=== PATIENT | female | born 1945 | race Caucasian/White ===

== ENCOUNTER → 2016-10-31 | Outpatient (CLI) | payer MEDICARE, BC ==
--- NOTE | 2016-11-01 11:35 | MM ---
Reason for exam: screening (asymptomatic). Last mammogram was performed 1 year ago. History: Patient is postmenopausal. Family history of breast cancer in mother at age 80. Physical Findings: A clinical breast exam by your physician is recommended on an annual basis and results should be correlated with mammographic findings. MG 3D Screening Mammo W/Cad Bilateral CC and MLO view(s) were taken. XCCL view(s) were taken of the left breast. Prior study comparison: October 17, 2015, bilateral MG 3d screening mammo w/cad. January 29, 2013, bilateral digital screening mammo w/CAD. The breast tissue is almost entirely fat. No significant changes when compared with prior studies. ASSESSMENT: Negative, BI-RAD 1 RECOMMENDATION: Routine screening mammogram of both breasts in 1 year.
== END | disposition home or self-care (01) ==
LOC: RADMAMWWP 13:34
PROVIDERS: ATTEND Family Medicine
DX: Z12.31 Encounter for screening mammogram for malignant neoplasm of breast (principal)
CPT/HCPCS: 77063; G0202

== ENCOUNTER → 2017-10-31 | Outpatient (CLI) | payer MEDICARE, BC | END | disposition home or self-care (01) | LOC: LABPAT 13:02 | PROVIDERS: ATTEND Family Medicine | DX: Z01.812 Encounter for preprocedural laboratory examination (principal) | CPT/HCPCS: 87070 ==

== ENCOUNTER 2017-11-11 06:17 | Inpatient (IN) | payer MEDICARE, BC ==
[2017-10-30 09:20] VITALS: BMI 45.3
--- NOTE | 2017-11-10 09:11 | HP ---
HISTORY AND PHYSICAL CHIEF COMPLAINT: Left knee pain. HISTORY OF PRESENT ILLNESS: The patient is a 72-year-old retired female who presents with progressive left knee pain over the past year. She has tried conservative measures with medications. In addition to use of a cane. She notes the pain severely limits her normal function and activities. PAST MEDICAL HISTORY: Significant for type 2 diabetes, hypercholesterolemia, hypertension, and hypothyroidism along with obesity. PAST SURGICAL HISTORY: Significant for gastric stapling, hysterectomy, cholecystectomy, previous knee surgery and appendectomy along with cervical fusion. CURRENT MEDICATIONS: 1. Atorvastatin. 2. Levothyroxine. 3. Lisinopril. 4. Tramadol. 5. Gabapentin. 6. Hydrochlorothiazide. ALLERGIES: She denies drug allergies. FAMILY HISTORY: Significant for diabetes and cancer. SOCIAL HISTORY: Significant for social alcohol use. REVIEW OF SYSTEMS: Sixteen point review of systems otherwise reviewed and is noncontributory. PHYSICAL EXAMINATION: On examination, the patient is approximately 5 feet 3 inches, 240 pounds of endomorphic habitus with a BMI of 42.51. HEENT exam is nonfocal. Neck is supple. She has painless passive motion of her left hip. Straight leg raise is negative. Active motion left knee -6 to 105 degrees of flexion. She is tender about the medial joint line. She has a mild effusion. Collaterals are stable, Laila's negative, Myron's is equivocal. She has genu varum alignment. Her distal neurovascular exam appears intact in the left lower extremity. Previous weightbearing notch lateral and Merchant views of the left knee obtained in the office show severe medial and patellofemoral compartment narrowing. IMPRESSION: 1. Left knee severe medial and patellofemoral compartment osteoarthrosis. 2. Obesity with body mass index of 42.51. RECOMMENDATIONS: I talked to the patient at length regarding her condition and treatment options. At this point, she is quite symptomatic. She opts to proceed with surgery. We will plan to proceed with left total knee arthroplasty. We will institute DVT prophylaxis postoperatively. The patient underwent preoperative medical evaluation by Dr. Pieter Black. MMDESTINEYL / PATELN: [id number] /
[~2017-11-11 06:17] MED LIST: ACETAMINOPHEN TAB 500 MG TAB PO ONE; LIDOCAINE 1% 20 ML VIAL (10MG/ML) FOR IV START INTRADERMA PRN; MELOXICAM 7.5 MG TAB PO ONE; MIDAZOLAM 2 MG/2 ML VIAL IV PRN; ONDANSETRON 4 MG/2 ML VIAL IVP ONE; TRANEXAMIC ACID 1,000 MG in SODIUM CHLORIDE 0.9% 50 ML IVPB ONE; fentaNYL (PF) 50 MCG/ML 2 ML AMP IVP PRN
[2017-11-11] MEDS: LACTATED RINGERS 1,000 ML IV SCH (07:07)
[2017-11-11 07:23] LABS: Glucose,Whole Blood 101 mg/dL (75-99)
[2017-11-11] MEDS ORDERED: LIDOCAINE 1% INJ 10MG/ML (20 ML MDV) ONE (08:06)
[2017-11-11] MEDS ORDERED: SODIUM CHLORIDE 0.9% 100 ML BAG ONE (08:06)
[2017-11-11] MEDS ORDERED: TRANEXAMIC ACID 1,000 MG/10 ML VIAL ONE (08:06)
[2017-11-11] MEDS ORDERED: ROPIVACAINE 246.25 MG, EPINEPHrine 0.5 MG, KETOROLAC 30 MG, cloNIDine HCL/PF 80 MCG, WA... MISCELLANE ONE ×5 (08:06)
[2017-11-11] MEDS ORDERED: MIDAZOLAM 2 MG/2 ML VIAL ONE (08:06)
[2017-11-11] MEDS ORDERED: fentaNYL (PF) 50 MCG/ML 2 ML AMP ONE (08:06)
[2017-11-11] MEDS ORDERED: PROPOFOL 10 MG/ML 20 ML VIAL IV ONE (08:06)
[2017-11-11] MEDS ORDERED: ePHEDrine SULFATE/0.9% NACL/PF 50 MG/5 ML SYRINGE IV ONE (08:06)
[2017-11-11] MEDS ORDERED: ceFAZolin 1,000 MG/50 ML BAG (PMX) IVPB ONE (08:08)
[2017-11-11] MEDS ORDERED: ceFAZolin 3,000 MG in SODIUM CHLORIDE 0.9% IRRIGATIO 3,000 ML IRRIGATION ONE (08:56)
[2017-11-11] MEDS ORDERED: LACTATED RINGERS 1,000 ML IV ONE (09:09)
[2017-11-11] MEDS ORDERED: ROPIVACAINE 1,100 MG, SODIUM CHLORIDE 0.9% 330 ML MISCELLANE PRN ×2 (09:55)
[2017-11-11] MEDS ORDERED: MORPHINE SULFATE 2 MG/ML SYRINGE IVP PRN ×2 (09:57)
[2017-11-11] MEDS ORDERED: HYDROcodone/APAP 5-325MG 1 EACH TAB PO PRN (09:57)
[2017-11-11] MEDS ORDERED: ACETAMINOPHEN TAB 325 MG TAB PO PRN (09:57)
[2017-11-11] MEDS ORDERED: NALOXONE 0.4 MG/ML 1 ML VIAL IV PRN (09:57)
[2017-11-11] MEDS ORDERED: ONDANSETRON 4 MG/2 ML VIAL IVP PRN (09:57)
[2017-11-11] MEDS ORDERED: MAGNESIUM HYDROXIDE 2,400 MG/10 ML CUP PO PRN (09:57)
--- NOTE | 2017-11-11 09:57 | P.ONQ ---
Anesthesiology Proc Note - PNB - Peripheral Nerve Block Performed Left Adductor Canal Procedure Start Time: 07:27 Procedure Stop Time: 07:42 Indication: Acute Post-Operative Pain, Requested by physician (Dr Thomas) Sedation Type: Sedate with meaningful contact maintained Preparation: Sterile Dressing Position: Supine Catheter: Indwelling Needle Types: Other (see comment) (Néstor) Needle Size: 100mm (4") Needle Gauge: 21 Technique: Ultrasound Injectate: 0.5% Ropivacaine (see comment for volume) (23cc) Blood Aspirated: No Pain Paresthesia on Injection Noted: No Resistance on Injection: Normal Events: Uneventful and Well Tolerated
--- NOTE | 2017-11-11 10:34 | P.OP ---
Date of Procedure: 11/11/17 Preoperative Diagnosis: Left knee severe tricompartmental osteoarthrosis Postoperative Diagnosis: Same Procedure(s) Performed: Left total knee lvsdnkisasse-ondnppdl-oqgfjilkj stabilized Implants: Depuy Attune size 6 cemented posterior stabilized femoral component, size 5 cemented tibial component, 10 mm articular surface, 32 mm cemented patellar component. Anesthesia: regional, local, spinal Surgeon: Mike Thomas Insurance Examiner #1: Benny Flores Estimated Blood Loss (ml): 50 Pathology: other (Bone fragments) Condition: stable Disposition: PACU Indications for Procedure: The patient's a 72-year-old female who presents with progressive left knee pain secondary to osteoarthrosis despite conservative measures. A discussion of the risks and benefits of operative intervention versus continued conservative measures was made with the patient. She opted proceed with surgery. Operative risks to include infection, neurovascular injury, development of blood clots, possible component loosening, possible component failure and need for subsequent procedures was discussed. Informed consent was obtained. Operative Findings: As below Description of Procedure: The patient was brought to the operating room, and after induction of spinal anesthesia the left lower extremity was prepped and draped in normal fashion. The tourniquet was inflated to 270 mmHg. A longitudinal incision extending 3 finger breaths above the superior pole of patella extending to the medial aspect of the tibial tubercle was then made. The skin and subcutaneous tissues were divided sharply. Electrocautery was used for hemostasis. A medial parapatellar arthrotomy was then performed. The medial soft tissues to include the superficial and deep portions the medial collateral ligament as well as the medial hamstring tendons were elevated subperiosteally. The proximal medial tibial osteophytes were carefully removed. The patella was everted. A portion of the retropatellar fat pad was excised sharply. The knee was flexed. The anterior cruciate ligament was previously ruptured. A starting hole was made in the distal femur 1 cm anterior to the posterior cruciate ligament origin. An intramedullary femoral guide was gently inserted planning on 5 valgus distal cut with a 9 mm distal resection. The cutting block was pinned in place. The distal cut was then made. The posterior referencing sizing guide was utilized. I felt size 6 was most appropriate. 3 of external rotation was built into the system and verified off the trans-epicondylar axis and the posterior condyles. The cutting block was pinned in place. The anterior, posterior, and chamfer cuts were then made. The bone fragments were then removed. The box guide was used for the intercondylar cut utilizing a reciprocating saw. The bone was removed. The trial size 6 femoral component was placed and was fully seated. There was good anterior to posterior and medial to lateral fit. The distal peg holes were drilled. Attention was then paid towards preparing the proximal tibia. An extra medullary tibial guide was utilized in line with the tibial shaft and second metatarsal distally. A 0 posterior slope cutting block was utilized. I planned on 2 mm resection from the medial compartment. The cutting block was pinned in place. The proximal tibial cut was made and the bone removed in one fragment. The flexion gap was still tight and therefore additional 2 mm was resected from the proximal tibia. The tibia sized most appropriate size 5. The remnants of the medial and lateral menisci were excised the capsule junction with electrocautery. The trial femoral and tibial components were placed along with a 10 mm articular surface. I was able to obtain full flexion and extension with good stability with varus and valgus stress. After several flexion and extension cycles, the tibial rotation was marked in line with the medial one third of the tibial tubercle with electrocautery. Attention was then paid towards preparing the patella. A patella reamer was utilized taking senna 14 mm of bone stock. A good flush cut was made. The patella sized most appropriately 32 mm per the peg holes were drilled. The trial components placed. The knee was again taken through a range of motion. I had good patellofemoral tracking with no hands technique. The trial components were then removed. The tibia was prepared in the appropriate rotation with appropriate drill and keel punch. Additional drill holes were made in the proximal medial tibia to facilitate cement interdigitation. The posterior osteophytes off the distal femur were carefully removed with a curved osteotome. The flexion and extension gaps were checked and felt to be symmetric. The posterior soft tissues were injected with ropivacaine. The bony surfaces were prepared with pulsatile lavage and dried. The tibial component was then cemented in placed and was fully seated. Excess cement was removed. The femoral component cemented in placed and was fully seated. Excess cement was removed. The trial 10 mm articular surface was placed and the knee was put in full extension. The patellar component cemented in place. After the cement had sufficiently hardened, the knee was again taken through range of motion. Again I was able to obtain full flexion and extension with good stability with varus and valgus stress. The trial articular surface was removed and the final one inserted. This was fully seated. Care was taken to avoid any soft tissue interposition. Pulsatile lavage was again utilized. The tourniquet was deflated with approximately 1 hour total tourniquet time. Final hemostasis was obtained with electrocautery. Second dose of IV TXA was given. The medial parapatellar arthrotomy was closed with running #2 Ethibond suture. A deep drain was placed exiting laterally. The subcutaneous tissues were reapproximated interrupted 2-0 Vicryl sutures. The skin was reapproximated with a 3-0 subcuticular strata fix suture. Skin tape and adhesive was applied. A sterile dressing was applied. The patient was then awoken from sedation and transferred to the recovery room in good condition. Blood loss was estimated 50 mL. case were incurred. Sponge and needle counts were correct at the end of the case.
--- NOTE | 2017-11-11 11:06 | XR ---
EXAMINATION TYPE: XR knee limited LT DATE OF EXAM: 11/11/2017 CLINICAL HISTORY: Left knee pain and arthritis status post total knee replacement. TECHNIQUE: Portable AP and crosstable lateral views of the left knee are obtained immediately postop eratively. COMPARISON: None FINDINGS: Metallic hardware from total left knee arthroplasty is seen and appears satisfactory in al ignment and position. There is evidence of recent surgery with diffuse subcutaneous gas, and percuta neous suprapatellar surgical drain noted. IMPRESSION: METALLIC HARDWARE FROM TOTAL LEFT KNEE ARTHROPLASTY IS SATISFACTORY IN ALIGNMENT.
[2017-11-11] MEDS: traMADol 50 MG TAB PO SCH ×3 (12:09→22:21)
[2017-11-11] MEDS: MORPHINE SULFATE 2 MG/ML SYRINGE IV PRN ×2 (12:57→22:19)
[2017-11-11] MEDS: ceFAZolin IN SWFI 2 GM/20 ML SYRINGE IVP SCH (15:50)
[2017-11-11] MEDS ORDERED: ceFAZolin 3 GM in SODIUM CHLORIDE 0.9% 100 ML IVPB SCH (16:00)
[2017-11-11] MEDS: SENNOSIDES-DOCUSATE SODIUM 1 EACH TAB PO SCH (22:22)
[2017-11-12] MEDS: ceFAZolin IN SWFI 2 GM/20 ML SYRINGE IVP SCH (01:01)
[2017-11-12] MEDS: HYDROcodone/APAP 5-325MG 1 EACH TAB PO PRN ×4 (01:06→18:37)
--- NOTE | 2017-11-12 06:06 | CONS ---
CONSULTATION DATE OF CONSULTATION: 11/11/17. REASON FOR CONSULTATION: Medical management requested by Dr. Thomas. CONSULTATIONS: A very pleasant 72-year-old patient of Dr. Alvarado Black out of [place]. The patient has undergone a left total knee arthroplasty. Postprocedure pain is controlled. No nausea, vomiting. Chronic stable medical conditions include diabetes, fibromyalgia, GERD, hypertension, hyperlipidemia, hypothyroid. The patient does not use a CPAP machine as physical the way she is probably using it. Did tolerate some breakfast. REVIEW OF SYSTEMS: CONSTITUTIONAL: None. HEENT: None. RESPIRATORY: None. CARDIOVASCULAR: None. GASTROINTESTINAL: Heartburn. MUSCULOSKELETAL: Arthritic pain in joints. DERMATOLOGICAL, HEMATOLOGIC, LYMPHATIC: None. PSYCHIATRY: None. NEUROLOGICAL: None. PAST MEDICAL HISTORY: Diabetes, fibromyalgia, GERD, hypertension, hyperlipidemia, osteoarthritis, hypothyroid, obstructive sleep apnea, varicose veins. PAST SURGICAL HISTORY: Adenoidectomy, appendectomy, bariatric surgery, cholecystectomy, hysterectomy, tonsillectomy, tubal ligation, gastric stapling, cervical fusion, right knee replacement. SOCIAL HISTORY: , used to work with the [employer]. Smoked for 8 years, stopped in 1974. Alcohol occasional. FAMILY HISTORY: Breast and cervical cancer. HOME MEDICATIONS: 1. Ultram 50 mg q.i.d. p.r.n. 2. Hair, skin and nails 1 tablet p.o. daily. 3. Maxzide 37.5/25 1 tab p.o. daily. 4. Centrum Silver 1 tablet p.o. daily. 5. Zestril 2.5 p.o. daily at 2:00 pm. 6. Synthroid 125 mcg p.o. daily. 7. Neurontin 800 mg p.o. t.i.d. p.r.n. 8. Vitamin D3 5000 units p.o. daily. 9. Lipitor 40 mg p.o. with supper. 10.Aspirin 81 60 mg p.o. daily. 11.Xarelto 10 mg p.o. daily. ALLERGIES: None. EXAMINATION: Temp 97.5, pulse 100, respirations 18, blood pressure 120/57, pulse 92% on room air. GENERAL APPEARANCE: Well built, BMI 45.2, sitting up, comfortable. EYES: Pupils equal. Conjunctivae normal. HEENT: External appearance of nose and ears normal. Oral cavity normal. NECK: JVD not raised. Mass not palpable. RESPIRATORY: Effort lungs are clear. CARDIOVASCULAR: First and second sounds, no edema. ABDOMEN: Soft, nontender. Liver and spleen not palpable. LYMPHATIC: No lymph nodes palpable in neck or axillae. PSYCHIATRY: Alert and oriented x3. Mood and affect normal. INVESTIGATION: Accu-Cheks 101. ASSESSMENT: 1. Left total knee arthroplasty. 2. Chronic fibromyalgia. 3. Gastroesophageal reflux disease. 4. Hyperlipidemia. 5. Essential hypertension. 6. Primary osteoarthritis. 7. Hypothyroidism. 8. Obstructive sleep apnea, does not use CPAP. 9. Morbid obesity, BMI 45.3. PLAN: Continue medication and treatment plan. Patient getting IV fluids. The patient will be given Xarelto for DVT prophylaxis. Care was discussed with the patient. Questions were answered. Thank you Dr. Thomas. MARISEL / CHANEL: [id number] /
[2017-11-12] MEDS: LACTATED RINGERS 1,000 ML IV SCH (06:37)
[2017-11-12 07:30] LABS: Basophils % (A) 0 %; Eosinophils # (A) 0.1 k/uL (0-0.7); Eosinophils % (A) 1 %; HCT 38.6 % (34.0-46.0); HGB 12.6 gm/dL (11.4-16.0); Lymphocytes # (A) 1.2 k/uL (1.0-4.8); Lymphocytes % (A) 21 %; MCHC 32.7 g/dL (31.0-37.0); Monocytes # (A) 0.6 k/uL (0-1.0); Monocytes % (A) 10 %; Neutrophils # (A) 3.8 k/uL (1.3-7.7); Neutrophils % (A) 66 %; Platelet Count 148 k/uL (150-450); RBC 4.07 m/uL (3.80-5.40); RDW 13.8 % (11.5-15.5); WBC 5.7 k/uL (3.8-10.6)
[2017-11-12] MEDS: FAMOTIDINE 20 MG TAB PO SCH (08:24)
[2017-11-12] MEDS: RIVAROXABAN 10 MG TAB PO SCH (08:24)
[2017-11-12] MEDS: traMADol 50 MG TAB PO SCH ×4 (08:25→22:42)
--- NOTE | 2017-11-12 08:44 | P.PN ---
Progress Note - Text Progress Note Date: 11/12/17 S: The patient has no complaints. They deny shortness of breath or chest pain. O: Afebrile, vital signs stable Homans negative left lower extremity Distal neurovascular status intact in the left lower extremity Incision clean, dry , and intact A/P: Postoperative day 1 status post left total knee arthroplasty Medical management DVT prophylaxis with Xarelto Discharge planningpossible rehab
[2017-11-12 11:52] LABS: Glucose,Whole Blood 153 mg/dL (75-99)
--- NOTE | 2017-11-12 18:20 | P.PN ---
Progress Note - Text The patient is status post left adductor canal catheter placement. The catheter was placed for postoperative pain control, status post total left arthroplasty. Ropivacaine 0.2% is infusing at 12 mLs per hour. The patient has no complaints of left lower extremity numbness or weakness. Patient's VAS score is 3-10. Assessment: Patient's adductor canal catheter is in place and working appropriately. Plan: continue infusion and adjust it as needed.
--- NOTE | 2017-11-12 19:52 | PN ---
PROGRESS NOTE DATE OF SERVICE: 11/12/2017 PRESENTING COMPLAINT: Left knee arthroplasty. INTERVAL HISTORY: Patient is status post left knee arthroplasty, doing well. Some pain is present. No nausea vomiting. Sitting up in a chair. Did work with therapy. REVIEW OF SYSTEMS: Done for constitutional, cardiovascular, GI, pulmonary; relevant findings as above. CURRENT MEDICATIONS: Reviewed. EXAMINATION: Temperature 98.2, pulse 60, respirations 16, blood pressure 120/68, pulse ox 93% on room air. GENERAL APPEARANCE: Sitting up on chair, comfortable. EYES: Pupils equal. Conjunctivae normal. HEENT: External appearance of nose and ears normal. Oral cavity normal. NECK: JVD not raised. Mass not palpable. RESPIRATORY: Effort normal. LUNGS: Clear. CARDIOVASCULAR: First and second sounds normal. No edema. ABDOMEN: Soft, nontender. Liver and spleen not palpable. PSYCHIATRY: Alert and oriented x3. Mood and affect normal. INVESTIGATIONS: Hemoglobin 12.6. Accu-Cheks noted. ASSESSMENT: 1. Left total knee arthroplasty. 2. Chronic fibromyalgia. 3. Gastroesophageal reflux disease. 4. Hyperlipidemia. 5. Essential hypertension. 6. Primary osteoarthritis. 7. Hypothyroidism. 8. Obstructive sleep apnea, does not use CPAP. 9. Morbid obesity, BMI of 45.3. PLAN: Patient continues to do well. Will discontinue the IV fluids. The patient is stable. MMODL / IJN: [id number] /
[2017-11-12] MEDS: SENNOSIDES-DOCUSATE SODIUM 1 EACH TAB PO SCH (22:43)
[2017-11-13] MEDS: HYDROcodone/APAP 5-325MG 1 EACH TAB PO PRN ×4 (01:08→21:11)
[2017-11-13] MEDS: traMADol 50 MG TAB PO SCH ×4 (07:59→21:39)
[2017-11-13] MEDS: RIVAROXABAN 10 MG TAB PO SCH (08:00)
[2017-11-13] MEDS: FAMOTIDINE 20 MG TAB PO SCH (08:00)
--- NOTE | 2017-11-13 08:29 | P.PN ---
Progress Note - Text The patient is status post left adductor canal catheter placement. The catheter was placed for postoperative pain control, status post total left arthroplasty. Ropivacaine 0.2% is infusing at 12 mLs per hour. The patient has no complaints of left lower extremity numbness or weakness. Patient's VAS score is 3 -10. Assessment: Patient's adductor canal catheter is in place and working appropriately. Plan: continue infusion and adjust it as needed.
[2017-11-13] MEDS ORDERED: GABAPENTIN 400 MG CAP PO PRN (08:59)
[2017-11-13] MEDS: TRIAMTERENE-HCTZ 37.5-25MG 1 EACH TAB PO SCH (09:29)
[2017-11-13] MEDS: LEVOTHYROXINE 125 MCG TAB PO SCH (09:29)
[2017-11-13] MEDS: CHOLECALCIFEROL 1,000 UNIT TAB PO SCH (09:29)
--- NOTE | 2017-11-13 10:40 | US ---
EXAMINATION TYPE: US venous doppler duplex LE LT DATE OF EXAM: 11/13/2017 10:19 AM COMPARISON: NONE CLINICAL HISTORY: calf pa; patient stated has left lower popliteal fossa pain post left knee replacem ent performed 11/11/2017 SIDE PERFORMED: Left TECHNIQUE: The lower extremity deep venous system is examined utilizing real time linear array sonog chrissy with graded compression, doppler sonography and color-flow sonography. VESSELS IMAGED: Common Femoral Vein Deep Femoral Vein Greater Saphenous Vein * Femoral Vein/ not seen distally due to pain pump dressings and tape at this level Popliteal Vein Small Saphenous Vein * Proximal Calf Veins (* superficial vessels) Grayscale, color doppler, spectral doppler imaging performed of the deep veins of the lower extremiti es. Left Leg: Negative for DVT; left popliteal fossa complex fluid collection is noted and size = 3.4 x 3.8 x 1.0cm. There is normal flow, compressibility, vascular waveforms. IMPRESSION: No evident deep venous thrombosis at or above the left knee. Follow-up in 24 to 48 ho urs as clinically indicated if clot propagation from the catheter is suspected clinically. Possible h ematoma in the popliteal fossa, finding indeterminate.
[2017-11-13] MEDS ORDERED: LISINOPRIL 2.5 MG TAB PO SCH (14:00)
--- NOTE | 2017-11-13 14:04 | P.PN ---
Subjective Progress Note Date: 11/13/17 Principal diagnosis: Status post left total knee arthroplasty Patient is seen today resting in hospital bed, she is utilizing the CPM machine. Her pain is controlled. She denies any headaches, lightheadedness, chest pain or shortness of breath. Objective - Vital Signs Vital signs: Vital Signs Temp 98.9 F 11/13/17 07:51 Pulse 113 H 11/13/17 07:51 Resp 18 11/13/17 07:51 BP 161/77 11/13/17 07:51 Pulse Ox 97 11/13/17 07:51 Intake & Output 11/12/17 11/13/17 11/13/17 18:59 06:59 18:59 Intake Total 900 600 657 Balance 900 600 657 Intake: Intake, IV Titration 400 Amount Lactated Ringers 1,000 ml 400 @ 50 mls/hr IV .Q20H LORETA Rx#:[id number] Oral 500 600 657 Other: Voiding Method Indwelling Catheter Toilet Toilet # Voids 1 1 3 - Exam Left lower extremity: Incision is clean, dry, and intact. The prineo tape is in good condition. There is minimal soft tissue swelling and ecchymosis surrounding the medial and lateral aspects of the incision. Calf is soft, no tenderness with palpation. Plantar flexion, dorsiflexion, EHL, FHL are intact. Sensory exam to light touch throughout the extremity is intact, dorsal pedis pulses 2+. - Labs CBC & Chem 7: 11/12/17 07:15 Assessment and Plan Plan: Assessment: 1. Postop day 2 status post left total knee arthroplasty Plan: Pain control, continue use of oral medication GI and DVT prophylaxis, continue subcu Xarelto 10 mg daily encourage assess [place] Wound care was discussed Icing and elevating techniques Medical recommendations Discharge planning: Patient will likely be discharged rehab tomorrow Time with Patient: Less than 30
--- NOTE | 2017-11-13 14:18 | P.DS ---
Providers Date of admission: 11/11/17 06:17 Expected date of discharge: 11/13/17 Attending physician: Mike Thomas Consults: 11/11/17 10:00 Consult Physician Routine Consulting Provider: Pieter Black Reason/Comments: Medical Management Do you want consulting provider notified?: Yes Primary care physician: Pieter Black Hospital Course: Date of admission: 11/11/2017 Date of discharge: 11/14/2017 Admission diagnosis: Status post left total knee arthroplasty Discharge diagnosis: Same Attending physician: Dr. Thomas Surgical procedures: Left total knee arthroplasty Brief history: Patient is a 72-year-old female with a history of left knee primary osteoarthritis. At this point patient has failed conservative treatment measures and has opted to proceed with a elective lite left total knee arthroplasty. Hospital course: Details of patient's surgery can be found in operative report. Patient tolerated the procedure well and was subsequently transported to orthopedic floor. Patient's orthopeidc and medical care was provided daily. Patient had daily laboratory tests performed for evaluation of overall blood counts. Patient had daily physical therapy to include strengthening range of motion as well as education with walker ambulation. Patient had daily CPM usage as part of their physical therapy program. Patient was treated with Xarelto for their postoperative DVT prophylaxis during their inpatient stay. Patient was noted to have a relatively uneventful postoperative course. Patient reported satisfactory pain control with oral pain medications by postoperative day 1. Patient showed satisfactory progress with physical therapy. Patient moved steadily through the program and had no difficulty meeting the goals by postoperative day 3. Given patient's otherwise satisfactory course and having met physical therapy goals, plan is to discharge patient rehab on postoperative day 3. Discharge condition/disposition: Patient will be discharged rehab in stable condition. Discharge medications: Instructions are given on resumption of patient's normal daily medications per primary care recommendation, in addition patient will be prescribed Bristol 5mg/325mg, Xarelto 10mg, Colace 100mg. Discharge instructions: 1. Wound care and infection precautions, keep incision dry and covered while showering, no lotions, creams, moisturizers. No soaking, tubs, pools, hottubs. Do not scrub over the incision. 2. Weight-bear as tolerated with walker / cane until follow-up. 3. Ice and elevate when necessary. Do not exceed 20 minutes per hour with ice pack. 4. Utilize compression sleeve until seen at first follow up appointment. 5. Visiting nursing care. 6. Home physical therapy including home CPM 7. Pain meds and anticoagulants per prescription. 8. Pain medication has potential to cause constipation. Increase oral fluid and fiber intake. Contact primary care provider if you have not had a bowel movement within 48 hours after discharge 9. No anti-inflammatory medication until discussed at first post operative visit, this including Motrin, Aleve, Mobic, Diclofenac 10. Follow up in office at 2 weeks postop with Jeronimo Flores PA-C 11. Follow up with your primary care doctor 7-10 days after discharge. 12. Contact [facility] with any questions, . Procedures: Left total knee arthroplasty Patient Condition at Discharge: Good Plan - Discharge Summary Discharge Rx Participant: Yes New Discharge Prescriptions: New Rivaroxaban [Xarelto] 10 mg PO DAILY #12 tab Docusate [Colace] 100 mg PO DAILY #30 capsule Hydrocodone/Acetaminophen [Bristol 5-325] 1 - 2 each PO Q6HR PRN #56 tab PRN Reason: Pain traMADol HCl [Ultram] 50 mg PO Q6H PRN #28 tab PRN Reason: Pain Discontinued traMADol HCl [Ultram] 50 mg PO QID PRN PRN Reason: Pain No Action Gabapentin [Neurontin] 800 mg PO TID PRN PRN Reason: Pain Atorvastatin [Lipitor] 40 mg PO PC-SUPPER Triamterene-Hctz 37.5-25Mg [Maxzide 37.5-25] 1 tab PO DAILY Levothyroxine Sodium [Synthroid] 125 mcg PO QAM Aspirin EC [Ecotrin] 162 mg PO DAILY Vitamin C/Biotin [Hair, Skin and Nails] 1 tab PO DAILY Multivit-Min/Iron/Folic/Lutein [Centrum Silver Women Tablet] 1 tab PO DAILY Cholecalciferol [Vitamin D3] 5,000 unit PO DAILY Lisinopril [Zestril] 2.5 mg PO DAILY@1400 Discharge Medication List Atorvastatin [Lipitor] 40 mg PO PC-SUPPER 11/16/13 [History] Gabapentin [Neurontin] 800 mg PO TID PRN 11/16/13 [History] Levothyroxine Sodium [Synthroid] 125 mcg PO QAM 11/16/13 [History] Triamterene-Hctz 37.5-25Mg [Maxzide 37.5-25] 1 tab PO DAILY 11/16/13 [History] Aspirin EC [Ecotrin] 162 mg PO DAILY 09/27/15 [History] Cholecalciferol [Vitamin D3] 5,000 unit PO DAILY 10/30/17 [History] Lisinopril [Zestril] 2.5 mg PO DAILY@1400 10/30/17 [History] Multivit-Min/Iron/Folic/Lutein [Centrum Silver Women Tablet] 1 tab PO DAILY [History] Vitamin C/Biotin [Hair, Skin and Nails] 1 tab PO DAILY 10/30/17 [History] Rivaroxaban [Xarelto] 10 mg PO DAILY #12 tab 11/11/17 [Rx] Docusate [Colace] 100 mg PO DAILY #30 capsule 11/13/17 [Rx] Hydrocodone/Acetaminophen [Bristol 5-325] 1 - 2 each PO Q6HR PRN #56 tab 11/13/17 [Rx] traMADol HCl [Ultram] 50 mg PO Q6H PRN #28 tab 11/13/17 [Rx] Follow up Appointment(s)/Referral(s): Benny Flores PAC [PHYSICIAN [facility] [employer]] - 11/26/17 2:10 pm Pieter Black MD [Primary Care Provider] - 11/19/17 1:15 pm Activity/Diet/Wound Care/Special Instructions: Orthopedic Discharge Instructions: 1. Wound care and infection precautions, keep incision dry and covered while showering, no lotions, creams, moisturizers. No soaking, pools, hot tubs. Do not scrub over incision. 2. Weight-bear as tolerated with walker / cane until follow-up. 3. Ice and elevate when necessary. Do not exceed 20 minutes per hour with ice pack. 4. Utilize compression sleeve until seen at first follow up appointment. 5. Visiting nursing care. 6. Home physical therapy including home CPM. 7. Pain meds and anticoagulants per prescription. 8. Pain medication has potential to cause constipation. Increase oral fluid and fiber intake. Contact primary care provider if you have not had a bowel movement within 48 hours after discharge. 9. No anti-inflammatory medication until discussed at first post operative visit, this including Motrin, Aleve, Mobic, Diclofenac. 10. Follow up in office at 2 weeks postop with Jeronimo Flores PA-C 11. Follow up with your primary care doctor 7-10 days after discharge. 12. Contact [facility] with any questions, . Discharge Disposition: HOME WITH HOME HEALTH SERVICES
[2017-11-13] MEDS ORDERED: ATORVASTATIN 40 MG TAB PO SCH (18:30)
--- NOTE | 2017-11-13 18:59 | PN ---
PROGRESS NOTE DATE OF SERVICE: November 13, 2017 PRESENT COMPLAINT: Left knee arthroplasty. INTERVAL HISTORY: Patient is status post left knee arthroplasty, doing better. Pain is controlled. Did work with therapy. Tolerating a diet. REVIEW OF SYSTEMS: Done for constitutional, cardiovascular, GI, pulmonary, musculoskeletal and relevant findings as above. CURRENT MEDICATIONS: Reviewed. EXAMINATION: VITAL SIGNS: Temperature 98.9, pulse 113, respiration 18, blood pressure 116/77. Pulse ox 97%. GENERAL APPEARANCE: Sitting up in a chair, comfortable. EYES: Pupils are equal. Conjunctivae normal. HEENT: External appearance of nose and ears normal. Oral cavity normal. NECK: JVD not raised. Mass not palpable. RESPIRATORY: Effort, lungs are clear. CARDIOVASCULAR: 1st and 2nd sounds no edema. ABDOMEN: Soft, nontender. Liver and spleen not palpable. PSYCHIATRY: Alert and oriented x3. Mood and affect normal. INVESTIGATIONS: White count 5.7, hemoglobin 12.6. ASSESSMENT: 1. Left total knee arthroplasty. 2. Chronic fibromyalgia. 3. Gastroesophageal reflux disease. 4. Hyperlipidemia. 5. Essential hypertension. 6. Primary osteoarthritis. 7. Hypothyroidism. 8. Obstructive sleep apnea does not use CPAP. 9. Morbid obesity BMI 45.3. PLAN: Care was discussed with the patient. Continues to improve. Looking to go to rehab. MMODL / IJN: [id number] /
[2017-11-13] MEDS: SENNOSIDES-DOCUSATE SODIUM 1 EACH TAB PO SCH (20:30)
[2017-11-14 02:29] VITALS: RESP 16; TEMP 98.1
[2017-11-14] MEDS: LEVOTHYROXINE 125 MCG TAB PO SCH (05:52)
[2017-11-14] MEDS: HYDROcodone/APAP 5-325MG 1 EACH TAB PO PRN ×2 (05:52→12:34)
[2017-11-14 06:43] LABS: Basophils % (A) 0 %; Eosinophils # (A) 0.1 k/uL (0-0.7); Eosinophils % (A) 1 %; HCT 42.9 % (34.0-46.0); HGB 13.9 gm/dL (11.4-16.0); Lymphocytes # (A) 2.3 k/uL (1.0-4.8); Lymphocytes % (A) 26 %; MCH 30.6 pg (25.0-35.0); MCHC 32.4 g/dL (31.0-37.0); MCV 94.2 fL (80.0-100.0); Mean Platelet Volume 6.8; Monocytes # (A) 0.5 k/uL (0-1.0); Monocytes % (A) 5 %; Neutrophils # (A) 5.8 k/uL (1.3-7.7); Neutrophils % (A) 65 %; Platelet Count 224 k/uL (150-450); RBC 4.56 m/uL (3.80-5.40); RDW 13.6 % (11.5-15.5)
[2017-11-14 07:35] VITALS: BP 109/69; PULSE 80
[2017-11-14] MEDS: FAMOTIDINE 20 MG TAB PO SCH (09:23)
[2017-11-14] MEDS: CHOLECALCIFEROL 1,000 UNIT TAB PO SCH (09:23)
[2017-11-14] MEDS: RIVAROXABAN 10 MG TAB PO SCH (09:24)
[2017-11-14] MEDS: traMADol 50 MG TAB PO SCH (09:24)
[2017-11-14] MEDS: TRIAMTERENE-HCTZ 37.5-25MG 1 EACH TAB PO SCH (09:24)
--- NOTE | 2017-11-15 01:08 | PN ---
PROGRESS NOTE DATE OF SERVICE: 11/14/2017. PRESENTING COMPLAINT: Left knee arthroplasty. INTERVAL HISTORY: I saw this patient earlier today. Doing well. Pain is controlled. Up and about with therapy, tolerating a diet. No chest pain or short of breath. REVIEW OF SYSTEMS: Done for constitutional, cardiovascular, GI, pulmonary, musculoskeletal and relevant findings as above. CURRENT MEDICATIONS: Reviewed. EXAMINATION: VITAL SIGNS: Temperature 98.1, pulse 82, respiratory rate 16, blood pressure 109/69, pulse ox 93% on room air. GENERAL APPEARANCE: Sitting in a chair, comfortable. EYES: Pupils are equal. Conjunctivae normal. HEENT: External appearance of nose and ears normal. Oral cavity normal. NECK: JVD not raised. Mass not palpable. RESPIRATORY: Effort normal. LUNGS are clear. CARDIOVASCULAR: 1st and 2nd sounds normal. No edema. ABDOMEN: Soft, nontender. Liver and spleen not palpable. PSYCHIATRY: Alert and oriented x3. Mood and affect normal. INVESTIGATIONS: Hemoglobin 13.9, white count 9. ASSESSMENT: 1. Left total knee arthroplasty. 2. Chronic fibromyalgia. 3. Gastroesophageal reflux disease. 4. Hyperlipidemia. 5. Essential hypertension. 6. Primary osteoarthritis. 7. Hypothyroidism. 8. Obstructive sleep apnea does not use CPAP. 9. Morbid obesity BMI 45.3. PLAN: Patient is stable. Continue current medication and treatment plan. Doing good. Patient may be getting transferred to rehab. Thank you Dr. Thomas. MARISEL / CHANEL: [id number] /
== END 2017-11-14 14:18 | disposition home health service (06) | DRG 470 ==
LOC: 2ORMAIN 06:17 → 3SUR 10:32
PROVIDERS: ADMIT Orthopaedic Surgery; ATTEND Orthopaedic Surgery
PROC: 0SRD069 Replacement of Left Knee Joint with Oxidized Zirconium on Polyethylene Synthetic Substitute, Cemented, Open Approach (ICD-10-PCS; principal; 2017-11-11 08:00)
DX: M17.12 Unilateral primary osteoarthritis, left knee (principal); Z68.42 Body mass index [BMI] 45.0-49.9, adult; E03.9 Hypothyroidism, unspecified; E11.9 Type 2 diabetes mellitus without complications; E66.01 Morbid (severe) obesity due to excess calories; E78.00 Pure hypercholesterolemia, unspecified; E78.5 Hyperlipidemia, unspecified; G47.33 Obstructive sleep apnea (adult) (pediatric); I10 Essential (primary) hypertension; K21.9 Gastro-esophageal reflux disease without esophagitis; M79.7 Fibromyalgia; I83.90 Asymptomatic varicose veins of unspecified lower extremity; Z96.651 Presence of right artificial knee joint; Z90.710 Acquired absence of both cervix and uterus; Z90.49 Acquired absence of other specified parts of digestive tract; Z98.1 Arthrodesis status; Z79.01 Long term (current) use of anticoagulants; Z79.899 Other long term (current) drug therapy; Z83.3 Family history of diabetes mellitus; Z80.3 Family history of malignant neoplasm of breast; Z80.49 Family history of malignant neoplasm of other genital organs
CPT/HCPCS: 85025; 88300

== ENCOUNTER 2018-12-26 15:58 | Emergency (ER) | payer MEDICARE, BC ==
[2018-12-26 16:09] VITALS: TEMP 97.9
[2018-12-26] MEDS ORDERED: SODIUM CHLORIDE 0.9% 500 ML 500 ML IV STA (16:41)
--- NOTE | 2018-12-26 16:44 | ED ---
General Adult HPI - General Chief complaint: Shortness of Breath Stated complaint: Sob/ear pain Time Seen by Provider: 12/26/18 16:13 Source: patient Mode of arrival: ambulatory Limitations: no limitations - History of Present Illness Initial comments: Dictation was produced using [employer] dictation software. please excuse any grammatical, word or spelling errors. Chief Complaint: 73-year-old female sent in from urgent care for further evaluation. History of Present Illness: 71-year-old female she was initially seen at [facility] for positional chest pain or shortness of breath. Patient states that yesterday she's been having chest pain and shortness of breath. She states like a pressure-like sensation to her substernal chest however it's only exacerbated with lying flat. She also complains of some shortness of breath with this. Patient denies any medical history. She denies any lower extremity symptoms. D enies any history of DVT or pulmonary embolus. Patient has past medical history of hypertension, diabetes and fibromyalgia. Patient denies any cough. Constitutional symptoms. Patient states that the pain does not radiate and is not associated with diaphoresis. The ROS documented in this emergency department record has been reviewed and confirmed by me. Those systems with pertinent positive or negative responses have been documented in the HPI. All other systems are other negative and/or noncontributory. PHYSICAL EXAM: General Impression: Alert and oriented x3, not in acute distress HEENT: Normocephalic atraumatic, extra-ocular movements intact, pupils equal and reactive to light bilaterally, mucous membranes moist. Cardiovascular: Heart regular rate and rhythm, S1&S2 audible, no murmurs, rubs or gallops Chest: Lungs clear to auscultation bilaterally, no rhonchi, no wheeze, no rales Abdomen: Bowel sounds present, abdomen soft, non-tender, non-distended, no organomegaly Musculoskeletal: Pulses present and equal in all extremities, no peripheral edema Motor: no focal deficits noted Neurological: CN II-XII grossly intact, no focal motor or sensory deficits noted Skin: Intact with no visualized rashes Psych: Normal affect and mood ED course: 73-year-old female presents with positional chest pain and shortness of breath. All signs upon arrival are within acceptable limits. Patient's well-appearing at bedside. EKG is not consistent with pericarditis. There are no ischemic changes Lavatory evaluation obtained. CBC, coag panel, both eyes unremarkable. Troponin is negative. No concern for myocarditis. Patient's symptoms are positional. Prematurity peptide is negative. Chest x-ray shows mild cardiomegaly. EKG is unremarkable. Patient was otherwise department for multiple hours with stable medical condition. She does not appear short of breath and her does not appear to be in acute distress. Patient clear for discharge. She is told to follow-up with her primary care physician. Return parameters discussed. EKG interpretation: Ventricular rate 84, normal sinus rhythm,. Interval 182, care is 86, QTC 432. No GA prolongation, no QTC prolongation, no ST or T-wave changes noted. No change in comparison to 09/27/2015 Overall, this EKG is unremarkable - Related Data Home Medications Medication Instructions Recorded Confirmed Atorvastatin [Lipitor] 40 mg PO PC-SUPPER 11/16/13 12/26/18 Gabapentin [Neurontin] 800 mg PO TID PRN 11/16/13 12/26/18 Levothyroxine Sodium [Synthroid] 125 mcg PO QAM 11/16/13 12/26/18 Triamterene-Hctz 37.5-25Mg 1 tab PO DAILY 11/16/13 12/26/18 [Maxzide 37.5-25] Cholecalciferol [Vitamin D3 (25 5,000 unit PO DAILY 10/30/17 12/26/18 Mcg = 1000 Iu)] Lisinopril [Zestril] 2.5 mg PO DAILY@1400 10/30/17 12/26/18 Multivit-Min/Iron/Folic/Lutein 1 tab PO DAILY 10/30/17 12/26/18 [Centrum Silver Women Tablet] Vitamin C/Biotin [Hair, Skin and 1 tab PO DAILY 10/30/17 12/26/18 Nails] Previous Rx's Medication Instructions Recorded traMADol HCl [Ultram] 50 mg PO Q6H PRN #28 tab 11/13/17 Allergies Allergy/AdvReac Type Severity Reaction Status Date / Time No Known Allergies Allergy Verified 12/26/18 16:31 Review of Systems ROS Statement: Those systems with pertinent positive or pertinent negative responses have been documented in the HPI. ROS Other: All systems not noted in ROS Statement are negative. Past Medical History Past Medical History: Diabetes Mellitus, Fibromyalgia, GERD/Reflux, Hyperlipidemia, Hypertension, Osteoarthritis (OA), Sleep Apnea/CPAP/BIPAP, Thyroid Disorder Additional Past Medical History / Comment(s): varicose veins,SPINAL STENOSIS."pt STATES TOLD BY HER DR SHE IS NOT A DIABETIC ANYMORE", History of Any Multi-Drug Resistant Organisms: None Reported Past Surgical History: Adenoidectomy, Appendectomy, Bariatric Surgery, Cholecystectomy, Heart Catheterization, Hysterectomy, Joint Replacement, Tonsillectomy, Tubal Ligation Additional Past Surgical History / Comment(s): gastric stapling, cervical fusion, rt knee replacment, colonoscopy, pain clinic procedures in [place]. TOTAL LEFT KNEE Past Anesthesia/Blood Transfusion Reactions: No Reported Reaction Past Psychological History: No Psychological Hx Reported Smoking Status: Former smoker Past Alcohol Use History: Occasional Past Drug Use History: None Reported - Past Family History Mother Family Medical History: Cancer Additional Family Medical History / Comment(s): breast and cervical cancer Sister(s) Family Medical History: Cancer Additional Family Medical History / Comment(s): cervical cancer Father Family Medical History: Diabetes Mellitus General Exam Limitations: no limitations Course Vital Signs 12/26/18 12/26/18 16:04 17:08 Temperature 97.9 F Pulse Rate 81 Respiratory 18 20 Rate Blood Pressure 147/82 O2 Sat by Pulse 95 Oximetry Medical Decision Making - Lab Data Result diagrams: 12/26/18 17:00 12/26/18 17:00 Lab Results 12/26/18 12/26/18 12/26/18 Range/Units 17:00 17:00 17:00 WBC 7.2 (3.8-10.6) k/uL RBC 4.72 (3.80-5.40) m/uL Hgb 14.4 (11.4-16.0) gm/dL Hct 44.6 (34.0-46.0) % MCV 94.4 (80.0-100.0) fL MCH 30.4 (25.0-35.0) pg MCHC 32.2 (31.0-37.0) g/dL RDW 14.2 (11.5-15.5) % Plt Count 182 (150-450) k/uL Neutrophils % 66 % Lymphocytes % 24 % Monocytes % 6 % Eosinophils % 3 % Basophils % 0 % Neutrophils # 4.7 (1.3-7.7) k/uL Lymphocytes # 1.7 (1.0-4.8) k/uL Monocytes # 0.4 (0-1.0) k/uL Eosinophils # 0.2 (0-0.7) k/uL Basophils # 0.0 (0-0.2) k/uL PT (9.0-12.0) sec INR (<1.2) APTT (22.0-30.0) sec Sodium 140 (137-145) mmol/L Potassium 4.1 (3.5-5.1) mmol/L Chloride 101 (98-107) mmol/L Carbon Dioxide 30 (22-30) mmol/L Anion Gap 9 mmol/L BUN 15 (7-17) mg/dL Creatinine 0.60 (0.52-1.04) mg/dL Est GFR (CKD-EPI)AfAm >90 (>60 ml/min/1.73 sqM) Est GFR (CKD-EPI)NonAf >90 (>60 ml/min/1.73 sqM) Glucose 114 H (74-99) mg/dL Calcium 9.6 (8.4-10.2) mg/dL Magnesium 1.8 (1.6-2.3) mg/dL Total Bilirubin 0.7 (0.2-1.3) mg/dL AST 38 H (14-36) U/L ALT 32 (9-52) U/L Alkaline Phosphatase 81 (38-126) U/L Troponin I (0.000-0.034) ng/mL NT-Pro-B Natriuret Pep 41 pg/mL Total Protein 7.6 (6.3-8.2) g/dL Albumin 4.1 (3.5-5.0) g/dL 12/26/18 12/26/18 Range/Units 17:00 17:00 WBC (3.8-10.6) k/uL RBC (3.80-5.40) m/uL Hgb (11.4-16.0) gm/dL Hct (34.0-46.0) % MCV (80.0-100.0) fL MCH (25.0-35.0) pg MCHC (31.0-37.0) g/dL RDW (11.5-15.5) % Plt Count (150-450) k/uL Neutrophils % % Lymphocytes % % Monocytes % % Eosinophils % % Basophils % % Neutrophils # (1.3-7.7) k/uL Lymphocytes # (1.0-4.8) k/uL Monocytes # (0-1.0) k/uL Eosinophils # (0-0.7) k/uL Basophils # (0-0.2) k/uL PT 9.9 (9.0-12.0) sec INR 0.9 (<1.2) APTT 22.9 (22.0-30.0) sec Sodium (137-145) mmol/L Potassium (3.5-5.1) mmol/L Chloride (98-107) mmol/L Carbon Dioxide (22-30) mmol/L Anion Gap mmol/L BUN (7-17) mg/dL Creatinine (0.52-1.04) mg/dL Est GFR (CKD-EPI)AfAm (>60 ml/min/1.73 sqM) Est GFR (CKD-EPI)NonAf (>60 ml/min/1.73 sqM) Glucose (74-99) mg/dL Calcium (8.4-10.2) mg/dL Magnesium (1.6-2.3) mg/dL Total Bilirubin (0.2-1.3) mg/dL AST (14-36) U/L ALT (9-52) U/L Alkaline Phosphatase (38-126) U/L Troponin I <0.012 (0.000-0.034) ng/mL NT-Pro-B Natriuret Pep pg/mL Total Protein (6.3-8.2) g/dL Albumin (3.5-5.0) g/dL Disposition Clinical Impression: Chest pain Disposition: HOME SELF-CARE Condition: Good Instructions (If sedation given, give patient instructions): Chest Pain (ED) Is patient prescribed a controlled substance at d/c from ED?: No Referrals: Pieter Black MD [Primary Care Provider] - 1-2 days Time of Disposition: 18:01
[2018-12-26 17:15] LABS: Basophils % (A) 0 %; Eosinophils # (A) 0.2 k/uL (0-0.7); Eosinophils % (A) 3 %; HCT 44.6 % (34.0-46.0); HGB 14.4 gm/dL (11.4-16.0); Lymphocytes # (A) 1.7 k/uL (1.0-4.8); Lymphocytes % (A) 24 %; MCH 30.4 pg (25.0-35.0); MCHC 32.2 g/dL (31.0-37.0); MCV 94.4 fL (80.0-100.0); Mean Platelet Volume 6.7; Monocytes # (A) 0.4 k/uL (0-1.0); Monocytes % (A) 6 %; Neutrophils # (A) 4.7 k/uL (1.3-7.7); Neutrophils % (A) 66 %; Platelet Count 182 k/uL (150-450); RBC 4.72 m/uL (3.80-5.40); RDW 14.2 % (11.5-15.5); WBC 7.2 k/uL (3.8-10.6)
[2018-12-26 17:24] LABS: INR 0.9 (<1.2); Partial Thromboplastin Time 22.9 sec (22.0-30.0); Prothrombin Time 9.9 sec (9.0-12.0)
--- NOTE | 2018-12-26 17:25 | XR ---
EXAMINATION TYPE: XR chest 2V DATE OF EXAM: 12/26/2018 COMPARISON: NONE HISTORY: Short of breath TECHNIQUE: Frontal and lateral views of the chest are obtained. FINDINGS: There is no heart failure nor confluent pneumonic infiltrate. Costophrenic angles are tianna r. There are chest leads. There is some spurring in the thoracic spine. IMPRESSION: Mild cardiomegaly. No active cardiopulmonary disease.
[2018-12-26 17:34] LABS: ALT 32 U/L (9-52); AST 38 U/L (14-36); African American GFR (CKD) >90 (>60 ml/min/1.73 sqM); Albumin 4.1 g/dL (3.5-5.0); Alkaline Phosphatase 81 U/L (38-126); Anion Gap 9 mmol/L; Blood Urea Nitrogen 15 mg/dL (7-17); Calcium 9.6 mg/dL (8.4-10.2); Carbon Dioxide 30 mmol/L (22-30); Chloride 101 mmol/L (98-107); Glucose 114 mg/dL (74-99); Magnesium 1.8 mg/dL (1.6-2.3); Potassium 4.1 mmol/L (3.5-5.1); Sodium 140 mmol/L (137-145); Total Bilirubin 0.7 mg/dL (0.2-1.3); Total Protein 7.6 g/dL (6.3-8.2)
[2018-12-26 18:13] VITALS: RESP 16
[2018-12-26 18:24] VITALS: BP 168/79; PULSE 76
== END 2018-12-26 18:20 | disposition home or self-care (01) ==
LOC: EC 15:58
DX: R07.9 Chest pain, unspecified (principal); R06.02 Shortness of breath; I11.9 Hypertensive heart disease without heart failure; E78.5 Hyperlipidemia, unspecified; M19.90 Unspecified osteoarthritis, unspecified site; E07.9 Disorder of thyroid, unspecified; G47.30 Sleep apnea, unspecified; M79.7 Fibromyalgia; Z79.890 Hormone replacement therapy; Z79.899 Other long term (current) drug therapy; Z87.891 Personal history of nicotine dependence; Z99.89 Dependence on other enabling machines and devices; Z95.5 Presence of coronary angioplasty implant and graft; Z96.651 Presence of right artificial knee joint
CPT/HCPCS: 36415; 71046; 80053; 83735; 83880; 84484; 85025; 85610; 85730; 93005; 99285

== ENCOUNTER → 2020-03-31 | Outpatient (CLI) | payer MEDICARE, BC ==
--- NOTE | 2020-04-03 13:29 | MM ---
Reason for exam: screening (asymptomatic). Last mammogram was performed 3 years and 5 months ago. History: Patient is postmenopausal. Family history of breast cancer in mother at age 80. Physical Findings: A clinical breast exam by your physician is recommended on an annual basis and results should be correlated with mammographic findings. MG 3D Screening Mammo W/Cad Bilateral CC and MLO view(s) were taken. Prior study comparison: October 31, 2016, bilateral MG 3d screening mammo w/cad. October 17, 2015, bilateral MG 3d screening mammo w/cad. The breast tissue is almost entirely fat. No significant changes when compared with prior studies. ASSESSMENT: Benign, BI-RAD 2 RECOMMENDATION: Routine screening mammogram of both breasts in 1 year.
== END | disposition home or self-care (01) ==
LOC: RADMAMWWP 15:37
PROVIDERS: ATTEND Family Medicine
DX: Z12.31 Encounter for screening mammogram for malignant neoplasm of breast (principal)
CPT/HCPCS: 77063; 77067

== ENCOUNTER 2020-07-14 18:54 | Emergency (ER) | payer MEDICARE, BC ==
[2020-07-14 19:26] VITALS: BP 165/74; PULSE 94; RESP 20; TEMP 97.9
[2020-07-14] MEDS ORDERED: MORPHINE SULFATE 4 MG/ML SYRINGE IV STA (19:34)
--- NOTE | 2020-07-14 19:37 | ED ---
Back Pain HPI - General Source: patient, family, RN notes reviewed Limitations: no limitations <Oracio Ram - Last Filed: 07/14/20 20:32> <Idalia Harding - Last Filed: 07/16/20 11:46> - General Chief Complaint: Back Pain/Injury Stated Complaint: back/lt leg pain Time Seen by Provider: 07/14/20 19:29 - History of Present Illness Initial Comments: Patient is a 75-year-old female presents to emergency room complaining of left- sided low back pain that radiates on the left leg. She noted that she went to her primary care this morning they gave her a steroid injection and an anti- inflammatory injection in office and then send her home with a steroid dose pack and Flexeril for muscle spasms. She noted that the pain has not subsided or decrease in intensity is still currently an 8 out of 10 with no relief. She denied any injury or trauma to her back. She did report some tingling sensations down her leg. But denied any weakness or paresthesias or difficulty using the bathroom. She denied any chest pain shortness of breath headache nausea vomiting diarrhea constipation fever fatigue chills. (Oracio Ram) - Related Data Home Medications Medication Instructions Recorded Confirmed Atorvastatin [Lipitor] 40 mg PO PC-SUPPER 11/16/13 12/26/18 Gabapentin [Neurontin] 800 mg PO TID PRN 11/16/13 12/26/18 Levothyroxine Sodium [Synthroid] 125 mcg PO QAM 11/16/13 12/26/18 Triamterene-Hctz 37.5-25Mg 1 tab PO DAILY 11/16/13 12/26/18 [Maxzide 37.5-25] Cholecalciferol [Vitamin D3 (25 5,000 unit PO DAILY 10/30/17 12/26/18 Mcg = 1000 Iu)] Multivit-Min/Iron/Folic/Lutein 1 tab PO DAILY 10/30/17 12/26/18 [Centrum Silver Women Tablet] Vitamin C/Biotin [Hair, Skin and 1 tab PO DAILY 10/30/17 12/26/18 Nails] lisinopriL [Zestril] 2.5 mg PO DAILY@1400 10/30/17 12/26/18 Previous Rx's Medication Instructions Recorded traMADol HCl [Ultram] 50 mg PO Q6H PRN #28 tab 11/13/17 Allergies Allergy/AdvReac Type Severity Reaction Status Date / Time No Known Allergies Allergy Verified 07/14/20 19:26 Review of Systems ROS Other: All systems not noted in ROS Statement are negative. <Oracio Ram - Last Filed: 07/14/20 20:32> ROS Other: All systems not noted in ROS Statement are negative. <Idalia Harding - Last Filed: 07/16/20 11:46> ROS Statement: Those systems with pertinent positive or pertinent negative responses have been documented in the HPI. Past Medical History Past Medical History: Diabetes Mellitus, Fibromyalgia, GERD/Reflux, Hyperlipidemia, Hypertension, Osteoarthritis (OA), Sleep Apnea/CPAP/BIPAP, Thyroid Disorder Additional Past Medical History / Comment(s): varicose veins,SPINAL STENOSIS."pt STATES TOLD BY HER DR SHE IS NOT A DIABETIC ANYMORE", History of Any Multi-Drug Resistant Organisms: None Reported Past Surgical History: Adenoidectomy, Appendectomy, Bariatric Surgery, Cholecystectomy, Heart Catheterization, Hysterectomy, Joint Replacement, Tonsillectomy, Tubal Ligation Additional Past Surgical History / Comment(s): gastric stapling, cervical fusion, rt knee replacment, colonoscopy, pain clinic procedures in [place]. TOTAL LEFT KNEE Past Anesthesia/Blood Transfusion Reactions: No Reported Reaction Past Psychological History: No Psychological Hx Reported Smoking Status: Never smoker Past Alcohol Use History: Occasional Past Drug Use History: None Reported - Past Family History Mother Family Medical History: Cancer Additional Family Medical History / Comment(s): breast and cervical cancer Sister(s) Family Medical History: Cancer Additional Family Medical History / Comment(s): cervical cancer Father Family Medical History: Diabetes Mellitus <Oracio Ram - Last Filed: 07/14/20 20:32> General Exam Limitations: no limitations General appearance: alert, in no apparent distress, obese Head exam: Present: atraumatic, normocephalic, normal inspection Eye exam: Present: normal appearance, PERRL, EOMI. Absent: scleral icterus, conjunctival injection, periorbital swelling Neck exam: Present: normal inspection. Absent: tenderness, meningismus, lymphadenopathy Respiratory exam: Present: normal lung sounds bilaterally. Absent: respiratory distress, wheezes, rales, rhonchi, stridor Cardiovascular Exam: Present: regular rate, normal rhythm, normal heart sounds. Absent: systolic murmur, diastolic murmur, rubs, gallop, clicks GI/Abdominal exam: Present: soft, normal bowel sounds. Absent: distended, tenderness, guarding, rebound, rigid Extremities exam: Present: normal inspection, full ROM, normal capillary refill. Absent: tenderness, pedal edema, joint swelling, calf tenderness Back exam: Present: normal inspection, tenderness (Left low to left mid to low back on palpation.), other (Patient was able to ambulate around room with no difficulty.) Neurological exam: Present: alert, oriented X3, CN II-XII intact Expanded Patient oriented to: Present: person, place, time Speech: Present: fluid speech Cranial nerves: EOM's Intact: Normal Sensory exam: Upper Extremity Light Touch: Normal, Lower Extremity Light Touch: Normal, Lower Extremity Pin Prick: Normal Motor strength exam: RUE: 5, LUE: 5, RLE: 5, LLE: 5 Eye Response: (4) open spontaneously Motor Response: (6) obeys commands Verbal Response: (5) oriented Psychiatric exam: Present: normal affect, normal mood Skin exam: Present: warm, dry, intact, normal color. Absent: rash <Oracio Ram - Last Filed: 07/14/20 20:32> Course Vital Signs 07/14/20 19:24 Temperature 97.9 F Pulse Rate 94 Respiratory 20 Rate Blood Pressure 165/74 O2 Sat by Pulse 97 Oximetry Medical Decision Making - Radiology Data Radiology results: report reviewed, image reviewed <Oracio Ram - Last Filed: 07/14/20 20:32> <Idalia Harding - Last Filed: 07/16/20 11:46> - Medical Decision Making 75-year-old female complaining of low back pain. With radiation of the left leg. 4 mg of morphine ordered and x-rays of the lumbar spine ordered. Case discussed with Dr. Harding, decided to discharge patient home with follow-up primary care and continuation of medications given a primary care. (Oracio Ram) I was available for consultation in the emergency department. The history and physical exam were done by the midlevel provider. I was consulted for this patients care. I reviewed the case with the midlevel provider and based on their presentation of the patient, I agree with the assessment, medical decision making and plan of care as documented. Chart was dictated using [employer] dictation software. Attempts were made to correct any dictation errors however some typographical errors may persist. Patient was seen during a national state of emergency due to the Covid-19 pandemic. (Idalia Harding) - Radiology Data Lumbar x-ray:Multilevel spondylitic changes. No fracture. (Oracio Ram) Disposition Is patient prescribed a controlled substance at d/c from ED?: No Time of Disposition: 20:33 <Oracio Ram - Last Filed: 07/14/20 20:32> <Idalia Harding - Last Filed: 07/16/20 11:46> Clinical Impression: Strain of lumbar region, Sciatica Disposition: HOME SELF-CARE Condition: Stable Instructions (If sedation given, give patient instructions): Acute Low Back Pain (ED) Additional Instructions: Please return to the Emergency Department if symptoms worsen or any other concerns. Continue to take medications from primary care as directed. Steroids and pain medication may take several days to take effect. Avoid any strenuous activity. Referrals: Pieter Black MD [Primary Care Provider] - 1-2 days
--- NOTE | 2020-07-14 20:27 | XR ---
EXAMINATION TYPE: XR lumbar spine 2 or 3V DATE OF EXAM: 07/14/2020 COMPARISON: NONE HISTORY: Back pain TECHNIQUE: 3 views FINDINGS: Lumbar vertebra have normal alignment. Posterior elements are intact. There is spurring of the endplates. Sacroiliac joints are intact. There are clips from cholecystectomy. IMPRESSION: Multilevel spondylotic changes. No fracture.
== END 2020-07-14 20:42 | disposition home or self-care (01) ==
LOC: EC 18:54
DX: S39.012A Strain of muscle, fascia and tendon of lower back, initial encounter (principal); M54.30 Sciatica, unspecified side; K21.9 Gastro-esophageal reflux disease without esophagitis; I10 Essential (primary) hypertension; G47.30 Sleep apnea, unspecified; M19.90 Unspecified osteoarthritis, unspecified site; E11.9 Type 2 diabetes mellitus without complications; E78.5 Hyperlipidemia, unspecified; Z79.899 Other long term (current) drug therapy; X58.XXXA Exposure to other specified factors, initial encounter
CPT/HCPCS: 72100; 99283; 96374; J2270

== ENCOUNTER 2020-08-01 04:59 | Emergency (ER) | payer MEDICARE, BC ==
[2020-08-01 05:07] VITALS: TEMP 97.9
[2020-08-01] MEDS ORDERED: SODIUM CHLORIDE 0.9% 1,000 ML IV STA (05:10)
--- NOTE | 2020-08-01 05:11 | ED ---
Abdominal Pain HPI - General Source: patient, RN notes reviewed, old records reviewed Mode of arrival: ambulatory Limitations: no limitations - History of Present Illness MD Complaint: abdominal pain -: days(s) Location: suprapubic Radiation: suprapubic Migration to: suprapubic Severity: mild Severity scale (1-10): 2 Quality: cramping, aching Consistency: intermittent Improves With: nothing Worsens With: nothing Context: recent antibiotic use Associated Symptoms: nausea Treatments Prior to Arrival: other (none) <Javier Gonzalez - Last Filed: 08/01/20 05:10> <Javier Johns - Last Filed: 08/01/20 09:12> - General Chief Complaint: Abdominal Pain Stated Complaint: Cramping Time Seen by Provider: 08/01/20 05:01 - History of Present Illness Initial Comments: This is a 75-year-old female to the ER for suprapubic abdominal pain cramping. No real nausea vomiting. Recent diagnosis of urinary tract infection. Patient is on antibiotics. She is having bowel movements or trauma complaint. (Javier Gonzalez) - Related Data Home Medications Medication Instructions Recorded Confirmed Atorvastatin [Lipitor] 40 mg PO HS 11/16/13 08/01/20 Triamterene-Hctz 37.5-25Mg 1 tab PO DAILY 11/16/13 08/01/20 [Maxzide 37.5-25] Cholecalciferol [Vitamin D3 (25 5,000 unit PO DAILY 10/30/17 08/01/20 Mcg = 1000 Iu)] Multivit-Min/Iron/Folic/Lutein 1 tab PO DAILY 10/30/17 08/01/20 [Centrum Silver Women Tablet] Vitamin C/Biotin [Hair, Skin and 1 tab PO DAILY 10/30/17 08/01/20 Nails] lisinopriL [Zestril] 2.5 mg PO DAILY 10/30/17 08/01/20 Gabapentin 800 mg PO TID PRN 08/01/20 08/01/20 Levothyroxine Sodium [Euthyrox] 125 mcg PO DAILY 08/01/20 08/01/20 metFORMIN HCL 1,000 mg PO DAILY 08/01/20 08/01/20 Previous Rx's Medication Instructions Recorded traMADol HCl [Ultram] 50 mg PO Q6H PRN #28 tab 11/13/17 Ketorolac [Toradol] 10 mg PO Q6HR #15 tab 08/01/20 Tamsulosin [Flomax] 0.4 mg PO DAILY #10 cap 08/01/20 Allergies Allergy/AdvReac Type Severity Reaction Status Date / Time No Known Allergies Allergy Verified 08/01/20 07:12 Review of Systems ROS Other: All systems not noted in ROS Statement are negative. <Javier Gonzalez - Last Filed: 08/01/20 05:10> ROS Other: All systems not noted in ROS Statement are negative. <Javier Johns - Last Filed: 08/01/20 09:12> ROS Statement: Those systems with pertinent positive or pertinent negative responses have been documented in the HPI. Past Medical History Past Medical History: Diabetes Mellitus, Fibromyalgia, GERD/Reflux, Hyperlipidemia, Hypertension, Osteoarthritis (OA), Sleep Apnea/CPAP/BIPAP, Thyroid Disorder Additional Past Medical History / Comment(s): varicose veins,SPINAL STENOSIS."pt STATES TOLD BY HER DR SHE IS NOT A DIABETIC ANYMORE", History of Any Multi-Drug Resistant Organisms: None Reported Past Surgical History: Adenoidectomy, Appendectomy, Bariatric Surgery, [place] cystectomy, Heart Catheterization, Hysterectomy, Joint Replacement, Tonsillectomy, Tubal Ligation Additional Past Surgical History / Comment(s): gastric stapling, cervical fus ion, rt knee replacment, colonoscopy, pain clinic procedures in [place]. TOTAL LEFT KNEE Past Anesthesia/Blood Transfusion Reactions: No Reported Reaction Past Psychological History: No Psychological Hx Reported Smoking Status: Never smoker Past Alcohol Use History: Occasional Past Drug Use History: None Reported - Past Family History Mother Family Medical History: Cancer Additional Family Medical History / Comment(s): breast and cervical cancer Sister(s) Family Medical History: Cancer Additional Family Medical History / Comment(s): cervical cancer Father Family Medical History: Diabetes Mellitus <Javier Gonzalez - Last Filed: 08/01/20 05:10> General Exam Limitations: no limitations General appearance: alert, in no apparent distress Head exam: Present: atraumatic, normocephalic, normal inspection Eye exam: Present: normal appearance, PERRL, EOMI. Absent: scleral icterus, conjunctival injection, periorbital swelling ENT exam: Present: normal exam, mucous membranes moist Neck exam: Present: normal inspection. Absent: tenderness, meningismus, lymphadenopathy Respiratory exam: Present: normal lung sounds bilaterally. Absent: respiratory distress, wheezes, rales, rhonchi, stridor Cardiovascular Exam: Present: regular rate, normal rhythm, normal heart sounds. Absent: systolic murmur, diastolic murmur, rubs, gallop, clicks GI/Abdominal exam: Present: soft, normal bowel sounds. Absent: distended, tenderness, guarding, rebound, rigid Extremities exam: Present: normal inspection, full ROM, normal capillary refill. Absent: tenderness, pedal edema, joint swelling, calf tenderness Back exam: Present: normal inspection Neurological exam: Present: alert, oriented X3, CN II-XII intact Psychiatric exam: Present: normal affect, normal mood Skin exam: Present: warm, dry, intact, normal color. Absent: rash <Javier Gonzalez - Last Filed: 08/01/20 05:10> Course <Javier Gonzalez - Last Filed: 08/01/20 05:10> Vital Signs 08/01/20 05:00 Temperature 97.9 F Pulse Rate 81 Respiratory 20 Rate Blood Pressure 155/77 O2 Sat by Pulse 97 Oximetry - Reevaluation(s) Reevaluation #1: 08/01/20 05:11 Medical record is reviewed (Javier Gonzalez) Medical Decision Making - Lab Data Result diagrams: 08/01/20 05:31 08/01/20 05:31 <Javier Johns - Last Filed: 08/01/20 09:12> - Medical Decision Making CT abdomen pelvis shows a 4 mm left-sided kidney stone causing some hydronephrosis. I went back and reevaluated the patient she was comfortable and was okay with discharge home. (Javier Johns) - Lab Data Lab Results 08/01/20 08/01/20 08/01/20 Range/Units 05:31 05:31 05:31 WBC 8.9 (3.8-10.6) k/uL RBC 4.99 (3.80-5.40) m/uL Hgb 15.5 (11.4-16.0) gm/dL Hct 46.2 H (34.0-46.0) % MCV 92.6 (80.0-100.0) fL MCH 31.0 (25.0-35.0) pg MCHC 33.5 (31.0-37.0) g/dL RDW 13.5 (11.5-15.5) % Plt Count 187 (150-450) k/uL MPV 7.5 Neutrophils % 61 % Lymphocytes % 29 % Monocytes % 6 % Eosinophils % 2 % Basophils % 0 % Neutrophils # 5.4 (1.3-7.7) k/uL Lymphocytes # 2.6 (1.0-4.8) k/uL Monocytes # 0.5 (0-1.0) k/uL Eosinophils # 0.2 (0-0.7) k/uL Basophils # 0.0 (0-0.2) k/uL Sodium 138 (137-145) mmol/L Potassium 5.0 (3.5-5.1) mmol/L Chloride 101 (98-107) mmol/L Carbon Dioxide 29 (22-30) mmol/L Anion Gap 8 mmol/L BUN 18 H (7-17) mg/dL Creatinine 0.63 (0.52-1.04) mg/dL Est GFR (CKD-EPI)AfAm >90 (>60 ml/min/1.73 sqM) Est GFR (CKD-EPI)NonAf 89 (>60 ml/min/1.73 sqM) Glucose 129 H (74-99) mg/dL Calcium 9.4 (8.4-10.2) mg/dL Total Bilirubin 0.7 (0.2-1.3) mg/dL AST 28 (14-36) U/L ALT 22 (4-34) U/L Alkaline Phosphatase 80 (38-126) U/L Creatine Kinase 57 (30-135) U/L Total Protein 7.7 (6.3-8.2) g/dL Albumin 4.2 (3.5-5.0) g/dL Amylase 60 (30-110) U/L Lipase 198 (23-300) U/L Urine Color Yellow Urine Appearance Clear (Clear) Urine pH 6.0 (5.0-8.0) Ur Specific [place] 1.022 (1.001-1.035) Urine Protein 1+ H (Negative) Urine Glucose (UA) Negative (Negative) Urine Ketones Negative (Negative) Urine Blood Large H (Negative) Urine Nitrite Negative (Negative) Urine Bilirubin Negative (Negative) Urine Urobilinogen <2.0 (<2.0) mg/dL Ur Leukocyte Esterase Negative (Negative) Urine RBC >182 H (0-5) /hpf Urine WBC 3 (0-5) /hpf Ur Squamous Epith Cells 1 (0-4) /hpf Urine Mucus Rare H (None) /hpf Disposition <Javier Gonzalez - Last Filed: 08/01/20 05:10> Is patient prescribed a controlled substance at d/c from ED?: No Time of Disposition: 09:11 <Javier Johns - Last Filed: 08/01/20 09:12> Clinical Impression: Kidney stone Disposition: HOME SELF-CARE Condition: Good Instructions (If sedation given, give patient instructions): Kidney Stones (ED) Prescriptions: Tamsulosin [Flomax] 0.4 mg PO DAILY #10 cap Ketorolac [Toradol] 10 mg PO Q6HR #15 tab Referrals: Pieter Black MD [Primary Care Provider] - 1-2 days
[2020-08-01 06:10] LABS: Basophils % (A) 0 %; Eosinophils # (A) 0.2 k/uL (0-0.7); Eosinophils % (A) 2 %; HCT 46.2 % (34.0-46.0); HGB 15.5 gm/dL (11.4-16.0); Lymphocytes # (A) 2.6 k/uL (1.0-4.8); Lymphocytes % (A) 29 %; MCHC 33.5 g/dL (31.0-37.0); MCV 92.6 fL (80.0-100.0); Mean Platelet Volume 7.5; Monocytes # (A) 0.5 k/uL (0-1.0); Monocytes % (A) 6 %; Neutrophils # (A) 5.4 k/uL (1.3-7.7); Neutrophils % (A) 61 %; Platelet Count 187 k/uL (150-450); RBC 4.99 m/uL (3.80-5.40); RDW 13.5 % (11.5-15.5); WBC 8.9 k/uL (3.8-10.6)
[2020-08-01 06:16] LABS: Appearance,Urine Clear (Clear); Bilirubin,Urine Negative (Negative); Blood,Urine Large (Negative); Color,Urine Yellow; Glucose,Urine (UA) Negative (Negative); Ketones,Urine Negative (Negative); Leukocyte Esterase,Urine Negative (Negative); Mucus,Urine Rare /hpf; Nitrite,Urine Negative (Negative); Protein,Urine 1+ (Negative); RBC,Urine >182 /hpf (0-5); Specific Gravity,Urine 1.022 (1.001-1.035); Squamous Epithelial Cell,Urine 1 /hpf (0-4); Urobilinogen,Urine <2.0 mg/dL (<2.0); WBC,Urine 3 /hpf (0-5)
[2020-08-01 06:26] LABS: ALT 22 U/L (4-34); AST 28 U/L (14-36); African American GFR (CKD) >90 (>60 ml/min/1.73 sqM); Albumin 4.2 g/dL (3.5-5.0); Alkaline Phosphatase 80 U/L (38-126); Amylase 60 U/L (30-110); Anion Gap 8 mmol/L; Blood Urea Nitrogen 18 mg/dL (7-17); Calcium 9.4 mg/dL (8.4-10.2); Carbon Dioxide 29 mmol/L (22-30); Chloride 101 mmol/L (98-107); Creatine Kinase 57 U/L (30-135); Lipase 198 U/L (23-300); Non-African American GFR(CKD) 89 (>60 ml/min/1.73 sqM); Sodium 138 mmol/L (137-145); Total Bilirubin 0.7 mg/dL (0.2-1.3); Total Protein 7.7 g/dL (6.3-8.2)
[2020-08-01 06:47] LABS: Glucose 129 mg/dL (74-99)
--- NOTE | 2020-08-01 08:42 | CT ---
EXAMINATION TYPE: CT abdomen pelvis w con DATE OF EXAM: 08/01/2020 HISTORY: Abdominal pain and cramping. CT DLP: 2976mGycm Automated Exposure Control for Dose Reduction was Utilized. CONTRAST: CT scan of the abdomen and pelvis is performed without oral but with IV Contrast, patient injected wi th 100 mL of Isovue 300. COMPARISON: CT abdomen and pelvis February 08, 2009 FINDINGS: LUNG BASES: No significant abnormality is appreciated. LIVER/GB: Cholecystectomy clips are redemonstrated. PANCREAS: No significant abnormality is seen. SPLEEN: No significant abnormality is seen. ADRENALS: No significant abnormality is seen. KIDNEYS: Symmetric corticomedullary uptake and excretion is seen bilaterally. There is 2.0 cm thin-wa lled cyst medially upper pole left kidney axial image 32. There is asymmetric mild left-sided hydrone phrosis due to obstructing 4 mm stone distal left ureter coronal image 87. No right-sided hydronephro sis. No intraluminal calculus in the bladder. Additional 3 mm nonobstructing left renal calculus naeem nal image 87 operative midpole level and 2 adjacent 2 mm calculi lower pole level coronal image 83. N o right-sided nephrolithiasis. BOWEL: Slightly suboptimal evaluation of bowel without enteric contrast. Surgical changes from gastri c sleeve or bypass redemonstrated. No suspicious small or large bowel dilatation. Scattered sigmoid c olonic diverticula. No CT evidence for acute diverticulitis. UTERUS/ADNEXA: Uterus surgically absent or markedly atrophic similar to prior. LYMPH NODES: No greater than 1cm abdominal or pelvic lymph nodes are appreciated. OSSEOUS STRUCTURES: No significant abnormality is seen. OTHER: Persistent [place] ventral wall hernia in the upper abdomen containing mesenteric fat and fe francesco filled transverse colonic loop. [id number] calcified plaque of the aorta extends into bran h vessels. IMPRESSION: Left-sided nephrolithiasis with mild hydronephrosis due to obstructing 4 mm stone distal left ureter.
[2020-08-01 09:30] VITALS: BP 140/65; PULSE 93; RESP 18
== END 2020-08-01 09:30 | disposition home or self-care (01) ==
LOC: EC 04:59
DX: N13.2 Hydronephrosis with renal and ureteral calculous obstruction (principal); E11.9 Type 2 diabetes mellitus without complications; K21.9 Gastro-esophageal reflux disease without esophagitis; E78.5 Hyperlipidemia, unspecified; I10 Essential (primary) hypertension; M19.90 Unspecified osteoarthritis, unspecified site
CPT/HCPCS: 36415; 80053; 82150; 82550; 83690; 85025; 81001; 74177; 99284; 96365; 96361; J0696; Q9967

== ENCOUNTER 2020-08-02 04:37 | Inpatient (IN) | payer MEDICARE, BC ==
[2020-08-02] MEDS ORDERED: HYDROmorphone 1 MG/ML 1 ML SYRINGE IVP STA (05:07)
[2020-08-02 05:31] LABS: Basophils % (A) 0 %; Eosinophils # (A) 0.2 k/uL (0-0.7); Eosinophils % (A) 2 %; HCT 45.6 % (34.0-46.0); HGB 14.6 gm/dL (11.4-16.0); Lymphocytes # (A) 2.5 k/uL (1.0-4.8); Lymphocytes % (A) 30 %; MCH 29.9 pg (25.0-35.0); MCHC 32.1 g/dL (31.0-37.0); MCV 93.1 fL (80.0-100.0); Mean Platelet Volume 7.4; Monocytes # (A) 0.4 k/uL (0-1.0); Monocytes % (A) 5 %; Neutrophils % (A) 61 %; Platelet Count 180 k/uL (150-450); RBC 4.89 m/uL (3.80-5.40); RDW 13.9 % (11.5-15.5); WBC 8.3 k/uL (3.8-10.6)
--- NOTE | 2020-08-02 05:40 | XR ---
EXAM: XR Abdomen, 2 Views CLINICAL HISTORY: ITS.REASON XR Reason: abdominal pain TECHNIQUE: Frontal view of the abdomen/pelvis with upright view of the abdomen. COMPARISON: CT abdomen and pelvis without contrast, yesterday. FINDINGS/IMPRESSION: Nonobstructed bowel gas pattern. The distal left ureter calculus on CT scan from yesterday is not visualized; however, may still be present. Correlate clinically. Cholecystectomy clips.
[2020-08-02 05:43] LABS: ALT 20 U/L (4-34); AST 26 U/L (14-36); African American GFR (CKD) >90 (>60 ml/min/1.73 sqM); Albumin 4.2 g/dL (3.5-5.0); Alkaline Phosphatase 86 U/L (38-126); Amylase 72 U/L (30-110); Anion Gap 8 mmol/L; Blood Urea Nitrogen 21 mg/dL (7-17); Calcium 9.9 mg/dL (8.4-10.2); Carbon Dioxide 27 mmol/L (22-30); Chloride 102 mmol/L (98-107); Glucose 120 mg/dL (74-99); Lipase 282 U/L (23-300); Non-African American GFR(CKD) 85 (>60 ml/min/1.73 sqM); Potassium 4.8 mmol/L (3.5-5.1); Sodium 137 mmol/L (137-145); Total Bilirubin 0.5 mg/dL (0.2-1.3); Total Protein 7.5 g/dL (6.3-8.2)
[2020-08-02 05:51] LABS: Appearance,Urine Cloudy (Clear); Bilirubin,Urine Negative (Negative); Blood,Urine Large (Negative); Calcium Oxalate Crystals,Urine Many /hpf; Color,Urine Yellow; Glucose,Urine (UA) Negative (Negative); Ketones,Urine Negative (Negative); Leukocyte Esterase,Urine Trace (Negative); Mucus,Urine Occasional /hpf; Nitrite,Urine Negative (Negative); PH, Urine 5.5 (5.0-8.0); Protein,Urine 1+ (Negative); RBC,Urine >182 /hpf (0-5); Specific Gravity,Urine 1.038 (1.001-1.035); Squamous Epithelial Cell,Urine 6 /hpf (0-4); Urobilinogen,Urine <2.0 mg/dL (<2.0); WBC,Urine 20 /hpf (0-5)
[2020-08-02] MEDS ORDERED: SODIUM CHLORIDE 0.9% 1,000 ML IV ONE (05:54)
[2020-08-02] MEDS ORDERED: HYDROmorphone 0.5 MG/0.5 ML SYRINGE IVP STA (06:20)
--- NOTE | 2020-08-02 06:26 | ED ---
Abdominal Pain HPI - General Chief Complaint: Abdominal Pain Stated Complaint: Abd Pain Time Seen by Provider: 08/02/20 04:54 Source: patient Mode of arrival: wheelchair Limitations: no limitations - History of Present Illness Initial Comments: This patient is a 75-year-old woman who presents with complaint of a couple of types of abdominal pain. She is having some suprapubic pressure/cramping pain that is constant. The patient then also did complain of some left flank sharp colicky type pain. She had been having similar symptoms which brought her here yesterday where she had workup including computed tomography scan showing what appeared to be 4 mm ureteral stone with hydronephrosis. Patient denies fever, palpitations, chest pain, dyspnea, lightheadedness. MD Complaint: abdominal pain Onset/Timin -: days(s) Location: suprapubic Radiation: none Migration to: no migration Severity: moderate Quality: cramping Consistency: constant Improves With: nothing Worsens With: nothing Associated Symptoms: denies other symptoms - Related Data Home Medications Medication Instructions Recorded Confirmed Triamterene-Hctz 37.5-25Mg 1 tab PO DAILY 11/16/13 08/02/20 [Maxzide 37.5-25] Cholecalciferol [Vitamin D3 (25 5,000 unit PO DAILY 10/30/17 08/02/20 Mcg = 1000 Iu)] Multivit-Min/Iron/Folic/Lutein 1 tab PO DAILY 10/30/17 08/02/20 [Centrum Silver Women Tablet] Vitamin C/Biotin [Hair, Skin and 1 tab PO DAILY 10/30/17 08/02/20 Nails] lisinopriL [Zestril] 2.5 mg PO DAILY 10/30/17 08/02/20 Gabapentin 800 mg PO TID PRN 08/01/20 08/02/20 Levothyroxine Sodium [Euthyrox] 125 mcg PO DAILY 08/01/20 08/02/20 metFORMIN HCL 1,000 mg PO DAILY 08/01/20 08/02/20 Atorvastatin [Lipitor] 40 mg PO HS 08/02/20 08/02/20 Previous Rx's Medication Instructions Recorded traMADol HCl [Ultram] 50 mg PO Q6H PRN #28 tab 11/13/17 Ketorolac [Toradol] 10 mg PO Q6HR #15 tab 08/01/20 Tamsulosin [Flomax] 0.4 mg PO DAILY #10 cap 08/01/20 Cephalexin [Keflex] 500 mg PO Q8HR #15 cap 08/04/20 Ibuprofen 600 mg PO Q8H PRN #20 tab 08/04/20 Allergies Allergy/AdvReac Type Severity Reaction Status Date / Time No Known Allergies Allergy Verified 08/02/20 07:06 Review of Systems ROS Statement: Those systems with pertinent positive or pertinent negative responses have been documented in the HPI. ROS Other: All systems not noted in ROS Statement are negative. Constitutional: Denies: fever, chills Respiratory: Denies: cough, dyspnea Cardiovascular: Denies: chest pain, palpitations Gastrointestinal: Reports: as per HPI, abdominal pain. Denies: nausea, vo miting, diarrhea, constipation Genitourinary: Denies: dysuria, frequency, hematuria Skin: Denies: rash Neurological: Denies: headache, weakness, numbness Past Medical History Past Medical History: Diabetes Mellitus, Fibromyalgia, GERD/Reflux, Hyperlipidemia, Hypertension, Osteoarthritis (OA), Sleep Apnea/CPAP/BIPAP, Thyroid Disorder Additional Past Medical History / Comment(s): varicose veins,SPINAL STENOSIS."pt STATES TOLD BY HER DR SHE IS NOT A DIABETIC ANYMORE", History of Any Multi-Drug Resistant Organisms: None Reported Past Surgical History: Adenoidectomy, Appendectomy, Bariatric Surgery, Cholecys tectomy, Heart Catheterization, Hysterectomy, Joint Replacement, Tonsillectomy, Tubal Ligation Additional Past Surgical History / Comment(s): gastric stapling, cervical fusion , rt knee replacment, colonoscopy, pain clinic procedures in [place]. TOTAL LEFT KNEE Past Anesthesia/Blood Transfusion Reactions: No Reported Reaction Past Psychological History: No Psychological Hx Reported Smoking Status: Never smoker Past Alcohol Use History: Occasional Past Drug Use History: None Reported - Past Family History Mother Family Medical History: Cancer Additional Family Medical History / Comment(s): breast and cervical cancer Sister(s) Family Medical History: Cancer Additional Family Medical History / Comment(s): cervical cancer Father Family Medical History: Diabetes Mellitus General Exam Limitations: no limitations General appearance: alert, in no apparent distress Head exam: Present: atraumatic, normocephalic Eye exam: Present: normal appearance. Absent: scleral icterus, conjunctival injection ENT exam: Present: normal oropharynx Neck exam: Present: normal inspection Respiratory exam: Present: normal lung sounds bilaterally. Absent: respiratory distress, wheezes, rales, rhonchi, stridor Cardiovascular Exam: Present: regular rate, normal rhythm, normal heart sounds. Absent: systolic murmur, diastolic murmur, rubs, gallop GI/Abdominal exam: Present: soft, other (Exam limited by morbid obesity). Absent: distended, tenderness, guarding, rebound, rigid, mass, pulsatile mass Extremities exam: Present: normal inspection, normal capillary refill. Absent: pedal edema, calf tenderness Back exam: Present: normal inspection. Absent: CVA tenderness (R), CVA tenderness (L) Neurological exam: Present: alert Skin exam: Present: warm, dry, intact, normal color. Absent: rash Course Vital Signs 08/02/20 08/02/20 08/02/20 04:39 05:43 06:55 Temperature 97 F L Pulse Rate 94 83 100 Respiratory 18 18 18 Rate Blood Pressure 197/88 175/82 173/83 O2 Sat by Pulse 95 95 95 Oximetry Medical Decision Making - Lab Data Result diagrams: 08/02/20 05:19 08/02/20 05:19 Lab Results 08/02/20 08/02/20 08/02/20 Range/Units 05:19 05:19 05:19 WBC 8.3 (3.8-10.6) k/uL RBC 4.89 (3.80-5.40) m/uL Hgb 14.6 (11.4-16.0) gm/dL Hct 45.6 (34.0-46.0) % MCV 93.1 (80.0-100.0) fL MCH 29.9 (25.0-35.0) pg MCHC 32.1 (31.0-37.0) g/dL RDW 13.9 (11.5-15.5) % Plt Count 180 (150-450) k/uL MPV 7.4 Neutrophils % 61 % Lymphocytes % 30 % Monocytes % 5 % Eosinophils % 2 % Basophils % 0 % Neutrophils # 5.0 (1.3-7.7) k/uL Lymphocytes # 2.5 (1.0-4.8) k/uL Monocytes # 0.4 (0-1.0) k/uL Eosinophils # 0.2 (0-0.7) k/uL Basophils # 0.0 (0-0.2) k/uL Sodium 137 (137-145) mmol/L Potassium 4.8 (3.5-5.1) mmol/L Chloride 102 (98-107) mmol/L Carbon Dioxide 27 (22-30) mmol/L Anion Gap 8 mmol/L BUN 21 H (7-17) mg/dL Creatinine 0.71 (0.52-1.04) mg/dL Est GFR (CKD-EPI)AfAm >90 (>60 ml/min/1.73 sqM) Est GFR (CKD-EPI)NonAf 85 (>60 ml/min/1.73 sqM) Glucose 120 H (74-99) mg/dL Lactic Ac Sepsis Rflx Plasma Lactic Acid Janusz (0.7-2.0) mmol/L Calcium 9.9 (8.4-10.2) mg/dL Total Bilirubin 0.5 (0.2-1.3) mg/dL AST 26 (14-36) U/L ALT 20 (4-34) U/L Alkaline Phosphatase 86 (38-126) U/L Troponin I <0.012 (0.000-0.034) ng/mL Total Protein 7.5 (6.3-8.2) g/dL Albumin 4.2 (3.5-5.0) g/dL Amylase 72 (30-110) U/L Lipase 282 (23-300) U/L Urine Color Urine Appearance (Clear) Urine pH (5.0-8.0) Ur Specific [place] (1.001-1.035) Urine Protein (Negative) Urine Glucose (UA) (Negative) Urine Ketones (Negative) Urine Blood (Negative) Urine Nitrite (Negative) Urine Bilirubin (Negative) Urine Urobilinogen (<2.0) mg/dL Ur Leukocyte Esterase (Negative) Urine RBC (0-5) /hpf Urine WBC (0-5) /hpf Ur Squamous Epith Cells (0-4) /hpf Calcium Oxalate Crystal (None) /hpf Urine Mucus (None) /hpf 08/02/20 08/02/20 08/02/20 Range/Units 05:19 05:26 05:54 WBC (3.8-10.6) k/uL RBC (3.80-5.40) m/uL Hgb (11.4-16.0) gm/dL Hct (34.0-46.0) % MCV (80.0-100.0) fL MCH (25.0-35.0) pg MCHC (31.0-37.0) g/dL RDW (11.5-15.5) % Plt Count (150-450) k/uL MPV Neutrophils % % Lymphocytes % % Monocytes % % Eosinophils % % Basophils % % Neutrophils # (1.3-7.7) k/uL Lymphocytes # (1.0-4.8) k/uL Monocytes # (0-1.0) k/uL Eosinophils # (0-0.7) k/uL Basophils # (0-0.2) k/uL Sodium (137-145) mmol/L Potassium (3.5-5.1) mmol/L Chloride (98-107) mmol/L Carbon Dioxide (22-30) mmol/L Anion Gap mmol/L BUN (7-17) mg/dL Creatinine (0.52-1.04) mg/dL Est GFR (CKD-EPI)AfAm (>60 ml/min/1.73 sqM) Est GFR (CKD-EPI)NonAf (>60 ml/min/1.73 sqM) Glucose (74-99) mg/dL Lactic Ac Sepsis Rflx Y Plasma Lactic Acid Janusz 2.9 H* (0.7-2.0) mmol/L Calcium (8.4-10.2) mg/dL Total Bilirubin (0.2-1.3) mg/dL AST (14-36) U/L ALT (4-34) U/L Alkaline Phosphatase (38-126) U/L Troponin I (0.000-0.034) ng/mL Total Protein (6.3-8.2) g/dL Albumin (3.5-5.0) g/dL Amylase (30-110) U/L Lipase (23-300) U/L Urine Color Yellow Urine Appearance Cloudy H (Clear) Urine pH 5.5 (5.0-8.0) Ur Specific [place] 1.038 H (1.001-1.035) Urine Protein 1+ H (Negative) Urine Glucose (UA) Negative (Negative) Urine Ketones Negative (Negative) Urine Blood Large H (Negative) Urine Nitrite Negative (Negative) Urine Bilirubin Negative (Negative) Urine Urobilinogen <2.0 (<2.0) mg/dL Ur Leukocyte Esterase Trace H (Negative) Urine RBC >182 H (0-5) /hpf Urine WBC 20 H (0-5) /hpf Ur Squamous Epith Cells 6 H (0-4) /hpf Calcium Oxalate Crystal Many H (None) /hpf Urine Mucus Occasional H (None) /hpf Disposition Clinical Impression: Kidney stone Disposition: ADMITTED IP TO THIS HOSP Condition: Good
[2020-08-02] MEDS ORDERED: HYDROmorphone 0.5 MG/0.5 ML SYRINGE IVP PRN (06:44)
[2020-08-02] MEDS ORDERED: NALOXONE 0.4 MG/ML 1 ML VIAL IV PRN (06:44)
[2020-08-02] MEDS ORDERED: MAGNESIUM HYDROXIDE 2,400 MG/10 ML CUP PO PRN (06:44)
[2020-08-02] MEDS ORDERED: MAG HYDROX/AL HYDROX/SIMETH 30 ML CUP PO PRN (06:44)
[2020-08-02] MEDS ORDERED: ACETAMINOPHEN TAB 325 MG TAB PO PRN (06:44)
[2020-08-02] MEDS ORDERED: GABAPENTIN 400 MG CAP PO PRN (06:46)
[2020-08-02] MEDS: SODIUM CHLORIDE 0.9% 1,000 ML IV SCH ×2 (08:21→18:52)
[2020-08-02] MEDS: FAMOTIDINE 20 MG TAB PO SCH ×2 (10:16→21:04)
[2020-08-02] MEDS: TAMSULOSIN 0.4 MG CAP.ER.24H PO SCH (10:16)
[2020-08-02] MEDS: LEVOTHYROXINE 125 MCG TAB PO SCH (10:17)
[2020-08-02] MEDS: HYDROmorphone 1 MG/ML 1 ML SYRINGE IVP PRN ×2 (14:59→18:48)
--- NOTE | 2020-08-02 16:44 | P.GSHP ---
History of Present Illness H&P Date: 08/02/20 Chief Complaint: Left flank pain This is 75-year-old female that had 2 ED presentation secured to a 4 mm left distal stone. She was seen yesterday in the urine was subsequently discharged home, she underwent a CT at that time that showed evidence of a 4 mm left distal stone and few small nonobstructive stones. She indicated last night her pain has recurred and she presented to the ED for that. Indicates her pain is associated with nausea but denies any vomiting. No previous history of stones. Denies any fevers, chills, gross hematuria, or dysuria. On evaluation she indicated her pain is improving. - Constitutional Constitutional: Denies chills, Denies fever - Cardiovascular Cardiovascular: Denies chest pain, Denies shortness of breath - Respiratory Respiratory: Denies cough, Denies 7 - Gastrointestinal Gastrointestinal: Reports abdominal pain, Reports nausea, Denies vomiting - Genitourinary (Female) Genitourinary: Reports flank pain, Denies dysuria, Denies hematuria - Musculoskeletal Musculoskeletal: Denies myalgias - Neurological Neurological: Denies numbness, Denies weakness - Psychiatric Psychiatric: Reports as per HPI - Endocrine Endocrine: Denies fatigue, Denies weight change Past Medical History Past Medical History: Diabetes Mellitus, Fibromyalgia, GERD/Reflux, Hyperlipidemia, Hypertension, Osteoarthritis (OA), Sleep Apnea/CPAP/BIPAP, Thyroid Disorder Additional Past Medical History / Comment(s): varicose veins,SPINAL STENOSIS."pt STATES TOLD BY HER DR SHE IS NOT A DIABETIC ANYMORE", History of Any Multi-Drug Resistant Organisms: None Reported Past Surgical History: Adenoidectomy, Appendectomy, Bariatric Surgery, Cholecystectomy, Heart Catheterization, Hysterectomy, Joint Replacement, Tonsillectomy, Tubal Ligation Additional Past Surgical History / Comment(s): gastric stapling, cervical fusion, rt knee replacment, colonoscopy, pain clinic procedures in [place]. TOTAL LEFT KNEE Past Anesthesia/Blood Transfusion Reactions: No Reported Reaction Past Psychological History: No Psychological Hx Reported Additional Psychological History / Comment(s): pt lives with her and 1 son, is independant. pt stated they winter in [place]. 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 Smoking Status: Never smoker Past Alcohol Use History: Occasional Additional Past Alcohol Use History / Comment(s): STARTED SMOKING AT AGE 18 QUIT SMOKING AT AGE 25 SMOKED 1 PPD Past Drug Use History: None Reported - Past Family History Mother Family Medical History: Cancer Additional Family Medical History / Comment(s): breast and cervical cancer Sister(s) Family Medical History: Cancer Additional Family Medical History / Comment(s): cervical cancer Father Family Medical History: Diabetes Mellitus Medications and Allergies Home Medications Medication Instructions Recorded Confirmed Type Triamterene-Hctz 37.5-25Mg 1 tab PO DAILY 11/16/13 08/02/20 History [Maxzide 37.5-25] Cholecalciferol [Vitamin D3 (25 5,000 unit PO DAILY 10/30/17 08/02/20 History Mcg = 1000 Iu)] Multivit-Min/Iron/Folic/Lutein 1 tab PO DAILY 10/30/17 08/02/20 History [Centrum Silver Women Tablet] Vitamin C/Biotin [Hair, Skin and 1 tab PO DAILY 10/30/17 08/02/20 History Nails] lisinopriL [Zestril] 2.5 mg PO DAILY 10/30/17 08/02/20 History traMADol HCl [Ultram] 50 mg PO Q6H PRN #28 tab 11/13/17 08/02/20 Rx Gabapentin 800 mg PO TID PRN 08/01/20 08/02/20 History Ketorolac [Toradol] 10 mg PO Q6HR #15 tab 08/01/20 08/02/20 Rx Levothyroxine Sodium [Euthyrox] 125 mcg PO DAILY 08/01/20 08/02/20 History Tamsulosin [Flomax] 0.4 mg PO DAILY #10 cap 08/01/20 08/02/20 Rx metFORMIN HCL 1,000 mg PO DAILY 08/01/20 08/02/20 History Atorvastatin [Lipitor] 40 mg PO HS 08/02/20 08/02/20 History Allergies Allergy/AdvReac Type Severity Reaction Status Date / Time No Known Allergies Allergy Verified 08/02/20 07:06 Surgical - Exam Vital Signs Temp Pulse Resp BP Pulse Ox 97 F L 94 18 197/88 95 08/02/20 04:39 08/02/20 04:39 08/02/20 04:39 08/02/20 04:39 08/02/20 04:39 Results - Labs 08/02/20 05:19 08/02/20 05:19 Abnormal Lab Results - Last 24 Hours (Table) 08/02/20 08/02/20 08/02/20 Range/Units 05:19 05:19 05:26 BUN 21 H (7-17) mg/dL Glucose 120 H (74-99) mg/dL Plasma Lactic Acid Janusz 2.9 H* (0.7-2.0) mmol/L Urine Appearance Cloudy H (Clear) Ur Specific [place] 1.038 H (1.001-1.035) Urine Protein 1+ H (Negative) Urine Blood Large H (Negative) Ur Leukocyte Esterase Trace H (Negative) Urine RBC >182 H (0-5) /hpf Urine WBC 20 H (0-5) /hpf Ur Squamous Epith Cells 6 H (0-4) /hpf Calcium Oxalate Crystal Many H (None) /hpf Urine Mucus Occasional H (None) /hpf Diabetes panel 08/02/20 Range/Units 05:19 Sodium 137 (137-145) mmol/L Potassium 4.8 (3.5-5.1) mmol/L Chloride 102 (98-107) mmol/L Carbon Dioxide 27 (22-30) mmol/L BUN 21 H (7-17) mg/dL Creatinine 0.71 (0.52-1.04) mg/dL Glucose 120 H (74-99) mg/dL Calcium 9.9 (8.4-10.2) mg/dL AST 26 (14-36) U/L ALT 20 (4-34) U/L Alkaline Phosphatase 86 (38-126) U/L Total Protein 7.5 (6.3-8.2) g/dL Albumin 4.2 (3.5-5.0) g/dL Calcium panel 08/02/20 Range/Units 05:19 Calcium 9.9 (8.4-10.2) mg/dL Albumin 4.2 (3.5-5.0) g/dL Pituitary panel 08/02/20 Range/Units 05:19 Sodium 137 (137-145) mmol/L Potassium 4.8 (3.5-5.1) mmol/L Chloride 102 (98-107) mmol/L Carbon Dioxide 27 (22-30) mmol/L BUN 21 H (7-17) mg/dL Creatinine 0.71 (0.52-1.04) mg/dL Glucose 120 H (74-99) mg/dL Calcium 9.9 (8.4-10.2) mg/dL Adrenal panel 08/02/20 Range/Units 05:19 Sodium 137 (137-145) mmol/L Potassium 4.8 (3.5-5.1) mmol/L Chloride 102 (98-107) mmol/L Carbon Dioxide 27 (22-30) mmol/L BUN 21 H (7-17) mg/dL Creatinine 0.71 (0.52-1.04) mg/dL Glucose 120 H (74-99) mg/dL Calcium 9.9 (8.4-10.2) mg/dL Total Bilirubin 0.5 (0.2-1.3) mg/dL AST 26 (14-36) U/L ALT 20 (4-34) U/L Alkaline Phosphatase 86 (38-126) U/L Total Protein 7.5 (6.3-8.2) g/dL Albumin 4.2 (3.5-5.0) g/dL Assessment and Plan Assessment: 75-year-old female with history of a 4 mm left distal stone. She's had to ED presentation secondary to her pain. On evaluation this a.m. she indicated her pain has improved. On presentation her lactate was 2.9, but she's exhibiting no signs of sepsis, her WBC is WNL. Lactate improved with IV hydration -Continue IV fluids, and ceftriaxone -We'll keep nothing by mouth past midnight, if pain reoccurs then we'll proceed with left-sided stent possible ureteroscopy
[2020-08-02] MEDS: ONDANSETRON 4 MG/2 ML VIAL IVP PRN (20:20)
[2020-08-02] MEDS: ATORVASTATIN 40 MG TAB PO SCH (21:04)
[2020-08-02] MEDS: HYDROcodone/APAP 5-325MG 1 EACH TAB PO PRN (21:40)
[2020-08-02] MEDS: KETOROLAC 15 MG/ML 1 ML VIAL IVP SCH (23:57)
[2020-08-03] MEDS: KETOROLAC 15 MG/ML 1 ML VIAL IVP SCH ×3 (05:55→18:42)
[2020-08-03] MEDS: LEVOTHYROXINE 125 MCG TAB PO SCH (05:55)
[2020-08-03] MEDS: SODIUM CHLORIDE 0.9% 1,000 ML IV SCH (06:00)
[2020-08-03] MEDS: HYDROmorphone 1 MG/ML 1 ML SYRINGE IVP PRN ×2 (08:26→11:44)
[2020-08-03] MEDS: ONDANSETRON 4 MG/2 ML VIAL IVP PRN (08:26)
[2020-08-03] MEDS: FAMOTIDINE 20 MG TAB PO SCH ×2 (08:27→21:03)
[2020-08-03] MEDS: TAMSULOSIN 0.4 MG CAP.ER.24H PO SCH (08:27)
[2020-08-03] MEDS ORDERED: IV FLUID CONTINUATION 1,000 ML IV ONE (14:15)
[2020-08-03 14:17] LABS: Glucose,Whole Blood 102 mg/dL (75-99)
[2020-08-03] MEDS ORDERED: ONDANSETRON 4 MG/2 ML VIAL IVP ONE (15:04)
[2020-08-03] MEDS ORDERED: DEXAMETHASONE SOD PHOSPHATE 4 MG/ML 1 ML VIAL IV ONE (15:05)
[2020-08-03] MEDS ORDERED: MEPERIDINE 50 MG/ML SYRINGE IVP ONE ×2 (16:25→16:48)
[2020-08-03] MEDS ORDERED: fentaNYL (PF) 50 MCG/ML 2 ML AMP ONE (16:51)
[2020-08-03] MEDS ORDERED: ePHEDrine SULFATE/0.9% NACL/PF 50 MG/5 ML SYRINGE IV ONE (16:51)
[2020-08-03] MEDS ORDERED: PHENYLEPHRINE-0.9% NACL SYG 1,000 MCG/10 ML SYRINGE ONE (16:51)
[2020-08-03] MEDS ORDERED: SUCCINYLCHOLINE CHLORIDE 100 MG/5 ML SYR IV ONE (16:51)
[2020-08-03] MEDS ORDERED: LIDOCAINE 1% INJ 10MG/ML (20 ML MDV) ONE (16:51)
[2020-08-03] MEDS ORDERED: PROPOFOL 10 MG/ML 20 ML VIAL IV ONE (16:51)
--- NOTE | 2020-08-03 17:09 | P.PN ---
Subjective Progress Note Date: 08/03/20 Still having pain this a.m., has not passed the stone and. Denies any gross hematuria or dysuria Objective - Vital Signs Vital signs: Vital Signs Temp 97.6 F 08/03/20 14:10 Pulse 98 08/03/20 16:52 Resp 16 08/03/20 16:52 BP 121/76 08/03/20 16:52 Pulse Ox 97 08/03/20 14:10 Intake & Output 08/02/20 08/03/20 08/03/20 18:59 06:59 18:59 Output Total 50 1250 150 Balance -50 -1250 -150 Weight 123.9 kg 123.9 kg Output: Urine 50 1250 150 Other: Voiding Method Toilet Toilet Toilet # Voids 1 2 - Constitutional General appearance: Present: mild distress, obese - Psychiatric Psychiatric: Present: A&O x's 3 - Labs CBC & Chem 7: 08/02/20 05:19 08/02/20 05:19 Labs: Abnormal Lab Results - Last 24 Hours (Table) 08/03/20 Range/Units 14:14 POC Glucose (mg/dL) 102 H (75-99) mg/dL Assessment and Plan Assessment: 75-year-old female with history of a 4 mm left distal stone. She's had to ED presentation secondary to her pain. On presentation her lactate was 2.9, but she's exhibiting no signs of sepsis, her WBC is WNL. Lactate improved with IV hydration. Has been on IV ceftriaxone since admission -Or today for left-sided ureteroscopy with holmium laser, and stent placement
[2020-08-03] MEDS ORDERED: SODIUM CHLORIDE 0.9% 50 ML with GENTAMICIN 80 MG IV ONE ×2 (17:16)
[2020-08-03] MEDS ORDERED: SODIUM CHLORIDE 0.9% 1,000 ML IV ONE (17:33)
--- NOTE | 2020-08-03 18:00 | P.OP ---
Date of Procedure: 08/03/20 Preoperative Diagnosis: Left ureteral calculi Postoperative Diagnosis: Same Procedure(s) Performed: Cystoscopy, left ureteroscopy, holmium laser lithotripsy, stone basketing and stent placement Implants: 6-[place] by 24 cm stent Anesthesia: [id number] Surgeon: Corky Up Pathology: other (left ureteral calculi) Condition: stable Disposition: PACU Indications for Procedure: This is 75-year-old female with history of a 4 mm left distal stone, she's had two ED presentation secondary to her stone. Patient has been admitted to the hospital has been having intractable pain. Discussed with her given her pain the option of doing ureteroscopy with holmium laser. Discussed with her the risk which includes but not limited bleeding, infection, injury to the ureter. She understood all the risk and agreed to proceed Operative Findings: Stone in the left distal ureter, ureteral edema surrounding the stone Description of Procedure: Patient was brought to the operating room, general anesthesia was induced. She was prepped and draped in sterile fashion a placed in dorsal lithotomy position. Cystoscopy fitted with a 21-[place] sheath was inserted per urethra, cystoscopy was performed which showed no abnormality within the bladder. Attention was then carried to the left ureteral orifice. The cystoscope was removed and a semirigid ureteroscope was inserted per urethra and advanced up the left ureteral orifice. The stone was encountered in the distal ureter. Using the holmium laser the stone was fragmented into small fragments, sizable fragments were removed using the ZeroTip stone basket and sent for analysis. Next the ureteroscope was advanced all the way up to the UPJ and there was no additional stones or fragments. Pullback ureteroscopy was performed which showed no injury to the ureter, but of note there was some ureteral edema at the site of stone impaction. At this time a sensor wire was advanced through the ureteroscope and the ureteroscope was withdrawn with the wire in place. Next a flexible ure teroscope was passed over the wire, the wire was removed . Renoscopy was performed which showed 2 small stone within the kidney, using the holmium laser the stone were dusted. Repeat renoscopy showed no additional stones. Pullback ureteroscopy showed no injury to the ureter or any stone fragments. As the ureteroscope was withdrawn and a sensor wire was advanced through. Next a ureteral stent was passed over the wire, the proximal curl was visualized on fluoroscopy and distal curl was visualized and cystoscope. The bladder emptied and the end of the case. The patient tolerated the procedure was taken to PACU in stable condition
[2020-08-03] MEDS ORDERED: HYDROmorphone 0.5 MG/0.5 ML SYRINGE IVP ONE (18:10)
[2020-08-03 18:28] LABS: Glucose,Whole Blood 153 mg/dL (75-99)
[2020-08-03] MEDS: HYDROcodone/APAP 5-325MG 1 EACH TAB PO PRN (21:01)
[2020-08-03] MEDS: ATORVASTATIN 40 MG TAB PO SCH (21:03)
[2020-08-04] MEDS: LEVOTHYROXINE 125 MCG TAB PO SCH (07:26)
[2020-08-04] MEDS: KETOROLAC 15 MG/ML 1 ML VIAL IVP SCH (07:26)
[2020-08-04] MEDS: SODIUM CHLORIDE 0.9% 1,000 ML IV SCH (07:27)
[2020-08-04] MEDS: FAMOTIDINE 20 MG TAB PO SCH (08:39)
[2020-08-04] MEDS: TAMSULOSIN 0.4 MG CAP.ER.24H PO SCH (08:39)
[2020-08-04 09:31] VITALS: BP 133/68; PULSE 85; RESP 20; TEMP 97.5
[2020-08-04] MEDS: HYDROcodone/APAP 5-325MG 1 EACH TAB PO PRN (10:13)
[2020-08-04] MEDS ORDERED: SODIUM CHLORIDE 0.9% 1,000 ML BAG ONE (11:39)
--- NOTE | 2020-08-04 12:52 | P.DS ---
Providers Date of admission: 08/02/20 06:45 Attending physician: Corky Up MD Primary care physician: Pieter Black MD Hospital Course: This is a 75-year-old female with history of a 4 mm left distal stone. She's had multiple ED presentation secondary to her stone. She was admitted to the hospital on August 02, she continued to have pain. She was taken to the OR for left-sided ureteroscopy with holmium laser and stent placement on August 03. Please see op note dated August 03 for full surgery detail. She did well in the postoperative period, her pain improved postoperatively. She was discharged home on postoperative day #1, she will follow up in 1-2 weeks for stent removal. At time of discharge she was tolerating a diet, and ambulating, pain was well- controlled Plan - Discharge Summary Discharge Rx Participant: Yes New Discharge Prescriptions: New Cephalexin [Keflex] 500 mg PO Q8HR #15 cap Ibuprofen 600 mg PO Q8H PRN #20 tab PRN Reason: Pain No Action Triamterene-Hctz 37.5-25Mg [Maxzide 37.5-25] 1 tab PO DAILY Vitamin C/Biotin [Hair, Skin and Nails] 1 tab PO DAILY Multivit-Min/Iron/Folic/Lutein [Centrum Silver Women Tablet] 1 tab PO DAILY Cholecalciferol [Vitamin D3 (25 Mcg = 1000 Iu)] 5,000 unit PO DAILY lisinopriL [Zestril] 2.5 mg PO DAILY traMADol HCl [Ultram] 50 mg PO Q6H PRN #28 tab PRN Reason: Pain Levothyroxine Sodium [Euthyrox] 125 mcg PO DAILY Gabapentin 800 mg PO TID PRN PRN Reason: Pain metFORMIN HCL 1,000 mg PO DAILY Tamsulosin [Flomax] 0.4 mg PO DAILY #10 cap Ketorolac [Toradol] 10 mg PO Q6HR #15 tab Atorvastatin [Lipitor] 40 mg PO HS Discharge Medication List Triamterene-Hctz 37.5-25Mg [Maxzide 37.5-25] 1 tab PO DAILY 11/16/13 [History] Cholecalciferol [Vitamin D3 (25 Mcg = 1000 Iu)] 5,000 unit PO DAILY 10/30/17 [History] Multivit-Min/Iron/Folic/Lutein [Centrum Silver Women Tablet] 1 tab PO DAILY 10/30/17 [History] Vitamin C/Biotin [Hair, Skin and Nails] 1 tab PO DAILY 10/30/17 [History] lisinopriL [Zestril] 2.5 mg PO DAILY 10/30/17 [History] traMADol HCl [Ultram] 50 mg PO Q6H PRN #28 tab 11/13/17 [Rx] Gabapentin 800 mg PO TID PRN 08/01/20 [History] Ketorolac [Toradol] 10 mg PO Q6HR #15 tab 08/01/20 [Rx] Levothyroxine Sodium [Euthyrox] 125 mcg PO DAILY 08/01/20 [History] Tamsulosin [Flomax] 0.4 mg PO DAILY #10 cap 08/01/20 [Rx] metFORMIN HCL 1,000 mg PO DAILY 08/01/20 [History] Atorvastatin [Lipitor] 40 mg PO HS 08/02/20 [History] Cephalexin [Keflex] 500 mg PO Q8HR #15 cap 08/04/20 [Rx] Ibuprofen 600 mg PO Q8H PRN #20 tab 08/04/20 [Rx] Follow up Appointment(s)/Referral(s): Corky Up MD [STAFF PHYSICIAN] - 08/30/20 8:00 am Pieter Black MD [Primary Care Provider] - 1-2 days Patient Instructions/Handouts: Ureteral Stent Placement (DC) Activity/Diet/Wound Care/Special Instructions: Diet as tolerated. drink fluids. activity as tolerated Monitor for fevers. call Dr Office with any fever or chills. difficulty urinating. return of frankly bloody urine, increased pain not controlled by pain meds, or any concerns. Last received toradol at 0600 ( same family as motrin) can take a dose of motrin at 2pm. good hand washing for all in the house. Discharge Disposition: HOME SELF-CARE
--- NOTE | 2020-08-04 12:56 | FL ---
EXAMINATION TYPE: FL fluoroscopy <1hr DATE OF EXAM: 08/03/2020 COMPARISON: NONE HISTORY: Stent placement Fluoroscopy support supplied to the referring clinician. See dictated report from urology, single in traoperative C-arm image documents the procedure, 14 seconds fluoroscopy time supplied
== END 2020-08-04 11:40 | disposition home or self-care (01) | DRG 661 ==
LOC: EC 04:37 → 5NMEDONC 06:45 → 6PED 08:05
PROVIDERS: ADMIT Urology; ATTEND Urology
PROC: 0TC78ZZ Extirpation of Matter from Left Ureter, Via Natural or Artificial Opening Endoscopic (ICD-10-PCS; principal; 2020-08-03 07:30)
PROC: 0T778DZ Dilation of Left Ureter with Intraluminal Device, Via Natural or Artificial Opening Endoscopic (ICD-10-PCS; principal; 2020-08-03 07:30)
DX: N20.2 Calculus of kidney with calculus of ureter (principal); E11.9 Type 2 diabetes mellitus without complications; E78.5 Hyperlipidemia, unspecified; I10 Essential (primary) hypertension; M79.7 Fibromyalgia; Z79.84 Long term (current) use of oral hypoglycemic drugs; Z79.890 Hormone replacement therapy; Z79.899 Other long term (current) drug therapy; Z80.49 Family history of malignant neoplasm of other genital organs; Z83.3 Family history of diabetes mellitus; Z87.891 Personal history of nicotine dependence; Z90.710 Acquired absence of both cervix and uterus; E07.9 Disorder of thyroid, unspecified
CPT/HCPCS: 36415; 74018; 74177; 76000; 80053; 81001; 82150; 82365; 82550; 83605; 83690; 84484; 85025; 87635; 96361; 96365; 99284; 99285

== ENCOUNTER 2020-08-13 01:01 | Emergency (ER) | payer MEDICARE, BC ==
[2020-08-13 01:08] VITALS: RESP 18; TEMP 97.6
[2020-08-13] MEDS ORDERED: KETOROLAC 15 MG/ML 1 ML VIAL IVP STA (02:19)
[2020-08-13] MEDS ORDERED: ONDANSETRON 4 MG/2 ML VIAL IVP STA (02:20)
[2020-08-13 02:23] LABS: Appearance,Urine Clear (Clear); Bacteria,Urine Rare /hpf; Bilirubin,Urine Negative (Negative); Blood,Urine Negative (Negative); Color,Urine Light Yellow; Glucose,Urine (UA) Negative (Negative); Ketones,Urine Negative (Negative); Leukocyte Esterase,Urine Small (Negative); Mucus,Urine Rare /hpf; Nitrite,Urine Negative (Negative); PH, Urine 5.5 (5.0-8.0); Protein,Urine Negative (Negative); RBC,Urine 1 /hpf (0-5); Specific Gravity,Urine 1.012 (1.001-1.035); Squamous Epithelial Cell,Urine 1 /hpf (0-4); Urobilinogen,Urine <2.0 mg/dL (<2.0); WBC,Urine 6 /hpf (0-5)
[2020-08-13 02:28] LABS: Basophils % (A) 1 %; Eosinophils # (A) 0.3 k/uL (0-0.7); Eosinophils % (A) 4 %; HCT 42.2 % (34.0-46.0); HGB 14.2 gm/dL (11.4-16.0); Lymphocytes # (A) 2.2 k/uL (1.0-4.8); Lymphocytes % (A) 31 %; MCH 31.3 pg (25.0-35.0); MCHC 33.7 g/dL (31.0-37.0); Mean Platelet Volume 7.3; Monocytes # (A) 0.5 k/uL (0-1.0); Monocytes % (A) 7 %; Neutrophils % (A) 55 %; Platelet Count 203 k/uL (150-450); RBC 4.54 m/uL (3.80-5.40); WBC 7.3 k/uL (3.8-10.6)
--- NOTE | 2020-08-13 02:29 | ED ---
Abdominal Pain HPI - General Chief Complaint: Abdominal Pain Stated Complaint: Back Pain Time Seen by Provider: 08/13/20 01:22 Source: patient Mode of arrival: ambulatory Limitations: no limitations - History of Present Illness Initial Comments: 75-year-old male presenting today for chief complaint of right flank pain x 2 days. Patient states she had a right kidney stone 2 weeks ago and had a stent placed at that time by Dr. Up Patient states that Friday Dr. Beto Clemens remove the stent. Patient states that since Friday of last week she has felt normal has had no pain denies fevers nausea vomiting. Patient states yesterday evening she developed familiar right-sided flank pain and felt like when she the stone in the past. Patient states it only continued into the day today as well as into the evening. She states is very sharp colicky in nature. Patient denies any associated nausea and vomiting she denies fevers. She denies chest pain shortness of breath abdominal pain or diarrhea. Upon arrival patient appears uncomfortable but nontoxic in no distress. - Related Data Home Medications Medication Instructions Recorded Confirmed Triamterene-Hctz 37.5-25Mg 1 tab PO DAILY 11/16/13 08/02/20 [Maxzide 37.5-25] Cholecalciferol [Vitamin D3 (25 5,000 unit PO DAILY 10/30/17 08/02/20 Mcg = 1000 Iu)] Multivit-Min/Iron/Folic/Lutein 1 tab PO DAILY 10/30/17 08/02/20 [Centrum Silver Women Tablet] Vitamin C/Biotin [Hair, Skin and 1 tab PO DAILY 10/30/17 08/02/20 Nails] lisinopriL [Zestril] 2.5 mg PO DAILY 10/30/17 08/02/20 Gabapentin 800 mg PO TID PRN 08/01/20 08/02/20 Levothyroxine Sodium [Euthyrox] 125 mcg PO DAILY 08/01/20 08/02/20 metFORMIN HCL 1,000 mg PO DAILY 08/01/20 08/02/20 Atorvastatin [Lipitor] 40 mg PO HS 08/02/20 08/02/20 Previous Rx's Medication Instructions Recorded traMADol HCl [Ultram] 50 mg PO Q6H PRN #28 tab 11/13/17 Ketorolac [Toradol] 10 mg PO Q6HR #15 tab 08/01/20 Tamsulosin [Flomax] 0.4 mg PO DAILY #10 cap 08/01/20 Cephalexin [Keflex] 500 mg PO Q8HR #15 cap 08/04/20 Ibuprofen 600 mg PO Q8H PRN #20 tab 08/04/20 Cephalexin [Keflex] 500 mg PO Q8HR 5 Days #15 cap 08/13/20 Allergies Allergy/AdvReac Type Severity Reaction Status Date / Time No Known Allergies Allergy Verified 08/02/20 07:06 Review of Systems ROS Statement: Those systems with pertinent positive or pertinent negative responses have been documented in the HPI. ROS Other: All systems not noted in ROS Statement are negative. Past Medical History Past Medical History: Diabetes Mellitus, Fibromyalgia, GERD/Reflux, Hyperlipidemia, Hypertension, Osteoarthritis (OA), Sleep Apnea/CPAP/BIPAP, Thyroid Disorder Additional Past Medical History / Comment(s): varicose veins,SPINAL STENOSIS."pt STATES TOLD BY HER DR SHE IS NOT A DIABETIC ANYMORE", History of Any Multi-Drug Resistant Organisms: None Reported Past Surgical History: Adenoidectomy, Appendectomy, Bariatric Surgery, Cholecystectomy, Heart Catheterization, Hysterectomy, Joint Replacement, Tonsillectomy, Tubal Ligation Additional Past Surgical History / Comment(s): gastric stapling, cervical fusion, rt knee replacment, colonoscopy, pain clinic procedures in [place]. TOTAL LEFT KNEE Past Anesthesia/Blood Transfusion Reactions: No Reported Reaction Past Psychological History: No Psychological Hx Reported Smoking Status: Never smoker Past Alcohol Use History: Occasional Past Drug Use History: None Reported - Past Family History Mother Family Medical History: Cancer Additional Family Medical History / Comment(s): breast and cervical cancer Sister(s) Family Medical History: Cancer Additional Family Medical History / Comment(s): cervical cancer Father Family Medical History: Diabetes Mellitus General Exam - General Exam Comments Initial Comments: General: The patient is awake and alert, in no distress, and does not appear acutely ill. Eye: +3 mm pupils are equal, round and reactive to light, extra-ocular movements are intact. No nystagmus. There is normal conjunctiva bilaterally. No signs of icterus. Ears, nose, mouth and throat: There are moist mucous membranes and no oral lesions. Neck: The neck is supple, there is no tenderness or JVD. Cardiovascular: There is a regular rate and rhythm. No murmur, rub or gallop is appreciated. Respiratory: Lungs are clear to auscultation, respirations are non-labored, br eath sounds are equal. No wheezes, stridor, rales, or rhonchi. Gastrointestinal: Soft, non-distended, non-tender abdomen without masses or organomegaly noted. There is no rebound or guarding present. No CVA tenderness Musculoskeletal: some right paraspinal tenderness mid back. no skin changes. no midline spinal tenderness. Normal ROM, no tenderness. Strength 5/5. Sensation intact. Radial and DP pulses equal bilaterally 2+. Neurological: A&O x 3. CN II-XII intact grossly, There are no obvious motor or sensory deficits. Coordination appears grossly intact. Speech is normal. Skin: Skin is warm and dry and no rashes or lesions are noted. Psychiatric: Cooperative, appropriate mood & affect, normal judgment. Limitations: no limitations Course Vital Signs 08/13/20 01:02 Temperature 97.6 F Pulse Rate 75 Respiratory 18 Rate Blood Pressure 137/73 O2 Sat by Pulse 98 Oximetry Medical Decision Making - Medical Decision Making Well appearing 75yo female presenting for back pain x 2 days. is reproducible on exam. no skins changes. no weakness of legs or sensation deficits. no falls. urine overall unimpressive there is some few bacteria but no significant signs of infection such as nitrates. pt will be treated however as there is bacteria and culture is pending. patient CT no obstructing stones. no right sided stones noted. no fevers. patient appears nontoixc. ddx include renal colic vs MSK pain. patient is agreeable to discharge with pcp f/u. SHe is to f/u with urologist Dr Up as well. - Lab Data Result diagrams: 08/13/20 01:42 08/13/20 01:42 Lab Results 08/13/20 08/13/20 08/13/20 Range/Units 01:42 01:42 02:08 WBC 7.3 (3.8-10.6) k/uL RBC 4.54 (3.80-5.40) m/uL Hgb 14.2 (11.4-16.0) gm/dL Hct 42.2 (34.0-46.0) % MCV 93.0 (80.0-100.0) fL MCH 31.3 (25.0-35.0) pg MCHC 33.7 (31.0-37.0) g/dL RDW 14.0 (11.5-15.5) % Plt Count 203 (150-450) k/uL MPV 7.3 Neutrophils % 55 % Lymphocytes % 31 % Monocytes % 7 % Eosinophils % 4 % Basophils % 1 % Neutrophils # 4.0 (1.3-7.7) k/uL Lymphocytes # 2.2 (1.0-4.8) k/uL Monocytes # 0.5 (0-1.0) k/uL Eosinophils # 0.3 (0-0.7) k/uL Basophils # 0.0 (0-0.2) k/uL Sodium 134 L (137-145) mmol/L Potassium 4.4 (3.5-5.1) mmol/L Chloride 100 (98-107) mmol/L Carbon Dioxide 27 (22-30) mmol/L Anion Gap 7 mmol/L BUN 18 H (7-17) mg/dL Creatinine 0.72 (0.52-1.04) mg/dL Est GFR (CKD-EPI)AfAm >90 (>60 ml/min/1.73 sqM) Est GFR (CKD-EPI)NonAf 84 (>60 ml/min/1.73 sqM) Glucose 105 H (74-99) mg/dL Calcium 9.4 (8.4-10.2) mg/dL Total Bilirubin 0.7 (0.2-1.3) mg/dL AST 24 (14-36) U/L ALT 16 (4-34) U/L Alkaline Phosphatase 80 (38-126) U/L Total Protein 7.2 (6.3-8.2) g/dL Albumin 3.9 (3.5-5.0) g/dL Amylase 60 (30-110) U/L Lipase 160 (23-300) U/L Urine Color Light Yellow Urine Appearance Clear (Clear) Urine pH 5.5 (5.0-8.0) Ur Specific Outing 1.012 (1.001-1.035) Urine Protein Negative (Negative) Urine Glucose (UA) Negative (Negative) Urine Ketones Negative (Negative) Urine Blood Negative (Negative) Urine Nitrite Negative (Negative) Urine Bilirubin Negative (Negative) Urine Urobilinogen <2.0 (<2.0) mg/dL Ur Leukocyte Esterase Small H (Negative) Urine RBC 1 (0-5) /hpf Urine WBC 6 H (0-5) /hpf Ur Squamous Epith Cells 1 (0-4) /hpf Urine Bacteria Rare H (None) /hpf Urine Mucus Rare H (None) /hpf Disposition Clinical Impression: Right-sided back pain Disposition: HOME SELF-CARE Condition: Good Instructions (If sedation given, give patient instructions): Renal Colic (ED) Additional Instructions: Please use medication as discussed. Please follow-up with family doctor in the next 2 days. Please return to emergency room if the symptoms increase or worsen or for any other concerns. Prescriptions: Cephalexin [Keflex] 500 mg PO Q8HR 5 Days #15 cap Is patient prescribed a controlled substance at d/c from ED?: No Referrals: Pieter Black MD [Primary Care Provider] - 1-2 days Time of Disposition: 02:45
--- NOTE | 2020-08-13 02:37 | CT ---
EXAM: CT Abdomen and Pelvis Without Intravenous Contrast CLINICAL HISTORY: ITS.REASON CT Reason: right flank pain TECHNIQUE: Axial computed tomography images of the abdomen and pelvis without intravenous contrast. CTDI is 33 mGy and DLP is 1680.4 mGy-cm. This CT exam was performed using one or more of the following dose reduction techniques: automated exposure control, adjustment of the mA and/or kV according to patient size, and/or use of iterative reconstruction technique. COMPARISON: No relevant prior studies available. FINDINGS: Lung bases: Unremarkable. ABDOMEN: Liver: Lobular contour of the liver suggesting early cirrhosis. Gallbladder and bile ducts: Gallbladder is surgically absent. Pancreas: Unremarkable. Spleen: Unremarkable. Adrenals: Unremarkable. Kidneys and ureters: Nonobstructing calculi within the left kidney. Probable cyst within left kidney. Stomach and bowel: Ventral hernia containing nonobstructing colon. Colonic diverticulosis. [id number] gastric bypass surgery. PELVIS: Appendix: Appendix is not visualized. Bladder: Unremarkable. Reproductive: Uterus is surgically absent. ABDOMEN and PELVIS: Intraperitoneal space: Unremarkable. Bones/joints: No acute fracture. No dislocation. Soft tissues: See above. Vasculature: Unremarkable. Lymph nodes: Unremarkable. IMPRESSION: 1. Ventral wall hernia containing nonobstructing colon. 2. Colonic diverticulosis. 3. Nonobstructing calculi within the left kidney.
[2020-08-13 02:40] LABS: ALT 16 U/L (4-34); AST 24 U/L (14-36); African American GFR (CKD) >90 (>60 ml/min/1.73 sqM); Albumin 3.9 g/dL (3.5-5.0); Alkaline Phosphatase 80 U/L (38-126); Amylase 60 U/L (30-110); Anion Gap 7 mmol/L; Blood Urea Nitrogen 18 mg/dL (7-17); Calcium 9.4 mg/dL (8.4-10.2); Carbon Dioxide 27 mmol/L (22-30); Chloride 100 mmol/L (98-107); Glucose 105 mg/dL (74-99); Lipase 160 U/L (23-300); Non-African American GFR(CKD) 84 (>60 ml/min/1.73 sqM); Potassium 4.4 mmol/L (3.5-5.1); Sodium 134 mmol/L (137-145); Total Bilirubin 0.7 mg/dL (0.2-1.3); Total Protein 7.2 g/dL (6.3-8.2)
[2020-08-13] MEDS ORDERED: HYDROcodone/APAP 5-325MG 1 EACH TAB PO STA (02:45)
[2020-08-13 02:54] VITALS: BP 140/78; PULSE 76
== END 2020-08-13 02:57 | disposition home or self-care (01) ==
LOC: EC 01:01
DX: M54.9 Dorsalgia, unspecified (principal); E11.9 Type 2 diabetes mellitus without complications; K21.9 Gastro-esophageal reflux disease without esophagitis; E78.5 Hyperlipidemia, unspecified; I10 Essential (primary) hypertension; M19.90 Unspecified osteoarthritis, unspecified site; G47.33 Obstructive sleep apnea (adult) (pediatric)
CPT/HCPCS: 36415; 80053; 82150; 83690; 85025; 81001; 74176; 99284; 96374; 96375; J2405; J1885

== ENCOUNTER 2020-09-11 14:55 | Emergency (ER) | payer MEDICARE, BC ==
[2020-09-11 15:17] VITALS: BP 150/77; PULSE 111; RESP 18; TEMP 97.7
[2020-09-11] MEDS ORDERED: KETOROLAC 15 MG/ML 1 ML VIAL IM STA (16:15)
[2020-09-11] MEDS ORDERED: CYCLOBENZAPRINE 10 MG TAB PO STA (16:15)
[2020-09-11] MEDS ORDERED: predniSONE 20 MG TAB PO STA (16:15)
--- NOTE | 2020-09-11 16:23 | ED ---
Neck Injury/Pain HPI - General Chief Complaint: Neck Pain/Injury Stated Complaint: Neck pain,Sent by pcp Time Seen by Provider: 09/11/20 15:15 Mode of arrival: wheelchair Limitations: no limitations - History of Present Illness Initial Comments: Patient is a 75-year-old female past medical history of diabetes, fibromyalgia who presents emergency Department with reported neck pain. Patient states that she began having neck pain over the past couple of days that has increased in intensity. Located on the left side of her neck and radiates down into her left arm. She denies any falls or trauma. No history of neck pain previously. She has been putting heat to the site without any improvement in her symptoms. Patient denies any headaches or visual changes. No nausea or vomiting. Denies any fevers. No midline neck pain denies any thoracic or lumbar back pain. No history of drug use. No numbness or strength loss in her upper extremities. No other alleviating, precipitating or modifying factors - Related Data Home Medications Medication Instructions Recorded Confirmed Triamterene-Hctz 37.5-25Mg 1 tab PO DAILY 11/16/13 08/02/20 [Maxzide 37.5-25] Cholecalciferol [Vitamin D3 (25 5,000 unit PO DAILY 10/30/17 08/02/20 Mcg = 1000 Iu)] Multivit-Min/Iron/Folic/Lutein 1 tab PO DAILY 10/30/17 08/02/20 [Centrum Silver Women Tablet] Vitamin C/Biotin [Hair, Skin and 1 tab PO DAILY 10/30/17 08/02/20 Nails] lisinopriL [Zestril] 2.5 mg PO DAILY 10/30/17 08/02/20 Gabapentin 800 mg PO TID PRN 08/01/20 08/02/20 Levothyroxine Sodium [Euthyrox] 125 mcg PO DAILY 08/01/20 08/02/20 metFORMIN HCL 1,000 mg PO DAILY 08/01/20 08/02/20 Atorvastatin [Lipitor] 40 mg PO HS 08/02/20 08/02/20 Previous Rx's Medication Instructions Recorded traMADol HCl [Ultram] 50 mg PO Q6H PRN #28 tab 11/13/17 Ketorolac [Toradol] 10 mg PO Q6HR #15 tab 08/01/20 Tamsulosin [Flomax] 0.4 mg PO DAILY #10 cap 08/01/20 Cephalexin [Keflex] 500 mg PO Q8HR #15 cap 08/04/20 Ibuprofen 600 mg PO Q8H PRN #20 tab 08/04/20 Cephalexin [Keflex] 500 mg PO Q8HR 5 Days #15 cap 08/13/20 Cyclobenzaprine [Flexeril] 10 mg PO TID PRN #20 tab 09/11/20 predniSONE [Deltasone] 20 mg PO BID #10 tab 09/11/20 HYDROcodone/APAP 5-325MG [[place] 1 tab PO Q6HR PRN 3 Days #12 tab 09/12/20 5-325] Allergies Allergy/AdvReac Type Severity Reaction Status Date / Time No Known Allergies Allergy Verified 09/12/20 06:07 Review of Systems ROS Statement: Those systems with pertinent positive or pertinent negative responses have been documented in the HPI. ROS Other: All systems not noted in ROS Statement are negative. Past Medical History Past Medical History: Diabetes Mellitus, Fibromyalgia, GERD/Reflux, Hyperlipidemia, Hypertension, Osteoarthritis (OA), Sleep Apnea/CPAP/BIPAP, Thyroid Disorder Additional Past Medical History / Comment(s): varicose veins,SPINAL STENOSIS."pt STATES TOLD BY HER DR SHE IS NOT A DIABETIC ANYMORE", History of Any Multi-Drug Resistant Organisms: None Reported Past Surgical History: Adenoidectomy, Appendectomy, Bariatric Surgery, Cholecystectomy, Heart Catheterization, Hysterectomy, Joint Replacement, Tonsillectomy, Tubal Ligation Additional Past Surgical History / Comment(s): gastric stapling, cervical fusion, rt knee replacment, colonoscopy, pain clinic procedures in [place]. TOTAL LEFT KNEE Past Anesthesia/Blood Transfusion Reactions: No Reported Reaction Past Psychological History: No Psychological Hx Reported Smoking Status: Never smoker Past Alcohol Use History: Occasional Past Drug Use History: None Reported - Past Family History Mother Family Medical History: Cancer Additional Family Medical History / Comment(s): breast and cervical cancer Sister(s) Family Medical History: Cancer Additional Family Medical History / Comment(s): cervical cancer Father Family Medical History: Diabetes Mellitus General Exam Limitations: no limitations General appearance: alert, in no apparent distress Head exam: Present: atraumatic, normocephalic, normal inspection Eye exam: Present: normal appearance, PERRL, EOMI. Absent: scleral icterus, conjunctival injection, periorbital swelling ENT exam: Present: normal exam, mucous membranes moist Neck exam: Present: tenderness (left paraspinal tenderness with induration of left trapezius muscle. 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 No midline tenderness) Course Vital Signs 09/11/20 15:13 Temperature 97.7 F Pulse Rate 111 H Respiratory 18 Rate Blood Pressure 150/77 O2 Sat by Pulse 96 Oximetry Medical Decision Making - Medical Decision Making Upon arrival patient was placed into room 30. Thorough history and physical exam was performed. Patient does not report any trauma. Patient was treated with Flexeril, Toradol and steroids in the emergency department. Did recommend outpatient treatment with Flexeril and steroid burst for her cervical radiculopathy. Patient is instructed to not take any NSAIDs at home while on the steroids. Follow up with her primary care doctor in regards to her symptoms. May need an MRI for persistent pain. Patient agreed to this, was given written and verbal discharge instructions and discharged home in stable condition Disposition Clinical Impression: Neck pain, Cervical radicular pain Disposition: HOME SELF-CARE Condition: Stable Instructions (If sedation given, give patient instructions): Cervical Radiculopathy (ED) Additional Instructions: You need to follow-up with your primary care doctor within 2-4 days. You may need an MRI. Return to the ED for any new or worsening symptoms. Prescriptions: predniSONE [Deltasone] 20 mg PO BID #10 tab Cyclobenzaprine [Flexeril] 10 mg PO TID PRN #20 tab PRN Reason: Muscle Spasm Is patient prescribed a controlled substance at d/c from ED?: No Referrals: Pieter Black MD [Primary Care Provider] - 1-2 days Time of Disposition: 16:23
== END 2020-09-11 16:30 | disposition home or self-care (01) ==
LOC: EC 14:55
DX: M54.12 Radiculopathy, cervical region (principal); M79.7 Fibromyalgia; M19.90 Unspecified osteoarthritis, unspecified site; I10 Essential (primary) hypertension; E11.9 Type 2 diabetes mellitus without complications; Z79.84 Long term (current) use of oral hypoglycemic drugs; E78.5 Hyperlipidemia, unspecified; E07.9 Disorder of thyroid, unspecified; G47.33 Obstructive sleep apnea (adult) (pediatric); Z99.81 Dependence on supplemental oxygen; Z90.49 Acquired absence of other specified parts of digestive tract; Z90.09 Acquired absence of other part of head and neck; Z98.51 Tubal ligation status
CPT/HCPCS: 99283; 96372; J1885; J7512

== ENCOUNTER 2020-09-12 06:03 | Emergency (ER) | payer MEDICARE, BC ==
[2020-09-12 06:08] VITALS: BP 157/86; PULSE 105; RESP 18; TEMP 97.5
[2020-09-12] MEDS ORDERED: MORPHINE SULFATE 4 MG/ML SYRINGE IM STA (06:13)
--- NOTE | 2020-09-12 06:14 | ED ---
Neck Injury/Pain HPI - General Chief Complaint: Neck Pain/Injury Stated Complaint: Neck Pain Time Seen by Provider: 09/12/20 06:08 Mode of arrival: ambulatory Limitations: no limitations - History of Present Illness Initial Comments: 75-year-old feel presented to the ER today for chief complaint of neck pain. pt states that she has had neck pain x weeks. she states she had a previous cervical fusion. pt states she came in ysterday for same complaints. pt states since yesterday the radiation down the left arm has gone away. she denies weakness, sensation deficits, chest pain, dyspnea, nausea, vomiting, abdominal pain, denies ripping tearing pain. Pt states there is a particular area of the left posterior neck/upper nack that she can touch and it increases the pain. pt states the pain is worse in the AM after sleeping and she has attempted to sleep in a recliner to see if that helps. Pt denies additional complaints. Upon arrival patient appears nontoxic in no acute distress. - Related Data Home Medications Medication Instructions Recorded Confirmed Triamterene-Hctz 37.5-25Mg 1 tab PO DAILY 11/16/13 08/02/20 [Maxzide 37.5-25] Cholecalciferol [Vitamin D3 (25 5,000 unit PO DAILY 10/30/17 08/02/20 Mcg = 1000 Iu)] Multivit-Min/Iron/Folic/Lutein 1 tab PO DAILY 10/30/17 08/02/20 [Centrum Silver Women Tablet] Vitamin C/Biotin [Hair, Skin and 1 tab PO DAILY 10/30/17 08/02/20 Nails] lisinopriL [Zestril] 2.5 mg PO DAILY 10/30/17 08/02/20 Gabapentin 800 mg PO TID PRN 08/01/20 08/02/20 Levothyroxine Sodium [Euthyrox] 125 mcg PO DAILY 08/01/20 08/02/20 metFORMIN HCL 1,000 mg PO DAILY 08/01/20 08/02/20 Atorvastatin [Lipitor] 40 mg PO HS 08/02/20 08/02/20 Previous Rx's Medication Instructions Recorded traMADol HCl [Ultram] 50 mg PO Q6H PRN #28 tab 11/13/17 Ketorolac [Toradol] 10 mg PO Q6HR #15 tab 08/01/20 Tamsulosin [Flomax] 0.4 mg PO DAILY #10 cap 08/01/20 Cephalexin [Keflex] 500 mg PO Q8HR #15 cap 08/04/20 Ibuprofen 600 mg PO Q8H PRN #20 tab 08/04/20 Cephalexin [Keflex] 500 mg PO Q8HR 5 Days #15 cap 08/13/20 Cyclobenzaprine [Flexeril] 10 mg PO TID PRN #20 tab 09/11/20 predniSONE [Deltasone] 20 mg PO BID #10 tab 09/11/20 HYDROcodone/APAP 5-325MG [[place] 1 tab PO Q6HR PRN 3 Days #12 tab 09/12/20 5-325] Allergies Allergy/AdvReac Type Severity Reaction Status Date / Time No Known Allergies Allergy Verified 09/12/20 06:07 Review of Systems ROS Statement: Those systems with pertinent positive or pertinent negative responses have been documented in the HPI. ROS Other: All systems not noted in ROS Statement are negative. Past Medical History Past Medical History: Diabetes Mellitus, Fibromyalgia, GERD/Reflux, Hyperlipidemia, Hypertension, Osteoarthritis (OA), Sleep Apnea/CPAP/BIPAP, Thyr oid Disorder Additional Past Medical History / Comment(s): varicose veins,SPINAL STENOSIS."pt STATES TOLD BY HER DR SHE IS NOT A DIABETIC ANYMORE", History of Any Multi-Drug Resistant Organisms: None Reported Past Surgical History: Adenoidectomy, Appendectomy, Bariatric Surgery, Cholecystectomy, Heart Catheterization, Hysterectomy, Joint Replacement, Tonsillectomy, Tubal Ligation Additional Past Surgical History / Comment(s): gastric stapling, cervical fusion, rt knee replacment, colonoscopy, pain clinic procedures in [place]. TOTAL LEFT KNEE Past Anesthesia/Blood Transfusion Reactions: No Reported Reaction Past Psychological History: No Psychological Hx Reported Smoking Status: Never smoker Past Alcohol Use History: Occasional Past Drug Use History: None Reported - Past Family History Mother Family Medical History: Cancer Additional Family Medical History / Comment(s): breast and cervical cancer Sister(s) Family Medical History: Cancer Additional Family Medical History / Comment(s): cervical cancer Father Family Medical History: Diabetes Mellitus General Exam - General Exam Comments Initial Comments: General: The patient is awake and alert, in no distress Eye: +3 mm pupils are equal, round and reactive to light, extra-ocular movements are intact. No nystagmus. There is normal conjunctiva bilaterally. No signs of icterus. Ears, nose, mouth and throat: There are moist mucous membranes and no oral lesions. Neck: The neck is supple, there is no tenderness or JVD. Cardiovascular: There is a regular rate and rhythm. No murmur, rub or gallop is appreciated. Respiratory: Lungs are clear to auscultation, respirations are non-labored, breath sounds are equal. No wheezes, stridor, rales, or rhonchi. Gastrointestinal: Soft, non-distended, non-tender abdomen without masses or organomegaly noted. There is no rebound or guarding present. Musculoskeletal: Normal inspection, but pain to palpation of the left trapezius muscle. no midline cervical tenderness. Normal ROM, no tenderness. Strength 5/5 of the UE b/l. Sensation intact of the UE b/l. Radial pulses equal bilaterally 2+. Neurological: A&O x 3. CN II-XII intact, There are no obvious motor or sensory deficits. Coordination appears grossly intact. Speech is normal. Skin: Skin is warm and dry and no rashes or lesions are noted. Psychiatric: Cooperative, appropriate mood & affect, normal judgment. Limitations: no limitations Course Vital Signs 09/12/20 06:04 Temperature 97.5 F L Pulse Rate 105 H Respiratory 18 Rate Blood Pressure 157/86 O2 Sat by Pulse 96 Oximetry Medical Decision Making - Medical Decision Making Reproducible neck pain to rotation and touch. Appears musculoskeletal with no midline tenderness no fevers no IV drug use or cancer. No falls or trauma no chest pain. Patient appears nontoxic. there is no arm weakness/sensation deficits. pt treated symtomatically. provided norco on discharge after discussing appropriate use. Disposition Clinical Impression: Neck pain Disposition: HOME SELF-CARE Condition: Good Instructions (If sedation given, give patient instructions): Cervical Radiculopathy (ED) Additional Instructions: Please use medication as discussed. Please follow-up with family doctor in the next 2 days. Please return to emergency room if the symptoms increase or worsen or for any other concerns. Prescriptions: HYDROcodone/APAP 5-325MG [[place] 5-325] 1 tab PO Q6HR PRN 3 Days #12 tab PRN Reason: Pain Is patient prescribed a controlled substance at d/c from ED?: No Referrals: Pieter Black MD [Primary Care Provider] - 1-2 days Sudhakar Ahmadi DO [Doctor of Osteopathic Medicine] - 1-2 days Time of Disposition: 06:14
== END 2020-09-12 06:32 | disposition home or self-care (01) ==
LOC: EC 06:03
DX: M54.2 Cervicalgia (principal); E11.9 Type 2 diabetes mellitus without complications; E78.5 Hyperlipidemia, unspecified; I10 Essential (primary) hypertension; K21.9 Gastro-esophageal reflux disease without esophagitis; M19.90 Unspecified osteoarthritis, unspecified site; M79.7 Fibromyalgia; E07.9 Disorder of thyroid, unspecified; G47.33 Obstructive sleep apnea (adult) (pediatric); Z99.81 Dependence on supplemental oxygen; Z79.84 Long term (current) use of oral hypoglycemic drugs; Z98.1 Arthrodesis status; Z90.49 Acquired absence of other specified parts of digestive tract; Z95.5 Presence of coronary angioplasty implant and graft; Z90.710 Acquired absence of both cervix and uterus; Z90.09 Acquired absence of other part of head and neck; Z98.51 Tubal ligation status
CPT/HCPCS: 99283; 96372; J2270

== ENCOUNTER 2021-03-21 06:43 | Day surgery (SDC) | payer MEDICARE, BC ==
[2021-03-19 10:50] VITALS: BMI 46.0
[~2021-03-21 06:43] MED LIST changes: -ACETAMINOPHEN TAB 500 MG TAB PO ONE; +LACTATED RINGERS 1,000 ML IV SCH; +LIDOCAINE 1% (10MG/ML) FOR IV START INTRADERMA PRN; -LIDOCAINE 1% 20 ML VIAL (10MG/ML) FOR IV START INTRADERMA PRN; -MELOXICAM 7.5 MG TAB PO ONE; -MIDAZOLAM 2 MG/2 ML VIAL IV PRN; -ONDANSETRON 4 MG/2 ML VIAL IVP ONE; -TRANEXAMIC ACID 1,000 MG in SODIUM CHLORIDE 0.9% 50 ML IVPB ONE; -fentaNYL (PF) 50 MCG/ML 2 ML AMP IVP PRN
[2021-03-21 07:23] VITALS: RESP 18; TEMP 97.6
[2021-03-21 07:28] LABS: Glucose,Whole Blood 137 mg/dL (75-99)
[2021-03-21] MEDS ORDERED: LIDOCAINE 1% INJ 10MG/ML (20 ML MDV) ONE (07:31)
[2021-03-21] MEDS ORDERED: PROPOFOL 10 MG/ML 20 ML VIAL IV ONE (07:31)
--- NOTE | 2021-03-21 07:59 | P.PCN ---
Date of Procedure: 03/21/21 Procedure(s) Performed: BRIEF HISTORY: Patient is a 75-year-old [place] 8 female scheduled for an elective colonoscopy as a part of evaluation of history of colon polyps and chronic diarrhea for the last 6 months duration. PROCEDURE PERFORMED: Colonoscopy biopsy and snare polypectomy. PREOPERATIVE DIAGNOSIS: History of colon polyps and chronic diarrhea. IV sedation per Anesthesia. PROCEDURE: After informed consent was obtained, the patient, was brought into the endoscopy unit. IV sedation was administered by Anesthesia under continuous monitoring. Digital rectal examination was normal. Initially the Olympus CF-160 flexible video colonoscope was then inserted in the rectum, gradually advanced into the hepatic flexure and further advancement was not possible because of a ventral hernia the cause advancement into the cecum very difficult.. Careful examination was performed as the scope was gradually being withdrawn. Mucosa of the hepatic flexure appeared normal. The transverse colon there was a 1 mm polyp that was removed by snare polypectomy. Rest of the transverse colon, descending colon, sigmoid colon, and rectum appeared normal. Random biopsies were done from the descending colon to rule out microscopic/collagenous colitis. Retroflexion was performed in the rectum and no lesions were seen. The patient tolerated the procedure well. IMPRESSION: 5 mm transverse colon polyp status post polypectomy Scope advanced up to the hepatic flexure as described above RECOMMENDATIONS: Findings of this examination were discussed with the patient as well as her family. She was advised to follow with the biopsy results. The biopsy revealed adenoma she can have a repeat colonoscopy in 5 years..
[2021-03-21 08:19] VITALS: BP 154/78; PULSE 90
== END 2021-03-21 08:47 | disposition home or self-care (01) ==
LOC: ORWHC2ENDO 06:43
PROVIDERS: ATTEND Internal Medicine Gastroenterology
DX: D12.3 Benign neoplasm of transverse colon (principal); Z86.010 Personal history of colon polyps
CPT/HCPCS: 45385; 88305; J2001; J2704

== ENCOUNTER 2021-10-19 05:22 | Emergency (ER) | payer MEDICARE, BC ==
[2021-10-19 05:31] VITALS: RESP 18
[2021-10-19] MEDS ORDERED: SODIUM CHLORIDE 0.9% 500 ML 500 ML IV STA (05:46)
[2021-10-19] MEDS ORDERED: MORPHINE SULFATE 4 MG/ML SYRINGE IV STA (05:46)
[2021-10-19] MEDS ORDERED: KETOROLAC 15 MG/ML 1 ML VIAL IVP STA (05:46)
[2021-10-19] MEDS ORDERED: ONDANSETRON 4 MG/2 ML VIAL IVP STA (05:46)
--- NOTE | 2021-10-19 05:47 | ED ---
Back Pain HPI - General Chief Complaint: Back Pain/Injury Stated Complaint: Lt sided pain Time Seen by Provider: 10/19/21 05:46 Source: patient, RN notes reviewed, old records reviewed Limitations: no limitations - History of Present Illness Initial Comments: This is a 76-year-old female to the emergency department for evaluation of back pain left flank pain left sided back pain with positive nausea no vomiting. Patient is uncomfortable unable to sit down pain is severe. She has no dysuria no blood in the urine no problems with bowel habits. Patient states she has history of kidney stones does feel similar. No trauma is a symptoms that were sudden onset that woke her up tonight. Patient without fever no travel show sick contacts MD Complaint: back pain, other (Left flank pain) -: hour(s) Similar Symptoms Previously: Yes Place: home Radiation: buttocks, left leg, flank Severity: severe Severity scale (1-10): 8 Quality: sharp Consistency: constant Improves With: none Worsens With: none, other (Symptoms awoke patient from sleep) Context: unknown Associated Symptoms: denies other symptoms Treatments Prior to Arrival: other (none) - Related Data Home Medications Medication Instructions Recorded Confirmed Triamterene-Hctz 37.5-25Mg 1 tab PO DAILY 11/16/13 03/21/21 [Maxzide 37.5-25] Cholecalciferol [Vitamin D3 (25 5,000 unit PO DAILY 10/30/17 03/21/21 Mcg = 1000 Iu)] Multivit-Min/Iron/Folic/Lutein 1 tab PO DAILY 10/30/17 03/21/21 [Centrum Silver Women Tablet] Vitamin C/Biotin [Hair, Skin and 1 tab PO DAILY 10/30/17 03/21/21 Nails Chew] lisinopriL [Zestril] 2.5 mg PO QAM 10/30/17 03/21/21 Gabapentin 800 mg PO TID PRN 08/01/20 03/21/21 Levothyroxine Sodium [Euthyrox] 125 mcg PO DAILY 08/01/20 03/21/21 metFORMIN HCL [Glucophage] 1,000 mg PO DAILY 08/01/20 03/21/21 Atorvastatin [Lipitor] 40 mg PO HS 08/02/20 03/21/21 Previous Rx's Medication Instructions Recorded traMADol HCl [Ultram] 50 mg PO Q6H PRN #28 tab 11/13/17 Lidocaine 5% Patch [Lidoderm] 1 patch TOPICAL DAILY PRN #1 packet 10/19/21 Allergies Allergy/AdvReac Type Severity Reaction Status Date / Time No Known Allergies Allergy Verified 10/19/21 14:24 Review of Systems ROS Statement: Those systems with pertinent positive or pertinent negative responses have been documented in the HPI. ROS Other: All systems not noted in ROS Statement are negative. Past Medical History Past Medical History: Diabetes Mellitus, Fibromyalgia, GERD/Reflux, Hyperlipidemia, Hypertension, Musculoskeletal Disorder, Osteoarthritis (OA), Sleep Apnea/CPAP/BIPAP, Thyroid Disorder Additional Past Medical History / Comment(s): Varicose veins, SPINAL STENOSIS, x kidney stones. History of Any Multi-Drug Resistant Organisms: None Reported Past Surgical History: Adenoidectomy, Appendectomy, Bariatric Surgery, Cholecystectomy, Heart Catheterization, Hysterectomy, Joint Replacement, Tonsillectomy, Tubal Ligation Additional Past Surgical History / Comment(s): Gastric stapling, cervical fusion, bilateral knee replacements, colonoscopy, pain clinic procedures. Past Anesthesia/Blood Transfusion Reactions: No Reported Reaction Past Psychological History: No Psychological Hx Reported Smoking Status: Former smoker Past Alcohol Use History: Occasional Past Drug Use History: None Reported - Past Family History Mother Family Medical History: Cancer Additional Family Medical History / Comment(s): Breast and cervical cancer. Sister(s) Family Medical History: Cancer Additional Family Medical History / Comment(s): Cervical cancer. Father Family Medical History: Diabetes Mellitus General Exam Limitations: no limitations General appearance: alert, in no apparent distress, anxious, obese Head exam: Present: atraumatic, normocephalic, normal inspection Eye exam: Present: normal appearance, PERRL, EOMI. Absent: scleral icterus, conjunctival injection, periorbital swelling ENT exam: Present: normal exam, mucous membranes moist Neck exam: Present: normal inspection. Absent: tenderness, meningismus, lymphadenopathy Respiratory exam: Present: normal lung sounds bilaterally. Absent: respiratory distress, wheezes, rales, rhonchi, stridor Cardiovascular Exam: Present: normal rhythm, tachycardia, normal heart sounds. Absent: systolic murmur, diastolic murmur, rubs, gallop, clicks GI/Abdominal exam: Present: soft, normal bowel sounds. Absent: distended, tenderness, guarding, rebound, rigid Extremities exam: Present: normal inspection, full ROM, normal capillary refill. Absent: tenderness, pedal edema, joint swelling, calf tenderness Back exam: Present: normal inspection Neurological exam: Present: alert, oriented X3, CN II-XII intact Psychiatric exam: Present: normal affect, normal mood Skin exam: Present: warm, dry, intact, normal color. Absent: rash Course Vital Signs 10/19/21 10/19/21 05:26 07:36 Temperature 97.7 F 98.3 F Pulse Rate 110 H 75 Respiratory 18 18 Rate Blood Pressure 120/67 132/69 O2 Sat by Pulse 98 96 Oximetry - Reevaluation(s) Reevaluation #1: 10/19/21 Medical record is reviewed Reevaluation #2: 10/19/21 Patient has adequate pain control states pain is well-controlled feels improved Reevaluation #3: 10/19/21 Patient informed results and questions answered Medical Decision Making - Medical Decision Making 76 female to the emergency department for evaluation of left flank pain back pain. Patient unable to give urine. Patient's pain is controlled able to ambulate without difficulty no loss of bowel or bladder. Computed tomography scan does show kidney stones nonobstructing likely recently passed kidney stone patient can be discharged home - Lab Data Result diagrams: 10/19/21 06:09 10/19/21 06:09 Lab Results 10/19/21 10/19/21 Range/Units 06:09 06:09 WBC 6.8 (3.8-10.6) k/uL RBC 4.61 (3.80-5.40) m/uL Hgb 14.0 (11.4-16.0) gm/dL Hct 44.2 (34.0-46.0) % MCV 95.9 (80.0-100.0) fL MCH 30.4 (25.0-35.0) pg MCHC 31.7 (31.0-37.0) g/dL RDW 13.5 (11.5-15.5) % Plt Count 199 (150-450) k/uL MPV 7.2 Neutrophils % 56 % Lymphocytes % 34 % Monocytes % 6 % Eosinophils % 3 % Basophils % 1 % Neutrophils # 3.8 (1.3-7.7) k/uL Lymphocytes # 2.3 (1.0-4.8) k/uL Monocytes # 0.4 (0-1.0) k/uL Eosinophils # 0.2 (0-0.7) k/uL Basophils # 0.0 (0-0.2) k/uL Sodium 138 (137-145) mmol/L Potassium 4.3 (3.5-5.1) mmol/L Chloride 100 (98-107) mmol/L Carbon Dioxide 29 (22-30) mmol/L Anion Gap 9 mmol/L BUN 23 H (7-17) mg/dL Creatinine 0.86 (0.52-1.04) mg/dL Est GFR (CKD-EPI)AfAm 77 (>60 ml/min/1.73 sqM) Est GFR (CKD-EPI)NonAf 67 (>60 ml/min/1.73 sqM) Glucose 152 H (74-99) mg/dL Calcium 10.0 (8.4-10.2) mg/dL Total Bilirubin 0.7 (0.2-1.3) mg/dL AST 27 (14-36) U/L ALT 22 (4-34) U/L Alkaline Phosphatase 71 (38-126) U/L Total Protein 8.0 (6.3-8.2) g/dL Albumin 4.3 (3.5-5.0) g/dL Amylase 71 (30-110) U/L Lipase 100 (23-300) U/L - Radiology Data Radiology results: report reviewed (CT of the abdomen and pelvis does show kidney stones), image reviewed Disposition Clinical Impression: Thoracic back pain, Lumbar radiculopathy, Left flank pain, Kidney stones Disposition: HOME SELF-CARE Condition: Good Instructions (If sedation given, give patient instructions): Kidney Stones (ED), Flank Pain (ED) Is patient prescribed a controlled substance at d/c from ED?: No Referrals: Pieter Black MD [Primary Care Provider] - 1-2 days Decision Time: 06:45
[2021-10-19 06:33] LABS: Basophils % (A) 1 %; Eosinophils # (A) 0.2 k/uL (0-0.7); Eosinophils % (A) 3 %; HCT 44.2 % (34.0-46.0); Lymphocytes # (A) 2.3 k/uL (1.0-4.8); Lymphocytes % (A) 34 %; MCH 30.4 pg (25.0-35.0); MCHC 31.7 g/dL (31.0-37.0); MCV 95.9 fL (80.0-100.0); Mean Platelet Volume 7.2; Monocytes # (A) 0.4 k/uL (0-1.0); Monocytes % (A) 6 %; Neutrophils # (A) 3.8 k/uL (1.3-7.7); Neutrophils % (A) 56 %; Platelet Count 199 k/uL (150-450); RBC 4.61 m/uL (3.80-5.40); RDW 13.5 % (11.5-15.5); WBC 6.8 k/uL (3.8-10.6)
[2021-10-19 06:42] LABS: Albumin 4.3 g/dL (3.5-5.0); Potassium 4.3 mmol/L (3.5-5.1); Total Bilirubin 0.7 mg/dL (0.2-1.3)
--- NOTE | 2021-10-19 06:45 | CT ---
EXAMINATION TYPE: CT abdomen pelvis wo con DATE OF EXAM: 10/19/2021 COMPARISON: 08/13/2020 HISTORY: Lt flank pain CT DLP: 1696.4 mGycm Automated exposure control for dose reduction was used. Images obtained from the diaphragm to the floor the pelvis with no contrast. Lung bases are clear of infiltrate. No pleural effusion. Heart size is normal. No pericardial effusio n. Liver spleen appear intact. There are clips from gastric bariatric surgery. There are clips from chol ecystectomy. The bile ducts are not dilated. No pancreatic mass. There is no adrenal mass. Kidneys show normal size and contour. No hydronephrosis. There are small ca lculi in the left kidney. No evidence of a renal mass. Ureters are not dilated. There is no retroperi toneal adenopathy. No inguinal hernia. No free fluid in the pelvis. Examination is slightly by motion . Appendix not clearly seen. No sign of thickened appendix. Bladder distends smoothly. No free fluid in the pelvis. No pelvic mass. There is upper abdominal ventral hernia that contains transverse colon with some incarceration. No ob struction. There are sigmoid diverticula. No sign of diverticulitis. There are spondylotic changes in the mid lumbar spine. No compression fracture. The bony pelvis is in tact. Proximal femurs are intact. There is some osteoarthritic changes in the hip joints. IMPRESSION: Nonobstructing left renal calculi. Colonic diverticulosis without diverticulitis. Incarcerated ventra l hernia without evidence of a bowel obstruction. Hernia not significantly different than old exam.
[2021-10-19] MEDS ORDERED: ONDANSETRON 4 MG ODT STARTER PACK 2 TAB BTL PO STA (06:51)
[2021-10-19] MEDS ORDERED: ACET/COD 300 MG/30 MG STARTER PACK 6 TAB BTL PO STA (06:51)
[2021-10-19] MEDS ORDERED: HYDROmorphone 0.5 MG/0.5 ML SYRINGE IVP STA (07:25)
[2021-10-19 07:40] VITALS: BP 132/69; PULSE 75; TEMP 98.3
== END 2021-10-19 07:40 | disposition home or self-care (01) ==
LOC: EC 05:22
DX: N20.0 Calculus of kidney (principal); M54.16 Radiculopathy, lumbar region; E11.9 Type 2 diabetes mellitus without complications; E78.5 Hyperlipidemia, unspecified; I10 Essential (primary) hypertension; M19.90 Unspecified osteoarthritis, unspecified site; Z87.891 Personal history of nicotine dependence; Z72.89 Other problems related to lifestyle; Z79.84 Long term (current) use of oral hypoglycemic drugs; Z79.899 Other long term (current) drug therapy
CPT/HCPCS: 36415; 80053; 82150; 83690; 85025; 74176; 99284; 96374; 96375 ×3; J2270; J2405; J1885; S0119; J1170

== ENCOUNTER 2021-10-19 14:11 | Emergency (ER) | payer MEDICARE, BC ==
[2021-10-19 14:27] VITALS: RESP 16; TEMP 97.8
[2021-10-19] MEDS ORDERED: KETOROLAC 15 MG/ML 1 ML VIAL IM STA (17:44)
[2021-10-19] MEDS ORDERED: MORPHINE SULFATE 4 MG/ML SYRINGE IM STA (17:45)
[2021-10-19 18:00] VITALS: BP 142/91; PULSE 81
[2021-10-19 18:18] LABS: Appearance,Urine Clear (Clear); Bilirubin,Urine Negative (Negative); Blood,Urine Negative (Negative); Color,Urine Yellow; Glucose,Urine (UA) Negative (Negative); Ketones,Urine Negative (Negative); Leukocyte Esterase,Urine Negative (Negative); Nitrite,Urine Negative (Negative); Protein,Urine Negative (Negative); Specific Gravity,Urine 1.021 (1.001-1.035); Urobilinogen,Urine <2.0 mg/dL (<2.0)
[2021-10-19] MEDS ORDERED: LIDOCAINE 5% PATCH TOPICAL STA (18:36)
--- NOTE | 2021-10-19 18:41 | ED ---
Back Pain HPI - General Chief Complaint: Back Pain/Injury Stated Complaint: Back Pain,Recheck Time Seen by Provider: 10/19/21 16:39 Source: patient Limitations: no limitations - History of Present Illness Initial Comments: Patient is a 76-year-old female presenting with chief complaint of left flank pain. Patient was seen here this morning for the same complaint, it was determi carito that it was musculoskeletal in nature, patient has an intrarenal kidney stone but otherwise no acute abnormalities. Patient states that at home once the medication from the ER and the [place] she was sent home with were off, she was still in pain. Patient is complaining of pain radiating down to the level of the knee. She denies any loss of bowel or bladder control or saddle paresthesia. She denies any hematuria, dysuria, urgency, frequency. No fever or chills. No abdominal pain, chest pain, shortness of breath. No nausea, vomiting, diarrhea, constipation, hematochezia, melena. - Related Data Home Medications Medication Instructions Recorded Confirmed Triamterene-Hctz 37.5-25Mg 1 tab PO DAILY 11/16/13 03/21/21 [Maxzide 37.5-25] Cholecalciferol [Vitamin D3 (25 5,000 unit PO DAILY 10/30/17 03/21/21 Mcg = 1000 Iu)] Multivit-Min/Iron/Folic/Lutein 1 tab PO DAILY 10/30/17 03/21/21 [Centrum Silver Women Tablet] Vitamin C/Biotin [Hair, Skin and 1 tab PO DAILY 10/30/17 03/21/21 Nails Chew] lisinopriL [Zestril] 2.5 mg PO QAM 10/30/17 03/21/21 Gabapentin 800 mg PO TID PRN 08/01/20 03/21/21 Levothyroxine Sodium [Euthyrox] 125 mcg PO DAILY 08/01/20 03/21/21 metFORMIN HCL [Glucophage] 1,000 mg PO DAILY 08/01/20 03/21/21 Atorvastatin [Lipitor] 40 mg PO HS 08/02/20 03/21/21 Previous Rx's Medication Instructions Recorded traMADol HCl [Ultram] 50 mg PO Q6H PRN #28 tab 11/13/17 Lidocaine 5% Patch [Lidoderm] 1 patch TOPICAL DAILY PRN #1 packet 10/19/21 Allergies Allergy/AdvReac Type Severity Reaction Status Date / Time No Known Allergies Allergy Verified 10/19/21 14:24 Review of Systems ROS Statement: Those systems with pertinent positive or pertinent negative responses have been documented in the HPI. ROS Other: All systems not noted in ROS Statement are negative. Past Medical History Past Medical History: Diabetes Mellitus, Fibromyalgia, GERD/Reflux, Hyperlipidemia, Hypertension, Musculoskeletal Disorder, Osteoarthritis (OA), Sleep Apnea/CPAP/BIPAP, Thyroid Disorder Additional Past Medical History / Comment(s): Varicose veins, SPINAL STENOSIS, x kidney stones. History of Any Multi-Drug Resistant Organisms: None Reported Past Surgical History: Adenoidectomy, Appendectomy, Bariatric Surgery, Cholecystectomy, Heart Catheterization, Hysterectomy, Joint Replacement, Tonsillectomy, Tubal Ligation Additional Past Surgical History / Comment(s): Gastric stapling, cervical fusion, bilateral knee replacements, colonoscopy, pain clinic procedures. Past Anesthesia/Blood Transfusion Reactions: No Reported Reaction Past Psychological History: No Psychological Hx Reported Smoking Status: Former smoker Past Alcohol Use History: Occasional Past Drug Use History: None Reported - Past Family History Mother Family Medical History: Cancer Additional Family Medical History / Comment(s): Breast and cervical cancer. Sister(s) Family Medical History: Cancer Additional Family Medical History / Comment(s): Cervical cancer. Father Family Medical History: Diabetes Mellitus General Exam Limitations: no limitations General appearance: alert, in no apparent distress Head exam: Present: atraumatic, normocephalic, normal inspection Eye exam: Present: normal appearance, EOMI. Absent: scleral icterus Neck exam: Present: normal inspection Respiratory exam: Present: normal lung sounds bilaterally. Absent: respiratory distress, wheezes, rales, rhonchi, stridor Cardiovascular Exam: Present: regular rate, normal rhythm, normal heart sounds. Absent: systolic murmur, diastolic murmur, rubs, gallop, clicks Back exam: Present: normal inspection, paraspinal tenderness. Absent: CVA tenderness (R), CVA tenderness (L), vertebral tenderness Neurological exam: Present: alert, oriented X3, CN II-XII intact Psychiatric exam: Present: normal affect, normal mood Skin exam: Present: warm, dry, intact, normal color. Absent: rash Course Vital Signs 10/19/21 10/19/21 14:24 17:59 Temperature 97.8 F Pulse Rate 97 81 Respiratory 16 16 Rate Blood Pressure 149/63 142/91 O2 Sat by Pulse 93 L Oximetry Medical Decision Making - Medical Decision Making Patient is a 76-year-old female presenting with chief complaint of back pain. Patient was seen and evaluated here this morning with the same complaint, it was determined that it was likely musculoskeletal in origin and she has intrarenal kidney stones. Patient states that once the pain medication he was provided with at the ER and the [place] she was instructed to take at home were off she was still in pain. She denies any change or worsening in pain level or character. Denies any red flag symptoms. On exam there is paraspinal muscle tenderness and she admits to radiculopathy. UA is unremarkable. Patient was provided with pain medication as well as lidocaine patch. She reports improved pain level. Patient is instructed to follow-up with PCP this week. Take medication as prescribed. Report back to ER if any new or worsening symptoms. I discussed return parameters alarm symptoms. Answered all questions. Patient conveyed verbal understanding and agreed to the plan. My attending is Dr. Portillo. - Lab Data Lab Results 10/19/21 Range/Units 17:40 Urine Color Yellow Urine Appearance Clear (Clear) Urine pH 5.0 (5.0-8.0) Ur Specific [place] 1.021 (1.001-1.035) Urine Protein Negative (Negative) Urine Glucose (UA) Negative (Negative) Urine Ketones Negative (Negative) Urine Blood Negative (Negative) Urine Nitrite Negative (Negative) Urine Bilirubin Negative (Negative) Urine Urobilinogen <2.0 (<2.0) mg/dL Ur Leukocyte Esterase Negative (Negative) Disposition Clinical Impression: Thoracic back pain, Lumbar radiculopathy, Left flank pain Disposition: HOME SELF-CARE Condition: Good Instructions (If sedation given, give patient instructions): Lumbar Radiculopathy (ED), Flank Pain (ED), Back Pain (ED) Additional Instructions: Follow-up with PCP in one to 2 days. Report back to ER with any new or worsening symptoms, including but not limited to increased pain, blood in the urine, fever, chills, nausea, vomiting, chest pain, shortness of breath. Take medications as prescribed. Utilize supportive treatment with Motrin, Tylenol, icing, rest. Prescriptions: Lidocaine 5% Patch [Lidoderm] 1 patch TOPICAL DAILY PRN #1 packet PRN Reason: Pain Is patient prescribed a controlled substance at d/c from ED?: No Referrals: Pieter Black MD [Primary Care Provider] - 1-2 days Time of Disposition: 19:04
== END 2021-10-19 19:09 | disposition home or self-care (01) ==
LOC: EC 14:11
DX: M54.16 Radiculopathy, lumbar region (principal); R10.9 Unspecified abdominal pain; E11.9 Type 2 diabetes mellitus without complications; I10 Essential (primary) hypertension; E78.5 Hyperlipidemia, unspecified; Z87.891 Personal history of nicotine dependence
CPT/HCPCS: 81003; 96372; 99284; J2270; J1885

== ENCOUNTER 2021-10-20 14:00 | Emergency (ER) | payer MEDICARE, BC ==
[2021-10-20] MEDS ORDERED: ONDANSETRON 4 MG/2 ML VIAL IVP STA (15:42)
[2021-10-20] MEDS ORDERED: MORPHINE SULFATE 4 MG/ML SYRINGE IVP STA (15:42)
[2021-10-20] MEDS ORDERED: KETOROLAC 15 MG/ML 1 ML VIAL IVP STA (15:42)
--- NOTE | 2021-10-20 15:44 | ED ---
General Adult HPI - General Chief complaint: Recheck/Abnormal Lab/Rx Stated complaint: revisit/kidney stone Time Seen by Provider: 10/20/21 15:10 Source: patient Mode of arrival: ambulatory Limitations: no limitations - History of Present Illness Initial comments: Mellissa is a 76-year-old female who presents to the ER for the third time in 2 days for evaluation of left-sided flank pain. Patient reports she began staring sitting left-sided flank pain on night she was evaluated Friday morning and Friday afternoon for this pain. Computed tomography scan was performed which revealed a small stone in the left kidney but no hydro-no evidence of passing a stone or recently passed stone. Patient states his pain is identical to previous stone so she believes it is due to a kidney stone. She has no fevers or chills. She states that her pain relieves with pain medication but she was only discharged home with 3 or 4 and she is now out of them. Pain is isolated to the left flank no radiation down her back or legs. No associated nausea vomiting or change in bowel or bladder habits. - Related Data Home Medications Medication Instructions Recorded Confirmed RX: Triamterene-Hctz 37.5-25Mg 1 tab PO DAILY 11/16/13 03/21/21 [Maxzide 37.5-25] RX: Cholecalciferol [Vitamin D3 5,000 unit PO DAILY 10/30/17 03/21/21 (25 Mcg = 1000 Iu)] RX: Multivit-Min/Iron/Folic/Lutein 1 tab PO DAILY 10/30/17 03/21/21 [Centrum Silver Women Tablet] RX: Vitamin C/Biotin [Hair, Skin 1 tab PO DAILY 10/30/17 03/21/21 and Nails Chew] RX: lisinopriL [Zestril] 2.5 mg PO QAM 10/30/17 03/21/21 Levothyroxine Sodium [Euthyrox] 125 mcg PO DAILY 08/01/20 03/21/21 RX: Gabapentin 800 mg PO TID PRN 08/01/20 03/21/21 RX: metFORMIN HCL [Glucophage] 1,000 mg PO DAILY 08/01/20 03/21/21 Atorvastatin [Lipitor] 40 mg PO HS 08/02/20 03/21/21 Previous Rx's Medication Instructions Recorded RX: traMADol HCl [Ultram] 50 mg PO Q6H PRN #28 tab 11/13/17 Lidocaine 5% Patch [Lidoderm] 1 patch TOPICAL DAILY PRN #1 packet 10/19/21 HYDROcodone/APAP 5-325MG [[place] 1 tab PO Q6HR PRN 3 Days #12 tab 10/20/21 5-325] Allergies Allergy/AdvReac Type Severity Reaction Status Date / Time No Known Allergies Allergy Verified 10/20/21 14:40 Review of Systems ROS Statement: Those systems with pertinent positive or pertinent negative responses have been documented in the HPI. ROS Other: All systems not noted in ROS Statement are negative. Past Medical History Past Medical History: Diabetes Mellitus, Fibromyalgia, GERD/Reflux, Hype rlipidemia, Hypertension, Musculoskeletal Disorder, Osteoarthritis (OA), Sleep Apnea/CPAP/BIPAP, Thyroid Disorder Additional Past Medical History / Comment(s): Varicose veins, SPINAL STENOSIS, x kidney stones. History of Any Multi-Drug Resistant Organisms: None Reported Past Surgical History: Adenoidectomy, Appendectomy, Bariatric Surgery, Cholecystectomy, Heart Catheterization, Hysterectomy, Joint Replacement, Tonsillectomy, Tubal Ligation Additional Past Surgical History / Comment(s): Gastric stapling, cervical fusion, bilateral knee replacements, colonoscopy, pain clinic procedures. Past Anesthesia/Blood Transfusion Reactions: No Reported Reaction Past Psychological History: No Psychological Hx Reported Smoking Status: Former smoker Past Alcohol Use History: Occasional Past Drug Use History: None Reported - Past Family History Mother Family Medical History: Cancer Additional Family Medical History / Comment(s): Breast and cervical cancer. Sister(s) Family Medical History: Cancer Additional Family Medical History / Comment(s): Cervical cancer. Father Family Medical History: Diabetes Mellitus General Exam - General Exam Comments Initial Comments: Physical Exam GENERAL: Patient is well-developed and well-nourished. Patient is nontoxic and well-hydrated and is in no distress. HENT: Normocephalic, Atraumatic. EYES: PERRL, EOMI PULMONARY: Unlabored respirations. CARDIOVASCULAR: RRR Warm and well perfused extremities ABDOMEN: Non-distended SKIN: No rashes or bruising : Deferred NEUROLOGIC: Alert and oriented Normal speech MUSCULOSKELETAL: Moving all extremities with no apparent injury Pain with palpation of left flank PSYCHIATRIC: No SI/HI Limitations: no limitations Course Vital Signs 10/20/21 14:37 Temperature 98 F Pulse Rate 80 Respiratory 16 Rate Blood Pressure 155/71 O2 Sat by Pulse 96 Oximetry Medical Decision Making - Medical Decision Making Patient was seen and evaluated, history is obtained from the patient and review of medical records Repeat labs and urinalysis were obtained again there is no significant abnormalities noted, no acute kidney injury, no signs of infection or hematuria excited discussed with the patient that I do not believe her pain is due to a kidney stone. Discussed possibility of musculoskeletal versus neuropathic pain versus herpetic neuralgia and advised if she develops a rash to return immediately for treatment of shingles. Patient be discharged home with a three-day prescription for [place] and advised to follow with her primary care physician - Lab Data Result diagrams: 10/20/21 15:44 10/20/21 15:44 Lab Results 10/20/21 10/20/21 10/20/21 Range/Units 15:44 15:44 15:44 WBC 6.8 (3.8-10.6) k/uL RBC 4.38 (3.80-5.40) m/uL Hgb 13.7 (11.4-16.0) gm/dL Hct 41.5 (34.0-46.0) % MCV 94.7 (80.0-100.0) fL MCH 31.3 (25.0-35.0) pg MCHC 33.1 (31.0-37.0) g/dL RDW 14.0 (11.5-15.5) % Plt Count 190 (150-450) k/uL MPV 7.2 Neutrophils % 64 % Lymphocytes % 27 % Monocytes % 5 % Eosinophils % 2 % Basophils % 0 % Neutrophils # 4.3 (1.3-7.7) k/uL Lymphocytes # 1.9 (1.0-4.8) k/uL Monocytes # 0.3 (0-1.0) k/uL Eosinophils # 0.1 (0-0.7) k/uL Basophils # 0.0 (0-0.2) k/uL Sodium 137 (137-145) mmol/L Potassium 4.9 (3.5-5.1) mmol/L Chloride 101 (98-107) mmol/L Carbon Dioxide 32 H (22-30) mmol/L Anion Gap 4 mmol/L BUN 20 H (7-17) mg/dL Creatinine 0.75 (0.52-1.04) mg/dL Est GFR (CKD-EPI)AfAm >90 (>60 ml/min/1.73 sqM) Est GFR (CKD-EPI)NonAf 78 (>60 ml/min/1.73 sqM) Glucose 96 (74-99) mg/dL Calcium 9.3 (8.4-10.2) mg/dL Total Bilirubin 0.7 (0.2-1.3) mg/dL AST 27 (14-36) U/L ALT 20 (4-34) U/L Alkaline Phosphatase 70 (38-126) U/L Total Protein 7.8 (6.3-8.2) g/dL Albumin 4.2 (3.5-5.0) g/dL Urine Color Yellow Urine Appearance Clear (Clear) Urine pH 6.0 (5.0-8.0) Ur Specific [place] 1.017 (1.001-1.035) Urine Protein Negative (Negative) Urine Glucose (UA) Negative (Negative) Urine Ketones Negative (Negative) Urine Blood Negative (Negative) Urine Nitrite Negative (Negative) Urine Bilirubin Negative (Negative) Urine Urobilinogen <2.0 (<2.0) mg/dL Ur Leukocyte Esterase Negative (Negative) Disposition Clinical Impression: Left flank pain Disposition: HOME SELF-CARE Condition: Stable Prescriptions: HYDROcodone/APAP 5-325MG [[place] 5-325] 1 tab PO Q6HR PRN 3 Days #12 tab PRN Reason: Pain Is patient prescribed a controlled substance at d/c from ED?: Yes If prescribed controlled substance>3 days was MAPS reviewed?: Prescribed <3 Days If opioid is for acute pain is fill amount 7 days or less?: Yes Referrals: Pieter Black MD [Primary Care Provider] - 1-2 days
[2021-10-20 16:21] LABS: Appearance,Urine Clear (Clear); Bilirubin,Urine Negative (Negative); Blood,Urine Negative (Negative); Color,Urine Yellow; Glucose,Urine (UA) Negative (Negative); Ketones,Urine Negative (Negative); Leukocyte Esterase,Urine Negative (Negative); Nitrite,Urine Negative (Negative); Protein,Urine Negative (Negative); Specific Gravity,Urine 1.017 (1.001-1.035); Urobilinogen,Urine <2.0 mg/dL (<2.0)
[2021-10-20 16:24] LABS: Basophils % (A) 0 %; Eosinophils # (A) 0.1 k/uL (0-0.7); Eosinophils % (A) 2 %; HCT 41.5 % (34.0-46.0); HGB 13.7 gm/dL (11.4-16.0); Lymphocytes # (A) 1.9 k/uL (1.0-4.8); Lymphocytes % (A) 27 %; MCH 31.3 pg (25.0-35.0); MCHC 33.1 g/dL (31.0-37.0); MCV 94.7 fL (80.0-100.0); Mean Platelet Volume 7.2; Monocytes # (A) 0.3 k/uL (0-1.0); Monocytes % (A) 5 %; Neutrophils # (A) 4.3 k/uL (1.3-7.7); Neutrophils % (A) 64 %; Platelet Count 190 k/uL (150-450); RBC 4.38 m/uL (3.80-5.40); WBC 6.8 k/uL (3.8-10.6)
[2021-10-20 16:38] LABS: ALT 20 U/L (4-34); AST 27 U/L (14-36); African American GFR (CKD) >90 (>60 ml/min/1.73 sqM); Albumin 4.2 g/dL (3.5-5.0); Alkaline Phosphatase 70 U/L (38-126); Anion Gap 4 mmol/L; Blood Urea Nitrogen 20 mg/dL (7-17); Calcium 9.3 mg/dL (8.4-10.2); Carbon Dioxide 32 mmol/L (22-30); Chloride 101 mmol/L (98-107); Glucose 96 mg/dL (74-99); Non-African American GFR(CKD) 78 (>60 ml/min/1.73 sqM); Potassium 4.9 mmol/L (3.5-5.1); Sodium 137 mmol/L (137-145); Total Bilirubin 0.7 mg/dL (0.2-1.3); Total Protein 7.8 g/dL (6.3-8.2)
[2021-10-20 17:36] VITALS: BP 148/72; PULSE 78; RESP 18; TEMP 98
== END 2021-10-20 17:35 | disposition home or self-care (01) ==
LOC: EC 14:00
DX: R10.9 Unspecified abdominal pain (principal); E11.9 Type 2 diabetes mellitus without complications; E78.5 Hyperlipidemia, unspecified; I10 Essential (primary) hypertension; K21.9 Gastro-esophageal reflux disease without esophagitis; Z79.83 Long term (current) use of bisphosphonates; Z87.891 Personal history of nicotine dependence
CPT/HCPCS: 99284; 96374; 96375; 36415; 80053; 85025; 81003; J2270; J2405; J1885

== ENCOUNTER 2021-10-26 06:44 | Emergency (ER) | payer MEDICARE, BC ==
[2021-10-26 07:06] VITALS: BP 146/68; PULSE 63; RESP 18; TEMP 97.7
[2021-10-26] MEDS ORDERED: LIDOCAINE 5% PATCH TOPICAL STA (07:26)
[2021-10-26] MEDS ORDERED: MORPHINE SULFATE 4 MG/ML SYRINGE IM STA (07:27)
[2021-10-26] MEDS ORDERED: KETOROLAC 15 MG/ML 1 ML VIAL IM STA (07:27)
--- NOTE | 2021-10-26 07:31 | ED ---
General Adult HPI - General Chief complaint: Back Pain/Injury Stated complaint: Back Pain Time Seen by Provider: 10/26/21 07:07 Source: patient, family, RN notes reviewed Mode of arrival: wheelchair Limitations: no limitations, physical limitation - History of Present Illness Initial comments: Patient is a pleasant 76-year-old female presenting to the emergency Department with low back pain. Patient has had history of low back pain all times previously. Patient said to start a scope therapy Friday. Patient states symptoms are to worsen again last night. Discomfort is lower back, more so on the left. There is some radiation towards left leg. No incontinence or retention of bowel or bladder products. No weakness or loss of sensation. No abdominal pain. Patient states medication she received last time did help her. - Related Data Home Medications Medication Instructions Recorded Confirmed Triamterene-Hctz 37.5-25Mg 1 tab PO DAILY 11/16/13 03/21/21 [Maxzide 37.5-25] Cholecalciferol [Vitamin D3 (25 5,000 unit PO DAILY 10/30/17 03/21/21 Mcg = 1000 Iu)] Multivit-Min/Iron/Folic/Lutein 1 tab PO DAILY 10/30/17 03/21/21 [Centrum Silver Women Tablet] Vitamin C/Biotin [Hair, Skin and 1 tab PO DAILY 10/30/17 03/21/21 Nails Chew] lisinopriL [Zestril] 2.5 mg PO QAM 10/30/17 03/21/21 Gabapentin 800 mg PO TID PRN 08/01/20 03/21/21 Levothyroxine Sodium [Euthyrox] 125 mcg PO DAILY 08/01/20 03/21/21 metFORMIN HCL [Glucophage] 1,000 mg PO DAILY 08/01/20 03/21/21 Atorvastatin [Lipitor] 40 mg PO HS 08/02/20 03/21/21 Previous Rx's Medication Instructions Recorded traMADol HCl [Ultram] 50 mg PO Q6H PRN #28 tab 11/13/17 Lidocaine 5% Patch [Lidoderm] 1 patch TOPICAL DAILY PRN #1 packet 10/19/21 HYDROcodone/APAP 5-325MG [[place] 1 tab PO Q6HR PRN 3 Days #12 tab 10/20/21 5-325] Allergies Allergy/AdvReac Type Severity Reaction Status Date / Time No Known Allergies Allergy Verified 10/26/21 07:03 Review of Systems ROS Statement: Those systems with pertinent positive or pertinent negative responses have been documented in the HPI. ROS Other: All systems not noted in ROS Statement are negative. Constitutional: Denies: fever Eyes: Denies: eye pain ENT: Denies: ear pain Respiratory: Denies: cough Cardiovascular: Denies: chest pain Endocrine: Denies: fatigue Gastrointestinal: Denies: abdominal pain Genitourinary: Denies: dysuria Musculoskeletal: Reports: as per HPI, back pain Skin: Denies: rash Neurological: Denies: weakness, numbness, paresthesias Past Medical History Past Medical History: Diabetes Mellitus, Fibromyalgia, GERD/Reflux, Hyperlipidemia, Hypertension, Musculoskeletal Disorder, Osteoarthritis (OA), Sleep Apnea/CPAP/BIPAP, Thyroid Disorder Additional Past Medical History / Comment(s): Varicose veins, SPINAL STENOSIS, x kidney stones. History of Any Multi-Drug Resistant Organisms: None Reported Past Surgical History: Adenoidectomy, Appendectomy, Bariatric Surgery, Cholecystectomy, Heart Catheterization, Hysterectomy, Joint Replacement, Tonsillectomy, Tubal Ligation Additional Past Surgical History / Comment(s): Gastric stapling, cervical fusion, bilateral knee replacements, colonoscopy, pain clinic procedures. Past Anesthesia/Blood Transfusion Reactions: No Reported Reaction Past Psychological History: No Psychological Hx Reported Smoking Status: Former smoker Past Alcohol Use History: Occasional Past Drug Use History: None Reported - Past Family History Mother Family Medical History: Cancer Additional Family Medical History / Comment(s): Breast and cervical cancer. Sister(s) Family Medical History: Cancer Additional Family Medical History / Comment(s): Cervical cancer. Father Family Medical History: Diabetes Mellitus General Exam Limitations: physical limitation General appearance: alert, in no apparent distress Head exam: Present: normocephalic Eye exam: Present: normal appearance Neck exam: Present: normal inspection Respiratory exam: Present: normal lung sounds bilaterally Cardiovascular Exam: Present: regular rate, normal rhythm Expanded Peripheral pulses: 2+: Posterior Tibialis (R), Posterior Tibialis (L), Dorsalis Pedis (R), Dorsalis Pedis (L) GI/Abdominal exam: Present: soft. Absent: tenderness Extremities exam: Present: normal inspection. Absent: pedal edema, calf tenderness Back exam: Present: tenderness (Mild tenderness mid lumbar) Neurological exam: Present: alert. Absent: motor sensory deficit Expanded Sensory exam: Lower Extremity Light Touch: Normal Motor strength exam: RLE: 5, LLE: 5 Psychiatric exam: Present: normal affect, normal mood Skin exam: Present: normal color Course Vital Signs 10/26/21 07:03 Temperature 97.7 F Pulse Rate 63 Respiratory 18 Rate Blood Pressure 146/68 O2 Sat by Pulse 96 Oximetry Disposition Clinical Impression: Lumbar radiculopathy Disposition: HOME SELF-CARE Condition: Stable Instructions (If sedation given, give patient instructions): Acute Low Back Pain (ED) Additional Instructions: Please do follow-up with primary care physician in the next day or 2 for rechec k. Also follow-up with back doctor, number provided. Follow-up with physical therapy as directed. Return for weakness, loss of control of bowel or bladder, worsening symptoms, fever, or other concerns. Is patient prescribed a controlled substance at d/c from ED?: No Referrals: Pieter Black MD [Primary Care Provider] - 1-2 days Sudhakar Ahmadi DO [Doctor of Osteopathic Medicine] - 1-2 days Time of Disposition: 07:31
== END 2021-10-26 07:57 | disposition home or self-care (01) ==
LOC: EC 06:44
DX: M54.16 Radiculopathy, lumbar region (principal); E11.9 Type 2 diabetes mellitus without complications; I10 Essential (primary) hypertension; M79.7 Fibromyalgia; K21.9 Gastro-esophageal reflux disease without esophagitis; E78.5 Hyperlipidemia, unspecified; E07.9 Disorder of thyroid, unspecified; M19.90 Unspecified osteoarthritis, unspecified site; Z87.891 Personal history of nicotine dependence; Z79.899 Other long term (current) drug therapy; Z79.84 Long term (current) use of oral hypoglycemic drugs; Z79.890 Hormone replacement therapy
CPT/HCPCS: 99283; 96372; J2270; J1885

== ENCOUNTER 2021-10-27 02:18 | Observation (INO) | payer MEDICARE, BC ==
[2021-10-27] MEDS ORDERED: HYDROmorphone 0.5 MG/0.5 ML SYRINGE IVP STA (03:06)
[2021-10-27] MEDS ORDERED: KETOROLAC 15 MG/ML 1 ML VIAL IVP STA (03:07)
[2021-10-27] MEDS ORDERED: HYDROmorphone 0.5 MG/0.5 ML SYRINGE IM STA (03:26)
[2021-10-27] MEDS ORDERED: KETOROLAC 15 MG/ML 1 ML VIAL IM STA (03:26)
--- NOTE | 2021-10-27 06:18 | CT ---
EXAM: CT Abdomen and Pelvis Without Intravenous Contrast CLINICAL HISTORY: ITS.REASON CT Reason: right flank pain TECHNIQUE: Axial computed tomography images of the abdomen and pelvis without intravenous contrast. CTDI is 30.97 mGy and DLP is 1627.4 mGy-cm. This CT exam was performed using one or more of the following dose reduction techniques: automated exposure control, adjustment of the mA and/or kV according to patient size, and/or use of iterative reconstruction technique. COMPARISON: CT abdomen and pelvis performed 10/19/21 FINDINGS: Artifacts: Ring artifact noted throughout CT images, detector recalibration recommended. Lung bases: Triangular nodule along the interstitium on the right, likely reflecting intrapulmonary lymph node. ABDOMEN: Liver: Grossly Unremarkable. Gallbladder and bile ducts: Cholecystectomy. Pancreas: No ductal dilation. Spleen: No splenomegaly. Adrenals: . No mass. Kidneys and ureters: Punctate nonobstructing stones in the left kidney. Stomach and bowel: Suspect 1.8 cm duodenal diverticulum. Mild adjacent inflammatory changes within the right upper quadrant which may be related to duodenitis. Sequela from prior bariatric surgery. Ventral abdominal wall hernia containing nonobstructed large bowel segments. PELVIS: Appendix: No findings to suggest acute appendicitis. Bladder: Unremarkable. No stones. Reproductive: Unremarkable as visualized. ABDOMEN and PELVIS: Intraperitoneal space: No free air. No significant fluid collection. Bones/joints: No acute fracture. No dislocation. Stable lumbar spondylosis. Soft tissues: See above. Vasculature: Atherosclerotic calcification of the visualized vasculature. No abdominal aortic aneurysm. Lymph nodes: No enlarged nodes appreciated. IMPRESSION: Suspect 1.8 cm duodenal diverticulum. Mild adjacent inflammatory changes within the right upper quadrant which may be related to duodenitis. Stable punctate nonobstructing stones in the left collecting system. Stable ventral wall hernia containing nonobstructed large bowel segments. Ring artifact noted throughout CT images, detector recalibration recommended.
[2021-10-27 07:17] LABS: Basophils # (A) 0.1 k/uL (0-0.2); Basophils % (A) 1 %; Eosinophils % (A) 0 %; HCT 41.7 % (34.0-46.0); HGB 13.2 gm/dL (11.4-16.0); Lymphocytes # (A) 1.6 k/uL (1.0-4.8); Lymphocytes % (A) 17 %; MCH 30.5 pg (25.0-35.0); MCHC 31.7 g/dL (31.0-37.0); MCV 96.3 fL (80.0-100.0); Mean Platelet Volume 7.3; Monocytes # (A) 0.5 k/uL (0-1.0); Monocytes % (A) 5 %; Neutrophils # (A) 7.6 k/uL (1.3-7.7); Neutrophils % (A) 76 %; Platelet Count 218 k/uL (150-450); RBC 4.33 m/uL (3.80-5.40); WBC 9.9 k/uL (3.8-10.6)
[2021-10-27] MEDS ORDERED: POTASSIUM BICARBONATE/CIT AC 20 MEQ TABLET.EFF PO ONE (07:20)
[2021-10-27] MEDS ORDERED: HYDROmorphone 1 MG/ML 1 ML SYRINGE IVP STA (07:22)
[2021-10-27] MEDS ORDERED: NALOXONE 0.4 MG/ML 1 ML VIAL IV PRN ×2 (07:23→11:40)
[2021-10-27 07:33] LABS: Appearance,Urine Clear (Clear); Bilirubin,Urine Negative (Negative); Blood,Urine Negative (Negative); Color,Urine Light Yellow; Glucose,Urine (UA) Negative (Negative); Ketones,Urine Negative (Negative); Leukocyte Esterase,Urine Negative (Negative); Nitrite,Urine Negative (Negative); Protein,Urine Negative (Negative); Specific Gravity,Urine 1.007 (1.001-1.035); Urobilinogen,Urine <2.0 mg/dL (<2.0)
[2021-10-27 07:37] LABS: Albumin 4.6 g/dL (3.5-5.0); Calcium 9.5 mg/dL (8.4-10.2); Potassium 4.7 mmol/L (3.5-5.1); Total Bilirubin 0.7 mg/dL (0.2-1.3); Total Protein 8.6 g/dL (6.3-8.2)
--- NOTE | 2021-10-27 07:38 | ED ---
Back Pain HPI - General Chief Complaint: Back Pain/Injury Stated Complaint: Back Pain Time Seen by Provider: 10/27/21 02:33 Source: patient Limitations: no limitations - History of Present Illness Initial Comments: This patient is a 76-year-old woman who presents to have evaluation of right flank pain. The patient states she has had pain going on for approximately a week. She is in the emergency department and was told that kidney stone was suspected. Patient had tried medication at home without much relief. She has not noted fever or chills. No hematuria or dysuria. MD Complaint: other Onset/Timin -: week(s) Similar Symptoms Previously: Yes Place: home Radiation: none Severity: severe Quality: aching Consistency: constant Improves With: none Worsens With: none Context: history of kidney stones Associated Symptoms: denies other symptoms - Related Data Home Medications Medication Instructions Recorded Confirmed Triamterene-Hctz 37.5-25Mg 1 tab PO DAILY 11/16/13 03/21/21 [Maxzide 37.5-25] Cholecalciferol [Vitamin D3 (25 5,000 unit PO DAILY 10/30/17 03/21/21 Mcg = 1000 Iu)] Multivit-Min/Iron/Folic/Lutein 1 tab PO DAILY 10/30/17 03/21/21 [Centrum Silver Women Tablet] Vitamin C/Biotin [Hair, Skin and 1 tab PO DAILY 10/30/17 03/21/21 Nails Chew] lisinopriL [Zestril] 2.5 mg PO QAM 10/30/17 03/21/21 Gabapentin 800 mg PO TID PRN 08/01/20 03/21/21 Levothyroxine Sodium [Euthyrox] 125 mcg PO DAILY 08/01/20 03/21/21 metFORMIN HCL [Glucophage] 1,000 mg PO DAILY 08/01/20 03/21/21 Atorvastatin [Lipitor] 40 mg PO HS 08/02/20 03/21/21 Previous Rx's Medication Instructions Recorded traMADol HCl [Ultram] 50 mg PO Q6H PRN #28 tab 11/13/17 Lidocaine 5% Patch [Lidoderm] 1 patch TOPICAL DAILY PRN #1 packet 10/19/21 HYDROcodone/APAP 5-325MG [[place] 1 tab PO Q6HR PRN 3 Days #12 tab 10/20/21 5-325] Allergies Allergy/AdvReac Type Severity Reaction Status Date / Time No Known Allergies Allergy Verified 10/27/21 02:22 Review of Systems ROS Statement: Those systems with pertinent positive or pertinent negative responses have been documented in the HPI. ROS Other: All systems not noted in ROS Statement are negative. Constitutional: Denies: fever, chills Respiratory: Denies: cough, dyspnea Cardiovascular: Denies: chest pain, palpitations, edema Gastrointestinal: Denies: nausea, vomiting, diarrhea Genitourinary: Denies: dysuria, frequency Musculoskeletal: Reports: as per HPI, back pain Skin: Denies: rash Neurological: Denies: headache, weakness, numbness Past Medical History Past Medical History: Diabetes Mellitus, Fibromyalgia, GERD/Reflux, Hyperlipidemia, Hypertension, Musculoskeletal Disorder, Osteoarthritis (OA), Sleep Apnea/CPAP/BIPAP, Thyroid Disorder Additional Past Medical History / Comment(s): Varicose veins, SPINAL STENOSIS, x kidney stones. History of Any Multi-Drug Resistant Organisms: None Reported Past Surgical History: Adenoidectomy, Appendectomy, Bariatric Surgery, Cholecystectomy, Heart Catheterization, Hysterectomy, Joint Replacement, Tonsillectomy, Tubal Ligation Additional Past Surgical History / Comment(s): Gastric stapling, cervical fusion, bilateral knee replacements, colonoscopy, pain clinic procedures. Past Anesthesia/Blood Transfusion Reactions: No Reported Reaction Past Psychological History: No Psychological Hx Reported Smoking Status: Former smoker Past Alcohol Use History: Occasional Past Drug Use History: None Reported - Past Family History Mother Family Medical History: Cancer Additional Family Medical History / Comment(s): Breast and cervical cancer. Sister(s) Family Medical History: Cancer Additional Family Medical History / Comment(s): Cervical cancer. Father Family Medical History: Diabetes Mellitus General Exam Limitations: no limitations General appearance: alert, in no apparent distress Eye exam: Present: normal appearance. Absent: scleral icterus, conjunctival injection Neck exam: Present: normal inspection, full ROM Respiratory exam: Present: normal lung sounds bilaterally. Absent: respiratory distress, wheezes, rales, rhonchi, stridor Cardiovascular Exam: Present: regular rate, normal rhythm, normal heart sounds. Absent: systolic murmur, diastolic murmur, rubs, gallop GI/Abdominal exam: Present: soft. Absent: distended, tenderness, guarding, rebound, rigid, mass, pulsatile mass, hernia Extremities exam: Present: normal inspection, normal capillary refill. Absent: pedal edema, calf tenderness Back exam: Present: normal inspection. Absent: CVA tenderness (R), CVA tenderness (L), paraspinal tenderness, vertebral tenderness Neurological exam: Present: alert Skin exam: Present: warm, dry, intact, normal color. Absent: rash Course Vital Signs 10/27/21 02:20 Temperature 97.4 F L Pulse Rate 79 Respiratory 18 Rate Blood Pressure 203/101 O2 Sat by Pulse 96 Oximetry Medical Decision Making - Lab Data Result diagrams: 10/27/21 07:00 Lab Results 10/27/21 10/27/21 Range/Units 07:00 07:00 WBC 9.9 (3.8-10.6) k/uL RBC 4.33 (3.80-5.40) m/uL Hgb 13.2 (11.4-16.0) gm/dL Hct 41.7 (34.0-46.0) % MCV 96.3 (80.0-100.0) fL MCH 30.5 (25.0-35.0) pg MCHC 31.7 (31.0-37.0) g/dL RDW 14.0 (11.5-15.5) % Plt Count 218 (150-450) k/uL MPV 7.3 Neutrophils % 76 % Lymphocytes % 17 % Monocytes % 5 % Eosinophils % 0 % Basophils % 1 % Neutrophils # 7.6 (1.3-7.7) k/uL Lymphocytes # 1.6 (1.0-4.8) k/uL Monocytes # 0.5 (0-1.0) k/uL Eosinophils # 0.0 (0-0.7) k/uL Basophils # 0.1 (0-0.2) k/uL Urine Color Light Yellow Urine Appearance Clear (Clear) Urine pH 6.0 (5.0-8.0) Ur Specific [place] 1.007 (1.001-1.035) Urine Protein Negative (Negative) Urine Glucose (UA) Negative (Negative) Urine Ketones Negative (Negative) Urine Blood Negative (Negative) Urine Nitrite Negative (Negative) Urine Bilirubin Negative (Negative) Urine Urobilinogen <2.0 (<2.0) mg/dL Ur Leukocyte Esterase Negative (Negative) Disposition Referrals: Pieter Black MD [Primary Care Provider] - 1-2 days
[2021-10-27] MEDS ORDERED: IBUPROFEN 600 MG TAB PO PRN (11:35)
[2021-10-27] MEDS ORDERED: CYCLOBENZAPRINE 5 MG TAB PO PRN (11:37)
[2021-10-27] MEDS ORDERED: ONDANSETRON 4 MG/2 ML VIAL IVP PRN (11:40)
[2021-10-27] MEDS: HYDROmorphone 1 MG/ML 1 ML SYRINGE IVP PRN ×3 (11:45→23:52)
[2021-10-27] MEDS ORDERED: diazePAM 5 MG TAB PO PRN (11:55)
--- NOTE | 2021-10-27 12:05 | P.HPIM ---
History of Present Illness H&P Date: 10/27/21 Chief complaint: Left-sided lower thoracic and flank pain History of present illness: Patient is a pleasant 76-year-old female with past medical history significant for obesity, type 2 diabetes mellitus and hypertension presenting to the emergency Department with lower thoracic and flank pain. Patient has had history of low back pain all times previously. Patient stated that that she had this pain for almost a week. Patient states symptoms are to worsen again last night. Discomfort is lower back, more so on the left. There is some radiation towards left leg. The patient reported that the pain is severe enough to bring her again to the hospital apparently she was here yesterday in emergency room. She described the pain as 10 out of 10 in severity. No incontinence or retention of bowel or bladder products. No weakness or loss of sensation. No abdominal pain. She received Dilaudid in the emergency room helped with her pain. Patient denies any fever or chills. Patient denies any chest pain or shortness of breath. Patient denies recent travel sick contacts. Computed tomography scan in emergency room showed incidental finding of duodenal diverticulum with inflammation patient denies any abdominal pain. She denies any nausea vomiting. Patient stated that she was recently treated with antibiotic and steroid for acute bronchitis. She currently denies any cough or shortness of breath. review of system: All 14 review of systems evaluated and all negative except for above. Physical examination: General: non toxic, no distress, appears at stated age. Obese Derm: warm, dry Head: atraumatic, normocephalic, symmetric Eyes: EOMI, no lid lag, anicteric sclera Mouth: no lip lesion, mucus membranes moist Cardiovascular: S1S2 reg, no murmur, positive posterior tibial pulse bilateral, Lungs: CTA bilateral, no rhonchi, no rales , no accessory muscle use Abdominal: soft, nontender to palpation, no guarding, no appreciable organomegaly Ext: no gross muscle atrophy, no edema, no contractures Neuro: CN II-XI grossly intact, no focal neuro deficits Psych: Alert, oriented, appropriate affect Back examination showed tenderness to palpation of the soft tissue and muscle. Assessment and plan: #Intractable Left sided mid back pain -Pain is reproducible by palpation -Suspect musculoskeletal etiology -The patient describes shooting pain in the right lower extremity is. -MRI of the thoracic and lumbar spine ordered -Uncontrolled with [place], when necessary Flexeril and Valium -Lidocaine patch #CT abdomen Incidental finding of duodenal diverticulum with surrounding inflammation -Clinically the patient symptom does not match the incidental finding on the CAT scan -Start the patient on proton pump inhibitor 40 mg twice daily #Morbidly obese BMI is 40 #Type 2 diabetes mellitus -Resume metformin and diabetic diet #Hypertension -Resume lisinopril Past Medical History Past Medical History: Diabetes Mellitus, Fibromyalgia, GERD/Reflux, Hyperlipidemia, Hypertension, Musculoskeletal Disorder, Osteoarthritis (OA), Sleep Apnea/CPAP/BIPAP, Thyroid Disorder Additional Past Medical History / Comment(s): Varicose veins, SPINAL STENOSIS, x kidney stones. History of Any Multi-Drug Resistant Organisms: None Reported Past Surgical History: Adenoidectomy, Appendectomy, Bariatric Surgery, Cholecystectomy, Heart Catheterization, Hysterectomy, Joint Replacement, Tonsillectomy, Tubal Ligation Additional Past Surgical History / Comment(s): Gastric stapling, cervical fusion, bilateral knee replacements, colonoscopy, pain clinic procedures. Past Anesthesia/Blood Transfusion Reactions: No Reported Reaction Past Psychological History: No Psychological Hx Reported Smoking Status: Former smoker Past Alcohol Use History: Occasional Past Drug Use History: None Reported - Past Family History Mother Family Medical History: Cancer Additional Family Medical History / Comment(s): Breast and cervical cancer. Sister(s) Family Medical History: Cancer Additional Family Medical History / Comment(s): Cervical cancer. Father Family Medical History: Diabetes Mellitus Medications and Allergies Home Medications Medication Instructions Recorded Confirmed Type Triamterene-Hctz 37.5-25Mg 1 tab PO DAILY 11/16/13 10/27/21 History [Maxzide 37.5-25] lisinopriL [Zestril] 2.5 mg PO DAILY 10/30/17 10/27/21 History Levothyroxine Sodium [Euthyrox] 125 mcg PO DAILY 08/01/20 10/27/21 History metFORMIN HCL [Glucophage] 1,000 mg PO DAILY 08/01/20 10/27/21 History Atorvastatin [Lipitor] 40 mg PO HS 08/02/20 10/27/21 History HYDROcodone/APAP 5-325MG [[place] 1 tab PO Q6HR PRN 3 Days #12 tab 10/20/21 10/27/21 Rx 5-325] Azithromycin [Zithromax] 500 mg PO DAILY 10/27/21 10/27/21 History Diclofenac Sodium Gel [Voltaren 2 gm TOPICAL QID PRN 10/27/21 10/27/21 History Gel] Levofloxacin [Levaquin] 500 mg PO DAILY 10/27/21 10/27/21 History methylPREDNISolone Dose Pack See Taper PO DAILY 10/27/21 10/27/21 History [Medrol Dose Pack] Allergies Allergy/AdvReac Type Severity Reaction Status Date / Time No Known Allergies Allergy Verified 10/27/21 10:29 Physical Exam Vitals: Vital Signs Temp Pulse Resp BP Pulse Ox 10/27/21 08:10 97.5 F L 70 16 141/60 95 10/27/21 02:20 97.4 F L 79 18 203/101 96 Intake and Output 10/26/21 10/27/21 10/27/21 22:59 06:59 14:59 Other: Weight 104.326 kg Results CBC & Chem 7: 10/27/21 07:00 10/27/21 07:00 Labs: Abnormal Lab Results - Last 24 Hours (Table) 10/27/21 Range/Units 07:00 BUN 23 H (7-17) mg/dL Glucose 137 H (74-99) mg/dL Total Protein 8.6 H (6.3-8.2) g/dL
[2021-10-27] MEDS: LIDOCAINE 5% PATCH TOPICAL SCH (12:15)
[2021-10-27] MEDS: INSULIN ASPART (NovoLOG) 100 UNIT/ML VIAL SQ SCH ×3 (15:25→19:42)
--- NOTE | 2021-10-27 16:39 | P.GSCN ---
History of Present Illness Consult date: 10/27/21 History of present illness: REASON FOR CONSULTATION: Back pain, abnormal computed tomography scan HISTORY OF PRESENT ILLNESS: The patient is a 76 year old female who presented to the emergency room with moderate to severe back pain for over 2 days. She denies any epigastric abdominal pain. She reports known history of kidney stones. No reports of nausea and vomiting. Diagnostic studies of CT were obtained demonstrating duodenal inflammation. General surgery is consulted as result. She confirms pre-existing history of bariatric surgery in the vertical banded gastroplasty. She also confirms personal history of ventral hernia over 10+ years old. She presents for morbid obesity, BMI 40.7. General surgery is requested to see her due to abnormal computed tomography scan for inflammation of the duodenum. PAST MEDICAL HISTORY: See list and reviewed PAST SURGICAL HISTORY: See list and reviewed MEDICATIONS: See list and reviewed ALLERGIES: See list and reviewed SOCIAL HISTORY: See list and reviewed FAMILY HISTORY: See list and reviewed REVIEW OF ORGAN SYSTEMS: CONSTITUTIONAL: No fevers or chills. Morbid obesity with BMI 40.7. EYES: Denies any trouble with vision. No glasses. HEENT: No difficulties with hearing. No nosebleeds. No difficulty swallowing. RESPIRATORY: Denies pneumonia. Denies any troubles with breathing or dyspnea on exertion. CARDIOVASCULAR: has hypertensive heart disease. Has hyperlipidemia. GASTROINTESTINAL: history of vertical banded gastroplasty . Denies gastroesophageal reflux disease. GENITOURINARY: Denies any blood in urine or increased urinary frequency. NEUROLOGICAL: Denies any numbness or tingling along the distal extremities. No seizure disorders or headaches. MUSCULOSKELETAL: Has back pain, stiffness or joint arthritis. SKIN: No current skin cancer. No rash. PSYCHIATRIC: Denies current depression or suicidal thoughts. ENDOCRINE: Has hypothyroidism. Denies any blood sugar glucose intolerance. HEME/LYMPHATIC: Denies any lumps and bumps around the neck. No recent deep venous thrombosis. ALLERGY/IMMUNOLOGY: No immunoglobulin therapy. No immune deficiencies. BREAST: Denies current breast lumps, pain or nipple discharge. PHYSICAL EXAM: VITALS: Reviewed CONSTITUTIONAL: Well developed and in no acute distress. EYES: Conjuctivae without sclera icterus. Extraocular movements grossly intact. HEAD, EARS, NOSE, THROAT: Moist buccal mucosa. Head is atraumatic, normocephalic. Hears conversational speech. No nasal drainage. NECK: Supple. No JV distention. No thyroidomegaly. RESPIRATORY: Non-labored respirations and equal bilateral excursions. No gross wheezes. CARDIOVASCULAR: Palpable 2+ radial pulses. ABDOMEN: Protuberant. Swelling of the epigastrium from hernia. No peritonitis. Nontender. LYMPH: No neck lymphadenopathy. MUSCULOSKELETAL: Nail and fingers with good capillary refill. SKIN: Warm and well perfused with good skin turgor. NEUROLOGIC: Cranial nerves II through XII grossly intact. No focal or lateralizing signs. PSYCH: Appropriate affect. Alert and oriented to person, place and time. Displays appropriate insight. CLINCAL LABS: Reviewed. WBC normal 9.9. Hemoglobin normal at 13.2. Urinalysis negative. IMAGING: Independently reviewed. CT of the abdomen and pelvis demonstrates incisional hernia the epigastrium involving intestine without strangulation. Staple line along the proximal stomach consistent with vertical banding gastroplasty. No bowel obstruction. This is my independent interpretation. RADIOLOGY: Report reviewed. CT of the abdomen and pelvis report demonstrates duodenal diverticulum 2 cm with inflammation and duodenitis. Left kidney stone. Ventral hernia. ASSESSMENT: 1. Back pain 2. Abnormal computed tomography scan of duodenal inflammation 3. Incisional ventral hernia 4. History of bariatric surgery, vertical banded gastroplasty 5. Morbid obesity due to excess calories, BMI 40.7 6. Kidney stone PLAN: 1. IV fluid hydration. 2. Clinically, no active symptoms from duodenal diverticulum. 3. Patient reports back pain. Symptoms may be exacerbated by kidney stone. 4. Additionally, may benefit from treatment of duodenitis with PPI. 5. No acute surgical intervention at this time 6. May have clear liquid diet. ADVANCE DIRECTIVE: Thank you for this kind consultation. Past Medical History Past Medical History: Diabetes Mellitus, Fibromyalgia, GERD/Reflux, Hyperlipidemia, Hypertension, Musculoskeletal Disorder, Osteoarthritis (OA), Sleep Apnea/CPAP/BIPAP, Thyroid Disorder Additional Past Medical History / Comment(s): Varicose veins, SPINAL STENOSIS, x kidney stones. History of Any Multi-Drug Resistant Organisms: None Reported Past Surgical History: Adenoidectomy, Appendectomy, Bariatric Surgery, Cholecystectomy, Heart Catheterization, Hysterectomy, Joint Replacement, Tonsillectomy, Tubal Ligation Additional Past Surgical History / Comment(s): Gastric stapling, cervical fusion, bilateral knee replacements, colonoscopy, pain clinic procedures. Past Anesthesia/Blood Transfusion Reactions: No Reported Reaction Past Psychological History: No Psychological Hx Reported Additional Psychological History / Comment(s): pt lives with her and 1 son, is independant. pt stated they winter in [place]. pt is retired,used to work ing the [employer] industry. Smoking Status: Former smoker Past Alcohol Use History: Occasional Additional Past Alcohol Use History / Comment(s): STARTED SMOKING AT AGE 18, QUIT AT AGE 24, SMOKED 1 PPD. Past Drug Use History: None Reported - Past Family History Mother Family Medical History: Cancer Additional Family Medical History / Comment(s): Breast and cervical cancer. Sister(s) Family Medical History: Cancer Additional Family Medical History / Comment(s): Cervical cancer. Father Family Medical History: Diabetes Mellitus Medications and Allergies Home Medications Medication Instructions Recorded Confirmed Type Triamterene-Hctz 37.5-25Mg 1 tab PO DAILY 11/16/13 10/27/21 History [Maxzide 37.5-25] lisinopriL [Zestril] 2.5 mg PO DAILY 10/30/17 10/27/21 History Levothyroxine Sodium [Euthyrox] 125 mcg PO DAILY 08/01/20 10/27/21 History metFORMIN HCL [Glucophage] 1,000 mg PO DAILY 08/01/20 10/27/21 History Atorvastatin [Lipitor] 40 mg PO HS 08/02/20 10/27/21 History HYDROcodone/APAP 5-325MG [[place] 1 tab PO Q6HR PRN 3 Days #12 tab 10/20/21 10/27/21 Rx 5-325] Azithromycin [Zithromax] 500 mg PO DAILY 10/27/21 10/27/21 History Diclofenac Sodium Gel [Voltaren 2 gm TOPICAL QID PRN 10/27/21 10/27/21 History Gel] Levofloxacin [Levaquin] 500 mg PO DAILY 10/27/21 10/27/21 History methylPREDNISolone Dose Pack See Taper PO DAILY 10/27/21 10/27/21 History [Medrol Dose Pack] Allergies Allergy/AdvReac Type Severity Reaction Status Date / Time No Known Allergies Allergy Verified 10/27/21 10:29 Surgical - Exam Vital Signs Temp Pulse Resp BP Pulse Ox 97.4 F L 79 18 203/101 96 10/27/21 02:20 10/27/21 02:20 10/27/21 02:20 10/27/21 02:20 10/27/21 02:20 Results - Labs 10/27/21 07:00 10/27/21 07:00 Abnormal Lab Results - Last 24 Hours (Table) 10/27/21 Range/Units 07:00 BUN 23 H (7-17) mg/dL Glucose 137 H (74-99) mg/dL Total Protein 8.6 H (6.3-8.2) g/dL Diabetes panel 10/27/21 Range/Units 07:00 Sodium 140 (137-145) mmol/L Potassium 4.7 (3.5-5.1) mmol/L Chloride 102 (98-107) mmol/L Carbon Dioxide 27 (22-30) mmol/L BUN 23 H (7-17) mg/dL Creatinine 0.80 (0.52-1.04) mg/dL Glucose 137 H (74-99) mg/dL Calcium 9.5 (8.4-10.2) mg/dL AST 19 (14-36) U/L ALT 16 (4-34) U/L Alkaline Phosphatase 65 (38-126) U/L Total Protein 8.6 H (6.3-8.2) g/dL Albumin 4.6 (3.5-5.0) g/dL Calcium panel 10/27/21 Range/Units 07:00 Calcium 9.5 (8.4-10.2) mg/dL Albumin 4.6 (3.5-5.0) g/dL Pituitary panel 10/27/21 Range/Units 07:00 Sodium 140 (137-145) mmol/L Potassium 4.7 (3.5-5.1) mmol/L Chloride 102 (98-107) mmol/L Carbon Dioxide 27 (22-30) mmol/L BUN 23 H (7-17) mg/dL Creatinine 0.80 (0.52-1.04) mg/dL Glucose 137 H (74-99) mg/dL Calcium 9.5 (8.4-10.2) mg/dL Adrenal panel 10/27/21 Range/Units 07:00 Sodium 140 (137-145) mmol/L Potassium 4.7 (3.5-5.1) mmol/L Chloride 102 (98-107) mmol/L Carbon Dioxide 27 (22-30) mmol/L BUN 23 H (7-17) mg/dL Creatinine 0.80 (0.52-1.04) mg/dL Glucose 137 H (74-99) mg/dL Calcium 9.5 (8.4-10.2) mg/dL Total Bilirubin 0.7 (0.2-1.3) mg/dL AST 19 (14-36) U/L ALT 16 (4-34) U/L Alkaline Phosphatase 65 (38-126) U/L Total Protein 8.6 H (6.3-8.2) g/dL Albumin 4.6 (3.5-5.0) g/dL
[2021-10-27 17:35] LABS: Glucose,Whole Blood 89 mg/dL (70-110)
[2021-10-27] MEDS: PANTOPRAZOLE 40 MG TABLET PO SCH (18:59)
[2021-10-27 19:43] LABS: Glucose,Whole Blood 128 mg/dL (70-110)
[2021-10-27] MEDS: HYDROcodone/APAP 5-325MG 1 EACH TAB PO PRN (19:46)
[2021-10-27] MEDS: ATORVASTATIN 40 MG TAB PO SCH (19:46)
[2021-10-28] MEDS: LEVOTHYROXINE 125 MCG TAB PO SCH (05:36)
[2021-10-28] MEDS: HYDROcodone/APAP 5-325MG 1 EACH TAB PO PRN ×3 (05:36→22:41)
[2021-10-28] MEDS: HYDROmorphone 1 MG/ML 1 ML SYRINGE IVP PRN ×3 (06:02→15:31)
[2021-10-28 07:04] LABS: Glucose,Whole Blood 103 mg/dL (70-110)
[2021-10-28] MEDS: metFORMIN 500 MG TAB PO SCH (07:34)
[2021-10-28] MEDS: ENOXAPARIN 40 MG/0.4 ML SYRINGE SQ SCH (07:34)
[2021-10-28] MEDS: PANTOPRAZOLE 40 MG TABLET PO SCH ×2 (07:34→16:31)
[2021-10-28] MEDS: LIDOCAINE 5% PATCH TOPICAL SCH (07:35)
[2021-10-28] MEDS: SODIUM CHLORIDE 0.9% 1,000 ML IV SCH ×2 (07:41→07:43)
[2021-10-28] MEDS: INSULIN ASPART (NovoLOG) 100 UNIT/ML VIAL SQ SCH ×4 (07:42→22:36)
[2021-10-28 09:42] LABS: Basophils # (A) 0.05 X 10*3/uL (0.00-0.10); Basophils % (A) 0.6 %; Eosinophils % (A) 1.2 %; HCT 42.3 % (37.2-46.3); HGB 13.1 g/dL (12.0-15.0); Lymphocytes # (A) 3.66 X 10*3/uL (0.90-5.00); Lymphocytes % (A) 44.5 %; MCH 29.7 pg (27.0-32.0); MCV 95.9 fL (80.0-97.0); Mean Platelet Volume 10.3 fL (9.5-12.2); Monocytes % (A) 6.1 %; NRBC Per 100 WBC 0 /100 WBCS (0.0-0.0); Neutrophils # (A) 3.83 X 10*3/uL (1.80-7.70); Neutrophils % (A) 46.6 %; Platelet Count 234 X 10*3/uL (140-440); RBC 4.41 X 10*6/uL (4.10-5.20); RDW 14.8 % (11.5-14.5); WBC 8.22 X 10*3/uL (4.50-10.00)
[2021-10-28] MEDS: TRIAMTERENE-HCTZ 37.5-25MG 1 EACH TAB PO SCH (10:34)
--- NOTE | 2021-10-28 11:39 | P.PN ---
Subjective Progress Note Date: 10/28/21 History of present illness: Patient is a pleasant 76-year-old female with past medical history significant for obesity, type 2 diabetes mellitus and hypertension presenting to the emergency Department with lower thoracic and flank pain. Patient has had history of low back pain all times previously. Patient stated that that she had this pain for almost a week. Patient states symptoms are to worsen again last night. Discomfort is lower back, more so on the left. There is some radiation towards left leg. The patient reported that the pain is severe enough to bring her again to the hospital apparently she was here yesterday in emergency room. She described the pain as 10 out of 10 in severity. No incontinence or retention of bowel or bladder products. No weakness or loss of sensation. No abdominal pain. She received Dilaudid in the emergency room helped with her pain. Patient denies any fever or chills. Patient denies any chest pain or shortness of breath. Patient denies recent travel sick contacts. Computed tomography scan in emergency room showed incidental finding of duodenal diverticulum with inflammation patient denies any abdominal pain. She denies any nausea vomiting. Patient stated that she was recently treated with antibiotic and steroid for acute bronchitis. She currently denies any cough or shortness of breath. Interval history: Patient was examined at the bedside. She denies any chest pain shortness of breath. Patient stated that she still have left-sided pain that is still significant once affect of the pain medications wears off. Patient was very claustrophobic and MRI of the thoracic and lumbar spine was not yesterday. Physical examination: General: non toxic, no distress, appears at stated age. Obese Derm: warm, dry Head: atraumatic, normocephalic, symmetric Eyes: EOMI, no lid lag, anicteric sclera Mouth: no lip lesion, mucus membranes moist Cardiovascular: S1S2 reg, no murmur, positive posterior tibial pulse bilateral, Lungs: CTA bilateral, no rhonchi, no rales , no accessory muscle use Abdominal: soft, nontender to palpation, no guarding, no appreciable organomegaly Ext: no gross muscle atrophy, no edema, no contractures Neuro: CN II-XI grossly intact, no focal neuro deficits Psych: Alert, oriented, appropriate affect Back examination showed tenderness to palpation of the soft tissue and muscle. Assessment and plan: #Intractable Left sided mid back pain -Pain is reproducible by palpation -Suspect musculoskeletal etiology -The patient describes shooting pain in the right lower extremity is. -MRI was not done yesterday due to severe claustrophobia even with Valium and pain medications. Patient benefit from open MRI as an outpatient -Resume IV Dilaudid, [place], when necessary Flexeril and Valium -Lidocaine patch -Pending evaluation -PT/OT evaluation #CT abdomen Incidental finding of duodenal diverticulum with surrounding inflammation -Clinically the patient symptom does not match the incidental finding on the CAT scan -Resume proton pump inhibitor -Appreciate general surgery input #Super morbidly obese BMI is 40 #Type 2 diabetes mellitus -Resume metformin and diabetic diet #Hypertension -Resume lisinopril Discharge home in the next 24 hours once pain is under control. Objective - Vital Signs Vital signs: Vital Signs Temp 97.4 F L 10/28/21 07:00 Pulse 71 10/28/21 07:00 Resp 14 10/28/21 07:00 BP 162/78 10/28/21 07:00 Pulse Ox 96 10/28/21 07:00 FiO2 Intake & Output 10/27/21 10/28/21 10/28/21 18:59 06:59 18:59 Intake Total 480 Balance 480 Weight 104.326 kg Intake: Oral 480 Other: Voiding Method Toilet Toilet # Voids 1 - Labs CBC & Chem 7: 10/28/21 06:34 10/27/21 07:00 Labs: Abnormal Lab Results - Last 24 Hours (Table) 10/27/21 10/27/21 10/28/21 Range/Units 07:00 19:41 06:34 MCHC 31.0 L (32.0-37.0) g/dL RDW 14.8 H (11.5-14.5) % Immature Gran # 0.08 H (0.00-0.04) X 10*3/uL POC Glucose (mg/dL) 128 H (70-110) mg/dL Hemoglobin A1c 6.7 H (0.0-6.0) %
[2021-10-28 11:58] LABS: Glucose,Whole Blood 86 mg/dL (70-110)
--- NOTE | 2021-10-28 14:24 | P.PN ---
Subjective Progress Note Date: 10/28/21 CHIEF COMPLAINT: Back pain, abnormal computed tomography scan HISTORY OF PRESENT ILLNESS: The patient is a 76 year old female who presented to the emergency room with moderate to severe back pain for over 2 days. With pain medication, her left back pain improves. On computed tomography scan, patient has left kidney stone. She has personal history of kidney stones without further assessment being performed recently. She denies any epigastric abdominal pain. She's tolerating diet. REVIEW OF ORGAN SYSTEMS: CONSTITUTIONAL: No fevers or chills. Morbid obesity with BMI 40.7. RESPIRATORY: Denies pneumonia. Denies any troubles with breathing or dyspnea on exertion. CARDIOVASCULAR: has hypertensive heart disease. Has hyperlipidemia. GASTROINTESTINAL: history of vertical banded gastroplasty 1980s. Denies gastroesophageal reflux disease. GENITOURINARY: Denies any blood in urine or increased urinary frequency. PHYSICAL EXAM: VITALS: Reviewed CONSTITUTIONAL: Well developed and in no acute distress. EYES: Conjuctivae without sclera icterus. Extraocular movements grossly intact. HEAD, EARS, NOSE, THROAT: Moist buccal mucosa. Head is atraumatic, normocephalic. Hears conversational speech. No nasal drainage. RESPIRATORY: Non-labored respirations and equal bilateral excursions. No gross wheezes. CARDIOVASCULAR: Palpable 2+ radial pulses. ABDOMEN: Protuberant. Swelling of the epigastrium from hernia. No peritonitis. Nontender. MUSCULOSKELETAL: Nail and fingers with good capillary refill. SKIN: Warm and well perfused with good skin turgor. NEUROLOGIC: Cranial nerves II through XII grossly intact. No focal or lateralizing signs. PSYCH: Appropriate affect. Alert and oriented to person, place and time. Displays appropriate insight. CLINCAL LABS: Reviewed. WBC normal 8.2. ASSESSMENT: 1. Back pain 2. Abnormal computed tomography scan of duodenal inflammation 3. Incisional ventral hernia 4. History of bariatric surgery, vertical banded gastroplasty 5. Morbid obesity due to excess calories, BMI 40.7 6. Kidney stone PLAN: 1. Upon further discussion with the patient, may benefit from urologic consultation due to symptomatic kidney stones. 2. Also, recommend PPI for treatment for inflammation of duodenal diverticulum Objective - Vital Signs Vital signs: Vital Signs Temp 97.4 F L 10/28/21 07:00 Pulse 71 10/28/21 07:00 Resp 14 10/28/21 07:00 BP 162/78 10/28/21 07:00 Pulse Ox 96 10/28/21 07:00 FiO2 Intake & Output 10/27/21 10/28/21 10/28/21 18:59 06:59 18:59 Intake Total 480 Balance 480 Weight 104.326 kg Intake: Oral 480 Other: Voiding Method Toilet Toilet # Voids 1 - Labs CBC & Chem 7: 10/28/21 06:34 10/27/21 07:00 Labs: Abnormal Lab Results - Last 24 Hours (Table) 10/27/21 10/27/21 10/28/21 Range/Units 07:00 19:41 06:34 MCHC 31.0 L (32.0-37.0) g/dL RDW 14.8 H (11.5-14.5) % Immature Gran # 0.08 H (0.00-0.04) X 10*3/uL POC Glucose (mg/dL) 128 H (70-110) mg/dL Hemoglobin A1c 6.7 H (0.0-6.0) %
[2021-10-28 16:30] LABS: Glucose,Whole Blood 91 mg/dL (70-110)
[2021-10-28] MEDS: ATORVASTATIN 40 MG TAB PO SCH (20:34)
--- NOTE | 2021-10-28 21:34 | P.CNNES ---
History of Present Illness Consult date: 10/28/21 Requesting physician: Bhargav Hickey Reason for Consult: Intractable back pain History of Present Illness: This is Tele-neurology consultation performed today on 10/28/2021. Patient is a 76-year-old female came to the hospital yesterday endocrinologist at 2:18 AM for low back pain on the right side. It started 4-5 days ago, and she rates it 10/10. She states that she has not had any bowel movement since then. She localizes her pain to the posterior lower rib cage on the right side (not in the spine or lower back region). Patient also noticed aching in the right leg which she rated 7-8/10. Patient denies any numbness or tingling in the extremities. Patient states that last year she had a kidney stone on the right side, for which she underwent some surgical treatment by a urologist. The current pain is different (higher) as compared to what she suffered from renal pain last year (which was lower in location on the back). She denies any low back pain. Denies any history of trauma. Vital signs on arrival blood pressure to 3/101, pulse rate 79, temperature 97.4 blood pressures 1 improved to 141/60. Patient's blood test shows normal CBC, Chem-20. Hemoglobin A1c 6.7. UA negative. CRP 0.6, ESR 20. Patient's CT abdomen and pelvis showed suspect 1.8 cm duodenal diverticulum. Mild adjacent inflammatory changes within the right upper quadrant which may be related to do tinnitus. Stable punctate nonobstructing stones in the left collecting system. Stable ventral wall hernia containing nonobstructed large bowel segments. Patient states that she just had a bowel movement and the pain is completely gone. She also received a pain medication, therefore unsure the resolution of pain was from the medication or having a bowel movement. Patient's home medication includes triamterene/HCTZ, lisinopril, levothyroxine, metformin, Lipitor 40 mg, [place], Medrol Dosepak. Review of Systems Denies any problems with bowel or bladder control. All other review of systems reviewed, unremarkable except as mentioned above. Past Medical History Past Medical History: Diabetes Mellitus, Fibromyalgia, GERD/Reflux, Hyperlipide earnest, Hypertension, Musculoskeletal Disorder, Osteoarthritis (OA), Sleep Apnea/CPAP/BIPAP, Thyroid Disorder Additional Past Medical History / Comment(s): Varicose veins, SPINAL STENOSIS, x kidney stones. History of Any Multi-Drug Resistant Organisms: None Reported Past Surgical History: Adenoidectomy, Appendectomy, Bariatric Surgery, Cholecystectomy, Heart Catheterization, Hysterectomy, Joint Replacement, Tonsillectomy, Tubal Ligation Additional Past Surgical History / Comment(s): Gastric stapling, cervical fusion, bilateral knee replacements, colonoscopy, pain clinic procedures. Past Anesthesia/Blood Transfusion Reactions: No Reported Reaction Past Psychological History: No Psychological Hx Reported Additional Psychological History / Comment(s): pt lives with her and 1 son, is independant. pt stated they winter in [place]. pt is retired,used to work ing the [employer] industry. Smoking Status: Former smoker Past Alcohol Use History: Occasional Additional Past Alcohol Use History / Comment(s): STARTED SMOKING AT AGE 18, QUIT AT AGE 24, SMOKED 1 PPD. Past Drug Use History: None Reported - Past Family History Mother Family Medical History: Cancer Additional Family Medical History / Comment(s): Breast and cervical cancer. Sister(s) Family Medical History: Cancer Additional Family Medical History / Comment(s): Cervical cancer. Father Family Medical History: Diabetes Mellitus Medications and Allergies Home Medications Medication Instructions Recorded Confirmed Type Triamterene-Hctz 37.5-25Mg 1 tab PO DAILY 11/16/13 10/27/21 History [Maxzide 37.5-25] lisinopriL [Zestril] 2.5 mg PO DAILY 10/30/17 10/27/21 History Levothyroxine Sodium [Euthyrox] 125 mcg PO DAILY 08/01/20 10/27/21 History metFORMIN HCL [Glucophage] 1,000 mg PO DAILY 08/01/20 10/27/21 History Atorvastatin [Lipitor] 40 mg PO HS 08/02/20 10/27/21 History HYDROcodone/APAP 5-325MG [[place] 1 tab PO Q6HR PRN 3 Days #12 tab 10/20/21 10/27/21 Rx 5-325] Azithromycin [Zithromax] 500 mg PO DAILY 10/27/21 10/27/21 History Diclofenac Sodium Gel [Voltaren 2 gm TOPICAL QID PRN 10/27/21 10/27/21 History Gel] Levofloxacin [Levaquin] 500 mg PO DAILY 10/27/21 10/27/21 History methylPREDNISolone Dose Pack See Taper PO DAILY 10/27/21 10/27/21 History [Medrol Dose Pack] Allergies Allergy/AdvReac Type Severity Reaction Status Date / Time No Known Allergies Allergy Verified 10/27/21 10:29 Physical Examination - Vital Signs Vital Signs: Vital Signs Temp Pulse Pulse Resp BP BP Pulse Ox 10/28/21 07:00 97.4 F L 71 14 162/78 96 10/28/21 01:32 97.6 F 55 L 20 130/69 93 L 10/27/21 20:00 98.0 F 67 17 157/74 96 10/27/21 14:50 98.2 F 63 16 178/79 98 10/27/21 13:40 60 16 151/75 96 10/27/21 11:49 62 18 177/77 100 Intake and Output 10/27/21 10/28/21 10/28/21 22:59 06:59 14:59 Intake Total 480 Balance 480 Intake: Oral 480 Other: Voiding Method Toilet Toilet Toilet # Voids 0 1 Weight 104.326 kg Patient is an elderly female, very pleasant, in no acute distress. Patient is alert awake oriented to time place and person. Speech and language functions are normal. Attention, concentration and fund of knowledge is adequate. On cranial examination, pupils are round and reacting to light, visual sotelo are full on confrontation, extraocular muscles are intact with no nystagmus. Face is symmetric, tongue protrudes to the midline. Palatal elevation and sensation normal, hearing and shoulder shrug normal, facial sensation normal. Shoulder shrug normal. On muscle strength testing, there is no pronator drift and the strength is normal in arms and legs distally and proximally. Deep tendon reflexes are symmetric, 1 in the upper and lower limbs and plantars are flat. Sensory to touch is equal with no neglect. Cerebellar function showed no ataxia for [id number] testing. No dysdiadochokinesia. Tone and bulk of muscles normal. Gait normal. On general examination, there is no carotid bruit or murmur, S1-S2 audible. Abdomen is soft nontender. No organomegaly, bowel sounds present. Chest is clear. Peripheral pulses are present. No edema. There is NO rash (herpetic lesions) on the back on either side, even over the region of pain. Results - Laboratory Findings CBC and BMP: 10/28/21 06:34 10/27/21 07:00 Abnormal Lab Findings: Abnormal Labs 10/27/21 10/27/21 10/27/21 07:00 07:00 19:41 BUN 23 H Glucose 137 H POC Glucose (mg/dL) 128 H Hemoglobin A1c 6.7 H Total Protein 8.6 H Assessment and Plan Assessment: * Pain over the right posterior lower rib cage region, most likely not neurological in origin. At present the pain is completely gone since she had a bowel movement versus from receiving pain medication. * Duodenal diverticulum with adjacent inflammatory change * Stable punctate nonobstructing stones in the left collecting system. * Stable ventral hernia. * Obesity Plan: * Patient's neurological examination is normal. Her pain does not appear neurological in origin. No herpetic-like rash noted over the skin. In fact the pain is resolved at this time. * Neurology will sign off. Please reconsult neurology if any other concerns. * Thank you for the consult.
[2021-10-28 22:00] LABS: Glucose,Whole Blood 126 mg/dL (70-110)
[2021-10-29] MEDS: HYDROmorphone 1 MG/ML 1 ML SYRINGE IVP PRN (04:34)
[2021-10-29] MEDS: LEVOTHYROXINE 125 MCG TAB PO SCH (05:49)
[2021-10-29 07:22] LABS: Glucose,Whole Blood 138 mg/dL (70-110)
[2021-10-29 08:16] VITALS: BP 133/62; PULSE 63; RESP 18; TEMP 97.7
[2021-10-29] MEDS: metFORMIN 500 MG TAB PO SCH (08:32)
[2021-10-29] MEDS: HYDROcodone/APAP 5-325MG 1 EACH TAB PO PRN (08:32)
[2021-10-29] MEDS: INSULIN ASPART (NovoLOG) 100 UNIT/ML VIAL SQ SCH ×2 (08:32→12:51)
[2021-10-29] MEDS: PANTOPRAZOLE 40 MG TABLET PO SCH (08:33)
[2021-10-29] MEDS: TRIAMTERENE-HCTZ 37.5-25MG 1 EACH TAB PO SCH (08:33)
[2021-10-29] MEDS: LIDOCAINE 5% PATCH TOPICAL SCH (08:33)
[2021-10-29] MEDS: ENOXAPARIN 40 MG/0.4 ML SYRINGE SQ SCH (08:34)
[2021-10-29] MEDS ORDERED: GABAPENTIN 300 MG CAP PO STA (10:29)
[2021-10-29 12:38] LABS: Glucose,Whole Blood 86 mg/dL (70-110)
--- NOTE | 2021-10-29 13:27 | P.DS ---
Providers Date of admission: 10/27/21 07:26 Expected date of discharge: 10/29/21 Attending physician: Martín Barr MD Consults: 10/27/21 11:42 Consult Physician Routine Consulting Provider: Eula Alejandro Consult Reason/Comments: duedenal diverticulum with inflammations Do you want consulting provider notified?: Yes 10/27/21 14:02 Consult Physician Routine Consulting Provider: Roxie Russell Consult Reason/Comments: interactable back pain Do you want consulting provider notified?: Yes 10/28/21 13:00 Consult Physician Routine Consulting Provider: Corky Up Consult Reason/Comments: Symptomatic kidney stones Do you want consulting provider notified?: Yes Primary care physician: Pieter Black MD Hospital Course: Discharge Diagnosis: Left flank pain/neuropathic pain Nonobstructing renal stones, follow up outpatient with urology for long-term monitoring and management Ventral hernia and duodenal diverticulum, follow up outpatient with general surgery Type 2 diabetes mellitus Hypertension Fibromyalgia Hypothyroidism Obstructive sleep apnea Hospital Course: Patient is a pleasant 76-year-old female with past medical history significant for obesity, type 2 diabetes mellitus, fibromyalgia, hypothyroidism, obstructive sleep apnea, history of kidney stones,and hypertension. She presented to the emergency department on 10/27/21 with a chief complaint of left flank pain and underwent full evaluation. CT abdomen and pelvis revealed 1.8 cm duodenal diverticulum with mild adjacent inflammatory changes within the right upper quadrant which may be related to duodenitis, stable ventral wall hernia containing nonobstructive large bowel segments, and stable punctate nonobstructing stones in left collecting system. CBC and CMP were unremarkable. Urinalysis negative for blood, ketones, protein, or infection. CRP 0.6.ESR 20. Patient was admitted under our services with consultation to Gen. surgery for evaluation of CT findings of duodenitis and ventral wall hernia with history of bariatric surgery as well as neurology secondary to neuropathic pain as pa kathleen's skin was very sensitive to touch and left flank area, however patient had no rash or open lesions. patient denied spinal cord tenderness and denied pain upon palpation of ribs however skin to posterior left flank was very sensitive upon light touch. Patient was initially treated with IV pain medications. Patient then given a one-time dose of Neurontin in which she reports finally having resolution of previously reported pain. Patient was instructed to monitor site and notify her PCP immediately if she develops any rash or open lesions as this could be beginning stages of shingles, however patient declined starting acyclovir at this time pending further evaluation. Pt did report that her recently had shingles and underwent treatment, but states she had chickenpox and was vaccinated. Patient is medically stable at this time. Denied having any further complaints or needs.vital signs were unremarkable. Patient medically stable for discharge at this time. Patient given 3 days of Neurontinand instructed she will need to be evaluated by her PCP and 1-2 days and again instructed if rash develops to notify her PCP immediately. Physical examination: Vital signs reviewed and stable. General: Nontoxic, no distress and appears stated age. Derm: Skin warm and dry, normal coloration for ethnicity. Patient is very tender upon light touch of skin on left flank. No rashes or open lesions noted. Head: Atraumatic, normocephalic and symmetric. Eyes: EOMs intact, no lid lag, and anicteric sclera Mouth: no lip lesions, mucus membranes moist Cardiovascular: regular rate and rhythm with normal S1S2, no murmur, positive posterior tibial pulses bilaterally, and cap refill < 2 seconds. Lungs: Respirations even, regular, and unlabored on room air. Lungs CTA bilaterally, no rhonchi, no rales, no wheezing, and no accessory muscle usage. Abdominal: soft, nontender to palpation, no guarding, no appreciable organomegaly Ext: ROM intact. No gross muscle atrophy, no edema, no contractures Neuro: Speech clear, face symmetrical and CN II-XII grossly intact with no noted focal neuro deficits Psych: Alert and oriented to person, place, time, and situation. Appropriate and pleasant affect. A total of 35 minutes of time were spent preparing this complex discharge summary. Pt was discharged on 10/29/21 at 1:14 PM. Patient Condition at Discharge: Stable Plan - Discharge Summary New Discharge Prescriptions: New Gabapentin 300 mg PO BID 3 Days #6 cap Lidocaine 5% Patch [Lidoderm 5% Patch] 1 patch TOPICAL DAILY 30 Days #30 patch Continue Triamterene-Hctz 37.5-25Mg [Maxzide 37.5-25] 1 tab PO DAILY lisinopriL [Zestril] 2.5 mg PO DAILY Levothyroxine Sodium [Euthyrox] 125 mcg PO DAILY Diclofenac Sodium Gel [Voltaren Gel] 2 gm TOPICAL QID PRN PRN Reason: Pain metFORMIN HCL [Glucophage] 1,000 mg PO DAILY Atorvastatin [Lipitor] 40 mg PO HS HYDROcodone/APAP 5-325MG [[place] 5-325] 1 tab PO Q6HR PRN 3 Days #12 tab PRN Reason: Pain Discontinued Azithromycin [Zithromax] 500 mg PO DAILY Levofloxacin [Levaquin] 500 mg PO DAILY methylPREDNISolone Dose Pack [Medrol Dose Pack] See Taper PO DAILY Discharge Medication List Triamterene-Hctz 37.5-25Mg [Maxzide 37.5-25] 1 tab PO DAILY 11/16/13 [History] lisinopriL [Zestril] 2.5 mg PO DAILY 10/30/17 [History] Levothyroxine Sodium [Euthyrox] 125 mcg PO DAILY 08/01/20 [History] metFORMIN HCL [Glucophage] 1,000 mg PO DAILY 08/01/20 [History] Atorvastatin [Lipitor] 40 mg PO HS 08/02/20 [History] HYDROcodone/APAP 5-325MG [[place] 5-325] 1 tab PO Q6HR PRN 3 Days #12 tab 10/20/21 [Rx] Diclofenac Sodium Gel [Voltaren Gel] 2 gm TOPICAL QID PRN 10/27/21 [History] Gabapentin 300 mg PO BID 3 Days #6 cap 10/29/21 [Rx] Lidocaine 5% Patch [Lidoderm 5% Patch] 1 patch TOPICAL DAILY 30 Days #30 patch 10/29/21 [Rx] Follow up Appointment(s)/Referral(s): Omayra Denis MD [REFERRING] - 1 Week Corky Up MD [STAFF PHYSICIAN] - 1 Week Eula Alejandro MD [STAFF PHYSICIAN] - 1 Week Pieter Black MD [Primary Care Provider] - 1-2 days Activity/Diet/Wound Care/Special Instructions: Activity: As tolerated. Take breaks as needed. Diet: Heart healthy and carb consistent diet. Avoid salts, or foods with hidden salts such as canned or boxed foods and frozen dinners. Extra salt makes your heart work harder and traps the fluid in your body for longer. Special Instructions: Take all of your medications as directed and remember to keep all of your doctor's appointments and follow-up as needed. Neuropathic pain you have been expressing is concerning for early signs of shingles infection as we discussed, if you develop a rash or blisters to this area. You will need to notify your PCP immediately as you will need to be placed on additional medications. Thank you for allowing us to participate in your care, it was truly a pleasure having you for our patient!!! Discharge Disposition: HOME SELF-CARE
--- NOTE | 2021-10-29 13:50 | P.PN ---
Subjective Progress Note Date: 10/29/21 CHIEF COMPLAINT: Back pain HISTORY OF PRESENT ILLNESS: Patient complains of right-sided lower back pain and flank pain. Denies any urinary symptoms. Denies any abdominal pain or epigastric pain. Denies any nausea vomiting. She is tolerating regular diet. Did not undergo the MRI of the thoracic and lumbar spine due to claustrophobia. Medicine service and discharge today. Patient does have improvement in her back pain after pain medication. PHYSICAL EXAM: VITAL SIGNS: Reviewed GENERAL: Well-developed in no acute distress. HEENT: No sclera icterus. Extraocular movements grossly intact. Moist buccal mucosa. Head is atraumatic, normocephalic. Hears conversational speech. No nasal drainage. NECK: Supple without lymphadenopathy. CHEST: Non-labored respirations and equal bilateral excursions. CARDIOVASCULAR: Palpable 2+ radial pulses. ABDOMEN: Soft. Nondistended. Nontender. MUSCULOSKELETAL: No clubbing or cyanosis. NEUROLOGIC: No focal or lateralizing signs. Cranial nerves II through XII grossly intact. PSYCH: Appropriate affect. Alert and oriented to person, place and time. SKIN: Well perfused. Good skin turgor. ASSESSMENT: 1. Back pain 2. Abnormal computed tomography scan of duodenal inflammation 3. Incisional ventral hernia, stable 4. History of bariatric surgery, vertical banded gastroplasty 5. Morbid obesity due to excess calories, BMI 40.7 6. Kidney stone PLAN: -Continue PPI for treatment of inflammation of the duodenal diverticulum -Recommend urology consult for evaluation of kidney stones Physician Beam Builder Helper note has been reviewed by physician. Signing provider agrees with the documented findings, assessment, and plan of care. Objective - Vital Signs Vital signs: Vital Signs Temp 97.7 F 10/29/21 07:00 Pulse 63 10/29/21 07:00 Resp 18 10/29/21 07:00 BP 133/62 10/29/21 07:00 Pulse Ox 98 10/29/21 07:00 FiO2 Intake & Output 10/28/21 10/29/21 10/29/21 18:59 06:59 18:59 Intake Total 480 240 Balance 480 240 Intake: Oral 480 240 Other: Voiding Method Toilet Toilet # Voids 2 1 - Labs CBC & Chem 7: 10/28/21 06:34 10/27/21 07:00 Labs: Abnormal Lab Results - Last 24 Hours (Table) 10/28/21 10/29/21 Range/Units 21:58 07:21 POC Glucose (mg/dL) 126 H 138 H (70-110) mg/dL
--- NOTE | 2021-10-29 17:50 | P.GSCN ---
History of Present Illness Consult date: 10/29/21 Reason for Consult: Left renal calculi Requesting physician: Eula Alejandro History of present illness: Patient is a 76-year-old white female with a history of urolithiasis. She underwent left ureteroscopy with laser lithotripsy in July 2020 to remove a left distal ureteral calculus into small left renal calculi. She now presents to the ER with right-sided back pain and was admitted. She states that the pain is high and increases with movement, and does not feel like kidney stones. She underwent a CT scan, which I reviewed. This shows evidence of duodenal inflammation, as well as 2 left renal calculi measuring up to 4 mm in diameter. There is no evidence of hydronephrosis. Review of Systems - Constitutional Denies chills, Denies fever - Gastrointestinal Denies nausea, Denies vomiting - Genitourinary Genitourinary: Reports kidney stones, Denies dysuria, Denies hematuria Past Medical History Past Medical History: Diabetes Mellitus, Fibromyalgia, GERD/Reflux, Hyperlipidemia, Hypertension, Musculoskeletal Disorder, Osteoarthritis (OA), Sle ep Apnea/CPAP/BIPAP, Thyroid Disorder Additional Past Medical History / Comment(s): Varicose veins, SPINAL STENOSIS, x kidney stones. History of Any Multi-Drug Resistant Organisms: None Reported Past Surgical History: Adenoidectomy, Appendectomy, Bariatric Surgery, Cholecystectomy, Heart Catheterization, Hysterectomy, Joint Replacement, Tonsillectomy, Tubal Ligation Additional Past Surgical History / Comment(s): Gastric stapling, cervical fusion, bilateral knee replacements, colonoscopy, pain clinic procedures. Past Anesthesia/Blood Transfusion Reactions: No Reported Reaction Past Psychological History: No Psychological Hx Reported Additional Psychological History / Comment(s): pt lives with her and 1 son, is independant. pt stated they winter in [place]. 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 Smoking Status: Former smoker Past Alcohol Use History: Occasional Additional Past Alcohol Use History / Comment(s): STARTED SMOKING AT AGE 18, QUIT AT AGE 24, SMOKED 1 PPD. Past Drug Use History: None Reported - Past Family History Mother Family Medical History: Cancer Additional Family Medical History / Comment(s): Breast and cervical cancer. Sister(s) Family Medical History: Cancer Additional Family Medical History / Comment(s): Cervical cancer. Father Family Medical History: Diabetes Mellitus Medications and Allergies Home Medications Medication Instructions Recorded Confirmed Type Triamterene-Hctz 37.5-25Mg 1 tab PO DAILY 11/16/13 10/27/21 History [Maxzide 37.5-25] lisinopriL [Zestril] 2.5 mg PO DAILY 10/30/17 10/27/21 History Levothyroxine Sodium [Euthyrox] 125 mcg PO DAILY 08/01/20 10/27/21 History metFORMIN HCL [Glucophage] 1,000 mg PO DAILY 08/01/20 10/27/21 History Atorvastatin [Lipitor] 40 mg PO HS 08/02/20 10/27/21 History HYDROcodone/APAP 5-325MG [[place] 1 tab PO Q6HR PRN 3 Days #12 tab 10/20/21 10/27/21 Rx 5-325] Diclofenac Sodium Gel [Voltaren 2 gm TOPICAL QID PRN 10/27/21 10/27/21 History Gel] Gabapentin 300 mg PO BID 3 Days #6 cap 10/29/21 Rx Lidocaine 5% Patch [Lidoderm 5% 1 patch TOPICAL DAILY 30 Days #30 10/29/21 Rx Patch] patch Allergies Allergy/AdvReac Type Severity Reaction Status Date / Time No Known Allergies Allergy Verified 10/27/21 10:29 Surgical - Exam Vital Signs Temp Pulse Resp BP Pulse Ox 97.4 F L 79 18 203/101 96 10/27/21 02:20 10/27/21 02:20 10/27/21 02:20 10/27/21 02:20 10/27/21 02:20 - General well developed, well nourished, no distress - Respiratory normal respiratory effort - Abdomen Abdomen: soft, non tender, no guarding, no rigid, no rebound - Psychiatric oriented to time, oriented to person, oriented to place, speech is normal, memory intact Results - Labs 10/28/21 06:34 10/27/21 07:00 Abnormal Lab Results - Last 24 Hours (Table) 10/28/21 10/28/21 10/29/21 Range/Units 06:34 21:58 07:21 MCHC 31.0 L (32.0-37.0) g/dL RDW 14.8 H (11.5-14.5) % Immature Gran # 0.08 H (0.00-0.04) X 10*3/uL POC Glucose (mg/dL) 126 H 138 H (70-110) mg/dL - Imaging CT scan - abdomen: report reviewed, image reviewed Assessment and Plan (1) Kidney stone Status: Acute Code(s): N20.0 - CALCULUS OF KIDNEY SNOMED Code(s): 86365216 Plan: In summary, the patient has right-sided back pain. The CT scan shows no evidence of urolithiasis or hydronephrosis. The only urologic abnormality seen on CT scan are small left renal calculi which would not be expected to cause these symptoms. I believe the patient's pain is musculoskeletal in origin. Please notify us if we can be of any further assistance.
== END 2021-10-29 14:01 | disposition home or self-care (01) ==
LOC: EC 02:18 → 6NMEDSUR 07:26
PROVIDERS: ADMIT Internal Medicine; ATTEND Internal Medicine
DX: R10.9 Unspecified abdominal pain (principal); G62.9 Polyneuropathy, unspecified; N20.2 Calculus of kidney with calculus of ureter; K43.2 Incisional hernia without obstruction or gangrene; K57.10 Diverticulosis of small intestine without perforation or abscess without bleeding; E11.9 Type 2 diabetes mellitus without complications; Z53.09 Procedure and treatment not carried out because of other contraindication; F40.240 Claustrophobia; I10 Essential (primary) hypertension; M79.7 Fibromyalgia; E03.9 Hypothyroidism, unspecified; G47.33 Obstructive sleep apnea (adult) (pediatric); E66.9 Obesity, unspecified; Z87.442 Personal history of urinary calculi; M54.6 Pain in thoracic spine; E66.01 Morbid (severe) obesity due to excess calories; Z68.41 Body mass index [BMI] 40.0-44.9, adult; E78.5 Hyperlipidemia, unspecified; Z98.84 Bariatric surgery status; K29.80 Duodenitis without bleeding; M48.00 Spinal stenosis, site unspecified; I83.90 Asymptomatic varicose veins of unspecified lower extremity; Z90.49 Acquired absence of other specified parts of digestive tract; Z90.710 Acquired absence of both cervix and uterus; Z96.653 Presence of artificial knee joint, bilateral; Z98.1 Arthrodesis status; Z87.891 Personal history of nicotine dependence; Z87.09 Personal history of other diseases of the respiratory system; Z79.899 Other long term (current) drug therapy; Z79.890 Hormone replacement therapy; Z79.84 Long term (current) use of oral hypoglycemic drugs; Z80.49 Family history of malignant neoplasm of other genital organs; Z83.3 Family history of diabetes mellitus; Z80.3 Family history of malignant neoplasm of breast
CPT/HCPCS: 96376 ×4; 96372 ×3; 96375; 96374; 99285; 36415; 80053; 85652; 83735; 85025 ×2; 86140; 81003; 83036; 74176; G0378 ×3; J2405; J1650 ×2; J1170 ×4; J1885

== ENCOUNTER → 2022-02-04 | Outpatient (CLI) | payer MEDICARE, BC ==
--- NOTE | 2022-02-04 13:48 | CT ---
EXAMINATION TYPE: CT chest wo con DATE OF EXAM: 02/04/2022 COMPARISON: NONE HISTORY: Pleural effusion CT DLP: 747 mGycm. Automated Exposure Control for Dose Reduction was Utilized. TECHNIQUE: CT scan of the thorax is performed without IV contrast. FINDINGS: LUNGS: Small nodule or nodular thickening in the right lung along the minor fissure measuring 9 x 6 m m axial image 33 favors trapped fluid or benign intrapulmonary lymph node. There is no layering ple ural effusion or pneumothorax seen. No suspicious focal consolidation. Tracheobronchial tree is paten t. MEDIASTINUM: Lack of IV contrast is noted to limit evaluation for mediastinal and especially hilar ad enopathy. There are no definitive greater than 1 cm mediastinal lymph nodes. No cardiomegaly or p ericardial effusion is seen. At least moderate coronary calcification is present which is noted marke d for underlying artery disease. Prominent right pulmonary artery raises concern for underlying pulmo nary artery hypertension. OTHER: Surgical changes from gastric sleeve. Cholecystectomy clips. Partial visualization of what wal l hernia containing fat and portion of transverse colon. Slight scoliotic curvature with bridging ost eophytes in the thoracic spine noted. IMPRESSION: No significant pleural effusion.
== END | disposition home or self-care (01) ==
LOC: RADCTMAIN 13:13
PROVIDERS: ATTEND Family Medicine
DX: J90 Pleural effusion, not elsewhere classified (principal)
CPT/HCPCS: 71250

== ENCOUNTER 2022-03-07 21:20 | Emergency (ER) | payer MEDICARE, BC ==
[2022-03-07] MEDS ORDERED: MORPHINE SULFATE 4 MG/ML SYRINGE IM STA (22:30)
--- NOTE | 2022-03-07 23:18 | ED ---
Back Pain HPI - General Chief Complaint: Back Pain/Injury Stated Complaint: Back pain Time Seen by Provider: 03/07/22 22:16 Source: patient Limitations: no limitations - History of Present Illness Initial Comments: Patient is a 76-year-old female with history of chronic back pain presenting with chief complaint of back pain. Patient states it is located on the right side. She has been taking gabapentin and using lidocaine patches, reports little relief. No saddle paresthesia or loss of bowel or bladder control. No radiation of pain. No chest pain, difficulty breathing, palpitations, weakness, abdominal pain, dysuria, hematuria, fever, chills. - Related Data Home Medications Medication Instructions Recorded Confirmed Triamterene-Hctz 37.5-25Mg 1 tab PO DAILY 11/16/13 10/27/21 [Maxzide 37.5-25] lisinopriL [Zestril] 2.5 mg PO DAILY 10/30/17 10/27/21 Levothyroxine Sodium [Euthyrox] 125 mcg PO DAILY 08/01/20 10/27/21 metFORMIN HCL [Glucophage] 1,000 mg PO DAILY 08/01/20 10/27/21 Atorvastatin [Lipitor] 40 mg PO HS 08/02/20 10/27/21 Diclofenac Sodium Gel [Voltaren 2 gm TOPICAL QID PRN 10/27/21 10/27/21 Gel] Previous Rx's Medication Instructions Recorded HYDROcodone/APAP 5-325MG [[place] 1 tab PO Q6HR PRN 3 Days #12 tab 10/20/21 5-325] Gabapentin 300 mg PO BID 3 Days #6 cap 10/29/21 Lidocaine 5% Patch [Lidoderm 5% 1 patch TOPICAL DAILY 30 Days #30 10/29/21 Patch] patch Lidocaine 5% Patch [Lidoderm 5% 1 patch TOPICAL DAILY PRN #30 patch 03/07/22 Patch] Allergies Allergy/AdvReac Type Severity Reaction Status Date / Time No Known Allergies Allergy Verified 10/27/21 10:29 Review of Systems ROS Statement: Those systems with pertinent positive or pertinent negative responses have been documented in the HPI. ROS Other: All systems not noted in ROS Statement are negative. Past Medical History Past Medical History: Diabetes Mellitus, Fibromyalgia, GERD/Reflux, Hyperlipidemia, Hypertension, Musculoskeletal Disorder, Osteoarthritis (OA), Sleep Apnea/CPAP/BIPAP, Thyroid Disorder Additional Past Medical History / Comment(s): Varicose veins, SPINAL STENOSIS, x kidney stones. History of Any Multi-Drug Resistant Organisms: None Reported Past Surgical History: Adenoidectomy, Appendectomy, Bariatric Surgery, Cholecystectomy, Heart Catheterization, Hysterectomy, Joint Replacement, Tonsillectomy, Tubal Ligation Additional Past Surgical History / Comment(s): Gastric stapling, cervical fusion, bilateral knee replacements, colonoscopy, pain clinic procedures. Past Anesthesia/Blood Transfusion Reactions: No Reported Reaction Past Psychological History: No Psychological Hx Reported Smoking Status: Former smoker Past Alcohol Use History: Occasional Past Drug Use History: None Reported - Past Family History Mother Family Medical History: Cancer Additional Family Medical History / Comment(s): Breast and cervical cancer. Sister(s) Family Medical History: Cancer Additional Family Medical History / Comment(s): Cervical cancer. Father Family Medical History: Diabetes Mellitus General Exam Limitations: no limitations General appearance: alert, in no apparent distress Head exam: Present: atraumatic, normocephalic, normal inspection Eye exam: Present: normal appearance, PERRL, EOMI. Absent: scleral icterus, conjunctival injection, periorbital swelling Neck exam: Present: normal inspection Back exam: Present: normal inspection, paraspinal tenderness. Absent: vertebral tenderness Neurological exam: Present: alert, oriented X3, CN II-XII intact Psychiatric exam: Present: normal affect, normal mood Skin exam: Present: warm, dry, intact, normal color. Absent: rash Course Vital Signs 03/07/22 03/07/22 21:25 23:28 Temperature 98.1 F 97.7 F Pulse Rate 93 83 Respiratory 18 17 Rate Blood Pressure 199/72 158/70 O2 Sat by Pulse 97 95 Oximetry Medical Decision Making - Medical Decision Making Patient is a 76-year-old female presenting with chief complaint of back pain. Patient has history of chronic back pain, states that this feels it flareup. On examination there is paraspinal muscle tenderness, no vertebral body tenderness. No injury or trauma. No red flag symptoms. Patient is given pain medication, on reassessment she reports improvement in pain. She appears stable for discharge with outpatient follow-up at this time. Follow-up with PCP. Report back to ER with any new or worsening symptoms. Discussed return parameters and answered all questions. Patient conveyed verbal understanding and agreed to the plan. I discussed this case in detail with my attending Dr. Gonzalez - Lab Data Lab Results 03/07/22 Range/Units 23:05 Urine Color Yellow Urine Appearance Clear (Clear) Urine pH 6.0 (5.0-8.0) Ur Specific [place] 1.021 (1.001-1.035) Urine Protein 1+ H (Negative) Urine Glucose (UA) Negative (Negative) Urine Ketones Negative (Negative) Urine Blood Negative (Negative) Urine Nitrite Negative (Negative) Urine Bilirubin Negative (Negative) Urine Urobilinogen 2.0 (<2.0) mg/dL Ur Leukocyte Esterase Small H (Negative) Urine RBC 3 (0-5) /hpf Urine WBC 1 (0-5) /hpf Ur Squamous Epith Cells 4 (0-4) /hpf Urine Bacteria Rare H (None) /hpf Urine Mucus Rare H (None) /hpf Disposition Clinical Impression: Thoracic back pain Disposition: HOME SELF-CARE Condition: Good Instructions (If sedation given, give patient instructions): Back Pain (ED) Additional Instructions: Follow-up with PCP. Report back to ER with any new or worsening symptoms. Take Motrin and Tylenol as needed for pain control. Prescriptions: Lidocaine 5% Patch [Lidoderm 5% Patch] 1 patch TOPICAL DAILY PRN #30 patch PRN Reason: Pain Is patient prescribed a controlled substance at d/c from ED?: No Referrals: Erich Berger DO [Primary Care Provider] - 1-2 days Time of Disposition: 23:39
[2022-03-07 23:25] LABS: Appearance,Urine Clear (Clear); Bacteria,Urine Rare /hpf; Bilirubin,Urine Negative (Negative); Blood,Urine Negative (Negative); Color,Urine Yellow; Glucose,Urine (UA) Negative (Negative); Ketones,Urine Negative (Negative); Leukocyte Esterase,Urine Small (Negative); Mucus,Urine Rare /hpf; Nitrite,Urine Negative (Negative); Protein,Urine 1+ (Negative); RBC,Urine 3 /hpf (0-5); Specific Gravity,Urine 1.021 (1.001-1.035); Squamous Epithelial Cell,Urine 4 /hpf (0-4); WBC,Urine 1 /hpf (0-5)
[2022-03-07 23:59] VITALS: BP 158/70; PULSE 83; RESP 17; TEMP 97.7
[2022-03-07] MEDS ORDERED: ORPHENADRINE 30 MG/ML 2 ML VIAL IM STA (23:59)
== END 2022-03-08 00:06 | disposition home or self-care (01) ==
LOC: EC 21:20
DX: M54.6 Pain in thoracic spine (principal); I10 Essential (primary) hypertension; E11.9 Type 2 diabetes mellitus without complications; K21.9 Gastro-esophageal reflux disease without esophagitis; E78.5 Hyperlipidemia, unspecified; M19.90 Unspecified osteoarthritis, unspecified site; G47.30 Sleep apnea, unspecified; E03.9 Hypothyroidism, unspecified; Z87.891 Personal history of nicotine dependence; Z79.84 Long term (current) use of oral hypoglycemic drugs; Z79.890 Hormone replacement therapy; Z79.899 Other long term (current) drug therapy
CPT/HCPCS: 81001; 99283; 96372 ×2; J2270; J2360

== ENCOUNTER 2022-03-08 18:16 | Emergency (ER) | payer MEDICARE, BC ==
[2022-03-08 19:13] VITALS: TEMP 98.3
[2022-03-08 20:20] LABS: Appearance,Urine Clear (Clear); Bilirubin,Urine Negative (Negative); Blood,Urine Negative (Negative); Color,Urine Light Yellow; Glucose,Urine (UA) Negative (Negative); Ketones,Urine Negative (Negative); Leukocyte Esterase,Urine Negative (Negative); Nitrite,Urine Negative (Negative); PH, Urine 5.5 (5.0-8.0); Protein,Urine Negative (Negative); Specific Gravity,Urine 1.011 (1.001-1.035); Urobilinogen,Urine <2.0 mg/dL (<2.0)
[2022-03-08] MEDS ORDERED: MORPHINE SULFATE 4 MG/ML SYRINGE IVP STA (22:38)
[2022-03-08] MEDS ORDERED: ONDANSETRON 4 MG/2 ML VIAL IVP STA (22:38)
[2022-03-08] MEDS ORDERED: SODIUM CHLORIDE 0.9% 500 ML 500 ML IV STA (22:38)
[2022-03-08 23:10] LABS: Basophils % (A) 0 %; Eosinophils % (A) 0 %; HCT 44.1 % (34.0-46.0); HGB 14.7 gm/dL (11.4-16.0); Lymphocytes # (A) 0.7 k/uL (1.0-4.8); Lymphocytes % (A) 11 %; MCH 31.2 pg (25.0-35.0); MCHC 33.3 g/dL (31.0-37.0); MCV 93.7 fL (80.0-100.0); Mean Platelet Volume 7.8; Monocytes # (A) 0.1 k/uL (0-1.0); Monocytes % (A) 1 %; Neutrophils # (A) 5.7 k/uL (1.3-7.7); Neutrophils % (A) 86 %; Platelet Count 191 k/uL (150-450); RBC 4.71 m/uL (3.80-5.40); RDW 13.3 % (11.5-15.5); WBC 6.6 k/uL (3.8-10.6)
--- NOTE | 2022-03-08 23:22 | ED ---
General Adult HPI - General Chief complaint: Back Pain/Injury Stated complaint: back pain Time Seen by Provider: 03/08/22 21:49 Source: patient, RN notes reviewed Mode of arrival: ambulatory Limitations: no limitations - History of Present Illness Initial comments: 76-year-old female presents to the emergency Department with complaints of right flank pain, onset several days ago. Patient states the pain is colicky in nature with no aggravating or alleviating factors. Patient likens this discomfort to previous kidney stone. No nausea or vomiting. No trauma or injury. Denies fever, chills, diaphoresis, dysuria, or hematuria. - Related Data Home Medications Medication Instructions Recorded Confirmed Triamterene-Hctz 37.5-25Mg 1 tab PO DAILY 11/16/13 10/27/21 [Maxzide 37.5-25] lisinopriL [Zestril] 2.5 mg PO DAILY 10/30/17 10/27/21 Levothyroxine Sodium [Euthyrox] 125 mcg PO DAILY 08/01/20 10/27/21 metFORMIN HCL [Glucophage] 1,000 mg PO DAILY 08/01/20 10/27/21 Atorvastatin [Lipitor] 40 mg PO HS 08/02/20 10/27/21 Diclofenac Sodium Gel [Voltaren 2 gm TOPICAL QID PRN 10/27/21 10/27/21 Gel] Previous Rx's Medication Instructions Recorded HYDROcodone/APAP 5-325MG [[place] 1 tab PO Q6HR PRN 3 Days #12 tab 10/20/21 5-325] Gabapentin 300 mg PO BID 3 Days #6 cap 10/29/21 Lidocaine 5% Patch [Lidoderm 5% 1 patch TOPICAL DAILY 30 Days #30 10/29/21 Patch] patch Lidocaine 5% Patch [Lidoderm 5% 1 patch TOPICAL DAILY PRN #30 patch 03/07/22 Patch] Lidocaine 1 each TP DAILY PRN 1 Days #10 03/09/22 patch Allergies Allergy/AdvReac Type Severity Reaction Status Date / Time No Known Allergies Allergy Verified 03/09/22 22:09 Review of Systems ROS Statement: Those systems with pertinent positive or pertinent negative responses have been documented in the HPI. ROS Other: All systems not noted in ROS Statement are negative. Past Medical History Past Medical History: Diabetes Mellitus, Fibromyalgia, GERD/Reflux, Hyperlipidemia, Hypertension, Musculoskeletal Disorder, Osteoarthritis (OA), Sleep Apnea/CPAP/BIPAP, Thyroid Disorder Additional Past Medical History / Comment(s): Varicose veins, SPINAL STENOSIS, x kidney stones. History of Any Multi-Drug Resistant Organisms: None Reported Past Surgical History: Adenoidectomy, Appendectomy, Bariatric Surgery, Cholecystectomy, Heart Catheterization, Hysterectomy, Joint Replacement, Tonsillectomy, Tubal Ligation Additional Past Surgical History / Comment(s): Gastric stapling, cervical fusion, bilateral knee replacements, colonoscopy, pain clinic procedures. Past Anesthesia/Blood Transfusion Reactions: No Reported Reaction Past Psychological History: No Psychological Hx Reported Smoking Status: Former smoker Past Alcohol Use History: Occasional Past Drug Use History: None Reported - Past Family History Mother Family Medical History: Cancer Additional Family Medical History / Comment(s): Breast and cervical cancer. Sister(s) Family Medical History: Cancer Additional Family Medical History / Comment(s): Cervical cancer. Father Family Medical History: Diabetes Mellitus General Exam Limitations: no limitations (Well-developed, well-nourished female in no acute distress.) General appearance: alert, in no apparent distress ENT exam: Present: normal exam, normal oropharynx, mucous membranes moist Respiratory exam: Present: normal lung sounds bilaterally. Absent: respiratory distress, wheezes, rales, rhonchi, stridor Cardiovascular Exam: Present: regular rate, normal rhythm, normal heart sounds. Absent: systolic murmur, diastolic murmur, rubs, gallop, clicks GI/Abdominal exam: Present: soft, normal bowel sounds. Absent: distended, tenderness, guarding, rebound, rigid Back exam: Absent: CVA tenderness (R), CVA tenderness (L), paraspinal tendernes s, vertebral tenderness Expanded Back exam: Negative Straight Leg Raising: Left, Right Neurological exam: Present: alert, oriented X3, CN II-XII intact Psychiatric exam: Present: flat affect Skin exam: Present: warm, dry, intact, normal color. Absent: rash Course Vital Signs 03/08/22 03/09/22 03/09/22 19:11 00:25 01:25 Temperature 98.3 F Pulse Rate 100 100 80 Respiratory 16 18 Rate Blood Pressure 169/61 163/82 O2 Sat by Pulse 96 92 L 95 Oximetry 03/09/22 01:40 Temperature Pulse Rate 86 Respiratory 18 Rate Blood Pressure 145/65 O2 Sat by Pulse 93 L Oximetry - Reevaluation(s) Reevaluation #1: 03/08/22 23:57 Upon reassessment, patient reports feeling some improvement, though is complaining of ongoing pain. She is able to reposition without difficulty. Pain remains localized in the right flank. Discussed results of laboratory studies and updated on pending CT. 03/09/22 01:15 Patient is resting more comfortably at this time. Updated on results. Explained this is likely musculoskeletal pain for which a lidocaine patch will be prescribed. Encouraged to maintain mobility with frequent ambulation. Instructed to follow up with her PCP for a recheck within a week. Medical Decision Making - Medical Decision Making This is an obese 76-year-old female with a past medical history of diabetes, fibromyalgia, hypertension, osteoarthritis, and thyroid disorder who presents to the emergency department for evaluation of right flank pain. Upon exam, patient is well-appearing and in no acute distress. Her physical exam findings are unremarkable. Patient is able to reposition freely. Laboratory studies were obtained and were unremarkable. CT of the abdomen and pelvis was obtained due to patient's insistence that this pain is similar to previous kidney stones. No acute findings on CT. Results were discussed with patient and spouse. She will prescribed lidocaine patches for localized pain and instructed to follow up with her PCP for a recheck next week. Return parameters were discussed in detail. Patient and spouse verbalized understanding and agreed with this plan. Letty oropeza: Carlos. - Lab Data Result diagrams: 03/08/22 22:57 03/08/22 22:57 Lab Results 03/08/22 03/08/22 03/08/22 Range/Units 19:13 22:57 22:57 WBC 6.6 (3.8-10.6) k/uL RBC 4.71 (3.80-5.40) m/uL Hgb 14.7 (11.4-16.0) gm/dL Hct 44.1 (34.0-46.0) % MCV 93.7 (80.0-100.0) fL MCH 31.2 (25.0-35.0) pg MCHC 33.3 (31.0-37.0) g/dL RDW 13.3 (11.5-15.5) % Plt Count 191 (150-450) k/uL MPV 7.8 Neutrophils % 86 % Lymphocytes % 11 % Monocytes % 1 % Eosinophils % 0 % Basophils % 0 % Neutrophils # 5.7 (1.3-7.7) k/uL Lymphocytes # 0.7 L (1.0-4.8) k/uL Monocytes # 0.1 (0-1.0) k/uL Eosinophils # 0.0 (0-0.7) k/uL Basophils # 0.0 (0-0.2) k/uL Sodium 137 (137-145) mmol/L Potassium 5.1 (3.5-5.1) mmol/L Chloride 99 (98-107) mmol/L Carbon Dioxide 25 (22-30) mmol/L Anion Gap 13 mmol/L BUN 17 (7-17) mg/dL Creatinine 0.75 (0.52-1.04) mg/dL Est GFR (CKD-EPI)AfAm >90 (>60 ml/min/1.73 sqM) Est GFR (CKD-EPI)NonAf 78 (>60 ml/min/1.73 sqM) Glucose 190 H (74-99) mg/dL Calcium 9.6 (8.4-10.2) mg/dL Total Bilirubin 0.9 (0.2-1.3) mg/dL AST 54 H (14-36) U/L ALT 47 H (4-34) U/L Alkaline Phosphatase 104 (38-126) U/L Total Protein 8.6 H (6.3-8.2) g/dL Albumin 4.6 (3.5-5.0) g/dL Urine Color Light Yellow Urine Appearance Clear (Clear) Urine pH 5.5 (5.0-8.0) Ur Specific [place] 1.011 (1.001-1.035) Urine Protein Negative (Negative) Urine Glucose (UA) Negative (Negative) Urine Ketones Negative (Negative) Urine Blood Negative (Negative) Urine Nitrite Negative (Negative) Urine Bilirubin Negative (Negative) Urine Urobilinogen <2.0 (<2.0) mg/dL Ur Leukocyte Esterase Negative (Negative) - Radiology Data Radiology results: report reviewed, image reviewed CT of the abdomen and pelvis was obtained. Report was reviewed in its entirety. Impression per Dr. Hill minutes large anterior abdominal wall ventral hernia without change. No bowel obstruction. Mild sigmoid diverticulosis without diverticulitis. Disposition Clinical Impression: Right low back pain Disposition: HOME SELF-CARE Condition: Stable Instructions (If sedation given, give patient instructions): Acute Low Back Pain (ED) Additional Instructions: Rest as needed, but maintain mobility with frequent ambulation. May apply heat or ice as needed for no more than 20 minutes per hour. Apply lidocaine patch to sore area. Call your PCP to schedule recheck on Friday. Return to the emergency department with any new, worsening, or concerning symptoms. Prescriptions: Lidocaine 1 each TP DAILY PRN 1 Days #10 patch PRN Reason: pain Is patient prescribed a controlled substance at d/c from ED?: No Referrals: Erich Berger DO [Primary Care Provider] - 1-2 days Time of Disposition: 01:31
[2022-03-08 23:31] LABS: ALT 47 U/L (4-34); AST 54 U/L (14-36); African American GFR (CKD) >90 (>60 ml/min/1.73 sqM); Albumin 4.6 g/dL (3.5-5.0); Alkaline Phosphatase 104 U/L (38-126); Anion Gap 13 mmol/L; Blood Urea Nitrogen 17 mg/dL (7-17); Calcium 9.6 mg/dL (8.4-10.2); Carbon Dioxide 25 mmol/L (22-30); Chloride 99 mmol/L (98-107); Glucose 190 mg/dL (74-99); Non-African American GFR(CKD) 78 (>60 ml/min/1.73 sqM); Potassium 5.1 mmol/L (3.5-5.1); Sodium 137 mmol/L (137-145); Total Bilirubin 0.9 mg/dL (0.2-1.3); Total Protein 8.6 g/dL (6.3-8.2)
[2022-03-08] MEDS ORDERED: HYDROmorphone 0.5 MG/0.5 ML SYRINGE IVP STA (23:56)
--- NOTE | 2022-03-09 00:05 | CT ---
EXAMINATION TYPE: CT abdomen pelvis wo con DATE OF EXAM: 03/08/2022 COMPARISON: 10/27/2021 HISTORY: RT LOWER BACK PAIN. H/O RENAL STONES CT DLP: 1456 mGycm Automated exposure control for dose reduction was used. Images obtained from the diaphragm to the floor the pelvis with no contrast. Lung bases show no pleural effusion. Heart size is normal. No pericardial effusion. Liver spleen and stomach appear intact. His previous gastric bariatric surgery. There are clips from cholecystectomy. The bile ducts are not dilated. There is no adrenal mass. Kidneys show normal size and contour. No hydronephrosis. Ureters are not di lated. There is midline abdominal ventral hernia containing transverse colon. No bowel obstruction. H ernia measures 10 x 5 cm. There are sigmoid diverticula. No diverticulitis. The bladder distends smoo thly. No inguinal hernia. No pelvic mass. No free fluid in the pelvis. The lumbar vertebra appear intact. No compression fracture. There is multilevel spondylotic changes w ith vacuum disc in the mid and lower lumbar spine. IMPRESSION: Large anterior abdominal wall ventral hernia without much change. No bowel obstruction. Mild sigmoid diverticulosis without diverticulitis
[2022-03-09 00:26] VITALS: RESP 18
[2022-03-09] MEDS ORDERED: LIDOCAINE 5% PATCH TOPICAL STA (01:09)
[2022-03-09 01:40] VITALS: BP 145/65; PULSE 86
== END 2022-03-09 01:52 | disposition home or self-care (01) ==
LOC: EC 18:16
DX: M54.50 Low back pain, unspecified (principal); I10 Essential (primary) hypertension; E11.9 Type 2 diabetes mellitus without complications; K21.9 Gastro-esophageal reflux disease without esophagitis; E78.5 Hyperlipidemia, unspecified; M19.90 Unspecified osteoarthritis, unspecified site; G47.30 Sleep apnea, unspecified; E03.9 Hypothyroidism, unspecified; Z79.890 Hormone replacement therapy; Z79.84 Long term (current) use of oral hypoglycemic drugs; Z79.899 Other long term (current) drug therapy; Z87.891 Personal history of nicotine dependence
CPT/HCPCS: 36415; 74176; 80053; 81003; 85025; 96361; 96374; 96375; 99284

== ENCOUNTER 2022-03-09 22:03 | Emergency (ER) | payer MEDICARE, BC ==
[2022-03-09 22:09] VITALS: TEMP 98.1
[2022-03-09] MEDS ORDERED: MORPHINE SULFATE 4 MG/ML SYRINGE IV STA (23:29)
[2022-03-09] MEDS ORDERED: SODIUM CHLORIDE 0.9% 500 ML 500 ML IV STA (23:29)
--- NOTE | 2022-03-09 23:29 | ED ---
Abdominal Pain HPI - General Chief Complaint: Back Pain/Injury Stated Complaint: back pain Time Seen by Provider: 03/09/22 23:12 Source: patient, RN notes reviewed, old records reviewed Mode of arrival: ambulatory Limitations: no limitations - History of Present Illness Initial Comments: This is a 76-year-old female to the emergency department for evaluation. Patient presents today for evaluation in regards to back pain back pain that she has been dealing with, acute on chronic back pain. 3-4 days of back pain now she tells kidney stone. CT was negative, patient was given K here by her primary care without help. Patient still with pain MD Complaint: abdominal pain, flank pain (Kidney stone pain), other (Back pain right-sided flank pain) -: week(s) Location: R flank, bilateral flank Radiation: back Migration to: bilateral flank Severity: moderate Severity scale (1-10): 7 Quality: sharp Consistency: constant Improves With: nothing, bowel movement Associated Symptoms: denies other symptoms Treatments Prior to Arrival: other (0 patient is on steroids and a muscle relaxer) - Related Data Home Medications Medication Instructions Recorded Confirmed Triamterene-Hctz 37.5-25Mg 1 tab PO DAILY 11/16/13 10/27/21 [Maxzide 37.5-25] lisinopriL [Zestril] 2.5 mg PO DAILY 10/30/17 10/27/21 Levothyroxine Sodium [Euthyrox] 125 mcg PO DAILY 08/01/20 10/27/21 metFORMIN HCL [Glucophage] 1,000 mg PO DAILY 08/01/20 10/27/21 Atorvastatin [Lipitor] 40 mg PO HS 08/02/20 10/27/21 Diclofenac Sodium Gel [Voltaren 2 gm TOPICAL QID PRN 10/27/21 10/27/21 Gel] Previous Rx's Medication Instructions Recorded HYDROcodone/APAP 5-325MG [[place] 1 tab PO Q6HR PRN 3 Days #12 tab 10/20/21 5-325] Gabapentin 300 mg PO BID 3 Days #6 cap 10/29/21 Lidocaine 5% Patch [Lidoderm 5% 1 patch TOPICAL DAILY 30 Days #30 10/29/21 Patch] patch Lidocaine 5% Patch [Lidoderm 5% 1 patch TOPICAL DAILY PRN #30 patch 03/07/22 Patch] Lidocaine 1 each TP DAILY PRN 1 Days #10 03/09/22 patch Allergies Allergy/AdvReac Type Severity Reaction Status Date / Time No Known Allergies Allergy Verified 03/09/22 22:09 Review of Systems ROS Statement: Those systems with pertinent positive or pertinent negative responses have been documented in the HPI. ROS Other: All systems not noted in ROS Statement are negative. Past Medical History Past Medical History: Diabetes Mellitus, Fibromyalgia, GERD/Reflux, Hyperlipidemia, Hypertension, Musculoskeletal Disorder, Osteoarthritis (OA), Sleep Apnea/CPAP/BIPAP, Thyroid Disorder Additional Past Medical History / Comment(s): Varicose veins, SPINAL STENOSIS, x kidney stones. History of Any Multi-Drug Resistant Organisms: None Reported Past Surgical History: Adenoidectomy, Appendectomy, Bariatric Surgery, Cholecystectomy, Heart Catheterization, Hysterectomy, Joint Replacement, Tonsillectomy, Tubal Ligation Additional Past Surgical History / Comment(s): Gastric stapling, cervical fusion, bilateral knee replacements, colonoscopy, pain clinic procedures. Past Anesthesia/Blood Transfusion Reactions: No Reported Reaction Past Psychological History: No Psychological Hx Reported Smoking Status: Former smoker Past Alcohol Use History: Occasional Past Drug Use History: None Reported - Past Family History Mother Family Medical History: Cancer Additional Family Medical History / Comment(s): Breast and cervical cancer. Sister(s) Family Medical History: Cancer Additional Family Medical History / Comment(s): Cervical cancer. Father Family Medical History: Diabetes Mellitus General Exam Limitations: no limitations General appearance: obese Head exam: Present: atraumatic, normocephalic, normal inspection Eye exam: Present: normal appearance, PERRL, EOMI. Absent: scleral icterus, conjunctival injection, periorbital swelling ENT exam: Present: normal exam, mucous membranes moist Neck exam: Present: normal inspection. Absent: tenderness, meningismus, lymphadenopathy Respiratory exam: Present: normal lung sounds bilaterally. Absent: respiratory distress, wheezes, rales, rhonchi, stridor Cardiovascular Exam: Present: regular rate, normal rhythm, normal heart sounds. Absent: systolic murmur, diastolic murmur, rubs, gallop, clicks GI/Abdominal exam: Present: soft, normal bowel sounds. Absent: distended, tenderness, guarding, rebound, rigid Extremities exam: Present: normal inspection, full ROM, normal capillary refill. Absent: tenderness, pedal edema, joint swelling, calf tenderness Back exam: Present: normal inspection Neurological exam: Present: alert, oriented X3, CN II-XII intact Psychiatric exam: Present: normal affect, normal mood Skin exam: Present: warm, dry, intact, normal color. Absent: rash Course Vital Signs 03/09/22 22:07 Temperature 98.1 F Pulse Rate 90 Respiratory 20 Rate Blood Pressure 157/79 O2 Sat by Pulse 95 Oximetry - Reevaluation(s) Reevaluation #1: 03/09/22 23:50 medical record is reviewed Reevaluation #2: 03/10/22 01:21 Patient pain is improved Reevaluation #3: 03/10/22 01:21 patient informed results and questions answered Medical Decision Making - Medical Decision Making 76 female on her third visit for back pain. No acute cause found patient will be discharged home - Lab Data Result diagrams: 03/10/22 00:01 03/10/22 00:01 Lab Results 03/10/22 03/10/22 03/10/22 Range/Units 00:01 00:01 00:01 WBC 10.0 (3.8-10.6) k/uL RBC 4.68 (3.80-5.40) m/uL Hgb 14.8 (11.4-16.0) gm/dL Hct 44.4 (34.0-46.0) % MCV 94.9 (80.0-100.0) fL MCH 31.7 (25.0-35.0) pg MCHC 33.4 (31.0-37.0) g/dL RDW 13.1 (11.5-15.5) % Plt Count 241 (150-450) k/uL MPV 7.9 Neutrophils % 83 % Lymphocytes % 12 % Monocytes % 4 % Eosinophils % 0 % Basophils % 0 % Neutrophils # 8.4 H (1.3-7.7) k/uL Lymphocytes # 1.2 (1.0-4.8) k/uL Monocytes # 0.4 (0-1.0) k/uL Eosinophils # 0.0 (0-0.7) k/uL Basophils # 0.0 (0-0.2) k/uL Sodium 136 L (137-145) mmol/L Potassium 5.5 H (3.5-5.1) mmol/L Chloride 96 L (98-107) mmol/L Carbon Dioxide 26 (22-30) mmol/L Anion Gap 14 mmol/L BUN 22 H (7-17) mg/dL Creatinine 0.60 (0.52-1.04) mg/dL Est GFR (CKD-EPI)AfAm >90 (>60 ml/min/1.73 sqM) Est GFR (CKD-EPI)NonAf 90 (>60 ml/min/1.73 sqM) Glucose 173 H (74-99) mg/dL Plasma Lactic Acid [place] 1.7 (0.7-2.0) mmol/L Calcium 9.7 (8.4-10.2) mg/dL Total Bilirubin 1.5 H (0.2-1.3) mg/dL AST 47 H (14-36) U/L ALT 37 H (4-34) U/L Alkaline Phosphatase 94 (38-126) U/L Total Protein 9.1 H (6.3-8.2) g/dL Albumin 4.8 (3.5-5.0) g/dL Amylase 53 (30-110) U/L Lipase 86 (23-300) U/L Urine Color Urine Appearance (Clear) Urine pH (5.0-8.0) Ur Specific [place] (1.001-1.035) Urine Protein (Negative) Urine Glucose (UA) (Negative) Urine Ketones (Negative) Urine Blood (Negative) Urine Nitrite (Negative) Urine Bilirubin (Negative) Urine Urobilinogen (<2.0) mg/dL Ur Leukocyte Esterase (Negative) 03/10/22 Range/Units 00:04 WBC (3.8-10.6) k/uL RBC (3.80-5.40) m/uL Hgb (11.4-16.0) gm/dL Hct (34.0-46.0) % MCV (80.0-100.0) fL MCH (25.0-35.0) pg MCHC (31.0-37.0) g/dL RDW (11.5-15.5) % Plt Count (150-450) k/uL MPV Neutrophils % % Lymphocytes % % Monocytes % % Eosinophils % % Basophils % % Neutrophils # (1.3-7.7) k/uL Lymphocytes # (1.0-4.8) k/uL Monocytes # (0-1.0) k/uL Eosinophils # (0-0.7) k/uL Basophils # (0-0.2) k/uL Sodium (137-145) mmol/L Potassium (3.5-5.1) mmol/L Chloride (98-107) mmol/L Carbon Dioxide (22-30) mmol/L Anion Gap mmol/L BUN (7-17) mg/dL Creatinine (0.52-1.04) mg/dL Est GFR (CKD-EPI)AfAm (>60 ml/min/1.73 sqM) Est GFR (CKD-EPI)NonAf (>60 ml/min/1.73 sqM) Glucose (74-99) mg/dL Plasma Lactic Acid Janusz (0.7-2.0) mmol/L Calcium (8.4-10.2) mg/dL Total Bilirubin (0.2-1.3) mg/dL AST (14-36) U/L ALT (4-34) U/L Alkaline Phosphatase (38-126) U/L Total Protein (6.3-8.2) g/dL Albumin (3.5-5.0) g/dL Amylase (30-110) U/L Lipase (23-300) U/L Urine Color Light Yellow Urine Appearance Clear (Clear) Urine pH 5.5 (5.0-8.0) Ur Specific [place] 1.013 (1.001-1.035) Urine Protein Negative (Negative) Urine Glucose (UA) Negative (Negative) Urine Ketones Negative (Negative) Urine Blood Negative (Negative) Urine Nitrite Negative (Negative) Urine Bilirubin Negative (Negative) Urine Urobilinogen <2.0 (<2.0) mg/dL Ur Leukocyte Esterase Negative (Negative) - Radiology Data Radiology results: report reviewed (CT of the lumbosacral spine negative for acute disease), image reviewed Disposition Clinical Impression: Mid back pain, Mechanical back pain, Osteoarthritis Disposition: HOME SELF-CARE Condition: Fair Instructions (If sedation given, give patient instructions): Acute Low Back Pain (ED) Is patient prescribed a controlled substance at d/c from ED?: No Referrals: Erich Berger DO [Primary Care Provider] - 1-2 days Time of Disposition: 01:15
[2022-03-10 00:25] LABS: Basophils % (A) 0 %; Eosinophils % (A) 0 %; HCT 44.4 % (34.0-46.0); HGB 14.8 gm/dL (11.4-16.0); Lymphocytes # (A) 1.2 k/uL (1.0-4.8); Lymphocytes % (A) 12 %; MCH 31.7 pg (25.0-35.0); MCHC 33.4 g/dL (31.0-37.0); MCV 94.9 fL (80.0-100.0); Mean Platelet Volume 7.9; Monocytes # (A) 0.4 k/uL (0-1.0); Monocytes % (A) 4 %; Neutrophils # (A) 8.4 k/uL (1.3-7.7); Neutrophils % (A) 83 %; Platelet Count 241 k/uL (150-450); RBC 4.68 m/uL (3.80-5.40); RDW 13.1 % (11.5-15.5)
[2022-03-10 00:36] LABS: ALT 37 U/L (4-34); AST 47 U/L (14-36); African American GFR (CKD) >90 (>60 ml/min/1.73 sqM); Albumin 4.8 g/dL (3.5-5.0); Alkaline Phosphatase 94 U/L (38-126); Amylase 53 U/L (30-110); Anion Gap 14 mmol/L; Blood Urea Nitrogen 22 mg/dL (7-17); Calcium 9.7 mg/dL (8.4-10.2); Carbon Dioxide 26 mmol/L (22-30); Chloride 96 mmol/L (98-107); Glucose 173 mg/dL (74-99); Lipase 86 U/L (23-300); Non-African American GFR(CKD) 90 (>60 ml/min/1.73 sqM); Sodium 136 mmol/L (137-145); Total Bilirubin 1.5 mg/dL (0.2-1.3); Total Protein 9.1 g/dL (6.3-8.2)
[2022-03-10 00:39] LABS: Potassium 5.5 mmol/L (3.5-5.1)
[2022-03-10 00:41] LABS: Appearance,Urine Clear (Clear); Bilirubin,Urine Negative (Negative); Blood,Urine Negative (Negative); Color,Urine Light Yellow; Glucose,Urine (UA) Negative (Negative); Ketones,Urine Negative (Negative); Leukocyte Esterase,Urine Negative (Negative); Nitrite,Urine Negative (Negative); PH, Urine 5.5 (5.0-8.0); Protein,Urine Negative (Negative); Specific Gravity,Urine 1.013 (1.001-1.035); Urobilinogen,Urine <2.0 mg/dL (<2.0)
--- NOTE | 2022-03-10 00:42 | CT ---
EXAMINATION TYPE: CT abdomen pelvis wo con DATE OF EXAM: 03/10/2022 COMPARISON: 03/08/2022 HISTORY: third day being seen for back pain. pt had ct ab/pelvis approx 24 hours ago. pt thinks she h as a renal stone. CT DLP: 1896.3 mGycm Automated exposure control for dose reduction was used. Images obtained from the diaphragm to the floor the pelvis with no contrast. The lung bases are clear. No pleural effusion. Heart is within normal limits. No pericardial effusion . There is previous gastric bariatric surgery. There are clips from cholecystectomy. Liver and spleen are intact. No pancreatic mass. There is no adrenal mass. Kidneys have normal size and contour. No h ydronephrosis. Ureters are not dilated. No retroperitoneal adenopathy. Bladder distends smoothly. No inguinal hernia. No free fluid in the pelvis. Appendix not clearly seen. No sign thickened appendix. Small bowel pattern is fairly normal. No bowel obstruction. There is large upper abdominal ventral he rnia in the midline which contains transverse colon and some incarceration. Hernia measures 10 x 5 cm . No sign of obstruction. The lumbar vertebrae have normal alignment. No compression fracture. There is mild disc space narrowi ng and spur formation. The bony pelvis is intact. The hip joints are intact. There are sigmoid divert icula without diverticulitis. IMPRESSION: There is sigmoid diverticulosis. Epigastric ventral hernia with incarceration. No bowel obstruction. No evidence of renal obstruction. Nonobstructing 3 mm calculus in the lower pole left kidney. No adv erse change compared to yesterday.
[2022-03-10 02:17] VITALS: BP 141/88; PULSE 81; RESP 15
== END 2022-03-10 02:17 | disposition home or self-care (01) ==
LOC: EC 22:03
DX: M54.50 Low back pain, unspecified (principal); E11.9 Type 2 diabetes mellitus without complications; K21.9 Gastro-esophageal reflux disease without esophagitis; I10 Essential (primary) hypertension; E78.5 Hyperlipidemia, unspecified; E66.9 Obesity, unspecified; M19.90 Unspecified osteoarthritis, unspecified site; Z79.84 Long term (current) use of oral hypoglycemic drugs; Z79.899 Other long term (current) drug therapy; Z99.89 Dependence on other enabling machines and devices; Z87.891 Personal history of nicotine dependence
CPT/HCPCS: 36415; 80053; 82150; 83605; 83690; 85025; 81003; 74176; 99284; 96374; J2270; J1170

== ENCOUNTER 2022-04-09 23:27 | Emergency (ER) | payer MEDICARE, BC ==
[2022-04-09 23:48] VITALS: RESP 18; TEMP 97.9
[2022-04-10 02:15] VITALS: BP 157/90; PULSE 94
[2022-04-10] MEDS ORDERED: HYDROmorphone 1 MG/ML 1 ML SYRINGE IM STA (02:28)
--- NOTE | 2022-04-10 02:32 | ED ---
Back Pain HPI - General Chief Complaint: Back Pain/Injury Stated Complaint: Back Pain Time Seen by Provider: 04/10/22 02:00 Source: patient - History of Present Illness Initial Comments: 36-year-old female with past history of diabetes, fibromyalgia, chronic left flank pain presents to the emergency department with reported exacerbation of her left flank pain. She states that she has been thoroughly evaluated for this pain. She saw Dr. Ahmadi and was placed in physical therapy. They wanted to and obtain an MRI however the patient was anxious to complete the procedure. She will have exacerbation of the pain which will be treated and she'll have improvement in her symptoms. States that her pain started again yesterday. She saw her primary care doctor who placed her on a muscle relaxer and a course of steroids. So to take the medications without any improvement in her symptoms. She denies any new symptoms. No recent falls. No shortness of breath. Denies chest pain. No bowel or bladder incontinence. No saddle anesthesia. Patient requesting pain control without further workup. No other alleviating, Perceptin or modifying factors - Related Data Home Medications Medication Instructions Recorded Confirmed Triamterene-Hctz 37.5-25Mg 1 tab PO DAILY 11/16/13 10/27/21 [Maxzide 37.5-25] lisinopriL [Zestril] 2.5 mg PO DAILY 10/30/17 10/27/21 Levothyroxine Sodium [Euthyrox] 125 mcg PO DAILY 08/01/20 10/27/21 metFORMIN HCL [Glucophage] 1,000 mg PO DAILY 08/01/20 10/27/21 Atorvastatin [Lipitor] 40 mg PO HS 08/02/20 10/27/21 Diclofenac Sodium Gel [Voltaren 2 gm TOPICAL QID PRN 10/27/21 10/27/21 Gel] Previous Rx's Medication Instructions Recorded HYDROcodone/APAP 5-325MG [Star 1 tab PO Q6HR PRN 3 Days #12 tab 10/20/21 5-325] Gabapentin 300 mg PO BID 3 Days #6 cap 10/29/21 Lidocaine 5% Patch [Lidoderm 5% 1 patch TOPICAL DAILY 30 Days #30 10/29/21 Patch] patch Lidocaine 5% Patch [Lidoderm 5% 1 patch TOPICAL DAILY PRN #30 patch 03/07/22 Patch] Lidocaine 1 each TP DAILY PRN 1 Days #10 10/29/22 patch HYDROcodone/APAP 7.5-325MG [[place] 1 tab PO Q6HR PRN 3 Days #12 tab 04/10/22 7.5-325] Allergies Allergy/AdvReac Type Severity Reaction Status Date / Time No Known Allergies Allergy Verified 04/12/22 01:51 Review of Systems ROS Statement: Those systems with pertinent positive or pertinent negative responses have been documented in the HPI. ROS Other: All systems not noted in ROS Statement are negative. Past Medical History Past Medical History: Diabetes Mellitus, Fibromyalgia, GERD/Reflux, Hyperlipidemia, Hypertension, Musculoskeletal Disorder, Osteoarthritis (OA), Sleep Apnea/CPAP/BIPAP, Thyroid Disorder Additional Past Medical History / Comment(s): Varicose veins, SPINAL STENOSIS, x kidney stones. History of Any Multi-Drug Resistant Organisms: None Reported Past Surgical History: Adenoidectomy, Appendectomy, Bariatric Surgery, Chol ecystectomy, Heart Catheterization, Hysterectomy, Joint Replacement, Tonsillectomy, Tubal Ligation Additional Past Surgical History / Comment(s): Gastric stapling, cervical fu madhavi, bilateral knee replacements, colonoscopy, pain clinic procedures. Past Anesthesia/Blood Transfusion Reactions: No Reported Reaction Past Psychological History: No Psychological Hx Reported Smoking Status: Former smoker Past Alcohol Use History: Occasional Past Drug Use History: None Reported - Past Family History Mother Family Medical History: Cancer Additional Family Medical History / Comment(s): Breast and cervical cancer. Sister(s) Family Medical History: Cancer Additional Family Medical History / Comment(s): Cervical cancer. Father Family Medical History: Diabetes Mellitus General Exam General appearance: alert, in no apparent distress Head exam: Present: atraumatic, normocephalic, normal inspection Eye exam: Present: normal appearance, PERRL, EOMI. Absent: scleral icterus, conjunctival injection, periorbital swelling ENT exam: Present: normal exam, mucous membranes moist Neck exam: Present: normal inspection. Absent: tenderness, meningismus, lymphadenopathy Respiratory exam: Present: normal lung sounds bilaterally. Absent: respiratory distress, wheezes, rales, rhonchi, stridor Cardiovascular Exam: Present: regular rate, normal rhythm, normal heart sounds. Absent: systolic murmur, diastolic murmur, rubs, gallop, clicks GI/Abdominal exam: Present: soft, normal bowel sounds. Absent: distended, tenderness, guarding, rebound, rigid Extremities exam: Present: normal inspection, full ROM, normal capillary refill. Absent: tenderness, pedal edema, joint swelling, calf tenderness Back exam: Present: CVA tenderness (L) Neurological exam: Present: alert, oriented X3, CN II-XII intact Psychiatric exam: Present: normal affect, normal mood Skin exam: Present: warm, dry, intact, normal color. Absent: rash Course Vital Signs 04/09/22 04/10/22 23:44 02:12 Temperature 97.9 F Pulse Rate 100 94 Respiratory 18 18 Rate Blood Pressure 162/77 157/90 O2 Sat by Pulse 95 96 Oximetry Medical Decision Making - Medical Decision Making Upon arrival patient is placed in room 22. There are history and physical exam was performed or patient is given 1 mg dose of Dilaudid. She is reevaluated reports that her pain has been improved. She will be discharged home with a prescription for Star as she has taken some medication the past. Instructed to not take it with the Flexeril. May continue the steroid. Follow up with her doctor in 2-4 days. Recommend reevaluation by Dr. Sinclair and open MRI. Return for any new or worsening symptoms. Patient discharged home in stable condition Disposition Clinical Impression: Left flank pain Disposition: HOME SELF-CARE Condition: Stable Instructions (If sedation given, give patient instructions): Chronic Back Pain (DC) Additional Instructions: Take the pain medications as directed. Follow up with your primary care doctor. Also recommended that you see Dr. Sinclair again for further management. Recommend an MRI. Return for any new or worsening symptoms Prescriptions: HYDROcodone/APAP 7.5-325MG [Star 7.5-325] 1 tab PO Q6HR PRN 3 Days #12 tab PRN Reason: Pain Is patient prescribed a controlled substance at d/c from ED?: Yes When asked, does pt state using other controlled substances?: No If prescribed controlled substance>3 days was MAPS reviewed?: Prescribed <3 Days Referrals: Erich Berger DO [Primary Care Provider] - 1-2 days Sudhakar Ahmadi DO [Doctor of Osteopathic Medicine] - 1-2 days Time of Disposition: 02:32
== END 2022-04-10 03:10 | disposition home or self-care (01) ==
LOC: EC 23:27
DX: R10.9 Unspecified abdominal pain (principal); E11.9 Type 2 diabetes mellitus without complications; I10 Essential (primary) hypertension; E78.5 Hyperlipidemia, unspecified; M19.90 Unspecified osteoarthritis, unspecified site; E07.9 Disorder of thyroid, unspecified; Z87.891 Personal history of nicotine dependence; Z79.890 Hormone replacement therapy; Z79.84 Long term (current) use of oral hypoglycemic drugs; Z79.899 Other long term (current) drug therapy
CPT/HCPCS: 99283; 96372; J1170

== ENCOUNTER 2022-04-12 01:39 | Emergency (ER) | payer MEDICARE, BC ==
[2022-04-12] MEDS ORDERED: IBUPROFEN 600 MG STARTER PACK 4 TAB BTL PO STA (04:00)
[2022-04-12] MEDS ORDERED: ACET/COD 300 MG/30 MG STARTER PACK 6 TAB BTL PO STA (04:00)
--- NOTE | 2022-04-12 04:00 | ED ---
Recheck HPI - General Chief Complaint: Neck Pain/Injury Stated Complaint: neck/back pain, revisit Time Seen by Provider: 04/12/22 03:27 Source: patient, RN notes reviewed, old records reviewed Mode of arrival: ambulatory Limitations: no limitations - History of Present Illness Initial Comments: This is a 76-year-old female to the emergency department for evaluation. Patient is evaluation of neck pain severe neck pain acute on chronic neck pain back pain. Patient states pain was worse tonight she couldn't sleep. No new traumas no other injuries noted complaints. Saw primary care placed on muscle relaxers and steroids. No help MD Complaint: medication refill request -: days(s) Returns Today for: persistent/worsening pain related to initial visit Symptoms Since Prior Visit: worsening pain Associated Symptoms: none Treatments Prior to Arrival: Given Pain Meds on - Related Data Home Medications Medication Instructions Recorded Confirmed Triamterene-Hctz 37.5-25Mg 1 tab PO DAILY 11/16/13 10/27/21 [Maxzide 37.5-25] lisinopriL [Zestril] 2.5 mg PO DAILY 10/30/17 10/27/21 Levothyroxine Sodium [Euthyrox] 125 mcg PO DAILY 08/01/20 10/27/21 metFORMIN HCL [Glucophage] 1,000 mg PO DAILY 08/01/20 10/27/21 Atorvastatin [Lipitor] 40 mg PO HS 08/02/20 10/27/21 Diclofenac Sodium Gel [Voltaren 2 gm TOPICAL QID PRN 10/27/21 10/27/21 Gel] Previous Rx's Medication Instructions Recorded HYDROcodone/APAP 5-325MG [[place] 1 tab PO Q6HR PRN 3 Days #12 tab 10/20/21 5-325] Gabapentin 300 mg PO BID 3 Days #6 cap 10/29/21 Lidocaine 5% Patch [Lidoderm 5% 1 patch TOPICAL DAILY 30 Days #30 10/29/21 Patch] patch Lidocaine 5% Patch [Lidoderm 5% 1 patch TOPICAL DAILY PRN #30 patch 03/07/22 Patch] Lidocaine 1 each TP DAILY PRN 1 Days #10 03/09/22 patch HYDROcodone/APAP 7.5-325MG [[place] 1 tab PO Q6HR PRN 3 Days #12 tab 04/10/22 7.5-325] Allergies Allergy/AdvReac Type Severity Reaction Status Date / Time No Known Allergies Allergy Verified 04/12/22 01:51 Review of Systems ROS Statement: Those systems with pertinent positive or pertinent negative responses have been documented in the HPI. ROS Other: All systems not noted in ROS Statement are negative. Past Medical History Past Medical History: Diabetes Mellitus, Fibromyalgia, GERD/Reflux, Hyperlipidemia, Hypertension, Musculoskeletal Disorder, Osteoarthritis (OA), Sleep Apnea/CPAP/BIPAP, Thyroid Disorder Additional Past Medical History / Comment(s): Varicose veins, SPINAL STENOSIS, x kidney stones. History of Any Multi-Drug Resistant Organisms: None Reported Past Surgical History: Adenoidectomy, Appendectomy, Bariatric Surgery, Cholecystectomy, Heart Catheterization, Hysterectomy, Joint Replacement, Tonsillectomy, Tubal Ligation Additional Past Surgical History / Comment(s): Gastric stapling, cervical fusion, bilateral knee replacements, colonoscopy, pain clinic procedures. Past Anesthesia/Blood Transfusion Reactions: No Reported Reaction Past Psychological History: No Psychological Hx Reported Smoking Status: Former smoker Past Alcohol Use History: Occasional Past Drug Use History: None Reported - Past Family History Mother Family Medical History: Cancer Additional Family Medical History / Comment(s): Breast and cervical cancer. Sister(s) Family Medical History: Cancer Additional Family Medical History / Comment(s): Cervical cancer. Father Family Medical History: Diabetes Mellitus General Exam - General Exam Comments Initial Comments: Focal neurological findings, General appearance: alert, in no apparent distress, obese Head exam: Present: atraumatic, normocephalic, normal inspection Eye exam: Present: normal appearance, PERRL, EOMI. Absent: scleral icterus, conjunctival injection, periorbital swelling ENT exam: Present: normal exam, mucous membranes moist Neck exam: Present: normal inspection. Absent: tenderness, meningismus, lymphadenopathy Respiratory exam: Present: normal lung sounds bilaterally. Absent: respiratory distress, wheezes, rales, rhonchi, stridor Cardiovascular Exam: Present: regular rate, normal rhythm, normal heart sounds. Absent: systolic murmur, diastolic murmur, rubs, gallop, clicks GI/Abdominal exam: Present: soft, normal bowel sounds. Absent: distended, tenderness, guarding, rebound, rigid Extremities exam: Present: normal inspection, full ROM, normal capillary refill. Absent: tenderness, pedal edema, joint swelling, calf tenderness Back exam: Present: normal inspection Neurological exam: Present: alert, oriented X3, CN II-XII intact Psychiatric exam: Present: normal affect, normal mood Skin exam: Present: warm, dry, intact, normal color. Absent: rash Course Vital Signs 04/12/22 01:48 Temperature 97.4 F L Pulse Rate 87 Respiratory 18 Rate Blood Pressure 147/84 O2 Sat by Pulse 96 Oximetry - Reevaluation(s) Reevaluation #1: 04/12/22 04:11 Medical records reviewed Reevaluation #2: 04/12/22 04:11 Patient's pain is improved Reevaluation #3: 04/12/22 04:11 Patient is able to ambulate without difficulty Medical Decision Making - Medical Decision Making 76 to the emergency department DF for evaluation of pain which is resolved. Symptoms are improved patient feels comfortable for discharge home Disposition Clinical Impression: Strain of neck muscle, Cervical radiculopathy Disposition: HOME SELF-CARE Condition: Good Instructions (If sedation given, give patient instructions): Cervical Strain (ED), Cervical Sprain (ED) Is patient prescribed a controlled substance at d/c from ED?: No Referrals: Sudhakar Ahmadi DO [Doctor of Osteopathic Medicine] - 1-2 days Evens Bailey DO [Doctor of Osteopathic Medicine] - 1-2 days Time of Disposition: 04:20
[2022-04-12 04:15] VITALS: BP 139/88; PULSE 81; RESP 19; TEMP 97.5
== END 2022-04-12 04:15 | disposition home or self-care (01) ==
LOC: EC 01:39
DX: S16.1XXA Strain of muscle, fascia and tendon at neck level, initial encounter (principal); M54.12 Radiculopathy, cervical region; E11.9 Type 2 diabetes mellitus without complications; I10 Essential (primary) hypertension; E78.5 Hyperlipidemia, unspecified; M19.90 Unspecified osteoarthritis, unspecified site; E07.9 Disorder of thyroid, unspecified; Z87.891 Personal history of nicotine dependence; Z79.890 Hormone replacement therapy; Z79.84 Long term (current) use of oral hypoglycemic drugs; Z79.899 Other long term (current) drug therapy; X58.XXXA Exposure to other specified factors, initial encounter
CPT/HCPCS: 99283

== ENCOUNTER → 2022-09-17 | Outpatient (CLI) | payer MEDICARE, BC ==
[2022-09-17 16:33] LABS: African American GFR (CKD) >90 (>60 ml/min/1.73 sqM); Blood Urea Nitrogen 17 mg/dL (7-17); Non-African American GFR(CKD) >90 (>60 ml/min/1.73 sqM)
--- NOTE | 2022-09-18 08:52 | CT ---
EXAMINATION TYPE: CT chest w con DATE OF EXAM: 09/17/2022 COMPARISON: 02/04/2022 HISTORY: LUNG NODULE F/U. CT DLP: 707.0 mGycm Automated exposure control for dose reduction was used. TECHNIQUE: CT scan of the chest is performed with IV Contrast, patient injected with 100ML mL of Isovue 300. PA P Images are created on CT scanner and reviewed. 3D reconstructed images are created on an [employer] workstation and reviewed. FINDINGS: LUNGS: Small nodule or nodular thickening in the right lung along the minor fissure measuring 9 x 6 m m axial image 31. There is no layering pleural effusion or pneumothorax seen. No suspicious focal con solidation. Tracheobronchial tree is patent. MEDIASTINUM: There are no greater than 1 cm hilar or mediastinal lymph nodes. No pericardial effusi on is seen. Atherosclerotic change in the aorta. Coronary artery calcification. OTHER: Post gastric surgery noted there is a small hiatal hernia. IMPRESSION: 1. There is a stable 9 x 6 mm right lower lobe pulmonary nodule. Recommend a 6 month follow-up to con firm stability. 2. Coronary artery calcification
== END | disposition home or self-care (01) ==
LOC: RADCTMAIN 15:52
PROVIDERS: ATTEND Family Medicine
DX: I25.10 Atherosclerotic heart disease of native coronary artery without angina pectoris (principal); R91.1 Solitary pulmonary nodule
CPT/HCPCS: 82565; 84520; 71260; 36415; Q9967

== ENCOUNTER 2023-01-07 08:49 | Emergency (ER) | payer MEDICARE, BC ==
[2023-01-07 08:57] VITALS: RESP 18; TEMP 98
[2023-01-07] MEDS ORDERED: HYDROmorphone 0.5 MG/0.5 ML SYRINGE IVP STA (09:30)
[2023-01-07] MEDS ORDERED: SODIUM CHLORIDE 0.9% 1,000 ML IV STA (09:30)
[2023-01-07] MEDS ORDERED: KETOROLAC 15 MG/ML 1 ML VIAL IVP STA (09:30)
[2023-01-07] MEDS ORDERED: ONDANSETRON 4 MG/2 ML VIAL IVP STA (09:30)
[2023-01-07 10:02] LABS: Basophils % (A) 0 %; Eosinophils # (A) 0.2 k/uL (0-0.7); Eosinophils % (A) 3 %; HCT 42.9 % (34.0-46.0); HGB 14.3 gm/dL (11.4-16.0); Lymphocytes # (A) 2.2 k/uL (1.0-4.8); Lymphocytes % (A) 35 %; MCH 31.3 pg (25.0-35.0); MCHC 33.3 g/dL (31.0-37.0); MCV 93.7 fL (80.0-100.0); Mean Platelet Volume 8.4; Monocytes # (A) 0.4 k/uL (0-1.0); Monocytes % (A) 7 %; Neutrophils # (A) 3.3 k/uL (1.3-7.7); Neutrophils % (A) 53 %; Platelet Count 163 k/uL (150-450); RBC 4.58 m/uL (3.80-5.40); RDW 13.9 % (11.5-15.5); WBC 6.3 k/uL (3.8-10.6)
[2023-01-07 10:04] LABS: Appearance,Urine Clear (Clear); Bilirubin,Urine Negative (Negative); Blood,Urine Negative (Negative); Color,Urine Yellow; Glucose,Urine (UA) Negative (Negative); Hyaline Casts,Urine 3 /lpf (0-2); Ketones,Urine Negative (Negative); Leukocyte Esterase,Urine Small (Negative); Mucus,Urine Rare /hpf; Nitrite,Urine Negative (Negative); PH, Urine 5.5 (5.0-8.0); Protein,Urine Trace (Negative); RBC,Urine 1 /hpf (0-5); Specific Gravity,Urine 1.022 (1.001-1.035); Squamous Epithelial Cell,Urine 4 /hpf (0-4); Urobilinogen,Urine <2.0 mg/dL (<2.0); WBC,Urine 2 /hpf (0-5)
--- NOTE | 2023-01-07 10:09 | XR ---
EXAMINATION TYPE: XR KUB DATE OF EXAM: 01/07/2023 COMPARISON: NONE HISTORY: Left posterior flank pain TECHNIQUE: One view abdominal series FINDINGS: The osseous structures are intact. The bowel gas pattern is nonspecific. Lung bases are clear. Surg ical changes in the abdomen. No slight definite suspicious calcifications overlying the renal outlines. Bilateral hip arthropathy and diffuse osteopenia. Scoliosis with hypertrophic and degenerative change s of the spine. SI joint arthropathy. IMPRESSION: 1. Nonspecific abdomen. Prominent bowel loops in the abdomen may represent a localized ileus or ente ritis. 2. No suspicious calcifications.
[2023-01-07 10:15] LABS: ALT 27 U/L (4-34); AST 36 U/L (14-36); African American GFR (CKD) >90 (>60 ml/min/1.73 sqM); Albumin 4.2 g/dL (3.5-5.0); Alkaline Phosphatase 82 U/L (38-126); Anion Gap 13 mmol/L; Blood Urea Nitrogen 21 mg/dL (7-17); Calcium 9.2 mg/dL (8.4-10.2); Carbon Dioxide 22 mmol/L (22-30); Chloride 102 mmol/L (98-107); Glucose 188 mg/dL (74-99); Lipase 114 U/L (23-300); Non-African American GFR(CKD) 84 (>60 ml/min/1.73 sqM); Potassium 4.5 mmol/L (3.5-5.1); Sodium 137 mmol/L (137-145); Total Bilirubin 0.7 mg/dL (0.2-1.3)
[2023-01-07 10:29] VITALS: BP 153/74; PULSE 100
--- NOTE | 2023-01-07 10:46 | CT ---
EXAMINATION TYPE: CT abdomen pelvis wo con DATE OF EXAM: 01/07/2023 COMPARISON: 03/09/2022 HISTORY: Flank pain, hx renal stones. CT DLP: 2199.2 mGycm Automated exposure control for dose reduction was used. TECHNIQUE: Helical acquisition of images was performed from the lung bases through the pelvis. FINDINGS: LUNG BASES: There is a 9 mm right lower lobe pulmonary nodule. Coronary artery calcification noted. C alcification aortic valve. Heart size normal with no pleural effusion or pneumothorax. 1 mm subpleura l nodule axial image 7. LIVER/GB: Post cholecystectomy changes are seen. Liver is reduced in attenuation correlate for hepati c steatosis. Liver measures 17.5 cm correlate for mild cardiomegaly. PANCREAS: No significant abnormality is seen. SPLEEN: No significant abnormality is seen. ADRENALS: No significant abnormality is seen. KIDNEYS: 2 mm nonobstructing lower pole left renal calculus. FREE AIR: No free air is visualized RETROPERITONEAL ADENOPATHY: None visualized REPRODUCTIVE ORGANS: Post hysterectomy. URINARY BLADDER: No significant abnormality is seen. PELVIC ADENOPATHY: None visualized. OSSEOUS STRUCTURES: Multilevel severe degenerative disc disease. Bilateral hip arthropathy. BOWEL: There is a large anterior abdominal wall hernia. No fluid or inflammation within the hernia s ac which does contain segments of colon. No evidence of obstruction. Diverticulosis but no CT evidenc e of diverticulitis. Within a distal ileal bowel loop there is a fat attenuating 1.2 cm lipoma. OTHER: Atherosclerotic change of the aorta which appears of normal caliber. Subcutaneous varicosities noted. IMPRESSION: 1. LARGE ANTERIOR ABDOMINAL WALL HERNIA BUT NO EVIDENCE OF BOWEL OBSTRUCTION OR INFLAMMATION. 2. THERE IS A 2 MM NONOBSTRUCTING LOWER POLE LEFT RENAL CALCULUS STABLE FROM PRIOR EXAM. 3. WITHIN A DISTAL SMALL BOWEL SEGMENT THERE IS A FAT ATTENUATING MASS COMPATIBLE WITH A SMALL BOWEL LIPOMA MEASURING 1.2 CM.
--- NOTE | 2023-01-07 10:46 | ED ---
Back Pain HPI - General Chief Complaint: Back Pain/Injury Stated Complaint: POSSIBLE KIDNEY STONES Time Seen by Provider: 01/07/23 09:00 Source: patient, family, RN notes reviewed Limitations: no limitations - History of Present Illness Initial Comments: 77-year-old female presents emergency Department with chief complaint of left flank pain. Patient states a sudden onset of pain. Patient states nothing makes it feel better or worse she states she has a history kidney stones but this feels slightly different. She has been to nausea without vomiting no change in bowel habits no dysuria no hematuria denies any fever or chills patient offers no other complaints. - Related Data Home Medications Medication Instructions Recorded Confirmed Triamterene-Hctz 37.5-25Mg 1 tab PO DAILY 11/16/13 10/27/21 [Maxzide 37.5-25] lisinopriL [Zestril] 2.5 mg PO DAILY 10/30/17 10/27/21 Levothyroxine Sodium [Euthyrox] 125 mcg PO DAILY 08/01/20 10/27/21 metFORMIN HCL [Glucophage] 1,000 mg PO DAILY 08/01/20 10/27/21 Atorvastatin [Lipitor] 40 mg PO HS 08/02/20 10/27/21 Diclofenac Sodium Gel [Voltaren 2 gm TOPICAL QID PRN 10/27/21 10/27/21 Gel] Previous Rx's Medication Instructions Recorded HYDROcodone/APAP 5-325MG [Madison 1 tab PO Q6HR PRN 3 Days #12 tab 10/20/21 5-325] Gabapentin 300 mg PO BID 3 Days #6 cap 10/29/21 Lidocaine 5% Patch [Lidoderm 5% 1 patch TOPICAL DAILY 30 Days #30 10/29/21 Patch] patch Lidocaine 5% Patch [Lidoderm 5% 1 patch TOPICAL DAILY PRN #30 patch 03/07/22 Patch] Lidocaine 1 each TP DAILY PRN 1 Days #10 03/09/22 patch HYDROcodone/APAP 7.5-325MG [[place] 1 tab PO Q6HR PRN 3 Days #12 tab 04/10/22 7.5-325] HYDROcodone/APAP 7.5-325MG [[place] 1 tab PO Q6HR PRN 3 Days #12 tab 01/07/23 7.5-325] Ibuprofen [Motrin] 600 mg PO Q8HR PRN #20 tab 01/07/23 Lidocaine 5% Patch [Lidoderm] 1 patch TOPICAL DAILY #10 patch 01/07/23 Allergies Allergy/AdvReac Type Severity Reaction Status Date / Time No Known Allergies Allergy Verified 01/07/23 08:57 Review of Systems ROS Statement: Those systems with pertinent positive or pertinent negative responses have been documented in the HPI. ROS Other: All systems not noted in ROS Statement are negative. Past Medical History Past Medical History: Diabetes Mellitus, Fibromyalgia, GERD/Reflux, Hyperlipidemia, Hypertension, Musculoskeletal Disorder, Osteoarthritis (OA), Sleep Apnea/CPAP/BIPAP, Thyroid Disorder Additional Past Medical History / Comment(s): Varicose veins, SPINAL STENOSIS, x kidney stones. History of Any Multi-Drug Resistant Organisms: None Reported Past Surgical History: Adenoidectomy, Appendectomy, Bariatric Surgery, Cholecystectomy, Heart Catheterization, Hysterectomy, Joint Replacement, Tonsillectomy, Tubal Ligation Additional Past Surgical History / Comment(s): Gastric stapling, cervical fusion, bilateral knee replacements, colonoscopy, pain clinic procedures. Past Anesthesia/Blood Transfusion Reactions: No Reported Reaction Past Psychological History: No Psychological Hx Reported Smoking Status: Former smoker Past Alcohol Use History: Occasional Past Drug Use History: None Reported - Past Family History Mother Family Medical History: Cancer Additional Family Medical History / Comment(s): Breast and cervical cancer. Sister(s) Family Medical History: Cancer Additional Family Medical History / Comment(s): Cervical cancer. Father Family Medical History: Diabetes Mellitus General Exam Limitations: no limitations General appearance: alert, in no apparent distress Head exam: Present: atraumatic, normocephalic, normal inspection Eye exam: Present: normal appearance, PERRL, EOMI. Absent: scleral icterus, conjunctival injection, periorbital swelling ENT exam: Present: normal exam, normal oropharynx, mucous membranes moist Neck exam: Present: normal inspection, full ROM. Absent: tenderness, meningismus, lymphadenopathy Respiratory exam: Present: normal lung sounds bilaterally. Absent: respiratory distress, wheezes, rales, rhonchi, stridor Cardiovascular Exam: Present: regular rate, normal rhythm, normal heart sounds. Absent: systolic murmur, diastolic murmur, rubs, gallop, clicks GI/Abdominal exam: Present: soft, normal bowel sounds. Absent: distended, tenderness, guarding, rebound, rigid Back exam: Absent: CVA tenderness (R), CVA tenderness (L) Neurological exam: Present: alert Course Vital Signs 01/07/23 01/07/23 08:55 10:28 Temperature 98 F Pulse Rate 108 H 100 Respiratory 18 18 Rate Blood Pressure 172/85 153/74 O2 Sat by Pulse 96 94 L Oximetry Medical Decision Making - Medical Decision Making Was pt. sent in by a medical professional or institution (, PA, HOUSING LIAISON, urgent care, hospital, or senior living...) When possible be specific @ -No Did you speak to anyone other than the patient for history (EMS, parent, family, police, friend...)? What history was obtained from this source @ -No Did you review nursing and triage notes (agree or disagree)? Why? @ -I reviewed and agree with nursing and triage notes Were old charts reviewed (outside hosp., previous admission, EMS record, old EKG, old radiological studies, urgent care reports/EKG's, senior living records)? Report findings @ -No old charts were reviewed Differential Diagnosis (chest pain, altered mental status, abdominal pain women, abdominal pain men, vaginal bleeding, weakness, fever, dyspnea, syncope, headache, dizziness, GI bleed, back pain, seizure, CVA, palpatations, mental health, musculoskeletal)? @ -nDifferential Back Pain: Strain, zoster, cauda equina syndrome, epidural abscess, vertebral osteomyelitis, discitis, fracture, subluxation, disc herniation, DJD, spinal stenosis, dissection, AAA, pancreatitis, peptic ulcer disease, pyelonephritis, kidney stone, this is not meant to be an all-inclusive list.ble EKG interpreted by me (3pts min.). @ -None X-rays interpreted by me (1pt min.). @ -X-ray KUB shows nonspecific bowel gas pattern CT interpreted by me (1pt min.). @ -CT abdomen and pelvis shows nonobstructing left kidney stone, abdominal wall hernia U/S interpreted by me (1pt. min.). @ -None done What testing was considered but not performed or refused? (CT, X-rays, U/S, labs)? Why? @ -None What meds were considered but not given or refused? Why? @ -None Did you discuss the management of the patient with other professionals (professionals i.e. , PA, HOUSING LIAISON, lab, RT, psych nurse, social service manager, armature straightener, teacher, marketing and communications officer, shoe parts caser)? Give summary @ -No Was smoking cessation discussed for >3mins.? @ -No Was critical care preformed (if so, how long)? @ -No Were there social determinants of health that impacted care today? How? (Homelessness, low income, unemployed, alcoholism, drug addiction, transportation, low edu. Level, literacy, decrease access to med. care, [facility], rehab)? @ -No Was there de-escalation of care discussed even if they declined (Discuss DNR or withdrawal of care, Hospice)? DNR status @ -No What co-morbidities impacted this encounter? (DM, HTN, Smoking, COPD, CAD, Cancer, CVA, ARF, Chemo, Hep., AIDS, mental health diagnosis, sleep apnea, morbid obesity)? @ -None Was patient admitted / discharged? Hospital course, mention meds given and route, prescriptions, significant lab abnormalities, going to OR and other pertinent info. @ -Discharge pain is improved with laboratories and imaging are negative for evidence of stone patient back pain may related to muscle spasms she does state the pain is better but she still has some discomfort with movement. Patient has no red flag symptoms. Undiagnosed new problem with uncertain prognosis? @ -No Drug Therapy requiring intensive monitoring for toxicity (Heparin, Nitro, Insulin, Cardizem)? @ -No Were any procedures done? @ -No Diagnosis/symptom? @ -Back pain Acute, or Chronic, or Acute on Chronic? @ -Acute Uncomplicated (without systemic symptoms) or Complicated (systemic symptoms)? @ -Uncomplicated Side effects of treatment? @ -No Exacerbation, Progression, or Severe Exacerbation? @ -No Poses a threat to life or bodily function? How? (Chest pain, [place], [place], pneumonia, PE, COPD, DKA, ARF, appy, cholecystitis, CVA, Diverticulitis, Homicidal, Suicidal, threat to staff... and all critical care pts) @ -No - Lab Data Result diagrams: 01/07/23 09:39 01/07/23 09:39 Lab Results 01/07/23 01/07/23 01/07/23 Range/Units 09:39 09:39 09:39 WBC 6.3 (3.8-10.6) k/uL RBC 4.58 (3.80-5.40) m/uL Hgb 14.3 (11.4-16.0) gm/dL Hct 42.9 (34.0-46.0) % MCV 93.7 (80.0-100.0) fL MCH 31.3 (25.0-35.0) pg MCHC 33.3 (31.0-37.0) g/dL RDW 13.9 (11.5-15.5) % Plt Count 163 (150-450) k/uL MPV 8.4 Neutrophils % 53 % Lymphocytes % 35 % Monocytes % 7 % Eosinophils % 3 % Basophils % 0 % Neutrophils # 3.3 (1.3-7.7) k/uL Lymphocytes # 2.2 (1.0-4.8) k/uL Monocytes # 0.4 (0-1.0) k/uL Eosinophils # 0.2 (0-0.7) k/uL Basophils # 0.0 (0-0.2) k/uL Sodium 137 (137-145) mmol/L Potassium 4.5 (3.5-5.1) mmol/L Chloride 102 (98-107) mmol/L Carbon Dioxide 22 (22-30) mmol/L Anion Gap 13 mmol/L BUN 21 H (7-17) mg/dL Creatinine 0.70 (0.52-1.04) mg/dL Est GFR (CKD-EPI)AfAm >90 (>60 ml/min/1.73 sqM) Est GFR (CKD-EPI)NonAf 84 (>60 ml/min/1.73 sqM) Glucose 188 H (74-99) mg/dL Calcium 9.2 (8.4-10.2) mg/dL Total Bilirubin 0.7 (0.2-1.3) mg/dL AST 36 (14-36) U/L ALT 27 (4-34) U/L Alkaline Phosphatase 82 (38-126) U/L Total Protein 8.0 (6.3-8.2) g/dL Albumin 4.2 (3.5-5.0) g/dL Lipase 114 (23-300) U/L Urine Color Yellow Urine Appearance Clear (Clear) Urine pH 5.5 (5.0-8.0) Ur Specific Ramsay 1.022 (1.001-1.035) Urine Protein Trace H (Negative) Urine Glucose (UA) Negative (Negative) Urine Ketones Negative (Negative) Urine Blood Negative (Negative) Urine Nitrite Negative (Negative) Urine Bilirubin Negative (Negative) Urine Urobilinogen <2.0 (<2.0) mg/dL Ur Leukocyte Esterase Small H (Negative) Urine RBC 1 (0-5) /hpf Urine WBC 2 (0-5) /hpf Ur Squamous Epith Cells 4 (0-4) /hpf Hyaline Casts 3 H (0-2) /lpf Urine Mucus Rare H (None) /hpf Disposition Clinical Impression: Back pain Disposition: HOME SELF-CARE Condition: Stable Instructions (If sedation given, give patient instructions): Acute Low Back Pain (ED) Additional Instructions: Please return to the Emergency Department if symptoms worsen or any other concerns. Prescriptions: Lidocaine 5% Patch [Lidoderm] 1 patch TOPICAL DAILY #10 patch Ibuprofen [Motrin] 600 mg PO Q8HR PRN #20 tab PRN Reason: Pain HYDROcodone/APAP 7.5-325MG [Madison 7.5-325] 1 tab PO Q6HR PRN 3 Days #12 tab PRN Reason: pain Is patient prescribed a controlled substance at d/c from ED?: No Referrals: Erich Berger DO [Primary Care Provider] - 1-2 days Time of Disposition: 11:09
== END 2023-01-07 11:30 | disposition home or self-care (01) ==
LOC: EC 08:49
DX: M54.9 Dorsalgia, unspecified (principal); E11.9 Type 2 diabetes mellitus without complications; E78.5 Hyperlipidemia, unspecified; G47.30 Sleep apnea, unspecified; I10 Essential (primary) hypertension; E07.9 Disorder of thyroid, unspecified; Z79.84 Long term (current) use of oral hypoglycemic drugs; Z79.890 Hormone replacement therapy; Z87.891 Personal history of nicotine dependence; Z79.899 Other long term (current) drug therapy
CPT/HCPCS: 36415; 80053; 83690; 85025; 81001; 74018; 74176; 99284; 96374; 96375 ×2; J2405; J1885; J1170

== ENCOUNTER → 2023-03-14 | Outpatient (CLI) | payer MEDICARE, BC ==
[2023-03-14 13:32] LABS: African American GFR (CKD) >90 (>60 ml/min/1.73 sqM); Blood Urea Nitrogen 13 mg/dL (7-17); Non-African American GFR(CKD) 85 (>60 ml/min/1.73 sqM)
--- NOTE | 2023-03-14 15:40 | CT ---
EXAMINATION TYPE: CT chest w con DATE OF EXAM: 03/14/2023 COMPARISON: 09/17/2022 and 02/04/2022 HISTORY: 77-year-old female R9 1.1, Follow up for nodules on lungs. TECHNIQUE: Contiguous axial scanning of the chest after the administration of 100 ml mL of Isovue 300 . Coronal/sagittal reconstructions performed. CT DLP: 663.3mGycm. Automatic exposure control utilized for a dose reduction. FINDINGS: The heart is upper limits of normal in size without pericardial effusion. LAD coronary artery calcifi cations are present. Mild atherosclerotic arch calcifications. Conventional arch. Branching anatomy. No thoracic lymphadenopathy by CT size criteria. Strandy atelectasis or scarring in the lower lungs. A 9 mm lateral right midlung pulmonary nodule, axial image 32 is unchanged. No consolidation or pleur al effusion. Post surgical change in the visualized proximal to mid stomach. There appears to be fatty infiltratio n of the liver with cholecystectomy clips. There is a epigastric ventral abdominal wall hernia containing mesentery and mid transverse colon. Th e hernia sac measures up to 10.5 cm wide in the abdominal wall defect measures 5.0 cm wide, relativel y unchanged from 02/04/2022. Bones: Osteopenia. Extensive DISH throughout the spine. IMPRESSION: 1. The 9 mm right midlung pulmonary nodule remains unchanged for 1 year 2 months. An additional one-y ear surveillance follow-up can be performed. 2. LAD coronary artery calcifications. 3. Redemonstrated epigastric ventral abdominal wall hernia containing mid transverse colon and mesent micah fat. Hernia sac remains 10.5 cm wide extending through a 5.0 cm abdominal wall defect. 4. Extensive DISH throughout the spine.
== END | disposition home or self-care (01) ==
LOC: RADCTMAIN 12:45
PROVIDERS: ATTEND Family Medicine
DX: I25.10 Atherosclerotic heart disease of native coronary artery without angina pectoris (principal); K43.9 Ventral hernia without obstruction or gangrene; R91.1 Solitary pulmonary nodule
CPT/HCPCS: 82565; 84520; 71260; Q9967

== ENCOUNTER → 2023-04-11 | Outpatient (CLI) | payer MEDICARE, BC ==
--- NOTE | 2023-04-14 14:29 | MM ---
Reason for Exam: Screening (asymptomatic). Last mammogram was performed 3 year(s) and 1 month(s) ago. Patient History: Menarche at age 13. First Full-Term at age 23. Left ovary removed at age 31. Hysterectomy at age 31. Postmenopausal. Mother had breast cancer, age 80. Sister had breast cancer, age 72. Risk Values: Joslyn 5 year model risk: 7.1%. NCI Lifetime model risk: 13.9%. Prior Study Comparison: 10/17/2015 Bilateral Screening Mammogram, [facility]. 10/31/2016 Bilateral Screening Mammogram, [facility]. 03/31/2020 Bilateral Screening Mammogram, [facility]. Tissue Density: The breast tissue is almost entirely fat. Findings: Analyzed By CAD. Heart appears symmetrical and stable. Scattered benign punctate calcifications are present bilaterally. No suspicious groups of microcalcifications, spiculated or lobular masses, architectural distortion or other secondary signs of malignancy are mammographically apparent. Overall Assessment: Benign, BI-RAD 2 Management: Screening Mammogram of both breasts in 1 year. A negative mammogram report should not preclude additional follow up of suspicious palpable abnormalities. Patient should continue monthly self breast exam. A clinical breast exam by your physician is recommended on an annual basis and results should be correlated with mammographic findings. Electronically signed and approved by: Erich Garcia D.O. Radiologis
== END | disposition home or self-care (01) ==
LOC: RADMAMWWP 13:17
PROVIDERS: ATTEND Family Medicine
DX: Z12.31 Encounter for screening mammogram for malignant neoplasm of breast (principal); Z78.0 Asymptomatic menopausal state; Z80.3 Family history of malignant neoplasm of breast
CPT/HCPCS: 77063; 77067

== ENCOUNTER 2023-04-18 05:03 | Emergency (ER) | payer MEDICARE, BC ==
[2023-04-18 05:16] VITALS: TEMP 97.4
--- NOTE | 2023-04-18 05:37 | ED ---
Back Pain HPI - General Chief Complaint: Back Pain/Injury Stated Complaint: Back pain radiating down left arm Time Seen by Provider: 04/18/23 05:21 Source: patient, RN notes reviewed, old records reviewed Limitations: no limitations - History of Present Illness Initial Comments: This is a 77-year-old female to the emergency department today. She presents today for evaluation of back pain., Patient has recent diagnosis of bronchitis is on antibiotics and steroids currently. Patient's back pain is severe her activity level has been decreased and she's been feeling sick she is without fever. No chest pain currently but the pain of her back does radiate are left arm similar to when she gets lower back pain radiating down her left leg. No trauma MD Complaint: back pain -: days(s) Similar Symptoms Previously: Yes Place: home Radiation: none Severity: severe Severity scale (1-10): 9 Quality: sharp Consistency: constant Improves With: none Context: while lifting, turning/twisting Associated Symptoms: denies other symptoms - Related Data Home Medications Medication Instructions Recorded Confirmed Triamterene-Hctz 37.5-25Mg 1 tab PO DAILY 11/16/13 10/27/21 [Maxzide 37.5-25] lisinopriL [Zestril] 2.5 mg PO DAILY 10/30/17 10/27/21 Levothyroxine Sodium [Euthyrox] 125 mcg PO DAILY 08/01/20 10/27/21 metFORMIN HCL [Glucophage] 1,000 mg PO DAILY 08/01/20 10/27/21 Atorvastatin [Lipitor] 40 mg PO HS 08/02/20 10/27/21 Diclofenac Sodium Gel [Voltaren 1% 2 gm TOPICAL QID PRN 10/27/21 10/27/21 Gel] Previous Rx's Medication Instructions Recorded HYDROcodone/APAP 5-325MG [[place] 1 tab PO Q6HR PRN 3 Days #12 tab 10/20/21 5-325] Gabapentin 300 mg PO BID 3 Days #6 cap 10/29/21 Lidocaine 5% Patch [Lidoderm 5% 1 patch TOPICAL DAILY 30 Days #30 10/29/21 Patch] patch Lidocaine 5% Patch [Lidoderm 5% 1 patch TOPICAL DAILY PRN #30 patch 03/07/22 Patch] Lidocaine 1 each TP DAILY PRN 1 Days #10 03/09/22 patch HYDROcodone/APAP 7.5-325MG [[place] 1 tab PO Q6HR PRN 3 Days #12 tab 04/10/22 7.5-325] HYDROcodone/APAP 7.5-325MG [[place] 1 tab PO Q6HR PRN 3 Days #12 tab 01/07/23 7.5-325] Ibuprofen [Motrin] 600 mg PO Q8HR PRN #20 tab 01/07/23 Lidocaine 5% Patch [Lidoderm] 1 patch TOPICAL DAILY #10 patch 01/07/23 HYDROcodone/APAP 5-325MG [[place] 1 tab PO Q6HR PRN #12 tab 04/23/23 5-325] Allergies Allergy/AdvReac Type Severity Reaction Status Date / Time No Known Allergies Allergy Verified 04/23/23 05:03 Review of Systems ROS Statement: Those systems with pertinent positive or pertinent negative responses have been documented in the HPI. ROS Other: All systems not noted in ROS Statement are negative. Past Medical History Past Medical History: Diabetes Mellitus, Fibromyalgia, GERD/Reflux, Hyperlipidemia, Hypertension, Musculoskeletal Disorder, Osteoarthritis (OA), Sleep Apnea/CPAP/BIPAP, Thyroid Disorder Additional Past Medical History / Comment(s): Varicose veins, SPINAL STENOSIS, x kidney stones. History of Any Multi-Drug Resistant Organisms: None Reported Past Surgical History: Adenoidectomy, Appendectomy, Bariatric Surgery, Cholecystectomy, Heart Catheterization, Hysterectomy, Joint Replacement, Tonsillectomy, Tubal Ligation Additional Past Surgical History / Comment(s): Gastric stapling, cervical fusion, bilateral knee replacements, colonoscopy, pain clinic procedures. Past Anesthesia/Blood Transfusion Reactions: No Reported Reaction Past Psychological History: No Psychological Hx Reported Smoking Status: Former smoker Past Alcohol Use History: Occasional Past Drug Use History: None Reported - Past Family History Mother Family Medical History: Cancer Additional Family Medical History / Comment(s): Breast and cervical cancer. Sister(s) Family Medical History: Cancer Additional Family Medical History / Comment(s): Cervical cancer. Father Family Medical History: Diabetes Mellitus General Exam Limitations: no limitations General appearance: alert, in no apparent distress Head exam: Present: atraumatic, normocephalic, normal inspection Eye exam: Present: normal appearance, PERRL, EOMI. Absent: scleral icterus, conjunctival injection, periorbital swelling ENT exam: Present: normal exam, mucous membranes moist Neck exam: Present: normal inspection. Absent: tenderness, meningismus, lymphadenopathy Respiratory exam: Present: normal lung sounds bilaterally. Absent: respiratory distress, wheezes, rales, rhonchi, stridor Cardiovascular Exam: Present: regular rate, normal rhythm, normal heart sounds. Absent: systolic murmur, diastolic murmur, rubs, gallop, clicks GI/Abdominal exam: Present: soft, normal bowel sounds. Absent: distended, tende rness, guarding, rebound, rigid Extremities exam: Present: normal inspection, full ROM, normal capillary refill. Absent: tenderness, pedal edema, joint swelling, calf tenderness Back exam: Present: normal inspection Neurological exam: Present: alert, oriented X3, CN II-XII intact Psychiatric exam: Present: normal affect, normal mood Skin exam: Present: warm, dry, intact, normal color. Absent: rash Course Vital Signs 04/18/23 04/18/23 05:05 06:47 Temperature 97.4 F L Pulse Rate 105 H 98 Respiratory 20 18 Rate Blood Pressure 158/75 167/89 O2 Sat by Pulse 95 98 Oximetry - Reevaluation(s) Reevaluation #1: 04/18/23 06:58 Records reviewed Reevaluation #2: 04/18/23 06:58 Patient's pain is improved Reevaluation #3: 04/18/23 06:58 Agent for results and questions answered Reevaluation #4: 04/18/23 06:58 Was pt. sent in by a medical professional or institution (, PA, GLASS SETTER, urgent care, hospital, or residential...) When possible be specific @ -no Did you speak to anyone other than the patient for history (EMS, parent, family, police, friend...)? What history was obtained from this source @ -no Did you review nursing and triage notes (agree or disagree)? Why? @ -agree Are old charts reviewed (outside hosp., previous admission, EMS record, old EKG, old radiological studies, urgent care reports/EKG's, residential records)? Report findings @ -yes Differential Diagnosis (chest pain, altered mental status, abdominal pain women, abdominal pain men, vaginal bleeding, weakness, fever, dyspnea, syncope, headache, dizziness, GI bleed, back pain, seizure, CVA, palpatations, mental health, musculoskeletal)? @ -prior EKG interpreted by me (3pts min.). @ -yes X-rays interpreted by me (1pt min.). @ -yes negative for acute disease CT interpreted by me (1pt min.). @ -no U/S interpreted by me (1pt. min.). @ -no What testing was considered but not performed or refused? (CT, X-rays, U/S, labs)? Why? @ -none What meds were considered but not given or refused? Why? @ -none Did you discuss the management of the patient with other professionals (professionals i.e. , PA, GLASS SETTER, lab, RT, psych nurse, social service worker, white washer, teacher, chief operating officer, caser)? Give summary @ -no Was smoking cessation discussed for >3mins.? @ -no Was critical care preformed (if so, how long)? @ -no Were there social determinants of health that impacted care today? How? (Homelessness, low income, unemployed, alcoholism, drug addiction, transportation, low edu. Level, literacy, decrease access to med. care, long-term, rehab)? @ -none Was there de-escalation of care discussed even if they declined (Discuss DNR or withdrawal of care, Hospice)? DNR status @ -no What co-morbidities impacted this encounter? (DM, HTN, Smoking, COPD, CAD, Cancer, CVA, ARF, Chemo, Hep., AIDS, mental health diagnosis, sleep apnea, morbid obesity)? @ -none Was patient admitted / discharged? Hospital course, mention meds given and route, prescriptions, significant lab abnormalities, going to OR and other pertinent info. @ - 77 female to the emergency department today for evaluation of back pain. Back pain is well-controlled currently she is able to ambulate without difficulty. Patient has normal x-ray here in the emergency department today can be discharged home Discharge Undiagnosed new problem with uncertain prognosis? @ -no Drug Therapy requiring intensive monitoring for toxicity (Heparin, Nitro, Insulin, Cardizem)? @ -no Were any procedures done? @ -no Diagnosis/symptom? @ -Back pain Acute, or Chronic, or Acute on Chronic? @ -Acute Uncomplicated (without systemic symptoms) or Complicated (systemic symptoms)? @ -Complicated Side effects of treatment? @ -no Exacerbation, Progression, or Severe Exacerbation? @ -exacerbation Poses a threat to life or bodily function? How? (Chest pain, [place], [place], pneumonia, PE, COPD, DKA, ARF, appy, cholecystitis, CVA, Diverticulitis, Homicidal, Suicidal, threat to staff... and all critical care pts) @ -yes with extreme of age Reevaluation #5: 04/18/23 06:58 Differential Back Pain: Strain, zoster, cauda equina syndrome, epidural abscess, vertebral osteomyelitis, discitis, fracture, subluxation, disc herniation, DJD, spinal stenosis, dissection, AAA, pancreatitis, peptic ulcer disease, pyelonephritis, kidney stone, this is not meant to be an all-inclusive list. Medical Decision Making - Medical Decision Making 77 female to the emergency department today for evaluation of back pain. Back pain is well-controlled currently she is able to ambulate without difficulty. Patient has normal x-ray here in the emergency department today can be discharged home - EKG Data -: EKG Interpreted by Me (EKG is sinus 96 AL 136 QRS 92 QTC 379) - Radiology Data Radiology results: report reviewed (Chest x-rays negative for acute disease), image reviewed Disposition Clinical Impression: Mid back pain, Thoracic back pain Disposition: HOME SELF-CARE Condition: Good Instructions (If sedation given, give patient instructions): Acute Low Back Pain (ED) Is patient prescribed a controlled substance at d/c from ED?: No Referrals: Erich Berger DO [Primary Care Provider] - 1-2 days Time of Disposition: 06:20
--- NOTE | 2023-04-18 06:10 | XR ---
EXAMINATION TYPE: XR chest 2V DATE OF EXAM: 04/18/2023 COMPARISON: Chest CT March 14, 2023 HISTORY: Cough TECHNIQUE: Frontal and lateral views of the chest are obtained. FINDINGS: There is no suspicious new focal air space opacity, pleural effusion, or pneumothorax seen . The cardiac silhouette size is stable and within normal limits. Cholecystectomy clips are redemon strated. The osseous structures are intact. IMPRESSION: No new acute pulmonary infiltrate.
[2023-04-18] MEDS ORDERED: IBUPROFEN 800 MG TAB PO STA (06:17)
[2023-04-18] MEDS ORDERED: LIDOCAINE 5% PATCH TOPICAL ONE (06:17)
[2023-04-18] MEDS ORDERED: IBUPROFEN 600 MG STARTER PACK 4 TAB BTL PO STA (06:17)
[2023-04-18] MEDS ORDERED: ACET/COD 300 MG/30 MG STARTER PACK 6 TAB BTL PO STA (06:17)
[2023-04-18] MEDS ORDERED: HYDROmorphone 1 MG/ML 1 ML SYRINGE IM STA (06:17)
[2023-04-18 06:50] VITALS: BP 167/89; PULSE 98; RESP 18
== END 2023-04-18 06:48 | disposition home or self-care (01) ==
LOC: EC 05:03
DX: M54.6 Pain in thoracic spine (principal); E11.9 Type 2 diabetes mellitus without complications; E78.5 Hyperlipidemia, unspecified; I10 Essential (primary) hypertension; M19.90 Unspecified osteoarthritis, unspecified site; E07.9 Disorder of thyroid, unspecified; Z87.891 Personal history of nicotine dependence; Z79.890 Hormone replacement therapy; Z79.84 Long term (current) use of oral hypoglycemic drugs; Z79.899 Other long term (current) drug therapy; Z90.49 Acquired absence of other specified parts of digestive tract
CPT/HCPCS: 93005; 71046; 99284; 96372; J1170

== ENCOUNTER 2023-04-18 17:31 | Emergency (ER) | payer MEDICARE, BC ==
[2023-04-18 17:44] VITALS: BP 200/88; PULSE 110; RESP 20; TEMP 97.7
[2023-04-18] MEDS ORDERED: KETOROLAC 15 MG/ML 1 ML VIAL IVP STA (18:59)
--- NOTE | 2023-04-18 19:05 | ED ---
General Adult HPI - General Chief complaint: Back Pain/Injury Stated complaint: Lower back pain Time Seen by Provider: 04/18/23 18:48 Source: patient, family, RN notes reviewed Mode of arrival: ambulatory Limitations: no limitations - History of Present Illness Initial comments: Patient is a pleasant 77-year-old female presenting to the emergency Department with left-sided back pain. Patient does have chronic back pain however states this is somewhat different. Patient does have a history of discomfort similar to this once previously associated with kidney stone. Onset of symptoms was yesterday and symptoms have slowly progressively worsened since that time. No cough. No dyspnea. Patient denies any hematuria or dysuria. Area is discomfort is left lower to mid back. No leg weakness. No paresthesias. No incontinence or retention of bowel or bladder. - Related Data Home Medications Medication Instructions Recorded Confirmed Triamterene-Hctz 37.5-25Mg 1 tab PO DAILY 11/16/13 10/27/21 [Maxzide 37.5-25] lisinopriL [Zestril] 2.5 mg PO DAILY 10/30/17 10/27/21 Levothyroxine Sodium [Euthyrox] 125 mcg PO DAILY 08/01/20 10/27/21 metFORMIN HCL [Glucophage] 1,000 mg PO DAILY 08/01/20 10/27/21 Atorvastatin [Lipitor] 40 mg PO HS 08/02/20 10/27/21 Diclofenac Sodium Gel [Voltaren 1% 2 gm TOPICAL QID PRN 10/27/21 10/27/21 Gel] Previous Rx's Medication Instructions Recorded HYDROcodone/APAP 5-325MG [[place] 1 tab PO Q6HR PRN 3 Days #12 tab 10/20/21 5-325] Gabapentin 300 mg PO BID 3 Days #6 cap 10/29/21 Lidocaine 5% Patch [Lidoderm 5% 1 patch TOPICAL DAILY 30 Days #30 10/29/21 Patch] patch Lidocaine 5% Patch [Lidoderm 5% 1 patch TOPICAL DAILY PRN #30 patch 03/07/22 Patch] Lidocaine 1 each TP DAILY PRN 1 Days #10 03/09/22 patch HYDROcodone/APAP 7.5-325MG [[place] 1 tab PO Q6HR PRN 3 Days #12 tab 04/10/22 7.5-325] HYDROcodone/APAP 7.5-325MG [[place] 1 tab PO Q6HR PRN 3 Days #12 tab 01/07/23 7.5-325] Ibuprofen [Motrin] 600 mg PO Q8HR PRN #20 tab 01/07/23 Lidocaine 5% Patch [Lidoderm] 1 patch TOPICAL DAILY #10 patch 01/07/23 Allergies Allergy/AdvReac Type Severity Reaction Status Date / Time No Known Allergies Allergy Verified 04/18/23 05:08 Review of Systems ROS Statement: Those systems with pertinent positive or pertinent negative responses have been documented in the HPI. ROS Other: All systems not noted in ROS Statement are negative. Constitutional: Denies: fever Eyes: Denies: eye pain ENT: Denies: ear pain Respiratory: Denies: cough, dyspnea Cardiovascular: Denies: chest pain Endocrine: Denies: fatigue Gastrointestinal: Denies: abdominal pain Genitourinary: Denies: dysuria Musculoskeletal: Reports: as per HPI, back pain Skin: Denies: lesions Neurological: Denies: weakness Past Medical History Past Medical History: Diabetes Mellitus, Fibromyalgia, GERD/Reflux, Hyperlipidemia, Hypertension, Musculoskeletal Disorder, Osteoarthritis (OA), Sleep Apnea/CPAP/BIPAP, Thyroid Disorder Additional Past Medical History / Comment(s): Varicose veins, SPINAL STENOSIS, x kidney stones. History of Any Multi-Drug Resistant Organisms: None Reported Past Surgical History: Adenoidectomy, Appendectomy, Bariatric Surgery, Cholecystectomy, Heart Catheterization, Hysterectomy, Joint Replacement, Tonsillectomy, Tubal Ligation Additional Past Surgical History / Comment(s): Gastric stapling, cervical fusion, bilateral knee replacements, colonoscopy, pain clinic procedures. Past Anesthesia/Blood Transfusion Reactions: No Reported Reaction Past Psychological History: No Psychological Hx Reported Smoking Status: Former smoker Past Alcohol Use History: Occasional Past Drug Use History: None Reported - Past Family History Mother Family Medical History: Cancer Additional Family Medical History / Comment(s): Breast and cervical cancer. Sister(s) Family Medical History: Cancer Additional Family Medical History / Comment(s): Cervical cancer. Father Family Medical History: Diabetes Mellitus General Exam Limitations: no limitations General appearance: alert, in no apparent distress Head exam: Present: normocephalic Eye exam: Present: normal appearance Neck exam: Present: normal inspection Respiratory exam: Present: normal lung sounds bilaterally. Absent: chest wall tenderness Cardiovascular Exam: Present: regular rate, normal rhythm Expanded Peripheral pulses: 2+: Dorsalis Pedis (R), Dorsalis Pedis (L) GI/Abdominal exam: Present: soft. Absent: distended, tenderness Extremities exam: Present: normal inspection Back exam: Present: CVA tenderness (L) Neurological exam: Present: alert Psychiatric exam: Present: normal affect, normal mood Skin exam: Present: normal color Course Vital Signs 04/18/23 17:41 Temperature 97.7 F Pulse Rate 110 H Respiratory 20 Rate Blood Pressure 200/88 O2 Sat by Pulse 94 L Oximetry Medical Decision Making - Medical Decision Making Was pt. sent in by a medical professional or institution (, PA, GAME ENGINEER, urgent care, hospital, or [place] health care facility...) When possible be specific @ -No Did you speak to anyone other than the patient for history (EMS, parent, family, police, friend...)? What history was obtained from this source @ -No Did you review nursing and triage notes (agree or disagree)? Why? @ -I reviewed and agree with nursing and triage notes Were old charts reviewed (outside hosp., previous admission, EMS record, old EKG, old radiological studies, urgent care reports/EKG's, [place] health care facility records)? Report findings @ -No old charts were reviewed Differential Diagnosis (chest pain, altered mental status, abdominal pain women, abdominal pain men, vaginal bleeding, weakness, fever, dyspnea, syncope, headache, dizziness, GI bleed, back pain, seizure, CVA, palpatations, mental health, musculoskeletal)? @ -Differential Back Pain: Strain, zoster, cauda equina syndrome, epidural abscess, vertebral osteomyelitis, discitis, fracture, subluxation, disc herniation, DJD, spinal stenosis, dissection, AAA, pancreatitis, peptic ulcer disease, pyelonephritis, kidney stone, this is not meant to be an all-inclusive list. EKG interpreted by me (3pts min.). @ -As above X-rays interpreted by me (1pt min.). @ -Chest x-ray and abdominal x-ray do not reveal acute abnormality CT interpreted by me (1pt min.). @ -Computed tomography scan abdomen pelvis without acute abnormality. Hernia. U/S interpreted by me (1pt. min.). @ -None done What testing was considered but not performed or refused? (CT, X-rays, U/S, labs)? Why? @ -None What meds were considered but not given or refused? Why? @ -None Did you discuss the management of the patient with other professionals (professionals i.e. , PA, GAME ENGINEER, lab, RT, psych nurse, social media project manager, sr. logistics analyst, teacher, senior compliance officer, caseworker intake)? Give summary @ -No Was smoking cessation discussed for >3mins.? @ -No Was critical care preformed (if so, how long)? @ -No Were there social determinants of health that impacted care today? How? (Homelessness, low income, unemployed, alcoholism, drug addiction, transportation, low edu. Level, literacy, decrease access to med. care, skilled nursing, rehab)? @ -No Was there de-escalation of care discussed even if they declined (Discuss DNR or withdrawal of care, Hospice)? DNR status @ -No What co-morbidities impacted this encounter? (DM, HTN, Smoking, COPD, CAD, Cancer, CVA, ARF, Chemo, Hep., AIDS, mental health diagnosis, sleep apnea, morbid obesity)? @ -None Was patient admitted / discharged? Hospital course, mention meds given and route, prescriptions, significant lab abnormalities, going to OR and other pertinent info. @ -Patient reevaluated and feeling much better following medication. Patient and family are updated on results and need for follow-up. Patient is comfortable with and happy to be discharged. Undiagnosed new problem with uncertain prognosis? @ -No Drug Therapy requiring intensive monitoring for toxicity (Heparin, Nitro, Insulin, Cardizem)? @ -No Were any procedures done? @ -No Diagnosis/symptom? @ -Back pain Acute, or Chronic, or Acute on Chronic? @ -Acute on chronic Uncomplicated (without systemic symptoms) or Complicated (systemic symptoms)? @ -default Side effects of treatment? @ -No Exacerbation, Progression, or Severe Exacerbation? @ -No Poses a threat to life or bodily function? How? (Chest pain, [place], [place], pneumonia, PE, COPD, DKA, ARF, appy, cholecystitis, CVA, Diverticulitis, Homicidal, Suicidal, threat to staff... and all critical care pts) @ -No - Lab Data Result diagrams: 04/18/23 19:39 04/18/23 19:39 Lab Results 04/18/23 04/18/23 04/18/23 Range/Units 19:39 19:39 19:39 WBC 11.4 H (3.8-10.6) k/uL RBC 4.68 (3.80-5.40) m/uL Hgb 14.7 (11.4-16.0) gm/dL Hct 44.3 (34.0-46.0) % MCV 94.8 (80.0-100.0) fL MCH 31.4 (25.0-35.0) pg MCHC 33.1 (31.0-37.0) g/dL RDW 13.9 (11.5-15.5) % Plt Count 259 (150-450) k/uL MPV 8.0 Neutrophils % 79 % Lymphocytes % 14 % Monocytes % 5 % Eosinophils % 0 % Basophils % 0 % Neutrophils # 8.9 H (1.3-7.7) k/uL Lymphocytes # 1.6 (1.0-4.8) k/uL Monocytes # 0.6 (0-1.0) k/uL Eosinophils # 0.0 (0-0.7) k/uL Basophils # 0.0 (0-0.2) k/uL PT 10.0 (10.0-12.5) sec INR 0.9 (<1.2) APTT 22.1 (22.0-30.0) sec D-Dimer 0.53 (<0.60) mg/L FEU Sodium (137-145) mmol/L Potassium (3.5-5.1) mmol/L Chloride (98-107) mmol/L Carbon Dioxide (22-30) mmol/L Anion Gap mmol/L BUN (7-17) mg/dL Creatinine (0.52-1.04) mg/dL Est GFR (CKD-EPI)AfAm (>60 ml/min/1.73 sqM) Est GFR (CKD-EPI)NonAf (>60 ml/min/1.73 sqM) Glucose (74-99) mg/dL Calcium (8.4-10.2) mg/dL Total Bilirubin (0.2-1.3) mg/dL AST (14-36) U/L ALT (4-34) U/L Alkaline Phosphatase (38-126) U/L Total Protein (6.3-8.2) g/dL Albumin (3.5-5.0) g/dL Urine Color Yellow Urine Appearance Clear (Clear) Urine pH 6.0 (5.0-8.0) Ur Specific [place] 1.020 (1.001-1.035) Urine Protein Trace H (Negative) Urine Glucose (UA) 1+ H (Negative) Urine Ketones Negative (Negative) Urine Blood Negative (Negative) Urine Nitrite Negative (Negative) Urine Bilirubin Negative (Negative) Urine Urobilinogen <2.0 (<2.0) mg/dL Ur Leukocyte Esterase Negative (Negative) 04/18/23 Range/Units 19:39 WBC (3.8-10.6) k/uL RBC (3.80-5.40) m/uL Hgb (11.4-16.0) gm/dL Hct (34.0-46.0) % MCV (80.0-100.0) fL MCH (25.0-35.0) pg MCHC (31.0-37.0) g/dL RDW (11.5-15.5) % Plt Count (150-450) k/uL MPV Neutrophils % % Lymphocytes % % Monocytes % % Eosinophils % % Basophils % % Neutrophils # (1.3-7.7) k/uL Lymphocytes # (1.0-4.8) k/uL Monocytes # (0-1.0) k/uL Eosinophils # (0-0.7) k/uL Basophils # (0-0.2) k/uL PT (10.0-12.5) sec INR (<1.2) APTT (22.0-30.0) sec D-Dimer (<0.60) mg/L FEU Sodium 135 L (137-145) mmol/L Potassium 5.9 H (3.5-5.1) mmol/L Chloride 96 L (98-107) mmol/L Carbon Dioxide 23 (22-30) mmol/L Anion Gap 16 mmol/L BUN 25 H (7-17) mg/dL Creatinine 0.62 (0.52-1.04) mg/dL Est GFR (CKD-EPI)AfAm >90 (>60 ml/min/1.73 sqM) Est GFR (CKD-EPI)NonAf 88 (>60 ml/min/1.73 sqM) Glucose 220 H (74-99) mg/dL Calcium 10.2 (8.4-10.2) mg/dL Total Bilirubin 1.1 (0.2-1.3) mg/dL AST 40 H (14-36) U/L ALT 30 (4-34) U/L Alkaline Phosphatase 77 (38-126) U/L Total Protein 9.0 H (6.3-8.2) g/dL Albumin 4.8 (3.5-5.0) g/dL Urine Color Urine Appearance (Clear) Urine pH (5.0-8.0) Ur Specific [place] (1.001-1.035) Urine Protein (Negative) Urine Glucose (UA) (Negative) Urine Ketones (Negative) Urine Blood (Negative) Urine Nitrite (Negative) Urine Bilirubin (Negative) Urine Urobilinogen (<2.0) mg/dL Ur Leukocyte Esterase (Negative) Disposition Clinical Impression: Back pain Disposition: HOME SELF-CARE Condition: Stable Instructions (If sedation given, give patient instructions): Acute Low Back Pain (ED) Additional Instructions: Please do follow-up with your primary care physician in the next couple days for recheck. Return for weakness, loss of control of bowel or bladder, fevers, urinary problems, worsening symptoms or other concerns. Is patient prescribed a controlled substance at d/c from ED?: No Referrals: Erich Berger DO [Primary Care Provider] - 1-2 days Time of Disposition: 21:57
[2023-04-18] MEDS ORDERED: HYDROmorphone 1 MG/ML 1 ML SYRINGE IVP STA (20:19)
--- NOTE | 2023-04-18 20:21 | XR ---
EXAMINATION TYPE: XR chest 2V DATE OF EXAM: 04/18/2023 8:03 PM CLINICAL INDICATION:Female, 77 years old with history of abdominal pain; [facility] COMPARISON: Chest x-ray earlier today TECHNIQUE: XR chest 2V. Frontal PA and lateral views of the chest. FINDINGS: Lines/Tubes: None. Heart/mediastinum: Cardiomediastinal silhouette is well defined. Heart size is normal. Atherosclero tic calcifications are seen in the aorta. Pulmonary vascularity: Not increased, Lungs/Pleura: There is no evidence of pleural effusion, focal consolidation, or pneumothorax. Musculoskeletal: No acute osseous abnormality demonstrated in the limits of the exam. Mild degenerat jimbo changes of the spine and shoulders. Other findings: Cholecystectomy clips. IMPRESSION: No acute findings, or significant interval change.
[2023-04-18 20:37] LABS: Basophils % (A) 0 %; Eosinophils % (A) 0 %; HCT 44.3 % (34.0-46.0); HGB 14.7 gm/dL (11.4-16.0); Lymphocytes # (A) 1.6 k/uL (1.0-4.8); Lymphocytes % (A) 14 %; MCH 31.4 pg (25.0-35.0); MCHC 33.1 g/dL (31.0-37.0); MCV 94.8 fL (80.0-100.0); Monocytes # (A) 0.6 k/uL (0-1.0); Monocytes % (A) 5 %; Neutrophils # (A) 8.9 k/uL (1.3-7.7); Neutrophils % (A) 79 %; Platelet Count 259 k/uL (150-450); RBC 4.68 m/uL (3.80-5.40); RDW 13.9 % (11.5-15.5); WBC 11.4 k/uL (3.8-10.6)
[2023-04-18 20:38] LABS: Appearance,Urine Clear (Clear); Color,Urine Yellow; Glucose,Urine (UA) 1+ (Negative); INR 0.9 (<1.2); Partial Thromboplastin Time 22.1 sec (22.0-30.0); Protein,Urine Trace (Negative)
[2023-04-18 20:39] LABS: Bilirubin,Urine Negative (Negative); Blood,Urine Negative (Negative); Ketones,Urine Negative (Negative); Leukocyte Esterase,Urine Negative (Negative); Nitrite,Urine Negative (Negative); Urobilinogen,Urine <2.0 mg/dL (<2.0)
[2023-04-18 20:40] LABS: ALT 30 U/L (4-34); AST 40 U/L (14-36); African American GFR (CKD) >90 (>60 ml/min/1.73 sqM); Albumin 4.8 g/dL (3.5-5.0); Alkaline Phosphatase 77 U/L (38-126); Anion Gap 16 mmol/L; Blood Urea Nitrogen 25 mg/dL (7-17); Calcium 10.2 mg/dL (8.4-10.2); Carbon Dioxide 23 mmol/L (22-30); Chloride 96 mmol/L (98-107); Glucose 220 mg/dL (74-99); Non-African American GFR(CKD) 88 (>60 ml/min/1.73 sqM); Sodium 135 mmol/L (137-145); Total Bilirubin 1.1 mg/dL (0.2-1.3)
--- NOTE | 2023-04-18 20:43 | XR ---
EXAMINATION TYPE: XR KUB DATE OF EXAM: 04/18/2023 8:03 PM CLINICAL INDICATION:Female, 77 years old with history of abdominal pain; H COMPARISON: None. TECHNIQUE: Supine radiographic view/s of the abdomen/pelvis obtained. FINDINGS: Exam is limited by patient body habitus. There is probably mild atelectasis in the lung bas es, not well assessed. The bowel gas pattern is nonspecific, likely nonobstructive without dilated loops of small or large b owel. Fecal material and gas are demonstrated throughout the colon and rectum. No gross evidence of o rganomegaly. No evidence of pneumoperitoneum, on this supine study. No pathologic calcifications can be seen. The osseous structures appear grossly intact. Degenerative changes of the spine and hips. S urgical clips in the right upper quadrant, surgical clips and possible anastomosis in the left upper quadrant. IMPRESSION: Nonspecific, likely nonobstructive bowel gas pattern. If concern persists, consider follow-up radiogr aphs and/or CT.
[2023-04-18 21:02] LABS: Potassium 5.9 mmol/L (3.5-5.1)
[2023-04-18] MEDS ORDERED: SODIUM CHLORIDE 0.9% 1,000 ML IV STA (21:04)
--- NOTE | 2023-04-18 21:51 | CT ---
EXAMINATION TYPE: CT abdomen pelvis wo con CT DLP: 1640.4 mGycm, Automated exposure control for dose reduction was used. DATE OF EXAM: 04/18/2023 8:46 PM COMPARISON: None. CLINICAL INDICATION:Female, 77 years old with history of pain; Bilateral flank pain. TECHNIQUE: Axial CT of the abdomen and pelvis. Sagittal and coronal reformats were created on a [employer] workstation. Contrast used: mL of , (none if empty) Oral contrast used: without Oral Contrast (none if empty) FINDINGS: LOWER CHEST: Mild scarring or subsegmental atelectasis in the lung bases. No pleural or pericardial e ffusion. Heart appears mildly enlarged. Moderate coronary arterial calcifications and aortic calcific ations. There is poor visualization of the interventricular septum, this can be seen with anemia. ABDOMEN Study is limited by the patient's tremendous body habitus. LIVER: Partial eventration along the right hemidiaphragm, with a portion of the liver extending up in to the chest. No focal hepatic lesion is shown. GALLBLADDER AND BILE DUCTS: Status post cholecystectomy. PANCREAS: Unremarkable. SPLEEN: Unremarkable. ADRENAL GLANDS: Unremarkable. KIDNEYS AND URETERS: No evidence of hydronephrosis or renal calculus. The ureters are unremarkable. PELVIS BLADDER: Partially filled with urine, grossly unremarkable. REPRODUCTIVE: Uterus not seen, likely surgically removed. Ovaries are not clearly seen. There is no e vidence of mass in the pelvis. ABDOMEN & PELVIS STOMACH AND BOWEL: Postoperative changes in the stomach, considerations include gastric sleeve. No si gnificant distention of the stomach or small bowel. There is a 2.3 cm duodenal diverticulum. Appendix is not identified with certainty, however there is no inflammatory process seen in the RLQ. Fatty infiltration of the ileocecal valve. Moderate stool throughout the colon without focal inflamma tion seen. There is a portion of transverse colon which loops into an anterior abdominal wall hernia close to midline in the subxiphoid region. Hernia neck is 4.8 cm, hernia sac is 10.7 x 6 cm. PERITONEUM/RETROPERITONEUM: No evidence of pneumoperitoneum or free fluid. VASCULATURE: Moderate atherosclerotic calcification of the abdominal aorta and branches. No evidence of AAA. MUSCULOSKELETAL: Mild/moderate diffuse degenerative changes. Mild to moderate levocurvature of the artemio mbar spine. No clear evidence of an acute bony abnormality. LYMPH NODES: No gross evidence for lymphadenopathy. SOFT TISSUE/ABDOMINAL WALL: Otherwise unremarkable. IMPRESSION: Anterior abdominal wall hernia close to midline in the subxiphoid region, containing fat and a loop o f nonobstructed colon.
== END 2023-04-18 22:40 | disposition home or self-care (01) ==
LOC: EC 17:31
DX: M54.50 Low back pain, unspecified (principal); E11.9 Type 2 diabetes mellitus without complications; E78.5 Hyperlipidemia, unspecified; I10 Essential (primary) hypertension; M19.90 Unspecified osteoarthritis, unspecified site; E07.9 Disorder of thyroid, unspecified; Z87.891 Personal history of nicotine dependence; Z79.890 Hormone replacement therapy; Z79.84 Long term (current) use of oral hypoglycemic drugs; Z79.899 Other long term (current) drug therapy
CPT/HCPCS: 36415; 85379; 80053; 85025; 85610; 85730; 81003; 71046; 74018; 74176; 99284; 96374; 96375; 96361; J1170; J1885

== ENCOUNTER 2023-04-21 17:38 | Emergency (ER) | payer MEDICARE, BC ==
[2023-04-21] MEDS ORDERED: HYDROmorphone 1 MG/ML 1 ML SYRINGE IM STA (18:51)
[2023-04-21] MEDS ORDERED: KETOROLAC 15 MG/ML 1 ML VIAL IM STA (18:51)
--- NOTE | 2023-04-21 18:57 | ED ---
General Adult HPI - General Chief complaint: Back Pain/Injury Stated complaint: neck pain Time Seen by Provider: 04/21/23 18:37 Source: patient, RN notes reviewed Limitations: no limitations - History of Present Illness Initial comments: Patient is a pleasant 77-year-old female presenting to the emergency Department with complaints of neck pain. Patient states she does have chronic neck pain. Recent states her neck pain has been bothering her more the last 2 or 3 days. Patient states it may radiate towards left arm a tiny bit. No arm weakness. Patient has seen her regular doctor for this including recently. Patient has had previous imaging for this. - Related Data Home Medications Medication Instructions Recorded Confirmed Triamterene-Hctz 37.5-25Mg 1 tab PO DAILY 11/16/13 10/27/21 [Maxzide 37.5-25] lisinopriL [Zestril] 2.5 mg PO DAILY 10/30/17 10/27/21 Levothyroxine Sodium [Euthyrox] 125 mcg PO DAILY 08/01/20 10/27/21 metFORMIN HCL [Glucophage] 1,000 mg PO DAILY 08/01/20 10/27/21 Atorvastatin [Lipitor] 40 mg PO HS 08/02/20 10/27/21 Diclofenac Sodium Gel [Voltaren 1% 2 gm TOPICAL QID PRN 10/27/21 10/27/21 Gel] Previous Rx's Medication Instructions Recorded HYDROcodone/APAP 5-325MG [[place] 1 tab PO Q6HR PRN 3 Days #12 tab 10/20/21 5-325] Gabapentin 300 mg PO BID 3 Days #6 cap 10/29/21 Lidocaine 5% Patch [Lidoderm 5% 1 patch TOPICAL DAILY 30 Days #30 10/29/21 Patch] patch Lidocaine 5% Patch [Lidoderm 5% 1 patch TOPICAL DAILY PRN #30 patch 03/07/22 Patch] Lidocaine 1 each TP DAILY PRN 1 Days #10 03/09/22 patch HYDROcodone/APAP 7.5-325MG [[place] 1 tab PO Q6HR PRN 3 Days #12 tab 04/10/22 7.5-325] HYDROcodone/APAP 7.5-325MG [[place] 1 tab PO Q6HR PRN 3 Days #12 tab 01/07/23 7.5-325] Ibuprofen [Motrin] 600 mg PO Q8HR PRN #20 tab 01/07/23 Lidocaine 5% Patch [Lidoderm] 1 patch TOPICAL DAILY #10 patch 01/07/23 Allergies Allergy/AdvReac Type Severity Reaction Status Date / Time No Known Allergies Allergy Verified 04/18/23 05:08 Review of Systems ROS Statement: Those systems with pertinent positive or pertinent negative responses have been documented in the HPI. ROS Other: All systems not noted in ROS Statement are negative. Constitutional: Denies: fever Eyes: Denies: eye pain ENT: Denies: ear pain Respiratory: Denies: cough Cardiovascular: Denies: chest pain Endocrine: Denies: fatigue Musculoskeletal: Reports: as per HPI Past Medical History Past Medical History: Diabetes Mellitus, Fibromyalgia, GERD/Reflux, Hyperlipidemia, Hypertension, Musculoskeletal Disorder, Osteoarthritis (OA), Sleep Apnea/CPAP/BIPAP, Thyroid Disorder Additional Past Medical History / Comment(s): Varicose veins, SPINAL STENOSIS, x kidney stones. History of Any Multi-Drug Resistant Organisms: None Reported Past Surgical History: Adenoidectomy, Appendectomy, Bariatric Surgery, Cholecystectomy, Heart Catheterization, Hysterectomy, Joint Replacement, Tonsillectomy, Tubal Ligation Additional Past Surgical History / Comment(s): Gastric stapling, cervical fusion, bilateral knee replacements, colonoscopy, pain clinic procedures. Past Anesthesia/Blood Transfusion Reactions: No Reported Reaction Past Psychological History: No Psychological Hx Reported Smoking Status: Former smoker Past Alcohol Use History: Occasional Past Drug Use History: None Reported - Past Family History Mother Family Medical History: Cancer Additional Family Medical History / Comment(s): Breast and cervical cancer. Sister(s) Family Medical History: Cancer Additional Family Medical History / Comment(s): Cervical cancer. Father Family Medical History: Diabetes Mellitus General Exam Limitations: no limitations General appearance: alert, in no apparent distress Head exam: Present: atraumatic Eye exam: Present: normal appearance ENT exam: Present: normal oropharynx Neck exam: Present: normal inspection Respiratory exam: Present: normal lung sounds bilaterally Cardiovascular Exam: Present: regular rate, normal rhythm Expanded Peripheral pulses: 2+: Radial (R), Radial (L) GI/Abdominal exam: Present: soft. Absent: tenderness Back exam: Present: normal inspection Neurological exam: Present: alert. Absent: motor sensory deficit Expanded Sensory exam: Upper Extremity Light Touch: Normal Motor strength exam: RUE: 5, LUE: 5 Psychiatric exam: Present: normal affect, normal mood Skin exam: Present: normal color Course Vital Signs 04/21/23 17:54 Temperature 98 F Pulse Rate 100 Respiratory 20 Rate Blood Pressure 164/76 O2 Sat by Pulse 94 L Oximetry Medical Decision Making - Medical Decision Making Was pt. sent in by a medical professional or institution (, THI, TIRE DEBEADER, urgent care, hospital, or long-term...) When possible be specific @ -No Did you speak to anyone other than the patient for history (EMS, parent, family, police, friend...)? What history was obtained from this source @ -No Did you review nursing and triage notes (agree or disagree)? Why? @ -I reviewed and agree with nursing and triage notes Were old charts reviewed (outside hosp., previous admission, EMS record, old EKG, old radiological studies, urgent care reports/EKG's, long-term records)? Report findings @ -Previous ER imaging was reviewed Differential Diagnosis (chest pain, altered mental status, abdominal pain women, abdominal pain men, vaginal bleeding, weakness, fever, dyspnea, syncope, headache, dizziness, GI bleed, back pain, seizure, CVA, palpatations, mental health, musculoskeletal)? @ -Differential Musculoskeletal Muscular strain, contusion, ligament sprain, fracture, arthritis, septic arthritis, bursitis, cellulitis, muscle spasm, nerve compression, DVT, arterial occlusion, herpes zoster, electrolyte abnormality, tumor.... This is not meant to be in all inclusive list EKG interpreted by me (3pts min.). @ -As above X-rays interpreted by me (1pt min.). @ -None done CT interpreted by me (1pt min.). @ -None done U/S interpreted by me (1pt. min.). @ -None done What testing was considered but not performed or refused? (CT, X-rays, U/S, labs)? Why? @ -Considered imaging however patient does have history of similar symptoms previously and history of previous imaging What meds were considered but not given or refused? Why? @ -None Did you discuss the management of the patient with other professionals (professionals i.e. THI [place], TIRE DEBEADER, lab, RT, psych nurse, social media intern, analyst food and beverage, teacher, student liaison officer, dependency case manager)? Give summary @ -No Was smoking cessation discussed for >3mins.? @ -No Was critical care preformed (if so, how long)? @ -No Were there social determinants of health that impacted care today? How? (Homelessness, low income, unemployed, alcoholism, drug addiction, transportation, low edu. Level, literacy, decrease access to med. care, residential, rehab)? @ -No Was there de-escalation of care discussed even if they declined (Discuss DNR or withdrawal of care, Hospice)? DNR status @ -No What co-morbidities impacted this encounter? (DM, HTN, Smoking, COPD, CAD, Cancer, CVA, ARF, Chemo, Hep., AIDS, mental health diagnosis, sleep apnea, morb id obesity)? @ -None Was patient admitted / discharged? Hospital course, mention meds given and route, prescriptions, significant lab abnormalities, going to OR and other pertinent info. @ -Patient will be provided pain medication and discharged. Patient did see her doctor today and was prescribed steroids and anti-inflammatories. Patient is recommended follow-up Undiagnosed new problem with uncertain prognosis? @ -No Drug Therapy requiring intensive monitoring for toxicity (Heparin, Nitro, Insulin, Cardizem)? @ -No Were any procedures done? @ -No Diagnosis/symptom? @ -Neck pain Acute, or Chronic, or Acute on Chronic? @ -Acute on chronic Uncomplicated (without systemic symptoms) or Complicated (systemic symptoms)? @ -default Side effects of treatment? @ -No Exacerbation, Progression, or Severe Exacerbation? @ -No Poses a threat to life or bodily function? How? (Chest pain, [place], [place], pneumonia, PE, COPD, DKA, ARF, appy, cholecystitis, CVA, Diverticulitis, Homicidal, Suicidal, threat to staff... and all critical care pts) @ -No Disposition Clinical Impression: Neck pain Disposition: HOME SELF-CARE Condition: Stable Instructions (If sedation given, give patient instructions): Neck Pain (ED) Additional Instructions: Please do follow-up with your primary care physician in the next day or 2 for recheck. Consider follow-up with back/neck , number provided. Also consider follow-up with her pain doctor. Return for weakness, loss of control of bowel or bladder, loss of sensation, worsening symptoms or other concerns. Is patient prescribed a controlled substance at d/c from ED?: No Referrals: Erich Berger DO [Primary Care Provider] - 1-2 days Evens Bailey DO [Doctor of Osteopathic Medicine] - 1-2 days Sudhakar Ahmadi DO [Doctor of Osteopathic Medicine] - 1-2 days Time of Disposition: 18:57
[2023-04-21 19:28] VITALS: BP 140/68; PULSE 78; RESP 18; TEMP 98.1
== END 2023-04-21 19:21 | disposition home or self-care (01) ==
LOC: EC 17:38
DX: M54.2 Cervicalgia (principal); E11.9 Type 2 diabetes mellitus without complications; E78.5 Hyperlipidemia, unspecified; I10 Essential (primary) hypertension; K21.9 Gastro-esophageal reflux disease without esophagitis; M19.90 Unspecified osteoarthritis, unspecified site; E07.9 Disorder of thyroid, unspecified; Z87.891 Personal history of nicotine dependence; Z79.890 Hormone replacement therapy; Z79.84 Long term (current) use of oral hypoglycemic drugs; Z79.899 Other long term (current) drug therapy
CPT/HCPCS: 99284; 96372 ×2; J1170; J1885

== ENCOUNTER 2023-04-23 04:50 | Emergency (ER) | payer MEDICARE, BC ==
[2023-04-23 05:09] VITALS: BP 137/67; PULSE 90; RESP 18; TEMP 97.7
[2023-04-23] MEDS ORDERED: HYDROcodone/APAP 5-325MG 1 EACH TAB PO STA (05:11)
--- NOTE | 2023-04-23 05:15 | ED ---
General Adult HPI - General Chief complaint: Neck Pain/Injury Stated complaint: Neck and upper back pain Time Seen by Provider: 04/23/23 04:56 Source: patient, RN notes reviewed, old records reviewed Mode of arrival: wheelchair Limitations: no limitations - History of Present Illness Initial comments: 77-year-old female with chronic neck pain. Patient has been prescribed Motrin with only minimal relief. No recent injury. No fever. No chest pain or dyspnea. Patient states this is a chronic issue she's been dealing with for many years. Her primary care is aware and is the one who prescribed ibuprofen. - Related Data Home Medications Medication Instructions Recorded Confirmed Triamterene-Hctz 37.5-25Mg 1 tab PO DAILY 11/16/13 10/27/21 [Maxzide 37.5-25] lisinopriL [Zestril] 2.5 mg PO DAILY 10/30/17 10/27/21 Levothyroxine Sodium [Euthyrox] 125 mcg PO DAILY 08/01/20 10/27/21 metFORMIN HCL [Glucophage] 1,000 mg PO DAILY 08/01/20 10/27/21 Atorvastatin [Lipitor] 40 mg PO HS 08/02/20 10/27/21 Diclofenac Sodium Gel [Voltaren 1% 2 gm TOPICAL QID PRN 10/27/21 10/27/21 Gel] Previous Rx's Medication Instructions Recorded HYDROcodone/APAP 5-325MG [[place] 1 tab PO Q6HR PRN 3 Days #12 tab 10/20/21 5-325] Gabapentin 300 mg PO BID 3 Days #6 cap 10/29/21 Lidocaine 5% Patch [Lidoderm 5% 1 patch TOPICAL DAILY 30 Days #30 10/29/21 Patch] patch Lidocaine 5% Patch [Lidoderm 5% 1 patch TOPICAL DAILY PRN #30 patch 03/07/22 Patch] Lidocaine 1 each TP DAILY PRN 1 Days #10 03/09/22 patch HYDROcodone/APAP 7.5-325MG [[place] 1 tab PO Q6HR PRN 3 Days #12 tab 04/10/22 7.5-325] HYDROcodone/APAP 7.5-325MG [[place] 1 tab PO Q6HR PRN 3 Days #12 tab 01/07/23 7.5-325] Ibuprofen [Motrin] 600 mg PO Q8HR PRN #20 tab 01/07/23 Lidocaine 5% Patch [Lidoderm] 1 patch TOPICAL DAILY #10 patch 01/07/23 HYDROcodone/APAP 5-325MG [[place] 1 tab PO Q6HR PRN #12 tab 04/23/23 5-325] Allergies Allergy/AdvReac Type Severity Reaction Status Date / Time No Known Allergies Allergy Verified 04/23/23 05:03 Review of Systems ROS Statement: Those systems with pertinent positive or pertinent negative responses have been documented in the HPI. ROS Other: All systems not noted in ROS Statement are negative. Past Medical History Past Medical History: Diabetes Mellitus, Fibromyalgia, GERD/Reflux, Hyperlipidemia, Hypertension, Musculoskeletal Disorder, Osteoarthritis (OA), Sleep Apnea/CPAP/BIPAP, Thyroid Disorder Additional Past Medical History / Comment(s): Varicose veins, SPINAL STENOSIS, x kidney stones. History of Any Multi-Drug Resistant Organisms: None Reported Past Surgical History: Adenoidectomy, Appendectomy, Bariatric Surgery, Cholecystectomy, Heart Catheterization, Hysterectomy, Joint Replacement, Tonsillectomy, Tubal Ligation Additional Past Surgical History / Comment(s): Gastric stapling, cervical fusion, bilateral knee replacements, colonoscopy, pain clinic procedures. Past Anesthesia/Blood Transfusion Reactions: No Reported Reaction Past Psychological History: No Psychological Hx Reported Smoking Status: Former smoker Past Alcohol Use History: Occasional Past Drug Use History: None Reported - Past Family History Mother Family Medical History: Cancer Additional Family Medical History / Comment(s): Breast and cervical cancer. Sister(s) Family Medical History: Cancer Additional Family Medical History / Comment(s): Cervical cancer. Father Family Medical History: Diabetes Mellitus General Exam Limitations: no limitations General appearance: alert, in no apparent distress Head exam: Present: atraumatic, normocephalic Eye exam: Present: normal appearance, PERRL Neck exam: Present: normal inspection, tenderness, full ROM. Absent: meningismus Respiratory exam: Present: normal lung sounds bilaterally. Absent: respiratory distress, wheezes Cardiovascular Exam: Present: regular rate, normal rhythm GI/Abdominal exam: Present: soft. Absent: distended, tenderness, guarding Extremities exam: Present: normal inspection Neurological exam: Present: alert, oriented X3 Psychiatric exam: Present: normal affect, normal mood Skin exam: Present: warm, dry Course Vital Signs 04/23/23 05:01 Temperature 97.7 F Pulse Rate 90 Respiratory 18 Rate Blood Pressure 137/67 O2 Sat by Pulse 94 L Oximetry Medical Decision Making - Medical Decision Making Was pt. sent in by a medical professional or institution (, [place], MOLD TOOLER, urgent care, hospital, or fdc...) When possible be specific @ -No Did you speak to anyone other than the patient for history (EMS, parent, family, police, friend...)? What history was obtained from this source @ -No Did you review nursing and triage notes (agree or disagree)? Why? @ -I reviewed and agree with nursing and triage notes Were old charts reviewed (outside hosp., previous admission, EMS record, old EKG, old radiological studies, urgent care reports/EKG's, fdc records)? Report findings @ -No old charts were reviewed Differential Diagnosis (chest pain, altered mental status, abdominal pain women, abdominal pain men, vaginal bleeding, weakness, fever, dyspnea, syncope, headache, dizziness, GI bleed, back pain, seizure, CVA, palpatations, mental health, musculoskeletal)? @ Differential Musculoskeletal Muscular strain, contusion, ligament sprain, fracture, arthritis, septic arthritis, bursitis, cellulitis, muscle spasm, nerve compression, DVT, arterial occlusion, herpes zoster, electrolyte abnormality, tumor.... This is not meant to be in all inclusive list EKG interpreted by me (3pts min.). @ -As above X-rays interpreted by me (1pt min.). @ -None done CT interpreted by me (1pt min.). @ -None done U/S interpreted by me (1pt. min.). @ -None done What testing was considered but not performed or refused? (CT, X-rays, U/S, labs)? Why? @ -None What meds were considered but not given or refused? Why? @ -None Did you discuss the management of the patient with other professionals (professionals i.e. , THI, MOLD TOOLER, lab, RT, psych nurse, sr. social media & mobile manager, family caseworker, teacher, chief lending officer, disease case manager rn)? Give summary @ -No Was smoking cessation discussed for >3mins.? @ -No Was critical care preformed (if so, how long)? @ -No Were there social determinants of health that impacted care today? How? (Homelessness, low income, unemployed, alcoholism, drug addiction, transportation, low edu. Level, literacy, decrease access to med. care, group home, rehab)? @ -No Was there de-escalation of care discussed even if they declined (Discuss DNR or withdrawal of care, Hospice)? DNR status @ -No What co-morbidities impacted this encounter? (DM, HTN, Smoking, COPD, CAD, Cancer, CVA, ARF, Chemo, Hep., AIDS, mental health diagnosis, sleep apnea, morbid obesity)? @ -Chronic neck pain Was patient admitted / discharged? Hospital course, mention meds given and route, prescriptions, significant lab abnormalities, going to OR and other pe rtinent info. @ 77-year-old female with acute on chronic neck pain. No alarming features on history or physical exam. This is not related to an injury. Patient has had multiple ER visits, should follow with orthopedics or pain management. As well as her primary care provider. Undiagnosed new problem with uncertain prognosis? @ -No Drug Therapy requiring intensive monitoring for toxicity (Heparin, Nitro, Insulin, Cardizem)? @ -No Were any procedures done? @ -No Diagnosis/symptom? @ - neck pain Acute, or Chronic, or Acute on Chronic? @ -[chronic Uncomplicated (without systemic symptoms) or Complicated (systemic symptoms)? @ -default Side effects of treatment? @ -No Exacerbation, Progression, or Severe Exacerbation? @ -No Poses a threat to life or bodily function? How? (Chest pain, [place], [place], pneumonia, PE, COPD, DKA, ARF, appy, cholecystitis, CVA, Diverticulitis, Homicidal, Suicidal, threat to staff... and all critical care pts) @ -No Disposition Clinical Impression: Neck pain Disposition: HOME SELF-CARE Condition: Fair Instructions (If sedation given, give patient instructions): Chronic Pain (ED) Prescriptions: HYDROcodone/APAP 5-325MG [[place] 5-325] 1 tab PO Q6HR PRN #12 tab PRN Reason: Pain Is patient prescribed a controlled substance at d/c from ED?: No Referrals: Erich Berger DO [Primary Care Provider] - 1-2 days Sudhakar Ahmadi DO [Doctor of Osteopathic Medicine] - 1-2 days Time of Disposition: 05:14
== END 2023-04-23 05:33 | disposition home or self-care (01) ==
LOC: EC 04:50
DX: M54.2 Cervicalgia (principal); E11.9 Type 2 diabetes mellitus without complications; E78.5 Hyperlipidemia, unspecified; I10 Essential (primary) hypertension; E07.9 Disorder of thyroid, unspecified; G47.30 Sleep apnea, unspecified; Z87.891 Personal history of nicotine dependence; Z79.84 Long term (current) use of oral hypoglycemic drugs; Z79.890 Hormone replacement therapy; Z79.899 Other long term (current) drug therapy
CPT/HCPCS: 99283

== ENCOUNTER 2023-11-12 21:26 | Emergency (ER) | payer MEDICARE ==
[2023-11-12 21:32] VITALS: RESP 20
[2023-11-12] MEDS: KETOROLAC 15 MG/ML 1 ML VIAL IM STA (22:38)
[2023-11-12] MEDS: DEXAMETHASONE SOD PHOSPHATE 10 MG/ML 1 ML VIAL IM STA (22:39)
--- NOTE | 2023-11-12 22:48 | ED ---
Neck Injury/Pain HPI - General Chief Complaint: Neck Pain/Injury Stated Complaint: Neck Pain Time Seen by Provider: 11/12/23 21:46 Source: RN notes reviewed Mode of arrival: ambulatory Limitations: no limitations - History of Present Illness Initial Comments: 78-year-old female presenting with neck pain x 1 day. States she has a history of rheumatoid arthritis in her neck and this feels like a flareup. She recently drove home from [place] a few days ago and feels as though she may have strained her neck in the car. States the pain is mostly on the left side and sometimes radiates into the left shoulder. She has been taking ibuprofen at home with minimal relief. She does have a history of diabetes however states her sugars are well-controlled and she does not take insulin. Denies fever, chills, headache, vision changes. Denies head trauma. - Related Data Home Medications Medication Instructions Recorded Confirmed Triamterene-Hctz 37.5-25Mg 1 tab PO DAILY 11/16/13 10/27/21 [Maxzide 37.5-25] lisinopriL [Zestril] 2.5 mg PO DAILY 10/30/17 10/27/21 Levothyroxine Sodium [Euthyrox] 125 mcg PO DAILY 08/01/20 10/27/21 metFORMIN HCL [Glucophage] 1,000 mg PO DAILY 08/01/20 10/27/21 Atorvastatin [Lipitor] 40 mg PO HS 08/02/20 10/27/21 Diclofenac Sodium Gel [Voltaren 1% 2 gm TOPICAL QID PRN 10/27/21 10/27/21 Gel] Previous Rx's Medication Instructions Recorded HYDROcodone/APAP 5-325MG [[place] 1 tab PO Q6HR PRN 3 Days #12 tab 10/20/21 5-325] Gabapentin 300 mg PO BID 3 Days #6 cap 10/29/21 Lidocaine 5% Patch [Lidoderm 5% 1 patch TOPICAL DAILY 30 Days #30 10/29/21 Patch] patch Lidocaine 5% Patch [Lidoderm 5% 1 patch TOPICAL DAILY PRN #30 patch 03/07/22 Patch] Lidocaine 1 each TP DAILY PRN 1 Days #10 03/09/22 patch HYDROcodone/APAP 7.5-325MG [[place] 1 tab PO Q6HR PRN 3 Days #12 tab 04/10/22 7.5-325] HYDROcodone/APAP 7.5-325MG [[place] 1 tab PO Q6HR PRN 3 Days #12 tab 01/07/23 7.5-325] Ibuprofen [Motrin] 600 mg PO Q8HR PRN #20 tab 01/07/23 Lidocaine 5% Patch [Lidoderm] 1 patch TOPICAL DAILY #10 patch 01/07/23 HYDROcodone/APAP 5-325MG [[place] 1 tab PO Q6HR PRN #12 tab 04/23/23 5-325] Allergies Allergy/AdvReac Type Severity Reaction Status Date / Time No Known Allergies Allergy Verified 11/12/23 21:32 Review of Systems ROS Statement: Those systems with pertinent positive or pertinent negative responses have been documented in the HPI. ROS Other: All systems not noted in ROS Statement are negative. Past Medical History Past Medical History: Diabetes Mellitus, Fibromyalgia, GERD/Reflux, Hyperlipidemia, Hypertension, Musculoskeletal Disorder, Osteoarthritis (OA), Sleep Apnea/CPAP/BIPAP, Thyroid Disorder Additional Past Medical History / Comment(s): Varicose veins, SPINAL STENOSIS, x kidney stones. History of Any Multi-Drug Resistant Organisms: None Reported Past Surgical History: Adenoidectomy, Appendectomy, Bariatric Surgery, Cholecystectomy, Heart Catheterization, Hysterectomy, Joint Replacement, Tonsillectomy, Tubal Ligation Additional Past Surgical History / Comment(s): Gastric stapling, cervical fusion, bilateral knee replacements, colonoscopy, pain clinic procedures. Past Anesthesia/Blood Transfusion Reactions: No Reported Reaction Past Psychological History: No Psychological Hx Reported Smoking Status: Former smoker Past Alcohol Use History: Occasional Past Drug Use History: None Reported - Past Family History Mother Family Medical History: Cancer Additional Family Medical History / Comment(s): Breast and cervical cancer. Sister(s) Family Medical History: Cancer Additional Family Medical History / Comment(s): Cervical cancer. Father Family Medical History: Diabetes Mellitus General Exam Limitations: no limitations General appearance: alert, in no apparent distress Head exam: Present: atraumatic, normocephalic, normal inspection Eye exam: Present: normal appearance, PERRL, EOMI. Absent: scleral icterus, conjunctival injection, periorbital swelling ENT exam: Present: normal exam, mucous membranes moist Neck exam: Present: normal inspection, tenderness (Mild left-sided paraspinal tenderness). Absent: meningismus, lymphadenopathy Respiratory exam: Present: normal lung sounds bilaterally. Absent: respiratory distress, wheezes, rales, rhonchi, stridor Cardiovascular Exam: Present: regular rate, normal rhythm, normal heart sounds. Absent: systolic murmur, diastolic murmur, rubs, gallop, clicks GI/Abdominal exam: Present: soft, normal bowel sounds. Absent: distended, tenderness, guarding, rebound, rigid Extremities exam: Present: normal inspection, full ROM, normal capillary refill. Absent: tenderness, pedal edema, joint swelling, calf tenderness Back exam: Present: normal inspection Neurological exam: Present: alert, oriented X3, CN II-XII intact Psychiatric exam: Present: normal affect, normal mood Skin exam: Present: warm, dry, intact, normal color. Absent: rash Course Vital Signs 11/12/23 11/13/23 21:28 00:00 Temperature 97.9 F Pulse Rate 90 86 Respiratory 20 20 Rate Blood Pressure 156/79 145/79 O2 Sat by Pulse 96 96 Oximetry Medical Decision Making - Medical Decision Making Was pt. sent in by a medical professional or institution (Dr. PA, JACK SETTER, urgent care, hospital, or fdc...) When possible be specific @ -No Did you speak to anyone other than the patient for history (EMS, parent, family, police, friend...)? What history was obtained from this source @ -No Did you review nursing and triage notes (agree or disagree)? Why? @ -I reviewed and agree with nursing and triage notes Were old charts reviewed (outside hosp., previous admission, EMS record, old EKG, old radiological studies, urgent care reports/EKG's, fdc records)? Report findings @ -Reviewed previous ER visits for neck pain Differential Diagnosis (chest pain, altered mental status, abdominal pain women, abdominal pain men, vaginal bleeding, weakness, fever, dyspnea, syncope, headache, dizziness, GI bleed, back pain, seizure, CVA, palpatations, mental health, musculoskeletal)? @ -Differential Musculoskeletal Muscular strain, contusion, ligament sprain, fracture, arthritis, septic arthritis, bursitis, cellulitis, muscle spasm, nerve compression, DVT, arterial occlusion, herpes zoster, electrolyte abnormality, tumor.... This is not meant to be in all inclusive list EKG interpreted by me (3pts min.). @ -None X-rays interpreted by me (1pt min.). @ -X-ray of cervical spine reveals no acute process interpreted by me, final read pending at time of discharge CT interpreted by me (1pt min.). @ -None done U/S interpreted by me (1pt. min.). @ -None done What testing was considered but not performed or refused? (CT, X-rays, U/S, labs)? Why? @ -None What meds were considered but not given or refused? Why? @ -None Did you discuss the management of the patient with other professionals (professionals i.e. , PA, JACK SETTER, lab, RT, psych nurse, social service technician, ccna, teacher, tactical deception plans officer, casework supervisor)? Give summary @ -No Was smoking cessation discussed for >3mins.? @ -No Was critical care preformed (if so, how long)? @ -No Were there social determinants of health that impacted care today? How? (Homelessness, low income, unemployed, alcoholism, drug addiction, transportation, low edu. Level, literacy, decrease access to med. care, care home, rehab)? @ -No Was there de-escalation of care discussed even if they declined (Discuss DNR or withdrawal of care, Hospice)? DNR status @ -No What co-morbidities impacted this encounter? (DM, HTN, Smoking, COPD, CAD, Cancer, CVA, ARF, Chemo, Hep., AIDS, mental health diagnosis, sleep apnea, morbid obesity)? @ -None Was patient admitted / discharged? Hospital course, mention meds given and route, prescriptions, significant lab abnormalities, going to OR and other pertinent info. @ -Patient was discharged. Patient was seen and evaluated for neck pain x 1 day. Patient states she has chronic neck pain and feels this is a flareup. No red flag symptoms. Patient is neurovascularly intact. Patient is given IM Toradol and IM Decadron for pain. X-ray interpreted by me reveals no acute osseous abnormality, final read pending upon discharge. Upon reevaluation, patient states she is still in 8 out of 10 pain. Patient was given IM Dilaudid at this time. Patient states pain has improved and she would like to be discharged at this time before final read returns. I believe this is reasonable at this time as pain is chronic and there was no trauma. Strict return/alarm s ymptoms discussed with patient in detail and she shows understanding and agrees with plan. Advise close follow-up with PCP. Patient sent home with pain medication. Case discussed with my attending Dr. Portillo and he will await final read and call patient if there are any concerning abnormalities. Patient discharged in stable condition. Undiagnosed new problem with uncertain prognosis? @ -No Drug Therapy requiring intensive monitoring for toxicity (Heparin, Nitro, Insulin, Cardizem)? @ -No Were any procedures done? @ -No Diagnosis/symptom? @ -Neck strain Acute, or Chronic, or Acute on Chronic? @ -Acute on chronic Uncomplicated (without systemic symptoms) or Complicated (systemic symptoms)? @ -Uncomplicated Side effects of treatment? @ -No Exacerbation, Progression, or Severe Exacerbation? @ -No Poses a threat to life or bodily function? How? (Chest pain, [place], [place], pneumonia, PE, COPD, DKA, ARF, appy, cholecystitis, CVA, Diverticulitis, Homicidal, Suicidal, threat to staff... and all critical care pts) @ -No Disposition Clinical Impression: Acute strain of neck muscle Disposition: HOME SELF-CARE Condition: Stable Instructions (If sedation given, give patient instructions): Cervical Strain (ED) Additional Instructions: Please return to the Emergency Department if symptoms worsen or any other concerns. Is patient prescribed a controlled substance at d/c from ED?: Yes When asked, does pt state using other controlled substances?: No If prescribed controlled substance>3 days was MAPS reviewed?: Prescribed <3 Days If opioid is for acute pain is fill amount 7 days or less?: Yes Referrals: Erich Berger DO [Primary Care Provider] - 1-2 days Time of Disposition: 01:25
[2023-11-13] MEDS: HYDROmorphone 1 MG/ML 1 ML SYRINGE IM STA (00:36)
[2023-11-13] MEDS: ACET/COD 300 MG/30 MG STARTER PACK 6 TAB BTL PO STA (01:50)
--- NOTE | 2023-11-13 01:53 | XR ---
EXAM: XR Cervical Spine, 2 or 3 Views CLINICAL HISTORY: ITS.REASON XR Reason: neck pain TECHNIQUE: Frontal and lateral views of the cervical spine. COMPARISON: No relevant prior studies available. FINDINGS: Vertebrae: No acute fracture. Reversal normal cervical lordosis. Auto fused to C5-6 vertebral bodies. Disc spaces: Severe Degenerative changes Soft tissues: Unremarkable. IMPRESSION: No acute osseous findings. Degenerative changes.
[2023-11-13 01:58] VITALS: BP 144/78; PULSE 82; TEMP 97.8
== END 2023-11-13 01:58 | disposition home or self-care (01) ==
LOC: EC 21:26
DX: S16.1XXA Strain of muscle, fascia and tendon at neck level, initial encounter (principal); Z87.891 Personal history of nicotine dependence; Z90.49 Acquired absence of other specified parts of digestive tract; X58.XXXA Exposure to other specified factors, initial encounter
CPT/HCPCS: 72050; 99283; 96372 ×3; J1100; J1170; J1885

== ENCOUNTER 2023-11-24 12:56 | Emergency (ER) | payer MEDICARE, BC ==
[2023-11-24 13:16] VITALS: TEMP 97.8
--- NOTE | 2023-11-24 13:22 | ED ---
Back Pain HPI - General Source: patient, RN notes reviewed, old records reviewed Limitations: no limitations <Javier Gonzalez - Last Filed: 11/24/23 13:22> - General Source: patient, RN notes reviewed Limitations: no limitations <Senthil Liu - Last Filed: 11/24/23 16:11> - General Chief Complaint: Back Pain/Injury Stated Complaint: Possible kidney stones - History of Present Illness Initial Comments: QN 78 female to ER which she believes is kidney stone pain but severe back pain with increasing back pain without urinary symptoms no issues with bowels. No fevers no nausea no vomiting no other complaints no recent trauma (Javier Gonzalez) Patient is a 78-year-old female presenting to the emergency department with left posterior flank pain. Onset of symptoms was yesterday. Discomfort has been steady. Symptoms are similar to previous kidney stones. Discomfort is sharp and persistent. No nausea or vomiting. No constipation or diarrhea. No fever. (Senthil Liu) - Related Data Home Medications Medication Instructions Recorded Confirmed Triamterene-Hctz 37.5-25Mg 1 tab PO DAILY 11/16/13 11/24/23 [Maxzide 37.5-25] lisinopriL [Zestril] 2.5 mg PO DAILY 10/30/17 11/24/23 Levothyroxine Sodium [Euthyrox] 125 mcg PO DAILY 08/01/20 11/24/23 metFORMIN HCL [Glucophage] 1,000 mg PO DAILY 08/01/20 11/24/23 Allergies Allergy/AdvReac Type Severity Reaction Status Date / Time No Known Allergies Allergy Verified 11/24/23 15:29 Review of Systems ROS Other: All systems not noted in ROS Statement are negative. <Javier Gonzalez - Last Filed: 11/24/23 13:22> ROS Other: All systems not noted in ROS Statement are negative. Constitutional: Denies: fever Eyes: Denies: eye pain ENT: Denies: ear pain Respiratory: Denies: cough Cardiovascular: Denies: chest pain Gastrointestinal: Denies: abdominal pain Musculoskeletal: Reports: as per HPI Skin: Denies: rash Neurological: Denies: weakness <Senthil Liu - Last Filed: 11/24/23 16:11> ROS Statement: Those systems with pertinent positive or pertinent negative responses have been documented in the HPI. Past Medical History Past Medical History: Diabetes Mellitus, Fibromyalgia, GERD/Reflux, Hyp erlipidemia, Hypertension, Musculoskeletal Disorder, Osteoarthritis (OA), Sleep Apnea/CPAP/BIPAP, Thyroid Disorder Additional Past Medical History / Comment(s): Varicose veins, SPINAL STENOSIS, x kidney stones. History of Any Multi-Drug Resistant Organisms: None Reported Past Surgical History: Adenoidectomy, Appendectomy, Bariatric Surgery, Cholecystectomy, Heart Catheterization, Hysterectomy, Joint Replacement, Tonsillectomy, Tubal Ligation Additional Past Surgical History / Comment(s): Gastric stapling, cervical fusion, bilateral knee replacements, colonoscopy, pain clinic procedures. Past Anesthesia/Blood Transfusion Reactions: No Reported Reaction Past Psychological History: No Psychological Hx Reported Smoking Status: Former smoker Past Alcohol Use History: Occasional Past Drug Use History: None Reported - Past Family History Mother Family Medical History: Cancer Additional Family Medical History / Comment(s): Breast and cervical cancer. Sister(s) Family Medical History: Cancer Additional Family Medical History / Comment(s): Cervical cancer. Father Family Medical History: Diabetes Mellitus <Javier Gonzalez - Last Filed: 11/24/23 13:22> General Exam Limitations: no limitations General appearance: alert, in no apparent distress, obese Head exam: Present: atraumatic, normocephalic, normal inspection Eye exam: Present: normal appearance, PERRL, EOMI. Absent: scleral icterus, conjunctival injection, periorbital swelling ENT exam: Present: normal exam, mucous membranes moist Neck exam: Present: normal inspection. Absent: tenderness, meningismus, lymphadenopathy Respiratory exam: Present: normal lung sounds bilaterally. Absent: respiratory distress, wheezes, rales, rhonchi, stridor Cardiovascular Exam: Present: regular rate, normal rhythm, normal heart sounds. Absent: systolic murmur, diastolic murmur, rubs, gallop, clicks GI/Abdominal exam: Present: soft, normal bowel sounds. Absent: distended, tend erness, guarding, rebound, rigid Extremities exam: Present: normal inspection, full ROM, normal capillary refill. Absent: tenderness, pedal edema, joint swelling, calf tenderness Back exam: Present: normal inspection Neurological exam: Present: alert, oriented X3, CN II-XII intact Psychiatric exam: Present: normal affect, normal mood Skin exam: Present: warm, dry, intact, normal color. Absent: rash <Javier Gonzalez - Last Filed: 11/24/23 13:22> Limitations: no limitations General appearance: alert Head exam: Present: normocephalic Eye exam: Present: normal appearance Neck exam: Present: normal inspection Respiratory exam: Present: normal lung sounds bilaterally Cardiovascular Exam: Present: regular rate, normal rhythm GI/Abdominal exam: Present: soft. Absent: tenderness Extremities exam: Present: normal inspection Back exam: Present: other (Minimal tenderness below left CVA) Neurological exam: Present: alert Psychiatric exam: Present: normal affect, normal mood Skin exam: Present: normal color <Senthil Liu - Last Filed: 11/24/23 16:11> Course <Javier Gonzalez - Last Filed: 11/24/23 13:22> Vital Signs 11/24/23 11/24/23 13:14 15:53 Temperature 97.8 F Pulse Rate 110 H 89 Respiratory 18 16 Rate Blood Pressure 174/114 145/89 O2 Sat by Pulse 96 94 L Oximetry - Reevaluation(s) Reevaluation #1: 11/24/23 13:22 QN completed by myself Dr. Gonzalez (Javier Gonzalez) Medical Decision Making - Lab Data Result diagrams: 11/24/23 13:29 11/24/23 14:38 <Senthil Liu - Last Filed: 11/24/23 16:11> - Medical Decision Making Was pt. sent in by a medical professional or institution (, PA, LIGHTOUT EXAMINER, urgent care, hospital, or senior living...) When possible be specific @ -No Did you speak to anyone other than the patient for history (EMS, parent, family, police, friend...)? What history was obtained from this source @ -No Did you review nursing and triage notes (agree or disagree)? Why? @ -I reviewed and agree with nursing and triage notes Were old charts reviewed (outside hosp., previous admission, EMS record, old EKG, old radiological studies, urgent care reports/EKG's, senior living records)? Report findings @ -No old charts were reviewed Differential Diagnosis (chest pain, altered mental status, abdominal pain women, abdominal pain men, vaginal bleeding, weakness, fever, dyspnea, syncope, headache, dizziness, GI bleed, back pain, seizure, CVA, palpatations, mental health, musculoskeletal)? @ -Differential Back Pain: Strain, zoster, cauda equina syndrome, epidural abscess, vertebral osteomyelitis, discitis, fracture, subluxation, disc herniation, DJD, spinal stenosis, dissection, AAA, pancreatitis, peptic ulcer disease, pyelonephritis, kidney stone, this is not meant to be an all-inclusive list. EKG interpreted by me (3pts min.). @ -As above X-rays interpreted by me (1pt min.). @ -None done CT interpreted by me (1pt min.). @ -CT abdomen pelvis without acute abnormality U/S interpreted by me (1pt. min.). @ -None done What testing was considered but not performed or refused? (CT, X-rays, U/S, labs)? Why? @ -None What meds were considered but not given or refused? Why? @ -None Did you discuss the management of the patient with other professionals (professionals i.e. , PA, LIGHTOUT EXAMINER, lab, RT, psych nurse, executive secretary social welfare, metallographic technician, teacher, facilities officer, classification case manager)? Give summary @ -No Was smoking cessation discussed for >3mins.? @ -No Was critical care preformed (if so, how long)? @ -No Were there social determinants of health that impacted care today? How? (Homelessness, low income, unemployed, alcoholism, drug addiction, transportation, low edu. Level, literacy, decrease access to med. care, prison, rehab)? @ -No Was there de-escalation of care discussed even if they declined (Discuss DNR or withdrawal of care, Hospice)? DNR status @ -No What co-morbidities impacted this encounter? (DM, HTN, Smoking, COPD, CAD, Cancer, CVA, ARF, Chemo, Hep., AIDS, mental health diagnosis, sleep apnea, morbid obesity)? @ -None Was patient admitted / discharged? Hospital course, mention meds given and route, prescriptions, significant lab abnormalities, going to OR and other per tinent info. @ -Patient reevaluated and symptom-free. Patient is updated on results and need for follow-up. Patient is specifically updated on need for follow-up with lipase Undiagnosed new problem with uncertain prognosis? @ -No Drug Therapy requiring intensive monitoring for toxicity (Heparin, Nitro, Insulin, Cardizem)? @ -No Were any procedures done? @ -No Diagnosis/symptom? @ -Back pain Acute, or Chronic, or Acute on Chronic? @ -Acute Uncomplicated (without systemic symptoms) or Complicated (systemic symptoms)? @ -Default Side effects of treatment? @ -No Exacerbation, Progression, or Severe Exacerbation? @ -No Poses a threat to life or bodily function? How? (Chest pain, [place], [place], pneumonia, PE, COPD, DKA, ARF, appy, cholecystitis, CVA, Diverticulitis, Homicidal, Suicidal, threat to staff... and all critical care pts) @ -No (Senthil Liu) - Lab Data Lab Results 11/24/23 11/24/23 11/24/23 Range/Units 13:29 13:29 14:38 WBC 10.5 (3.8-10.6) k/uL RBC 5.05 (3.80-5.40) m/uL Hgb 15.8 (11.4-16.0) gm/dL Hct 49.2 H (34.0-46.0) % MCV 97.4 (80.0-100.0) fL MCH 31.3 (25.0-35.0) pg MCHC 32.1 (31.0-37.0) g/dL RDW 13.9 (11.5-15.5) % Plt Count 216 (150-450) k/uL MPV 8.3 Neutrophils % 80 % Lymphocytes % 13 % Monocytes % 5 % Eosinophils % 1 % Basophils % 0 % Neutrophils # 8.4 H (1.3-7.7) k/uL Lymphocytes # 1.4 (1.0-4.8) k/uL Monocytes # 0.5 (0-1.0) k/uL Eosinophils # 0.1 (0-0.7) k/uL Basophils # 0.0 (0-0.2) k/uL Sodium 136 L (137-145) mmol/L Potassium 4.6 (3.5-5.1) mmol/L Chloride 101 (98-107) mmol/L Carbon Dioxide 25 (22-30) mmol/L Anion Gap 10 mmol/L BUN 28 H (7-17) mg/dL Creatinine 0.70 (0.52-1.04) mg/dL Est GFR (CKD-EPI)AfAm >90 (>60 ml/min/1.73 sqM) Est GFR (CKD-EPI)NonAf 84 (>60 ml/min/1.73 sqM) Glucose 163 H (74-99) mg/dL Calcium 10.0 (8.4-10.2) mg/dL Total Bilirubin 0.9 (0.2-1.3) mg/dL AST 26 (14-36) U/L ALT 23 (4-34) U/L Alkaline Phosphatase 85 (38-126) U/L Total Protein 7.7 (6.3-8.2) g/dL Albumin 4.2 (3.5-5.0) g/dL Amylase 105 (30-110) U/L Lipase 423 H (23-300) U/L Urine Color Yellow Urine Appearance Clear (Clear) Urine pH 5.5 (5.0-8.0) Ur Specific [place] 1.020 (1.001-1.035) Urine Protein 1+ H (Negative) Urine Glucose (UA) Negative (Negative) Urine Ketones Negative (Negative) Urine Blood Negative (Negative) Urine Nitrite Negative (Negative) Urine Bilirubin Negative (Negative) Urine Urobilinogen <2.0 (<2.0) mg/dL Ur Leukocyte Esterase Negative (Negative) Urine RBC 1 (0-5) /hpf Urine WBC 2 (0-5) /hpf Ur Squamous Epith Cells 4 (0-4) /hpf Hyaline Casts 4 H (0-2) /lpf Urine Mucus Rare H (None) /hpf Disposition <Javier Gonzalez - Last Filed: 11/24/23 13:22> Is patient prescribed a controlled substance at d/c from ED?: No Time of Disposition: 16:11 <Senthil Liu - Last Filed: 11/24/23 16:11> Clinical Impression: Back pain Disposition: HOME SELF-CARE Condition: Stable Instructions (If sedation given, give patient instructions): Acute Low Back Pain (ED) Additional Instructions: Please do follow-up with your primary care physician in the next day or 2 for recheck. Have primary care physician recheck lipase level. Return for increased pain, abdominal pain, fever or vomiting, worsening or changing symptoms or other concerns Referrals: Erich Berger DO [Primary Care Provider] - 1-2 days
[2023-11-24 13:57] LABS: Appearance,Urine Clear (Clear); Bilirubin,Urine Negative (Negative); Blood,Urine Negative (Negative); Color,Urine Yellow; Glucose,Urine (UA) Negative (Negative); Hyaline Casts,Urine 4 /lpf (0-2); Ketones,Urine Negative (Negative); Leukocyte Esterase,Urine Negative (Negative); Mucus,Urine Rare /hpf; Nitrite,Urine Negative (Negative); PH, Urine 5.5 (5.0-8.0); Protein,Urine 1+ (Negative); RBC,Urine 1 /hpf (0-5); Squamous Epithelial Cell,Urine 4 /hpf (0-4); Urobilinogen,Urine <2.0 mg/dL (<2.0); WBC,Urine 2 /hpf (0-5)
[2023-11-24] MEDS: SODIUM CHLORIDE 0.9% 500 ML 500 ML IV STA (14:25)
[2023-11-24] MEDS: HYDROmorphone 1 MG/ML 1 ML SYRINGE IVP STA (14:25)
[2023-11-24 14:31] LABS: Basophils % (A) 0 %; Eosinophils # (A) 0.1 k/uL (0-0.7); Eosinophils % (A) 1 %; HCT 49.2 % (34.0-46.0); HGB 15.8 gm/dL (11.4-16.0); Lymphocytes # (A) 1.4 k/uL (1.0-4.8); Lymphocytes % (A) 13 %; MCH 31.3 pg (25.0-35.0); MCHC 32.1 g/dL (31.0-37.0); MCV 97.4 fL (80.0-100.0); Mean Platelet Volume 8.3; Monocytes # (A) 0.5 k/uL (0-1.0); Monocytes % (A) 5 %; Neutrophils # (A) 8.4 k/uL (1.3-7.7); Neutrophils % (A) 80 %; Platelet Count 216 k/uL (150-450); RBC 5.05 m/uL (3.80-5.40); RDW 13.9 % (11.5-15.5); WBC 10.5 k/uL (3.8-10.6)
[2023-11-24 15:09] LABS: ALT 23 U/L (4-34); AST 26 U/L (14-36); African American GFR (CKD) >90 (>60 ml/min/1.73 sqM); Albumin 4.2 g/dL (3.5-5.0); Alkaline Phosphatase 85 U/L (38-126); Amylase 105 U/L (30-110); Anion Gap 10 mmol/L; Blood Urea Nitrogen 28 mg/dL (7-17); Carbon Dioxide 25 mmol/L (22-30); Chloride 101 mmol/L (98-107); Glucose 163 mg/dL (74-99); Lipase 423 U/L (23-300); Non-African American GFR(CKD) 84 (>60 ml/min/1.73 sqM); Potassium 4.6 mmol/L (3.5-5.1); Sodium 136 mmol/L (137-145); Total Bilirubin 0.9 mg/dL (0.2-1.3); Total Protein 7.7 g/dL (6.3-8.2)
--- NOTE | 2023-11-24 15:25 | CT ---
EXAMINATION TYPE: CT abdomen pelvis wo con DATE OF EXAM: 11/24/2023 COMPARISON: 04/18/2023 HISTORY: left flank pain CT DLP: 1692.5 mGycm Examination of the solid and hollow viscera is limited given the lack of contrast. FINDINGS: LUNG BASES: No evidence for nodule. No evidence for infiltrate. LIVER/GB: Cholecystectomy clips are in place. No space-occupying hepatic lesion. PANCREAS: No pancreatic mass identified. No inflammatory process seen. SPLEEN: No evidence for splenomegaly. No intrasplenic lesions seen. ADRENALS: No adrenal nodules identified. No evidence for thickening. KIDNEYS: No evidence for renal mass. No nephrolithiasis. No hydronephrosis. BOWEL: Postoperative changes about the stomach. Appendix has a normal appearance. No evidence of maurice l obstruction. No inflammatory process. Lymph nodes: No evidence for adenopathy greater than 1 cm. Abdominal aorta: Atheromatous changes seen. No evidence for aneurysm. Genital organs: Hysterectomy changes seen. No adnexal masses evident. Other: Stable umbilical hernia which contains a segment of transverse colon hernia opening measures 4 .7 cm versus 4.7 cm previously. No evidence for strangulation changes at this time. IMPRESSION: 1. No acute intra-abdominal process seen at this time to account for the patient's symptoms.
[2023-11-24 15:54] VITALS: BP 145/89; PULSE 89; RESP 16
== END 2023-11-24 16:19 | disposition home or self-care (01) ==
LOC: EC 12:56
DX: M54.9 Dorsalgia, unspecified (principal); Z87.891 Personal history of nicotine dependence
CPT/HCPCS: 36415; 80053; 82150; 83690; 85025; 81001; 74176; 99284; 96374; 96361; J1170

== ENCOUNTER 2024-01-10 04:25 | Emergency (ER) | payer BC, MEDICARE ==
[2024-01-10 04:36] VITALS: RESP 18; TEMP 98
[2024-01-10] MEDS: KETOROLAC 15 MG/ML 1 ML VIAL IM STA (05:01)
[2024-01-10] MEDS: HYDROmorphone 1 MG/ML 1 ML SYRINGE IM STA (05:01)
--- NOTE | 2024-01-10 06:00 | ED ---
Neck Injury/Pain HPI - General Chief Complaint: Neck Pain/Injury Stated Complaint: neck pain Time Seen by Provider: 01/10/24 04:52 Mode of arrival: wheelchair Limitations: no limitations - History of Present Illness Initial Comments: This patient is 78-year-old woman who arrives to have evaluation of neck pain and left trapezius/shoulder pain. She states that had started after she had been asleep. She did not have any injury. She had gone to see her primary physician and they had prescribed Medrol Dosepak and a muscle relaxant. She had taken the medication and states that the pain has only minimally improved. The patient denies weakness or numbness of the arm. She denies neck stiffness but states that the pain is worse when she does try to move her head. No fever or chills. No rash no other symptoms. MD Complaint: neck pain Onset/Timin -: days(s) Place: home Radiation: left lateral, left shoulder Severity: mild Quality: dull Consistency: constant Improves With: none Worsens With: none Associated Symptoms: none Treatments Prior to Arrival: other - Related Data Home Medications Medication Instructions Recorded Confirmed Triamterene-Hctz 37.5-25Mg 1 tab PO DAILY 11/16/13 11/24/23 [Maxzide 37.5-25] lisinopriL [Zestril] 2.5 mg PO DAILY 10/30/17 11/24/23 Levothyroxine Sodium [Euthyrox] 125 mcg PO DAILY 08/01/20 11/24/23 metFORMIN HCL [Glucophage] 1,000 mg PO DAILY 08/01/20 11/24/23 Allergies Allergy/AdvReac Type Severity Reaction Status Date / Time No Known Allergies Allergy Verified 01/11/24 15:46 Review of Systems ROS Statement: Those systems with pertinent positive or pertinent negative responses have been documented in the HPI. ROS Other: All systems not noted in ROS Statement are negative. Constitutional: Denies: fever, chills, weakness Respiratory: Denies: cough, dyspnea Cardiovascular: Denies: chest pain Gastrointestinal: Denies: abdominal pain Musculoskeletal: Reports: myalgia (Neck and shoulder). Denies: back pain Skin: Denies: rash Neurological: Denies: headache, weakness, numbness Past Medical History Past Medical History: Diabetes Mellitus, Fibromyalgia, GERD/Reflux, Hyperlipidemia, Hypertension, Musculoskeletal Disorder, Osteoarthritis (OA), Sleep Apnea/CPAP/BIPAP, Thyroid Disorder Additional Past Medical History / Comment(s): Varicose veins, SPINAL STENOSIS, x kidney stones. History of Any Multi-Drug Resistant Organisms: None Reported Past Surgical History: Adenoidectomy, Appendectomy, Bariatric Surgery, Cholecystectomy, Heart Catheterization, Hysterectomy, Joint Replacement, Tonsillectomy, Tubal Ligation Additional Past Surgical History / Comment(s): Gastric stapling, cervical fusion, bilateral knee replacements, colonoscopy, pain clinic procedures. Past Anesthesia/Blood Transfusion Reactions: No Reported Reaction Past Psychological History: No Psychological Hx Reported Smoking Status: Former smoker Past Alcohol Use History: Occasional Past Drug Use History: None Reported - Past Family History Mother Family Medical History: Cancer Additional Family Medical History / Comment(s): Breast and cervical cancer. Sister(s) Family Medical History: Cancer Additional Family Medical History / Comment(s): Cervical cancer. Father Family Medical History: Diabetes Mellitus General Exam Limitations: no limitations General appearance: alert, in no apparent distress Neck exam: Present: tenderness, full ROM, other (There is left paraspinal spasm and tenderness. No bony tenderness). Absent: meningismus, lymphadenopathy Respiratory exam: Present: normal lung sounds bilaterally. Absent: respiratory distress, wheezes, rales, rhonchi, stridor, chest wall tenderness, accessory muscle use Cardiovascular Exam: Present: regular rate, normal rhythm, normal heart sounds, other (Strong and symmetric upper extremity pulses). Absent: systolic murmur, diastolic murmur, rubs, gallop Extremities exam: Present: normal inspection, full ROM, normal capillary refill. Absent: tenderness Back exam: Present: paraspinal tenderness (Base of cervical spine into trapezius). Absent: vertebral tenderness Neurological exam: Present: alert. Absent: motor sensory deficit Skin exam: Present: warm, dry, intact, normal color. Absent: rash Course Vital Signs 01/10/24 01/10/24 04:32 06:05 Temperature 98 F Pulse Rate 99 97 Respiratory 18 18 Rate Blood Pressure 173/83 120/77 O2 Sat by Pulse 95 95 Oximetry Medical Decision Making - Medical Decision Making The patient had good relief of symptoms with medication and would like to go home. Discussed appropriate further care and follow-up as well as return parameters Was pt. sent in by a medical professional or institution (Dr., PA, MOTOR INSTALLER, urgent care, hospital, or prison...) When possible be specific @ -[No] Did you speak to anyone other than the patient for history (EMS, parent, family, police, friend...)? What history was obtained from this source @ -[No] Did you review nursing and triage notes (agree or disagree)? Why? @ -[I reviewed and agree with nursing and triage notes] Were old charts reviewed (outside hosp., previous admission, EMS record, old EKG, old radiological studies, urgent care reports/EKG's, prison records)? Report findings @ -[No old charts were reviewed] Differential Diagnosis (chest pain, altered mental status, abdominal pain women, abdominal pain men, vaginal bleeding, weakness, fever, dyspnea, syncope, headache, dizziness, GI bleed, back pain, seizure, CVA, palpatations, mental health, musculoskeletal)? @ -[Differential Musculoskeletal Muscular strain, contusion, ligament sprain, fracture, arthritis, septic arthritis, bursitis, cellulitis, muscle spasm, nerve compression, DVT, arterial occlusion, herpes zoster, electrolyte abnormality, tumor.... This is not meant to be in all inclusive list EKG interpreted by me (3pts min.). @ -[As above] X-rays interpreted by me (1pt min.). @ -[None done] CT interpreted by me (1pt min.). @ -[None done] U/S interpreted by me (1pt. min.). @ -[None done] What testing was considered but not performed or refused? (CT, X-rays, U/S, labs)? Why? @ -[None] What meds were considered but not given or refused? Why? @ -[None] Did you discuss the management of the patient with other professionals (professionals i.e. THI Irving, MOTOR INSTALLER, lab, RT, psych nurse, social work instructor, striker out, teacher, licensed loan officer assistant, case preparer and liner)? Give summary @ -[No] Was smoking cessation discussed for >3mins.? @ -[No] Was critical care preformed (if so, how long)? @ -[No] Were there social determinants of health that impacted care today? How? (Homelessness, low income, unemployed, alcoholism, drug addiction, transportation, low edu. Level, literacy, decrease access to med. care, [facility], rehab)? @ -[No] Was there de-escalation of care discussed even if they declined (Discuss DNR or withdrawal of care, Hospice)? DNR status @ -[No] What co-morbidities impacted this encounter? (DM, HTN, Smoking, COPD, CAD, Cancer, CVA, ARF, Chemo, Hep., AIDS, mental health diagnosis, sleep apnea, morbid obesity)? @ -[None] Was patient admitted / discharged? Hospital course, mention meds given and route, prescriptions, significant lab abnormalities, going to OR and other pertinent info. @ -[As above Undiagnosed new problem with uncertain prognosis? @ -[No] Drug Therapy requiring intensive monitoring for toxicity (Heparin, Nitro, Insulin, Cardizem)? @ -[No] Were any procedures done? @ -[No] Diagnosis/symptom? @ -[Acute cervical strain Acute, or Chronic, or Acute on Chronic? @ -[Acute Uncomplicated (without systemic symptoms) or Complicated (systemic symptoms)? @ -[Uncomplicated Side effects of treatment? @ -[No] Exacerbation, Progression, or Severe Exacerbation? @ -[No] Poses a threat to life or bodily function? How? (Chest pain, [place], [place], pneumonia, PE, COPD, DKA, ARF, appy, cholecystitis, CVA, Diverticulitis, Homicidal, Suicidal, threat to staff... and all critical care pts) @ -[No] Disposition Clinical Impression: Cervical strain, acute Disposition: HOME SELF-CARE Condition: Good Instructions (If sedation given, give patient instructions): Cervical Strain (ED) Is patient prescribed a controlled substance at d/c from ED?: No Referrals: Erich Berger DO [Primary Care Provider] - 1-2 days
[2024-01-10 06:08] VITALS: BP 120/77; PULSE 97
== END 2024-01-10 06:05 | disposition home or self-care (01) ==
LOC: EC 04:25
DX: R52 Pain, unspecified
CPT/HCPCS: 96372; 99283

== ENCOUNTER 2024-01-11 15:39 | Emergency (ER) | payer MEDICARE ==
[2024-01-11 15:46] VITALS: TEMP 97.8
[2024-01-11] MEDS: KETOROLAC 15 MG/ML 1 ML VIAL IM STA (16:41)
[2024-01-11] MEDS: HYDROmorphone 1 MG/ML 1 ML SYRINGE IM STA (16:42)
--- NOTE | 2024-01-11 16:55 | ED ---
Neck Injury/Pain HPI - General Chief Complaint: Neck Pain/Injury Stated Complaint: Neck/Arm pain Time Seen by Provider: 01/11/24 15:57 Mode of arrival: ambulatory Limitations: no limitations - History of Present Illness Initial Comments: 78-year-old female presenting with chief complaint of neck pain. Patient has had chronic neck pain and has history of fusion many years ago. She has been seen here before for this chronic neck pain. It goes into the trapezius on her left side. She does have some radiation into the arm as well. She does have increased pain with movement. No chest pain. No fevers. No new injury or trauma. No weakness or numbness reported. - Related Data Home Medications Medication Instructions Recorded Confirmed Triamterene-Hctz 37.5-25Mg 1 tab PO DAILY 11/16/13 11/24/23 [Maxzide 37.5-25] lisinopriL [Zestril] 2.5 mg PO DAILY 10/30/17 11/24/23 Levothyroxine Sodium [Euthyrox] 125 mcg PO DAILY 08/01/20 11/24/23 metFORMIN HCL [Glucophage] 1,000 mg PO DAILY 08/01/20 11/24/23 Allergies Allergy/AdvReac Type Severity Reaction Status Date / Time No Known Allergies Allergy Verified 01/11/24 15:46 Review of Systems ROS Statement: Those systems with pertinent positive or pertinent negative responses have been documented in the HPI. ROS Other: All systems not noted in ROS Statement are negative. Past Medical History Past Medical History: Diabetes Mellitus, Fibromyalgia, GERD/Reflux, Hyperlipidemia, Hypertension, Musculoskeletal Disorder, Osteoarthritis (OA), Sleep Apnea/CPAP/BIPAP, Thyroid Disorder Additional Past Medical History / Comment(s): Varicose veins, SPINAL STENOSIS, x kidney stones. History of Any Multi-Drug Resistant Organisms: None Reported Past Surgical History: Adenoidectomy, Appendectomy, Bariatric Surgery, Cholecystectomy, Heart Catheterization, Hysterectomy, Joint Replacement, Tonsillectomy, Tubal Ligation Additional Past Surgical History / Comment(s): Gastric stapling, cervical fusion, bilateral knee replacements, colonoscopy, pain clinic procedures. Past Anesthesia/Blood Transfusion Reactions: No Reported Reaction Past Psychological History: No Psychological Hx Reported Smoking Status: Former smoker Past Alcohol Use History: Occasional Past Drug Use History: None Reported - Past Family History Mother Family Medical History: Cancer Additional Family Medical History / Comment(s): Breast and cervical cancer. Sister(s) Family Medical History: Cancer Additional Family Medical History / Comment(s): Cervical cancer. Father Family Medical History: Diabetes Mellitus General Exam Limitations: no limitations General appearance: alert, in no apparent distress Head exam: Present: atraumatic, normocephalic Eye exam: Present: normal appearance, EOMI Neck exam: Present: normal inspection. Absent: tenderness, meningismus, full ROM Respiratory exam: Absent: respiratory distress Cardiovascular Exam: Present: regular rate Neurological exam: Present: alert, oriented X3 Psychiatric exam: Present: normal affect, normal mood Skin exam: Present: warm, dry Course Vital Signs 01/11/24 01/11/24 15:43 17:46 Temperature 97.8 F Pulse Rate 99 75 Respiratory 17 16 Rate Blood Pressure 190/72 150/83 O2 Sat by Pulse 94 L 98 Oximetry Medical Decision Making - Medical Decision Making Was pt. sent in by a medical professional or institution (, PA, LICENSED AUDIOLOGIST, urgent care, hospital, or care home...) When possible be specific @ -No Did you speak to anyone other than the patient for history (EMS, parent, family, police, friend...)? What history was obtained from this source @ -No Did you review nursing and triage notes (agree or disagree)? Why? @ -I reviewed and agree with nursing and triage notes Were old charts reviewed (outside hosp., previous admission, EMS record, old EKG, old radiological studies, urgent care reports/EKG's, care home records)? Report findings @ -No old charts were reviewed Differential Diagnosis (chest pain, altered mental status, abdominal pain women, abdominal pain men, vaginal bleeding, weakness, fever, dyspnea, syncope, headache, dizziness, GI bleed, back pain, seizure, CVA, palpatations, mental health, musculoskeletal)? @ -Differential Musculoskeletal Muscular strain, contusion, ligament sprain, fracture, arthritis, septic arthritis, bursitis, cellulitis, muscle spasm, nerve compression, DVT, arterial occlusion, herpes zoster, electrolyte abnormality, tumor.... This is not meant to be in all inclusive list EKG interpreted by me (3pts min.). @ -As above X-rays interpreted by me (1pt min.). @ -None done CT interpreted by me (1pt min.). @ -None done U/S interpreted by me (1pt. min.). @ -None done What testing was considered but not performed or refused? (CT, X-rays, U/S, labs)? Why? @ -None What meds were considered but not given or refused? Why? @ -None Did you discuss the management of the patient with other professionals (professionals i.e. Dr., PA, LICENSED AUDIOLOGIST, lab, RT, psych nurse, outreach and education social worker, forging operator, teacher, engineering officer, rn case manager hospice)? Give summary @ -No Was smoking cessation discussed for >3mins.? @ -No Was critical care preformed (if so, how long)? @ -No Were there social determinants of health that impacted care today? How? (Homelessness, low income, unemployed, alcoholism, drug addiction, transportation, low edu. Level, literacy, decrease access to med. care, [facility], rehab)? @ -No Was there de-escalation of care discussed even if they declined (Discuss DNR or withdrawal of care, Hospice)? DNR status @ -No What co-morbidities impacted this encounter? (DM, HTN, Smoking, COPD, CAD, Cancer, CVA, ARF, Chemo, Hep., AIDS, mental health diagnosis, sleep apnea, morbid obesity)? @ -None Was patient admitted / discharged? Hospital course, mention meds given and route, prescriptions, significant lab abnormalities, going to OR and other pertinent info. @ -78-year-old female presenting with chief complaint of neck pain. She states that she has chronic neck pain and has experienced this pain before. She was taking a steroid and muscle relaxers at home. History and physical exam are conducted. No weakness or deficits on exam. Patient is given pain medication and on reassessment she reports the pain is significantly improved. She is ready for discharge home. Provided with referral for orthopedics. Discharged home. Follow-up with PCP. Report back to ER with any new or worsening symptoms. Discussed return parameters and answered all questions. Patient conveyed verbal understanding and agreed to the plan. I discussed this case in detail with my attending Dr. Johns Undiagnosed new problem with uncertain prognosis? @ -No Drug Therapy requiring intensive monitoring for toxicity (Heparin, Nitro, Insulin, Cardizem)? @ -No Were any procedures done? @ -No Diagnosis/symptom? @ -Neck pain Acute, or Chronic, or Acute on Chronic? @ -Acute on chronic Uncomplicated (without systemic symptoms) or Complicated (systemic symptoms)? @ -Uncomplicated Side effects of treatment? @ -No Exacerbation, Progression, or Severe Exacerbation? @ -No Poses a threat to life or bodily function? How? (Chest pain, [place], [place], pneumonia, PE, COPD, DKA, ARF, appy, cholecystitis, CVA, Diverticulitis, Homicidal, Suicidal, threat to staff... and all critical care pts) @ -Unlikely Disposition Clinical Impression: Neck pain Disposition: HOME SELF-CARE Condition: Good Instructions (If sedation given, give patient instructions): Chronic Neck Pain (DC) Additional Instructions: Follow-up with PCP. Report back to ER with any new or worsening symptoms. Is patient prescribed a controlled substance at d/c from ED?: No Referrals: Erich Berger DO [Primary Care Provider] - 1-2 days Evens Bailey DO [Doctor of Osteopathic Medicine] - 1-2 days Time of Disposition: 18:17
[2024-01-11 18:15] VITALS: BP 150/83; PULSE 75; RESP 16
== END 2024-01-11 18:26 | disposition home or self-care (01) ==
LOC: EC 15:39
DX: M54.2 Cervicalgia (principal); Z87.891 Personal history of nicotine dependence
CPT/HCPCS: 99283; 96372; J1170; J1885

== ENCOUNTER 2024-02-11 19:11 | Emergency (ER) | payer MEDICARE, BC ==
--- NOTE | 2024-02-11 19:31 | ED ---
Neck Injury/Pain HPI - General Chief Complaint: Neck Pain/Injury Stated Complaint: back pain Time Seen by Provider: 02/11/24 19:30 Mode of arrival: ambulatory Limitations: no limitations - History of Present Illness Initial Comments: 78-year-old female presenting with chief complaint of back pain. Pain is having mid to lower right sided back pain that started earlier today. No injury or trauma. No radiation of pain. No pleuritic nature to the pain. No lower extremity swelling. No recent surgery or long travel. No chest pain or difficulty breathing. No dysuria or hematuria. No fevers or chills. No nausea or vomiting. - Related Data Home Medications Medication Instructions Recorded Confirmed Triamterene-Hctz 37.5-25Mg 1 tab PO DAILY 11/16/13 11/24/23 [Maxzide 37.5-25] lisinopriL [Zestril] 2.5 mg PO DAILY 10/30/17 11/24/23 Levothyroxine Sodium [Euthyrox] 125 mcg PO DAILY 08/01/20 11/24/23 metFORMIN HCL [Glucophage] 1,000 mg PO DAILY 08/01/20 11/24/23 Previous Rx's Medication Instructions Recorded Cyclobenzaprine [Flexeril] 10 mg PO TID #20 tab 02/12/24 Ketorolac [Toradol] 10 mg PO Q8HR #15 tab 02/12/24 Ketorolac [Toradol] 10 mg PO Q8HR #15 tab 02/13/24 tiZANidine HCL [Zanaflex] 2 mg PO Q8H PRN #15 capsule 02/13/24 Allergies Allergy/AdvReac Type Severity Reaction Status Date / Time No Known Allergies Allergy Verified 02/13/24 01:45 Review of Systems ROS Statement: Those systems with pertinent positive or pertinent negative responses have been documented in the HPI. ROS Other: All systems not noted in ROS Statement are negative. Past Medical History Past Medical History: Diabetes Mellitus, Fibromyalgia, GERD/Reflux, Hyperlipidemia, Hypertension, Musculoskeletal Disorder, Osteoarthritis (OA), Sleep Apnea/CPAP/BIPAP, Thyroid Disorder Additional Past Medical History / Comment(s): Varicose veins, SPINAL STENOSIS, x kidney stones. History of Any Multi-Drug Resistant Organisms: None Reported Past Surgical History: Adenoidectomy, Appendectomy, Bariatric Surgery, Cholecystectomy, Heart Catheterization, Hysterectomy, Joint Replacement, Tonsillectomy, Tubal Ligation Additional Past Surgical History / Comment(s): Gastric stapling, cervical fusion, bilateral knee replacements, colonoscopy, pain clinic procedures. Past Anesthesia/Blood Transfusion Reactions: No Reported Reaction Past Psychological History: No Psychological Hx Reported Smoking Status: Former smoker Past Alcohol Use History: Occasional Past Drug Use History: None Reported - Past Family History Mother Family Medical History: Cancer Additional Family Medical History / Comment(s): Breast and cervical cancer. Sister(s) Family Medical History: Cancer Additional Family Medical History / Comment(s): Cervical cancer. Father Family Medical History: Diabetes Mellitus General Exam - General Exam Comments Initial Comments: Visual Physical Exam Vital signs reviewed General: Well-appearing, nontoxic, no acute distress. Head: Normocephalic, atraumatic Eyes: PERRLA, EOMI ENT: Airway patent Chest: Nonlabored breathing Skin: No visual rash, normal skin tone Neuro: Alert and oriented 3 Musculoskeletal: No gross abnormalities Limitations: no limitations General appearance: alert, in no apparent distress Head exam: Present: atraumatic, normocephalic, normal inspection Eye exam: Present: normal appearance, EOMI Neck exam: Present: normal inspection. Absent: meningismus Respiratory exam: Present: normal lung sounds bilaterally. Absent: respiratory distress, wheezes, rales, rhonchi, stridor Cardiovascular Exam: Present: regular rate, normal rhythm, normal heart sounds. Absent: systolic murmur, diastolic murmur, rubs, gallop, clicks Extremities exam: Present: normal inspection Back exam: Present: normal inspection Neurological exam: Present: alert, oriented X3 Psychiatric exam: Present: normal affect, normal mood Skin exam: Present: warm, dry, normal color Course Vital Signs 02/11/24 02/11/24 19:14 22:48 Temperature 97.3 F L 98.1 F Pulse Rate 111 H 98 Respiratory 20 16 Rate Blood Pressure 179/76 123/76 O2 Sat by Pulse 95 94 L Oximetry Medical Decision Making - Medical Decision Making I performed the quick note portion of this visit, electronically signed Leandro Velazquez PA-C Was pt. sent in by a medical professional or institution (, [facility], MEDIA PROMOTER, urgent care, hospital, or care home...) When possible be specific @ -No Did you speak to anyone other than the patient for history (EMS, parent, family, police, friend...)? What history was obtained from this source @ -No Did you review nursing and triage notes (agree or disagree)? Why? @ -I reviewed and agree with nursing and triage notes Were old charts reviewed (outside hosp., previous admission, EMS record, old EKG, old radiological studies, urgent care reports/EKG's, care home records)? Report findings @ -No old charts were reviewed Differential Diagnosis (chest pain, altered mental status, abdominal pain women, abdominal pain men, vaginal bleeding, weakness, fever, dyspnea, syncope, headache, dizziness, GI bleed, back pain, seizure, CVA, palpatations, mental health, musculoskeletal)? @ - MDM Differential Back Pain: Strain, zoster, cauda equina syndrome, epidural abscess, vertebral osteomyelitis, discitis, fracture, subluxation, disc herniation, DJD, spinal stenosis, dissection, AAA, pancreatitis, peptic ulcer disease, pyelonephritis, kidney stone this is not meant to be an all-inclusive list. EKG interpreted by me (3pts min.). @ -As above X-rays interpreted by me (1pt min.). @ -Chest x-ray shows no acute cardiopulmonary disease/process CT interpreted by me (1pt min.). @ -None done U/S interpreted by me (1pt. min.). @ -None done What testing was considered but not performed or refused? (CT, X-rays, U/S, labs)? Why? @ -None What meds were considered but not given or refused? Why? @ -None Did you discuss the management of the patient with other professionals (professionals i.e. , PA, MEDIA PROMOTER, lab, RT, psych nurse, director of social media marketing, noc analyst, teacher, correction officer penitentiary, case management rn)? Give summary @ -No Was smoking cessation discussed for >3mins.? @ -No Was critical care preformed (if so, how long)? @ -No Were there social determinants of health that impacted care today? How? (Homelessness, low income, unemployed, alcoholism, drug addiction, transportation, low edu. Level, literacy, decrease access to med. care, penitentiary, rehab)? @ -No Was there de-escalation of care discussed even if they declined (Discuss DNR or withdrawal of care, Hospice)? DNR status @ -No What co-morbidities impacted this encounter? (DM, HTN, Smoking, COPD, CAD, Cancer, CVA, ARF, Chemo, Hep., AIDS, mental health diagnosis, sleep apnea, morbid obesity)? @ -None Was patient admitted / discharged? Hospital course, mention meds given and route, prescriptions, significant lab abnormalities, going to OR and other pertinent info. @ -78-year-old female presenting with chief complaint of right sided mid to lower back pain. History and physical examination are conducted. Urine shows no bleeding or infection. Chest x-ray shows no acute process. Patient reports improvement in her symptoms after pain medication. She is educated on today's findings and supportive management at home. Discharged. Follow-up with PCP. Report back to ER with any new or worsening symptoms. Discussed return parameters and answered all questions. Patient conveyed verbal understanding and agreed to the plan. I discussed this case in detail with my attending Dr. Bianchi Undiagnosed new problem with uncertain prognosis? @ -No Drug Therapy requiring intensive monitoring for toxicity (Heparin, Nitro, Insulin, Cardizem)? @ -No Were any procedures done? @ -No Diagnosis/symptom? @ -Thoracic back pain Acute, or Chronic, or Acute on Chronic? @ -Acute Uncomplicated (without systemic symptoms) or Complicated (systemic symptoms)? @ -Uncomplicated Side effects of treatment? @ -No Exacerbation, Progression, or Severe Exacerbation? @ -No Poses a threat to life or bodily function? How? (Chest pain, [place], [place], pneumonia, PE, COPD, DKA, ARF, appy, cholecystitis, CVA, Diverticulitis, Homicidal, Suicidal, threat to staff... and all critical care pts) @ -Unlikely - Lab Data Lab Results 02/11/24 Range/Units 21:08 Urine Color Colorless Urine Appearance Clear (Clear) Urine pH 5.5 (5.0-8.0) Ur Specific [place] 1.015 (1.001-1.035) Urine Protein Trace H (Negative) Urine Glucose (UA) 2+ H (Negative) Urine Ketones Negative (Negative) Urine Blood Negative (Negative) Urine Nitrite Negative (Negative) Urine Bilirubin Negative (Negative) Urine Urobilinogen <2.0 (<2.0) mg/dL Ur Leukocyte Esterase Negative (Negative) Disposition Clinical Impression: Thoracic back pain Disposition: HOME SELF-CARE Condition: Good Instructions (If sedation given, give patient instructions): Thoracic Back Strain (ED) Additional Instructions: Follow-up with PCP. Report back to ER with any new or worsening symptoms. Take Motrin and Tylenol as needed for pain control. Use [id number] lidocaine patches as needed. Is patient prescribed a controlled substance at d/c from ED?: No Referrals: Erich Berger DO [Primary Care Provider] - 1-2 days Time of Disposition: 23:05
[2024-02-11] MEDS: KETOROLAC 15 MG/ML 1 ML VIAL IM STA (21:20)
[2024-02-11] MEDS: HYDROmorphone 0.5 MG/0.5 ML SYRINGE IM STA (21:22)
[2024-02-11 21:31] LABS: Appearance,Urine Clear (Clear); Bilirubin,Urine Negative (Negative); Blood,Urine Negative (Negative); Color,Urine Colorless; Glucose,Urine (UA) 2+ (Negative); Ketones,Urine Negative (Negative); Leukocyte Esterase,Urine Negative (Negative); Nitrite,Urine Negative (Negative); PH, Urine 5.5 (5.0-8.0); Protein,Urine Trace (Negative); Specific Gravity,Urine 1.015 (1.001-1.035); Urobilinogen,Urine <2.0 mg/dL (<2.0)
--- NOTE | 2024-02-11 22:13 | XR ---
EXAMINATION TYPE: XR chest 2V DATE OF EXAM: 02/11/2024 9:57 PM CLINICAL INDICATION: Female, 78 years old with history of Right-sided thoracic back pain; H COMPARISON: Chest radiographs from 04/18/2023 TECHNIQUE: XR chest 2V Frontal view of the chest. FINDINGS: Lungs/Pleura: There is no evidence of pleural effusion, focal consolidation, or pneumothorax. Pulmonary vascularity: Unremarkable. Heart/mediastinum: Cardiomediastinal silhouette is unremarkable. Musculoskeletal: No acute osseous pathology. Other findings: None IMPRESSION: No acute cardiopulmonary disease/process. [facility]co, , 02/11/2024 10:10 PM
[2024-02-11] MEDS: LIDOCAINE 4% PATCH TOPICAL ONE (22:26)
[2024-02-11 22:50] VITALS: BP 123/76; PULSE 98; RESP 16; TEMP 98.1
== END 2024-02-11 23:15 | disposition home or self-care (01) ==
LOC: EC 19:11
CPT/HCPCS: 71046; 81003; 96372; 99284

== ENCOUNTER 2024-02-12 03:29 | Emergency (ER) | payer MEDICARE, BC ==
[2024-02-12] MEDS: ONDANSETRON 4 MG/2 ML VIAL IVP STA (04:31)
[2024-02-12] MEDS: KETOROLAC 15 MG/ML 1 ML VIAL IVP STA (04:35)
[2024-02-12] MEDS: MORPHINE SULFATE 4 MG/ML SYRINGE IVP STA (04:37)
[2024-02-12] MEDS: SODIUM CHLORIDE 0.9% 1,000 ML IV STA (04:39)
[2024-02-12 05:09] LABS: Basophils % (A) 0 %; Eosinophils % (A) 0 %; HCT 42.6 % (34.0-46.0); HGB 13.7 gm/dL (11.4-16.0); Lymphocytes # (A) 1.5 k/uL (1.0-4.8); Lymphocytes % (A) 16 %; MCH 31.3 pg (25.0-35.0); MCHC 32.2 g/dL (31.0-37.0); MCV 97.4 fL (80.0-100.0); Mean Platelet Volume 7.5; Monocytes # (A) 0.5 k/uL (0-1.0); Monocytes % (A) 5 %; Neutrophils # (A) 7.3 k/uL (1.3-7.7); Neutrophils % (A) 77 %; Platelet Count 224 k/uL (150-450); RBC 4.37 m/uL (3.80-5.40); RDW 13.7 % (11.5-15.5); WBC 9.4 k/uL (3.8-10.6)
[2024-02-12 05:11] LABS: Appearance,Urine Clear (Clear); Bilirubin,Urine Negative (Negative); Blood,Urine Negative (Negative); Color,Urine Light Yellow; Glucose,Urine (UA) 4+ (Negative); Ketones,Urine Negative (Negative); Leukocyte Esterase,Urine Negative (Negative); Nitrite,Urine Negative (Negative); Protein,Urine Trace (Negative); Specific Gravity,Urine 1.022 (1.001-1.035); Urobilinogen,Urine <2.0 mg/dL (<2.0)
[2024-02-12 05:31] LABS: ALT 28 U/L (4-34); AST 30 U/L (14-36); African American GFR (CKD) >90 (>60 ml/min/1.73 sqM); Albumin 4.5 g/dL (3.5-5.0); Alkaline Phosphatase 81 U/L (38-126); Anion Gap 8 mmol/L; Blood Urea Nitrogen 31 mg/dL (7-17); C Reactive Protein 1.5 mg/dL (<1.0); Calcium 10.7 mg/dL (8.4-10.2); Carbon Dioxide 26 mmol/L (22-30); Chloride 101 mmol/L (98-107); Glucose 233 mg/dL (74-99); Non-African American GFR(CKD) 82 (>60 ml/min/1.73 sqM); Potassium 4.8 mmol/L (3.5-5.1); Sodium 135 mmol/L (137-145); Total Bilirubin 0.8 mg/dL (0.2-1.3); Total Protein 7.8 g/dL (6.3-8.2)
--- NOTE | 2024-02-12 05:42 | ED ---
Back Pain HPI <Javier Johns - Last Filed: 02/12/24 08:25> - General Source: patient Limitations: no limitations <Leyda Bianchi - Last Filed: 02/12/24 21:16> - General Chief Complaint: Back Pain/Injury Stated Complaint: ABD Pain Time Seen by Provider: 02/12/24 03:51 - History of Present Illness Initial Comments: Patient presents today for right sided back pain that has been ongoing for 2 days. States she was here earlier for the pain however upon returning home the pain worsened and she has not been able can get comfortable at home. She states that the pain feels like a kidney stone. Has a history kidney stone. Denies any hematuria or dysuria. Denies abdominal pain, nausea vomiting or diarrhea. Denies black or bloody stools. Denies fevers. Denies chest pain or shortness of breath. Has been trialing Tylenol at home without relief from pain. Denies any trauma or recent falls. (Leyda Bianchi) - Related Data Home Medications Medication Instructions Recorded Confirmed Triamterene-Hctz 37.5-25Mg 1 tab PO DAILY 11/16/13 11/24/23 [Maxzide 37.5-25] lisinopriL [Zestril] 2.5 mg PO DAILY 10/30/17 11/24/23 Levothyroxine Sodium [Euthyrox] 125 mcg PO DAILY 08/01/20 11/24/23 metFORMIN HCL [Glucophage] 1,000 mg PO DAILY 08/01/20 11/24/23 Previous Rx's Medication Instructions Recorded Cyclobenzaprine [Flexeril] 10 mg PO TID #20 tab 02/12/24 Ketorolac [Toradol] 10 mg PO Q8HR #15 tab 02/12/24 Allergies Allergy/AdvReac Type Severity Reaction Status Date / Time No Known Allergies Allergy Verified 02/12/24 03:31 Review of Systems ROS Other: All systems not noted in ROS Statement are negative. <Javier Johns - Last Filed: 02/12/24 08:25> ROS Other: All systems not noted in ROS Statement are negative. <Leyda Bianchi - Last Filed: 02/12/24 21:16> ROS Statement: Those systems with pertinent positive or pertinent negative responses have been documented in the HPI. Past Medical History Past Medical History: Diabetes Mellitus, Fibromyalgia, GERD/Reflux, Hyperlipidemia, Hypertension, Musculoskeletal Disorder, Osteoarthritis (OA), Sleep Apnea/CPAP/BIPAP, Thyroid Disorder Additional Past Medical History / Comment(s): Varicose veins, SPINAL STENOSIS, x kidney stones. History of Any Multi-Drug Resistant Organisms: None Reported Past Surgical History: Adenoidectomy, Appendectomy, Bariatric Surgery, Cholecystectomy, Heart Catheterization, Hysterectomy, Joint Replacement, Tonsillectomy, Tubal Ligation Additional Past Surgical History / Comment(s): Gastric stapling, cervical fusion, bilateral knee replacements, colonoscopy, pain clinic procedures. Past Anesthesia/Blood Transfusion Reactions: No Reported Reaction Past Psychological History: No Psychological Hx Reported Smoking Status: Former smoker Past Alcohol Use History: Occasional Past Drug Use History: None Reported - Past Family History Mother Family Medical History: Cancer Additional Family Medical History / Comment(s): Breast and cervical cancer. Sister(s) Family Medical History: Cancer Additional Family Medical History / Comment(s): Cervical cancer. Father Family Medical History: Diabetes Mellitus <Leyda Bianchi - Last Filed: 02/12/24 21:16> General Exam Limitations: no limitations <Leyda Bianchi - Last Filed: 02/12/24 21:16> - General Exam Comments Initial Comments: PE: CONSTITUTIONAL: no apparent distress, uncomfortable appearing, pacing around bed, nontoxic SKIN: Warm, dry, no jaundice, hives or petechiae, no rashes EYES: Pupils are equally round, extraocular movements intact without nystagmus, clear conjunctiva, non-icteric sclera HENT: Normocephalic, atraumatic, moist mucus membranes, oropharynx clear without exudates NECK: , Full range of motion, normal appearance PULMONARY: Clear to auscultation without wheezes, rhonchi, or rales, normal excursion, no accessory muscle use and no stridor CARDIOVASCULAR: Regular rate, rhythm, normal S1 and S2. No appreciated murmurs, rubs or gallops. Extremities are pink and well-perfused. No lower extremity edema GASTROINTESTINAL: Soft, active bowel sounds throughout, non-tender, non- distended, no palpable masses, no rebound or guarding. No hepatosplenomegaly GENITOURINARY: Right-sided CVA tenderness MUSCULOSKELETAL: Extremities have no gross deformity, no edema, redness, or swelling. No calf swelling NEUROLOGIC:_a/o x 3, GCS 15, normal mentation and speech. Moves all extremities x 4 without motor or sensory deficit PSYCHIATRIC:_normal mood and affect, thought process is clear and linear (Leyda Bianchi) Course Vital Signs 02/12/24 02/12/24 02/12/24 03:31 04:31 09:51 Temperature 97.2 F L 97.6 F Pulse Rate 104 H 98 97 Respiratory 18 18 24 Rate Blood Pressure 185/77 144/68 160/88 O2 Sat by Pulse 94 L 95 94 L Oximetry Medical Decision Making - Lab Data Result diagrams: 02/12/24 04:48 02/12/24 04:48 <Javier Johns - Last Filed: 02/12/24 08:25> - Lab Data Result diagrams: 02/12/24 04:48 02/12/24 04:48 <Leyda Bianchi - Last Filed: 02/12/24 21:16> - Medical Decision Making Was patient admitted / discharged? Hospital course, mention meds given and route, prescriptions, significant lab abnormalities, going to OR and other pertinent info. @ -Patient was signed out to me by Dr. Bianchi at 7 AM. Patient had a CAT scan that I interpreted CAT scan showed no acute normality. I went and reevaluated the patient she was feeling considerably better and was comfortable going home. Patient had tenderness over the right CVA area on palpation. It appears to be musculoskeletal in nature. Patient will be discharged home with some Toradol a nd Flexeril Undiagnosed new problem with uncertain prognosis? @ -No Drug Therapy requiring intensive monitoring for toxicity (Heparin, Nitro, Insulin, Cardizem)? @ -No Were any procedures done? @ -No Diagnosis/symptom? @ -Musculoskeletal back pain Acute, or Chronic, or Acute on Chronic? @ -Acute Uncomplicated (without systemic symptoms) or Complicated (systemic symptoms)? @ -Complicated Side effects of treatment? @ -No Exacerbation, Progression, or Severe Exacerbation? @ -No Poses a threat to life or bodily function? How? (Chest pain, [place], [place], pneumonia, PE, COPD, DKA, ARF, appy, cholecystitis, CVA, Diverticulitis, Homicidal, Suicidal, threat to staff... and all critical care pts) @ -No (Javier Johns) Was pt. sent in by a medical professional or institution ([facility] Irving, ARRANGING FUNERAL DIRECTOR, urgent care, hospital, or senior care...) When possible be specific @ -No Did you speak to anyone other than the patient for history (EMS, parent, family, police, friend...)? What history was obtained from this source @ -No Did you review nursing and triage notes (agree or disagree)? Why? @ -I reviewed and agree with nursing and triage notes Were old charts reviewed (outside hosp., previous admission, EMS record, old EKG, old radiological studies, urgent care reports/EKG's, senior care records)? Report findings @ -Reviewed ER note from earlier today, patient had presented for right sided back pain. Chest x-ray done at that time showed no acute process patient discharged home with ibuprofen and Tylenol. Differential Diagnosis (chest pain, altered mental status, abdominal pain women, abdominal pain men, vaginal bleeding, weakness, fever, dyspnea, syncope, headache, dizziness, GI bleed, back pain, seizure, CVA, palpatations, mental health, musculoskeletal)? @Differential Back Pain: Differential diagnosis remains broad however top considerations include muscular strain, ureterolithiasis, disc herniation, diverticulitis, pyelonephritis, herpes zoster. Patient has no overlying skin changes severe low suspicion for this. This is not all-inclusive list EKG interpreted by me (3pts min.). @ -As above X-rays interpreted by me (1pt min.). @ -None done CT interpreted by me (1pt min.). @ -No evidence of obstruction or perforation, I see no hydronephrosis U/S interpreted by me (1pt. min.). @ -None done What testing was considered but not performed or refused? (CT, X-rays, U/S, labs)? Why? @ -None What meds were considered but not given or refused? Why? @ -None Did you discuss the management of the patient with other professionals (professionals i.e. [facility], ARRANGING FUNERAL DIRECTOR, lab, RT, psych nurse, sexual assault social worker, loss prevention coordinator, teacher, police patrol officer, family service caseworker)? Give summary @ -No Was smoking cessation discussed for >3mins.? @ -No Was critical care preformed (if so, how long)? @ -No Were there social determinants of health that impacted care today? How? (Homelessness, low income, unemployed, alcoholism, drug addiction, transportation, low edu. Level, literacy, decrease access to med. care, fdc, rehab)? @ -No Was there de-escalation of care discussed even if they declined (Discuss DNR or withdrawal of care, Hospice)? @ -No What co-morbidities impacted this encounter? (DM, HTN, Smoking, COPD, CAD, Cancer, CVA, ARF, Chemo, Hep., AIDS, mental health diagnosis, sleep apnea, morbid obesity)? @ -None Was patient admitted / discharged? Hospital course, mention meds given and route, prescriptions, significant lab abnormalities, going to OR and other pertinent info. @ -Hospital course Patient is a pleasant 78-year-old female who presents for persistent right sided flank pain x 2 days. Trialed Tylenol at home without relief. X-ray performed earlier today during patient's first presentation to the ER did not show any acute abnormalities of the chest and patient was discharged home. On my assessment patient is well-appearing but uncomfortable appearing, pacing around the room. She is nontoxic-appearing. Exam significant right-sided CVA tenderness, no midline spinal tenderness, no overlying skin changes, abdomen is soft and nontender lungs are clear to auscultation bilaterally. Discussed with patient plan for CT abdomen pelvis, basic labs pain control, patient agreeable plan. Reviewed patient's labs, CBC shows no leukocytosis or anemia, sodium 135, glucos e 233, calcium 10.7 CRP minimally elevated at 1.5, LFTs within normal limits trace protein and 4+ glucose in urine. Lactic 2.5. Patient received 1 litre IV fluids, currently pending CT. Signed out to oncoming physician, Dr. Johns pending CT read (Welsh,Leyda) - Lab Data Lab Results 02/12/24 02/12/24 02/12/24 Range/Units 04:48 04:48 04:48 WBC 9.4 (3.8-10.6) k/uL RBC 4.37 (3.80-5.40) m/uL Hgb 13.7 (11.4-16.0) gm/dL Hct 42.6 (34.0-46.0) % MCV 97.4 (80.0-100.0) fL MCH 31.3 (25.0-35.0) pg MCHC 32.2 (31.0-37.0) g/dL RDW 13.7 (11.5-15.5) % Plt Count 224 (150-450) k/uL MPV 7.5 Neutrophils % 77 % Lymphocytes % 16 % Monocytes % 5 % Eosinophils % 0 % Basophils % 0 % Neutrophils # 7.3 (1.3-7.7) k/uL Lymphocytes # 1.5 (1.0-4.8) k/uL Monocytes # 0.5 (0-1.0) k/uL Eosinophils # 0.0 (0-0.7) k/uL Basophils # 0.0 (0-0.2) k/uL Sodium 135 L (137-145) mmol/L Potassium 4.8 (3.5-5.1) mmol/L Chloride 101 (98-107) mmol/L Carbon Dioxide 26 (22-30) mmol/L Anion Gap 8 mmol/L BUN 31 H (7-17) mg/dL Creatinine 0.72 (0.52-1.04) mg/dL Est GFR (CKD-EPI)AfAm >90 (>60 ml/min/1.73 sqM) Est GFR (CKD-EPI)NonAf 82 (>60 ml/min/1.73 sqM) Glucose 233 H (74-99) mg/dL Lactic Ac Sepsis Rflx Plasma Lactic Acid Janusz (0.7-2.0) mmol/L Calcium 10.7 H (8.4-10.2) mg/dL Total Bilirubin 0.8 (0.2-1.3) mg/dL AST 30 (14-36) U/L ALT 28 (4-34) U/L Alkaline Phosphatase 81 (38-126) U/L C-Reactive Protein 1.5 H (<1.0) mg/dL Total Protein 7.8 (6.3-8.2) g/dL Albumin 4.5 (3.5-5.0) g/dL Urine Color Light Yellow Urine Appearance Clear (Clear) Urine pH 5.0 (5.0-8.0) Ur Specific [place] 1.022 (1.001-1.035) Urine Protein Trace H (Negative) Urine Glucose (UA) 4+ H (Negative) Urine Ketones Negative (Negative) Urine Blood Negative (Negative) Urine Nitrite Negative (Negative) Urine Bilirubin Negative (Negative) Urine Urobilinogen <2.0 (<2.0) mg/dL Ur Leukocyte Esterase Negative (Negative) 02/12/24 02/12/24 Range/Units 04:48 05:54 WBC (3.8-10.6) k/uL RBC (3.80-5.40) m/uL Hgb (11.4-16.0) gm/dL Hct (34.0-46.0) % MCV (80.0-100.0) fL MCH (25.0-35.0) pg MCHC (31.0-37.0) g/dL RDW (11.5-15.5) % Plt Count (150-450) k/uL MPV Neutrophils % % Lymphocytes % % Monocytes % % Eosinophils % % Basophils % % Neutrophils # (1.3-7.7) k/uL Lymphocytes # (1.0-4.8) k/uL Monocytes # (0-1.0) k/uL Eosinophils # (0-0.7) k/uL Basophils # (0-0.2) k/uL Sodium (137-145) mmol/L Potassium (3.5-5.1) mmol/L Chloride (98-107) mmol/L Carbon Dioxide (22-30) mmol/L Anion Gap mmol/L BUN (7-17) mg/dL Creatinine (0.52-1.04) mg/dL Est GFR (CKD-EPI)AfAm (>60 ml/min/1.73 sqM) Est GFR (CKD-EPI)NonAf (>60 ml/min/1.73 sqM) Glucose (74-99) mg/dL Lactic Ac Sepsis Rflx Y Plasma Lactic Acid Janusz 2.9 H* (0.7-2.0) mmol/L Calcium (8.4-10.2) mg/dL Total Bilirubin (0.2-1.3) mg/dL AST (14-36) U/L ALT (4-34) U/L Alkaline Phosphatase (38-126) U/L C-Reactive Protein (<1.0) mg/dL Total Protein (6.3-8.2) g/dL Albumin (3.5-5.0) g/dL Urine Color Urine Appearance (Clear) Urine pH (5.0-8.0) Ur Specific [place] (1.001-1.035) Urine Protein (Negative) Urine Glucose (UA) (Negative) Urine Ketones (Negative) Urine Blood (Negative) Urine Nitrite (Negative) Urine Bilirubin (Negative) Urine Urobilinogen (<2.0) mg/dL Ur Leukocyte Esterase (Negative) Disposition Is patient prescribed a controlled substance at d/c from ED?: No Time of Disposition: 08:30 <Javier Johns - Last Filed: 02/12/24 08:25> <Leyda Bianchi - Last Filed: 02/12/24 21:16> Clinical Impression: Mechanical back pain Disposition: HOME SELF-CARE Condition: Good Instructions (If sedation given, give patient instructions): Acute Low Back Pain (ED) Prescriptions: Cyclobenzaprine [Flexeril] 10 mg PO TID #20 tab Ketorolac [Toradol] 10 mg PO Q8HR #15 tab Referrals: Erich Berger DO [Primary Care Provider] - 1-2 days
[2024-02-12] MEDS: ACETAMINOPHEN TAB 500 MG TAB PO STA (05:43)
--- NOTE | 2024-02-12 07:49 | CT ---
EXAM: CT Abdomen and Pelvis Without Intravenous Contrast CLINICAL HISTORY: right flank pain TECHNIQUE: Axial computed tomography images of the abdomen and pelvis without intravenous contrast. CTDI is 39.8 mGy and DLP is 2436.9 mGy-cm. This CT exam was performed using one or more of the following dose reduction techniques: automated exposure control, adjustment of the mA and/or kV according to patient size, and/or use of iterative reconstruction technique. COMPARISON: CT November 24, 2023 FINDINGS: Heart: Coronary arterial calcification. ABDOMEN: Liver: Unremarkable. Gallbladder and bile ducts: Cholecystectomy. No ductal dilation. Pancreas: Unremarkable. No ductal dilation. Spleen: Unremarkable. No splenomegaly. Adrenals: Unremarkable. No mass. Kidneys and ureters: A tiny nonobstructing calculus in the left kidney which is new since the prior study. No ureteral calculus. No hydronephrosis. Stomach and bowel: There is a lipoma within the lumen of a distal small bowel loop in the pelvis. This was on the prior exam. No bowel obstruction. Stable midline ventral hernia containing a portion of the transverse colon. Previous gastric surgery. No mucosal thickening. PELVIS: Appendix: No findings to suggest acute appendicitis. Bladder: Unremarkable. No stones. Reproductive: Hysterectomy. ABDOMEN and PELVIS: Intraperitoneal space: Unremarkable. No free air. No significant fluid collection. Bones/joints: No acute findings. Soft tissues: See above. Vasculature: See above. Lymph nodes: Unremarkable. No enlarged lymph nodes. IMPRESSION: No acute findings in the abdomen or pelvis. New tiny obstructing calculus in the left kidney. No hydronephrosis.
[2024-02-12] MEDS: HYDROmorphone 0.5 MG/0.5 ML SYRINGE IVP STA (09:50)
[2024-02-12 09:56] VITALS: BP 160/88; PULSE 97; RESP 24; TEMP 97.6
== END 2024-02-12 09:59 | disposition home or self-care (01) ==
LOC: EC 03:29
CPT/HCPCS: 36415; 74176; 80053; 81003; 83605; 85025; 86140; 96361; 96374; 96375; 99284

== ENCOUNTER 2024-02-13 01:42 | Emergency (ER) | payer MEDICARE, BC ==
[2024-02-13] MEDS: tiZANidine 4 MG TAB PO STA (02:45)
[2024-02-13] MEDS: KETOROLAC 15 MG/ML 1 ML VIAL IVP STA (02:47)
[2024-02-13] MEDS: MORPHINE SULFATE 4 MG/ML SYRINGE IVP STA (02:50)
--- NOTE | 2024-02-13 02:53 | ED ---
Back Pain HPI - General Chief Complaint: Back Pain/Injury Stated Complaint: Back Pain Time Seen by Provider: 02/13/24 02:00 Source: patient, RN notes reviewed Limitations: no limitations - History of Present Illness Initial Comments: 78-year-old female with history of diabetes presenting to the ER with chief complaint of right lower back pain x 2 days. Denies trauma or injury. Denies urinary symptoms, fever, chills, loss of bowel or bladder control. She has had multiple ER visits over the past 2 days and had lab work and CT scan of abdomen was performed, all returned unremarkable. Patient was told she had a musculoskeletal injury and was provided with a muscle relaxer and lidocaine patches. Patient states she continues to have pain, worse with movement. - Related Data Home Medications Medication Instructions Recorded Confirmed Triamterene-Hctz 37.5-25Mg 1 tab PO DAILY 11/16/13 11/24/23 [Maxzide 37.5-25] lisinopriL [Zestril] 2.5 mg PO DAILY 10/30/17 11/24/23 Levothyroxine Sodium [Euthyrox] 125 mcg PO DAILY 08/01/20 11/24/23 metFORMIN HCL [Glucophage] 1,000 mg PO DAILY 08/01/20 11/24/23 Previous Rx's Medication Instructions Recorded Cyclobenzaprine [Flexeril] 10 mg PO TID #20 tab 02/12/24 Ketorolac [Toradol] 10 mg PO Q8HR #15 tab 02/12/24 Ketorolac [Toradol] 10 mg PO Q8HR #15 tab 02/13/24 tiZANidine HCL [Zanaflex] 2 mg PO Q8H PRN #15 capsule 02/13/24 Allergies Allergy/AdvReac Type Severity Reaction Status Date / Time No Known Allergies Allergy Verified 02/13/24 01:45 Review of Systems ROS Statement: Those systems with pertinent positive or pertinent negative responses have been documented in the HPI. ROS Other: All systems not noted in ROS Statement are negative. Past Medical History Past Medical History: Diabetes Mellitus, Fibromyalgia, GERD/Reflux, Hyperlipidemia, Hypertension, Musculoskeletal Disorder, Osteoarthritis (OA), Sleep Apnea/CPAP/BIPAP, Thyroid Disorder Additional Past Medical History / Comment(s): Varicose veins, SPINAL STENOSIS, x kidney stones. History of Any Multi-Drug Resistant Organisms: None Reported Past Surgical History: Adenoidectomy, Appendectomy, Bariatric Surgery, Cholecystectomy, Heart Catheterization, Hysterectomy, Joint Replacement, Tonsillectomy, Tubal Ligation Additional Past Surgical History / Comment(s): Gastric stapling, cervical fusion, bilateral knee replacements, colonoscopy, pain clinic procedures. Past Anesthesia/Blood Transfusion Reactions: No Reported Reaction Past Psychological History: No Psychological Hx Reported Smoking Status: Former smoker Past Alcohol Use History: Occasional Past Drug Use History: None Reported - Past Family History Mother Family Medical History: Cancer Additional Family Medical History / Comment(s): Breast and cervical cancer. Sister(s) Family Medical History: Cancer Additional Family Medical History / Comment(s): Cervical cancer. Father Family Medical History: Diabetes Mellitus General Exam Limitations: no limitations General appearance: alert, in no apparent distress Head exam: Present: atraumatic, normocephalic, normal inspection GI/Abdominal exam: Present: soft, normal bowel sounds. Absent: distended, tenderness, guarding, rebound, rigid Back exam: Present: normal inspection, full ROM (Pain with flexion and extension), paraspinal tenderness (Right paraspinal tenderness to palpation), other (Full strength and range of motion of bilateral lower extremities. Full sensation and DP pulses. No saddle anesthesia). Absent: CVA tenderness (R), CVA tenderness (L), vertebral tenderness, rash noted Neurological exam: Present: alert, oriented X3 Psychiatric exam: Present: normal affect, normal mood Skin exam: Present: warm, dry, intact, normal color. Absent: rash Course Vital Signs 02/13/24 01:46 Temperature 97.5 F L Pulse Rate 98 Respiratory 20 Rate Blood Pressure 160/89 O2 Sat by Pulse 96 Oximetry Medical Decision Making - Medical Decision Making Was pt. sent in by a medical professional or institution (, PA, STUMP BLOWER, urgent care, hospital, or custodial...) When possible be specific @ -No Did you speak to anyone other than the patient for history (EMS, parent, family, police, friend...)? What history was obtained from this source @ -No Did you review nursing and triage notes (agree or disagree)? Why? @ -I reviewed and agree with nursing and triage notes Were old charts reviewed (outside hosp., previous admission, EMS record, old EKG, old radiological studies, urgent care reports/EKG's, custodial records)? Report findings @ -No old charts were reviewed Differential Diagnosis (chest pain, altered mental status, abdominal pain women, abdominal pain men, vaginal bleeding, weakness, fever, dyspnea, syncope, headache, dizziness, GI bleed, back pain, seizure, CVA, palpatations, mental health, musculoskeletal)? @ -Differential Musculoskeletal Muscular strain, contusion, ligament sprain, fracture, arthritis, septic arthritis, bursitis, cellulitis, muscle spasm, nerve compression, DVT, arterial occlusion, herpes zoster, electrolyte abnormality, tumor.... This is not meant to be in all inclusive list EKG interpreted by me (3pts min.). @ -None X-rays interpreted by me (1pt min.). @ -None done CT interpreted by me (1pt min.). @ -None done U/S interpreted by me (1pt. min.). @ -None done What testing was considered but not performed or refused? (CT, X-rays, U/S, labs)? Why? @ -Imaging considered however not performed due to patient's obtained CT abdomen/pelvis yesterday for same symptoms with no remarkable findings What meds were considered but not given or refused? Why? @ -None Did you discuss the management of the patient with other professionals (prof karly i.e. , PA, STUMP BLOWER, lab, RT, psych nurse, social media specialist, forklift truck operator, teacher, jail officer, business case analyst)? Give summary @ -No Was smoking cessation discussed for >3mins.? @ -No Was critical care preformed (if so, how long)? @ -No Were there social determinants of health that impacted care today? How? (Homelessness, low income, unemployed, alcoholism, drug addiction, transportation, low edu. Level, literacy, decrease access to med. care, long-term, rehab)? @ -No Was there de-escalation of care discussed even if they declined (Discuss DNR or withdrawal of care, Hospice)? DNR status @ -No What co-morbidities impacted this encounter? (DM, HTN, Smoking, COPD, CAD, Cancer, CVA, ARF, Chemo, Hep., AIDS, mental health diagnosis, sleep apnea, morbid obesity)? @ -None Was patient admitted / discharged? Hospital course, mention meds given and route, prescriptions, significant lab abnormalities, going to OR and other pertinent info. @ -Discharge. This is a 78-year-old female presenting for right lower back pain x 2 days. Denies trauma or injury or urinary symptoms. Patient has had multiple ER visits over the past 2 days for same complaint. Lab work and CT abdomen pelvis was performed with no definitive findings. Patient was discharged with muscle relaxer and likely diagnosis of musculoskeletal pain. Vital signs are within acceptable limits. Patient is neurovascularly intact. There is right paraspinal tenderness to palpation. Patient is provided with Toradol and morphine. Laboratory studies including CBC, CMP, lactic unremarkable. Upon reevaluation, patient states symptoms have resolved. Discussed likely diagnosis of low back strain. Strict return precautions discussed, advised to follow-up with PCP. Patient discharged with analgesics. Case was discussed with my ED attending Dr. Bianchi. Undiagnosed new problem with uncertain prognosis? @ -No Drug Therapy requiring intensive monitoring for toxicity (Heparin, Nitro, Insulin, Cardizem)? @ -No Were any procedures done? @ -No Diagnosis/symptom? @ -Low back strain Acute, or Chronic, or Acute on Chronic? @ -Acute Uncomplicated (without systemic symptoms) or Complicated (systemic symptoms)? @ -Uncomplicated Side effects of treatment? @ -No Exacerbation, Progression, or Severe Exacerbation? @ -No Poses a threat to life or bodily function? How? (Chest pain, [place], [place], pneumonia, PE, COPD, DKA, ARF, appy, cholecystitis, CVA, Diverticulitis, Homicidal, Suicidal, threat to staff... and all critical care pts) @ -No - Lab Data Result diagrams: 02/13/24 02:43 02/13/24 02:43 Lab Results 02/13/24 02/13/24 02/13/24 Range/Units 02:43 02:43 02:43 WBC 6.9 (3.8-10.6) k/uL RBC 4.11 (3.80-5.40) m/uL Hgb 13.2 (11.4-16.0) gm/dL Hct 39.8 (34.0-46.0) % MCV 96.6 (80.0-100.0) fL MCH 32.0 (25.0-35.0) pg MCHC 33.1 (31.0-37.0) g/dL RDW 14.1 (11.5-15.5) % Plt Count 191 (150-450) k/uL MPV 7.7 Neutrophils % 73 % Lymphocytes % 20 % Monocytes % 4 % Eosinophils % 2 % Basophils % 0 % Neutrophils # 5.0 (1.3-7.7) k/uL Lymphocytes # 1.4 (1.0-4.8) k/uL Monocytes # 0.3 (0-1.0) k/uL Eosinophils # 0.1 (0-0.7) k/uL Basophils # 0.0 (0-0.2) k/uL Sodium 136 L (137-145) mmol/L Potassium 5.0 (3.5-5.1) mmol/L Chloride 100 (98-107) mmol/L Carbon Dioxide 28 (22-30) mmol/L Anion Gap 8 mmol/L BUN 27 H (7-17) mg/dL Creatinine 0.66 (0.52-1.04) mg/dL Est GFR (CKD-EPI)AfAm >90 (>60 ml/min/1.73 sqM) Est GFR (CKD-EPI)NonAf 86 (>60 ml/min/1.73 sqM) Glucose 181 H (74-99) mg/dL Plasma Lactic Acid Janusz 1.7 (0.7-2.0) mmol/L Calcium 9.3 (8.4-10.2) mg/dL Total Bilirubin 0.8 (0.2-1.3) mg/dL AST 32 (14-36) U/L ALT 25 (4-34) U/L Alkaline Phosphatase 63 (38-126) U/L Total Protein 7.3 (6.3-8.2) g/dL Albumin 4.0 (3.5-5.0) g/dL Disposition Clinical Impression: Low back pain Disposition: HOME SELF-CARE Condition: Stable Instructions (If sedation given, give patient instructions): Acute Low Back P ain (ED) Additional Instructions: Discontinue Flexeril and take Zanaflex as needed instead for pain. You may also take Toradol as needed for pain. Follow-up with medicaid collection specialist if symptoms persist. Please return to the Emergency Department if symptoms worsen or any other concerns. Prescriptions: Ketorolac [Toradol] 10 mg PO Q8HR #15 tab tiZANidine HCL [Zanaflex] 2 mg PO Q8H PRN #15 capsule PRN Reason: Pain Is patient prescribed a controlled substance at d/c from ED?: No Referrals: Erich Berger DO [Primary Care Provider] - 1-2 days Wojciech Drake MD [STAFF PHYSICIAN] - 1-2 days Time of Disposition: 04:38
[2024-02-13 03:01] LABS: Basophils % (A) 0 %; Eosinophils # (A) 0.1 k/uL (0-0.7); Eosinophils % (A) 2 %; HCT 39.8 % (34.0-46.0); HGB 13.2 gm/dL (11.4-16.0); Lymphocytes # (A) 1.4 k/uL (1.0-4.8); Lymphocytes % (A) 20 %; MCHC 33.1 g/dL (31.0-37.0); MCV 96.6 fL (80.0-100.0); Mean Platelet Volume 7.7; Monocytes # (A) 0.3 k/uL (0-1.0); Monocytes % (A) 4 %; Neutrophils % (A) 73 %; Platelet Count 191 k/uL (150-450); RBC 4.11 m/uL (3.80-5.40); RDW 14.1 % (11.5-15.5); WBC 6.9 k/uL (3.8-10.6)
[2024-02-13 03:21] LABS: ALT 25 U/L (4-34); African American GFR (CKD) >90 (>60 ml/min/1.73 sqM); Anion Gap 8 mmol/L; Blood Urea Nitrogen 27 mg/dL (7-17); Calcium 9.3 mg/dL (8.4-10.2); Carbon Dioxide 28 mmol/L (22-30); Chloride 100 mmol/L (98-107); Glucose 181 mg/dL (74-99); Non-African American GFR(CKD) 86 (>60 ml/min/1.73 sqM); Sodium 136 mmol/L (137-145); Total Bilirubin 0.8 mg/dL (0.2-1.3); Total Protein 7.3 g/dL (6.3-8.2)
[2024-02-13 03:24] LABS: AST 32 U/L (14-36); Alkaline Phosphatase 63 U/L (38-126)
[2024-02-13 04:50] VITALS: BP 130/80; PULSE 71; RESP 16; TEMP 97.6
== END 2024-02-13 04:51 | disposition home or self-care (01) ==
LOC: EC 01:42
CPT/HCPCS: 36415; 80053; 83605; 85025; 96374; 96375; 99283

== ENCOUNTER 2024-03-12 20:02 | Emergency (ER) | payer MEDICARE, BC ==
[2024-03-12 20:11] VITALS: RESP 18; TEMP 97.5
--- NOTE | 2024-03-12 20:32 | ED ---
Back Pain HPI - General Chief Complaint: Back Pain/Injury Stated Complaint: Back Pain Time Seen by Provider: 03/12/24 20:20 Source: patient, RN notes reviewed - History of Present Illness Initial Comments: This is a 78-year-old female presenting to the emergency department chief complaint of left-sided back/CVA tenderness that started yesterday and has been worsening. Patient states that she has a history of kidney stones and this pain does feel similar. Patient denies recent falls or injuries to the lumbar spine. Denies loss of bladder or bowel continence or saddle anesthesias or radiation of pain down the lower extremities. She denies hematuria, dysuria, increase in urinary frequency or urgency, nausea, vomiting, fevers, chills. She denies abdominal pain, diarrhea or constipation. Patient states that she has a history of hemorrhoids and has had blood after wiping today but that is normal for her. - Related Data Home Medications Medication Instructions Recorded Confirmed Triamterene-Hctz 37.5-25Mg 1 tab PO DAILY 11/16/13 11/24/23 [Maxzide 37.5-25] lisinopriL [Zestril] 2.5 mg PO DAILY 10/30/17 11/24/23 Levothyroxine Sodium [Euthyrox] 125 mcg PO DAILY 08/01/20 11/24/23 metFORMIN HCL [Glucophage] 1,000 mg PO DAILY 08/01/20 11/24/23 Previous Rx's Medication Instructions Recorded Cyclobenzaprine [Flexeril] 10 mg PO TID #20 tab 02/12/24 Ketorolac [Toradol] 10 mg PO Q8HR #15 tab 02/12/24 Ketorolac [Toradol] 10 mg PO Q8HR #15 tab 02/13/24 tiZANidine HCL [Zanaflex] 2 mg PO Q8H PRN #15 capsule 02/13/24 Allergies Allergy/AdvReac Type Severity Reaction Status Date / Time No Known Allergies Allergy Verified 03/12/24 20:10 Review of Systems ROS Statement: Those systems with pertinent positive or pertinent negative responses have been documented in the HPI. ROS Other: All systems not noted in ROS Statement are negative. Past Medical History Past Medical History: Diabetes Mellitus, Fibromyalgia, GERD/Reflux, Hyperlipidemia, Hypertension, Musculoskeletal Disorder, Osteoarthritis (OA), Sleep Apnea/CPAP/BIPAP, Thyroid Disorder Additional Past Medical History / Comment(s): Varicose veins, SPINAL STENOSIS, x kidney stones. History of Any Multi-Drug Resistant Organisms: None Reported Past Surgical History: Adenoidectomy, Appendectomy, Bariatric Surgery, Cholecystectomy, Heart Catheterization, Hysterectomy, Joint Replacement, Tonsillectomy, Tubal Ligation Additional Past Surgical History / Comment(s): Gastric stapling, cervical fusion, bilateral knee replacements, colonoscopy, pain clinic procedures. Past Anesthesia/Blood Transfusion Reactions: No Reported Reaction Past Psychological History: No Psychological Hx Reported Smoking Status: Former smoker Past Alcohol Use History: Occasional Past Drug Use History: None Reported - Past Family History Mother Family Medical History: Cancer Additional Family Medical History / Comment(s): Breast and cervical cancer. Sister(s) Family Medical History: Cancer Additional Family Medical History / Comment(s): Cervical cancer. Father Family Medical History: Diabetes Mellitus General Exam General appearance: alert, in no apparent distress Eye exam: Present: normal appearance, PERRL, EOMI. Absent: scleral icterus, conjunctival injection, periorbital swelling ENT exam: Present: normal exam, mucous membranes moist Respiratory exam: Present: normal lung sounds bilaterally. Absent: respiratory distress, wheezes, rales, rhonchi, stridor Cardiovascular Exam: Present: regular rate, normal rhythm, normal heart sounds. Absent: systolic murmur, diastolic murmur, rubs, gallop, clicks GI/Abdominal exam: Present: soft, normal bowel sounds. Absent: distended, tenderness, guarding, rebound, rigid Back exam: Present: full ROM, tenderness, CVA tenderness (L) Neurological exam: Present: alert, oriented X3, CN II-XII intact Course Vital Signs 03/12/24 03/12/24 20:07 23:36 Temperature 97.5 F L Pulse Rate 108 H 106 H Respiratory 18 18 Rate Blood Pressure 132/78 120/56 O2 Sat by Pulse 98 93 L Oximetry Medical Decision Making - Medical Decision Making Was pt. sent in by a medical professional or institution (, PA, ADMIN SECRETARY, urgent care, hospital, or prison...) When possible be specific @ -No Did you speak to anyone other than the patient for history (EMS, parent, family, police, friend...)? What history was obtained from this source @ -No Did you review nursing and triage notes (agree or disagree)? Why? @ -I reviewed and agree with nursing and triage notes Were old charts reviewed (outside hosp., previous admission, EMS record, old EKG, old radiological studies, urgent care reports/EKG's, prison records)? Report findings @ -No old charts were reviewed Differential Diagnosis (chest pain, altered mental status, abdominal pain women, abdominal pain men, vaginal bleeding, weakness, fever, dyspnea, syncope, headache, dizziness, GI bleed, back pain, seizure, CVA, palpatations, mental health, musculoskeletal)? @ -Differential Back Pain: Strain, zoster, cauda equina syndrome, epidural abscess, vertebral osteomyelitis, discitis, fracture, subluxation, disc herniation, DJD, spinal stenosis, dissection, AAA, pancreatitis, peptic ulcer disease, pyelonephritis, kidney stone, this is not meant to be an all-inclusive list. EKG interpreted by me (3pts min.). @ -none X-rays interpreted by me (1pt min.). @ -None done CT interpreted by me (1pt min.). @ -CT of the abdomen pelvis without contrast reveals no evidence for acute abdominal process with no evidence for diverticulitis with no evidence for obstruction, postsurgical changes within the gastric lumen, may be dehiscence of gastric sleeve with debris's within the lumen laterally to the left Remarkable for severe degeneration changes of the lumbar spine. U/S interpreted by me (1pt. min.). @ -None done What testing was considered but not performed or refused? (CT, X-rays, U/S, labs)? Why? @ -None What meds were considered but not given or refused? Why? @ -None Did you discuss the management of the patient with other professionals (professionals i.e. , PA, ADMIN SECRETARY, lab, RT, psych nurse, medical social consultant, meter repairer, teacher, chief medical officer, rn case management)? Give summary @ -spoke with on-call general surgeon, Dr. Alejandro, regard to the CT scan findings concerning for possible dehiscence of patients has since. It is reported that this is not an acute surgical indication and cases like this occur over time and the CT scan is remarkable for food entering part of the stomach. She reports that patient is stable for discharge at this time as there are no acute need for admission. Recommend that patient does follow-up outpatient for ventral wall hernia Was smoking cessation discussed for >3mins.? @ -No Was critical care preformed (if so, how long)? @ -No Were there social determinants of health that impacted care today? How? (Homelessness, low income, unemployed, alcoholism, drug addiction, transportation, low edu. Level, literacy, decrease access to med. care, half-way, rehab)? @ -No Was there de-escalation of care discussed even if they declined (Discuss DNR or withdrawal of care, Hospice)? DNR status @ -No What co-morbidities impacted this encounter? (DM, HTN, Smoking, COPD, CAD, Cancer, CVA, ARF, Chemo, Hep., AIDS, mental health diagnosis, sleep apnea, morbid obesity)? @ -None Was patient admitted / discharged? Hospital course, mention meds given and route, prescriptions, significant lab abnormalities, going to OR and other pert inent info. @ - Discharged. 78-year-old female with left back/flank pain. On my evaluation the patient she is resting comfortably no signs acute distress. Her vital signs reveal mild tachycardia with a heart rate of 108. Patient is noted to have left-sided CVA tenderness to palpation with no radiation of pain or no abdominal pain. Patient is provided with dose of Toradol pending laboratory results and CT imaging. She is agree with this plan. labs reveal a Leukocytosis of 12.4, mildly elevated BUN of 34 and creatinine 1.09, urinalysis remarkable for trace leukocytes small blood and rare bacteria. CT scan unremarkable for acute process, see above discussion with general surgeon for further details. Patient is provided with additional dose of pain medication. Symptoms are l ikely secondary to musculoskeletal pain rather than acute intra-abdominal process. Recommend that patient does follow-up with general surgeon outpatient for further evaluation of ventral wall hernia. She is provided with starter pack of Tylenol 3 to take as needed for back pain. All questions have been answered at bedside and strict return parameters have discussed with the patient she is verbalized understanding. Case discussed with my attending Dr. Bianchi Undiagnosed new problem with uncertain prognosis? @ -No Drug Therapy requiring intensive monitoring for toxicity (Heparin, Nitro, Insulin, Cardizem)? @ -No Were any procedures done? @ -No Diagnosis/symptom? @ -Flank pain, back pain Acute, or Chronic, or Acute on Chronic? @ -acute Uncomplicated (without systemic symptoms) or Complicated (systemic symptoms)? @ -uncomplicated Side effects of treatment? @ -No Exacerbation, Progression, or Severe Exacerbation? @ -No Poses a threat to life or bodily function? How? (Chest pain, [place], [place], pneumonia, PE, COPD, DKA, ARF, appy, cholecystitis, CVA, Diverticulitis, Homicidal, S uicidal, threat to staff... and all critical care pts) @ -No - Lab Data Result diagrams: 03/12/24 20:55 03/12/24 20:55 Lab Results 03/12/24 03/12/24 03/12/24 Range/Units 20:46 20:55 20:55 WBC 12.4 H (3.8-10.6) k/uL RBC 4.88 (3.80-5.40) m/uL Hgb 15.3 (11.4-16.0) gm/dL Hct 48.3 H (34.0-46.0) % MCV 99.0 (80.0-100.0) fL MCH 31.4 (25.0-35.0) pg MCHC 31.7 (31.0-37.0) g/dL RDW 13.8 (11.5-15.5) % Plt Count 239 (150-450) k/uL MPV 7.7 Neutrophils % 74 % Lymphocytes % 19 % Monocytes % 5 % Eosinophils % 0 % Basophils % 0 % Neutrophils # 9.2 H (1.3-7.7) k/uL Lymphocytes # 2.4 (1.0-4.8) k/uL Monocytes # 0.6 (0-1.0) k/uL Eosinophils # 0.0 (0-0.7) k/uL Basophils # 0.0 (0-0.2) k/uL Sodium 136 L (137-145) mmol/L Potassium 4.5 (3.5-5.1) mmol/L Chloride 98 (98-107) mmol/L Carbon Dioxide 28 (22-30) mmol/L Anion Gap 10 mmol/L BUN 34 H (7-17) mg/dL Creatinine 1.09 H (0.52-1.04) mg/dL Est GFR (CKD-EPI)AfAm 57 (>60 ml/min/1.73 sqM) Est GFR (CKD-EPI)NonAf 49 (>60 ml/min/1.73 sqM) Glucose 273 H (74-99) mg/dL Calcium 10.0 (8.4-10.2) mg/dL Total Bilirubin 0.7 (0.2-1.3) mg/dL AST 30 (14-36) U/L ALT 26 (4-34) U/L Alkaline Phosphatase 90 (38-126) U/L Total Protein 8.8 H (6.3-8.2) g/dL Albumin 4.7 (3.5-5.0) g/dL Urine Color Yellow Urine Appearance Clear (Clear) Urine pH 5.5 (5.0-8.0) Ur Specific [place] 1.018 (1.001-1.035) Urine Protein Negative (Negative) Urine Glucose (UA) 1+ H (Negative) Urine Ketones Negative (Negative) Urine Blood Small H (Negative) Urine Nitrite Negative (Negative) Urine Bilirubin Negative (Negative) Urine Urobilinogen <2.0 (<2.0) mg/dL Ur Leukocyte Esterase Trace H (Negative) Urine RBC 1 (0-5) /hpf Urine WBC 3 (0-5) /hpf Ur Squamous Epith Cells 2 (0-4) /hpf Urine Bacteria Rare H (None) /hpf Hyaline Casts 4 H (0-2) /lpf Urine Mucus Rare H (None) /hpf Urine Yeast (Budding) Rare H (None) /hpf Disposition Clinical Impression: Back pain Disposition: HOME SELF-CARE Condition: Good Instructions (If sedation given, give patient instructions): Chronic Back Pain (DC), Back Pain (ED) Additional Instructions: Please return to the Emergency Department if symptoms worsen or any other concerns. Recommend that you follow-up outpatient with general surgeon for f urther evaluation of ventral hernia Is patient prescribed a controlled substance at d/c from ED?: No Referrals: Erich Berger DO [Primary Care Provider] - 1-2 days Time of Disposition: 23:51
[2024-03-12] MEDS: KETOROLAC 15 MG/ML 1 ML VIAL IVP STA (20:59)
[2024-03-12 21:27] LABS: Basophils % (A) 0 %; Eosinophils % (A) 0 %; HCT 48.3 % (34.0-46.0); HGB 15.3 gm/dL (11.4-16.0); Lymphocytes # (A) 2.4 k/uL (1.0-4.8); Lymphocytes % (A) 19 %; MCH 31.4 pg (25.0-35.0); MCHC 31.7 g/dL (31.0-37.0); Mean Platelet Volume 7.7; Monocytes # (A) 0.6 k/uL (0-1.0); Monocytes % (A) 5 %; Neutrophils # (A) 9.2 k/uL (1.3-7.7); Neutrophils % (A) 74 %; Platelet Count 239 k/uL (150-450); RBC 4.88 m/uL (3.80-5.40); RDW 13.8 % (11.5-15.5); WBC 12.4 k/uL (3.8-10.6)
--- NOTE | 2024-03-12 21:35 | CT ---
EXAMINATION TYPE: CT abdomen pelvis wo con DATE OF EXAM: 03/12/2024 9:26 PM COMPARISON: CT abdomen pelvis most recent from 02/11/2024, 11/24/2023 CLINICAL INDICATION: Female, 78 years old with history of L flank pain; Left side flank pain. TECHNIQUE: Axial CT abdomen pelvis wo con;Sagittal and coronal reformats were created on a separate workstation. Contrast used: mL of , (none if empty) Oral contrast used: without Oral Contrast (none if empty) CT DLP: 1751.4 mGycm, Automated exposure control for dose reduction was used. FINDINGS: LOWER CHEST: Unremarkable ABDOMEN LIVER: Unremarkable GALLBLADDER AND BILE DUCTS: The gallbladder is surgically absent. PANCREAS: Unremarkable. SPLEEN: Unremarkable. ADRENAL GLANDS: Unremarkable. KIDNEYS AND URETERS: No evidence of hydronephrosis or renal calculus. The ureters are unremarkable. PELVIS BLADDER: No evidence for wall thickening or mass given limitations of exam. REPRODUCTIVE: The uterus is surgically absent. ABDOMEN & PELVIS STOMACH AND BOWEL: No evidence of bowel obstruction. Postsurgical changes in the gastric lumen. PERITONEUM/RETROPERITONEUM: No evidence of pneumoperitoneum or free fluid. VASCULATURE: No evidence of aortic aneurysm. MUSCULOSKELETAL: No acute osseous abnormalities, moderate to severe degeneration changes of the spine with grade 1 anterolisthesis of L3 on L4. LYMPH NODES: No gross evidence for lymphadenopathy. SOFT TISSUE/ABDOMINAL WALL: Anterior abdominal wall hernia containing loop of colon. Hernia measuring 5.9 cm of the neck. Moderate amount stool throughout the colon. IMPRESSION: 1. Postsurgical changes gastric lumen, unclear exact surgery may been a gastric sleeve which has deh isced with debris within the suspected excluded lumen laterally to the left. Correlate for dehiscence of gastric sleeve. Findings not seen on 11/24/2023 and increased from 02/12/2024. 2. No additional evidence for acute abdominal process. No obstructive uropathy present. No evidence for diverticulitis. 3. Ventral wall hernia containing loop of colon. No evidence for obstruction circulation. [facility], Workstation: [id number], 03/12/2024 9:33 PM
[2024-03-12 21:54] LABS: Appearance,Urine Clear (Clear); Bacteria,Urine Rare /hpf; Bilirubin,Urine Negative (Negative); Blood,Urine Small (Negative); Budding Yeast,Urine Rare /hpf; Color,Urine Yellow; Glucose,Urine (UA) 1+ (Negative); Hyaline Casts,Urine 4 /lpf (0-2); Ketones,Urine Negative (Negative); Leukocyte Esterase,Urine Trace (Negative); Mucus,Urine Rare /hpf; Nitrite,Urine Negative (Negative); PH, Urine 5.5 (5.0-8.0); Protein,Urine Negative (Negative); RBC,Urine 1 /hpf (0-5); Specific Gravity,Urine 1.018 (1.001-1.035); Squamous Epithelial Cell,Urine 2 /hpf (0-4); Urobilinogen,Urine <2.0 mg/dL (<2.0); WBC,Urine 3 /hpf (0-5)
[2024-03-12 21:57] LABS: ALT 26 U/L (4-34); AST 30 U/L (14-36); African American GFR (CKD) 57 (>60 ml/min/1.73 sqM); Albumin 4.7 g/dL (3.5-5.0); Alkaline Phosphatase 90 U/L (38-126); Anion Gap 10 mmol/L; Blood Urea Nitrogen 34 mg/dL (7-17); Carbon Dioxide 28 mmol/L (22-30); Chloride 98 mmol/L (98-107); Glucose 273 mg/dL (74-99); Non-African American GFR(CKD) 49 (>60 ml/min/1.73 sqM); Potassium 4.5 mmol/L (3.5-5.1); Sodium 136 mmol/L (137-145); Total Bilirubin 0.7 mg/dL (0.2-1.3); Total Protein 8.8 g/dL (6.3-8.2)
[2024-03-12] MEDS: MORPHINE SULFATE 4 MG/ML SYRINGE IVP STA (23:22)
[2024-03-12 23:37] VITALS: BP 120/56; PULSE 106
[2024-03-13] MEDS: ACET/COD 300 MG/30 MG STARTER PACK 6 TAB BTL PO STA (00:02)
== END 2024-03-13 00:12 | disposition home or self-care (01) ==
LOC: EC 20:02
DX: M54.9 Dorsalgia, unspecified (principal); R00.0 Tachycardia, unspecified; R10.9 Unspecified abdominal pain; D72.829 Elevated white blood cell count, unspecified; R79.89 Other specified abnormal findings of blood chemistry; Z87.891 Personal history of nicotine dependence
CPT/HCPCS: 36415; 80053; 85025; 81001; 74176; 99284; 96374; 96375; J2270; J1885

== ENCOUNTER 2024-03-25 12:15 | Emergency (ER) | payer MEDICARE, BC ==
[2024-03-25 12:37] VITALS: RESP 20; TEMP 97.8
--- NOTE | 2024-03-25 13:13 | ED ---
Back Pain HPI - General Chief Complaint: Back Pain/Injury Stated Complaint: Back pain Time Seen by Provider: 03/25/24 12:32 Source: patient, RN notes reviewed Limitations: no limitations - History of Present Illness Initial Comments: This is a 78-year-old female with history of DM and spinal stenosis presenting with right lower back pain (8 out of 10) x 2 days. Patient states pain started suddenly with no recent trauma or fall. Patient denies radiating pain, saddle paresthesia or urinary incontinence/retention. Patient denies urinary symptoms or hematuria. Patient endorses use of ibuprofen this morning with minimal relief. MD Complaint: back pain Onset/Timin -: days(s) Radiation: none Severity scale (1-10): 8 Consistency: constant Improves With: immobilization Worsens With: movement Associated Symptoms: denies other symptoms - Related Data Home Medications Medication Instructions Recorded Confirmed Triamterene-Hctz 37.5-25Mg 1 tab PO DAILY 11/16/13 11/24/23 [Maxzide 37.5-25] lisinopriL [Zestril] 2.5 mg PO DAILY 10/30/17 11/24/23 Levothyroxine Sodium [Euthyrox] 125 mcg PO DAILY 08/01/20 11/24/23 metFORMIN HCL [Glucophage] 1,000 mg PO DAILY 08/01/20 11/24/23 Previous Rx's Medication Instructions Recorded Cyclobenzaprine [Flexeril] 10 mg PO TID #20 tab 02/12/24 Ketorolac [Toradol] 10 mg PO Q8HR #15 tab 02/12/24 Ketorolac [Toradol] 10 mg PO Q8HR #15 tab 02/13/24 tiZANidine HCL [Zanaflex] 2 mg PO Q8H PRN #15 capsule 02/13/24 Allergies Allergy/AdvReac Type Severity Reaction Status Date / Time No Known Allergies Allergy Verified 03/25/24 12:34 Review of Systems ROS Statement: Those systems with pertinent positive or pertinent negative responses have been documented in the HPI. ROS Other: All systems not noted in ROS Statement are negative. Past Medical History Past Medical History: Diabetes Mellitus, Fibromyalgia, GERD/Reflux, Hyperlipidemia, Hypertension, Musculoskeletal Disorder, Osteoarthritis (OA), Sleep Apnea/CPAP/BIPAP, Thyroid Disorder Additional Past Medical History / Comment(s): Varicose veins, SPINAL STENOSIS, x kidney stones. History of Any Multi-Drug Resistant Organisms: None Reported Past Surgical History: Adenoidectomy, Appendectomy, Bariatric Surgery, Cholecystectomy, Heart Catheterization, Hysterectomy, Joint Replacement, Tonsillectomy, Tubal Ligation Additional Past Surgical History / Comment(s): Gastric stapling, cervical fusion, bilateral knee replacements, colonoscopy, pain clinic procedures. Past Anesthesia/Blood Transfusion Reactions: No Reported Reaction Past Psychological History: No Psychological Hx Reported Smoking Status: Former smoker Past Alcohol Use History: Occasional Past Drug Use History: None Reported - Past Family History Mother Family Medical History: Cancer Additional Family Medical History / Comment(s): Breast and cervical cancer. Sister(s) Family Medical History: Cancer Additional Family Medical History / Comment(s): Cervical cancer. Father Family Medical History: Diabetes Mellitus General Exam Limitations: no limitations General appearance: alert, in no apparent distress Head exam: Present: atraumatic, normocephalic, normal inspection Eye exam: Present: normal appearance, PERRL, EOMI. Absent: scleral icterus, conjunctival injection, periorbital swelling ENT exam: Present: normal exam, mucous membranes moist Neck exam: Present: normal inspection. Absent: tenderness, meningismus, lymphadenopathy Respiratory exam: Present: normal lung sounds bilaterally. Absent: respiratory distress, wheezes, rales, rhonchi, stridor Cardiovascular Exam: Present: regular rate, normal rhythm, normal heart sounds. Absent: systolic murmur, diastolic murmur, rubs, gallop, clicks GI/Abdominal exam: Present: soft, normal bowel sounds. Absent: distended, tenderness, guarding, rebound, rigid Extremities exam: Present: normal inspection, full ROM, normal capillary refill. Absent: tenderness, pedal edema, joint swelling, calf tenderness Back exam: Present: tenderness, paraspinal tenderness (Positive right paraspinal tenderness and muscle spasm in thoracic and lumbar regions.). Absent: CVA tenderness (R), CVA tenderness (L), vertebral tenderness Neurological exam: Present: alert, oriented X3, CN II-XII intact Psychiatric exam: Present: normal affect, normal mood Skin exam: Present: warm, dry, intact, normal color. Absent: rash Course Vital Signs 03/25/24 03/25/24 12:34 15:23 Temperature 97.8 F Pulse Rate 113 H 105 H Respiratory 20 20 Rate Blood Pressure 156/83 107/71 O2 Sat by Pulse 96 95 Oximetry Medical Decision Making - Medical Decision Making Was pt. sent in by a medical professional or institution ([facility], COMBINER, urgent care, hospital, or halfway...) When possible be specific @ -No Did you speak to anyone other than the patient for history (EMS, parent, family, police, friend...)? What history was obtained from this source @ -No Did you review nursing and triage notes (agree or disagree)? Why? @ -I reviewed and agree with nursing and triage notes Were old charts reviewed (outside hosp., previous admission, EMS record, old EKG, old radiological studies, urgent care reports/EKG's, halfway records)? Report findings @ -No old charts were reviewed Differential Diagnosis (chest pain, altered mental status, abdominal pain women, abdominal pain men, vaginal bleeding, weakness, fever, dyspnea, syncope, headache, dizziness, GI bleed, back pain, seizure, CVA, palpatations, mental health, musculoskeletal)? @ -Differential Back Pain: Strain, zoster, cauda equina syndrome, epidural abscess, vertebral osteomyelitis, discitis, fracture, subluxation, disc herniation, DJD, spinal stenosis, dissection, AAA, pancreatitis, peptic ulcer disease, pyelonephritis, kidney stone, this is not meant to be an all-inclusive list. EKG interpreted by me (3pts min.). @ -Not done X-rays interpreted by me (1pt min.). @ -Thoracic and lumbar x-ray revealed no acute fracture or listhesis of vertebrae CT interpreted by me (1pt min.). @ -None done U/S interpreted by me (1pt. min.). @ -None done What testing was considered but not performed or refused? (CT, X-rays, U/S, labs)? Why? @ -None What meds were considered but not given or refused? Why? @ -None Did you discuss the management of the patient with other professionals ([place] i.e. [facility], COMBINER, lab, RT, psych nurse, social worker assistant, senior visual designer, teacher, annual giving officer, upper caser)? Give summary @ -No Was smoking cessation discussed for >3mins.? @ -No Was critical care preformed (if so, how long)? @ -No Were there social determinants of health that impacted care today? How? (Homelessness, low income, unemployed, alcoholism, drug addiction, transportation, low edu. Level, literacy, decrease access to med. care, [facility], rehab)? @ -No Was there de-escalation of care discussed even if they declined (Discuss DNR or withdrawal of care, Hospice)? DNR status @ -No What co-morbidities impacted this encounter? (DM, HTN, Smoking, COPD, CAD, Cancer, CVA, ARF, Chemo, Hep., AIDS, mental health diagnosis, sleep apnea, morbid obesity)? @ -DM, spinal stenosis Was patient admitted / discharged? Hospital course, mention meds given and route, prescriptions, significant lab abnormalities, going to OR and other pertinent info. @ -Discharge. Thoracic and lumbar x-rays revealed no fractures or other significant findings. Patient initially given IM Toradol and Norflex with minimal to no relief. Patient given Dilaudid with some relief noted by patient. T3 starter pack provided to patient before being sent home. Undiagnosed new problem with uncertain prognosis? @ -No Drug Therapy requiring intensive monitoring for toxicity (Heparin, Nitro, Insulin, Cardizem)? @ -No Were any procedures done? @ -No Diagnosis/symptom? @ -Lumbar muscle strain/spasm Acute, or Chronic, or Acute on Chronic? @ -Acute Uncomplicated (without systemic symptoms) or Complicated (systemic symptoms)? @ -Uncomplicated Side effects of treatment? @ -No Exacerbation, Progression, or Severe Exacerbation? @ -No Poses a threat to life or bodily function? How? (Chest pain, [place], [place], pneumonia, PE, COPD, DKA, ARF, appy, cholecystitis, CVA, Diverticulitis, Homicidal, Suicidal, threat to staff... and all critical care pts) @ -No Disposition Clinical Impression: Strain of lumbar region Disposition: HOME SELF-CARE Condition: Good Instructions (If sedation given, give patient instructions): Acute Low Back Pain (ED) Is patient prescribed a controlled substance at d/c from ED?: No Referrals: Erich Berger DO [Primary Care Provider] - 1-2 days Time of Disposition: 15:13
[2024-03-25] MEDS: KETOROLAC 15 MG/ML 1 ML VIAL IM STA (13:52)
[2024-03-25] MEDS: ORPHENADRINE 30 MG/ML 2 ML VIAL IM STA (13:53)
--- NOTE | 2024-03-25 14:19 | XR ---
EXAMINATION TYPE: XR thoracic spine 2V DATE OF EXAM: 03/25/2024 1:48 PM COMPARISON: None CLINICAL INDICATION: Female, 78 years old with history of Mid/low back pain; [facility] TECHNIQUE: XR thoracic spine 2V views of the spine in Frontal and lateral projections. FINDINGS: No evidence of acute fracture. There is scattered multilevel disk space narrowing without loss of ve rtebral body height. There is normal alignment of the thoracic vertebral bodies. Scattered osteophyte formation along the anterior and lateral aspects of the vertebral bodies. Neural foramen are patent given limitations of this exam. Spinal canal appears patent. Surgical clips in upper abdomen. Atheros clerosis of the arterial vasculature. IMPRESSION: 1. No acute osseous pathology. 2. [id number] multilevel degeneration changes of the spine. [facility], , 03/25/2024 2:16 PM
--- NOTE | 2024-03-25 14:19 | XR ---
EXAMINATION TYPE: XR lumbar spine 2 or 3V DATE OF EXAM: 03/25/2024 1:48 PM COMPARISON: None CLINICAL INDICATION: Female, 78 years old with history of Mid/low back pain; [facility] TECHNIQUE: XR lumbar spine 2 or 3V - Frontal, lateral and coned in L5-S1 lateral views of the spine. FINDINGS: No evidence of any acute osseous pathology. No evidence of loss of vertebral body height i s seen. There is normal alignment of the lumbar vertebral bodies. Scattered disc space narrowing. Mul tilevel marginal osteophyte formation throughout the visualized spine. There is facet joint arthropat hy throughout the spine. Scattered at least mild neural foraminal stenosis. Atherosclerotic arterial vasculature. Surgical clips throughout the spine. IMPRESSION: 1. No acute fracture. 2. Moderate multilevel disc degeneration. [facility], , 03/25/2024 2:17 PM
[2024-03-25] MEDS: HYDROmorphone 1 MG/ML 1 ML SYRINGE IM STA (14:50)
[2024-03-25] MEDS: ACET/COD 300 MG/30 MG STARTER PACK 6 TAB BTL PO STA (15:19)
[2024-03-25 15:25] VITALS: BP 107/71; PULSE 105
== END 2024-03-25 15:25 | disposition home or self-care (01) ==
LOC: EC 12:15
DX: S39.012A Strain of muscle, fascia and tendon of lower back, initial encounter (principal); M48.00 Spinal stenosis, site unspecified; E11.9 Type 2 diabetes mellitus without complications; Z87.891 Personal history of nicotine dependence; X58.XXXA Exposure to other specified factors, initial encounter
CPT/HCPCS: 72070; 72100; 99283; 96372 ×3; J2360; J1171; J1885

== ENCOUNTER 2024-03-27 00:51 | Emergency (ER) | payer MEDICARE, BC ==
--- NOTE | 2024-03-27 01:07 | ED ---
Back Pain HPI - General Chief Complaint: Back Pain/Injury Stated Complaint: Back & Leg Pain Source: patient, RN notes reviewed, old records reviewed Limitations: no limitations - History of Present Illness Initial Comments: This is a 78-year-old female to the ER for evaluation of back pain severe back pain, here in the ER 2 days ago for back pain. No fall no trauma no other injury MD Complaint: back pain -: days(s) Similar Symptoms Previously: Yes Place: home Radiation: none Severity: moderate Severity scale (1-10): 7 Quality: sharp, dull Consistency: constant Improves With: none Worsens With: none Associated Symptoms: denies other symptoms - Related Data Home Medications Medication Instructions Recorded Confirmed Triamterene-Hctz 37.5-25Mg 1 tab PO DAILY 11/16/13 11/24/23 [Maxzide 37.5-25] lisinopriL [Zestril] 2.5 mg PO DAILY 10/30/17 11/24/23 Levothyroxine Sodium [Euthyrox] 125 mcg PO DAILY 08/01/20 11/24/23 metFORMIN HCL [Glucophage] 1,000 mg PO DAILY 08/01/20 11/24/23 Previous Rx's Medication Instructions Recorded Cyclobenzaprine [Flexeril] 10 mg PO TID #20 tab 02/12/24 Ketorolac [Toradol] 10 mg PO Q8HR #15 tab 02/12/24 Ketorolac [Toradol] 10 mg PO Q8HR #15 tab 02/13/24 tiZANidine HCL [Zanaflex] 2 mg PO Q8H PRN #15 capsule 02/13/24 Allergies Allergy/AdvReac Type Severity Reaction Status Date / Time No Known Allergies Allergy Verified 03/27/24 01:00 Review of Systems ROS Statement: Those systems with pertinent positive or pertinent negative responses have been documented in the HPI. ROS Other: All systems not noted in ROS Statement are negative. Past Medical History Past Medical History: Diabetes Mellitus, Fibromyalgia, GERD/Reflux, Hyperl ipidemia, Hypertension, Musculoskeletal Disorder, Osteoarthritis (OA), Sleep Apnea/CPAP/BIPAP, Thyroid Disorder Additional Past Medical History / Comment(s): Varicose veins, SPINAL STENOSIS, x kidney stones. History of Any Multi-Drug Resistant Organisms: None Reported Past Surgical History: Adenoidectomy, Appendectomy, Bariatric Surgery, Cholecystectomy, Heart Catheterization, Hysterectomy, Joint Replacement, Tonsillectomy, Tubal Ligation Additional Past Surgical History / Comment(s): Gastric stapling, cervical fusion, bilateral knee replacements, colonoscopy, pain clinic procedures. Past Anesthesia/Blood Transfusion Reactions: No Reported Reaction Past Psychological History: No Psychological Hx Reported Smoking Status: Former smoker Past Alcohol Use History: Occasional Past Drug Use History: None Reported - Past Family History Mother Family Medical History: Cancer Additional Family Medical History / Comment(s): Breast and cervical cancer. Sister(s) Family Medical History: Cancer Additional Family Medical History / Comment(s): Cervical cancer. Father Family Medical History: Diabetes Mellitus General Exam Limitations: no limitations General appearance: alert, in no apparent distress, anxious Head exam: Present: atraumatic, normocephalic, normal inspection Eye exam: Present: normal appearance, PERRL, EOMI. Absent: scleral icterus, conjunctival injection, periorbital swelling ENT exam: Present: normal exam, mucous membranes moist Neck exam: Present: normal inspection. Absent: tenderness, meningismus, lymphadenopathy Respiratory exam: Present: normal lung sounds bilaterally. Absent: respiratory distress, wheezes, rales, rhonchi, stridor Cardiovascular Exam: Present: regular rate, normal rhythm, normal heart sounds. Absent: systolic murmur, diastolic murmur, rubs, gallop, clicks GI/Abdominal exam: Present: soft, normal bowel sounds. Absent: distended, tenderness, guarding, rebound, rigid Extremities exam: Present: normal inspection, full ROM, normal capillary refill. Absent: tenderness, pedal edema, joint swelling, calf tenderness Back exam: Present: normal inspection Neurological exam: Present: alert, oriented X3, CN II-XII intact Psychiatric exam: Present: normal affect, normal mood Skin exam: Present: warm, dry, intact, normal color. Absent: rash Course Vital Signs 03/27/24 03/27/24 03/27/24 00:57 01:21 02:01 Temperature 98.6 F 97.6 F Pulse Rate 108 H 104 H 102 H Respiratory 18 21 20 Rate Blood Pressure 183/74 171/83 157/70 O2 Sat by Pulse 96 95 93 L Oximetry - Reevaluation(s) Reevaluation #1: 03/27/24 01:12 Medical record is reviewed Reevaluation #2: 03/27/24 01:12 Patient symptoms unchanged Patient's pain is improving Reevaluation #3: 03/27/24 03:25 Patient informed of results and questions answered Reevaluation #4: Was pt. sent in by a medical professional or institution ([facility], EDIPHONE OPERATOR, urgent care, hospital, or long term...) When possible be specific @ -no Did you speak to anyone other than the patient for history (EMS, parent, family, police, friend...)? What history was obtained from this source @ -no Did you review nursing and triage notes (agree or disagree)? Why? @ -agree Are old charts reviewed (outside hosp., previous admission, EMS record, old EKG, old radiological studies, urgent care reports/EKG's, long term records)? Report findings @ -yes Differential Diagnosis (chest pain, altered mental status, abdominal pain women, abdominal pain men, vaginal bleeding, weakness, fever, dyspnea, syncope, headache, dizziness, GI bleed, back pain, seizure, CVA, palpatations, mental health, musculoskeletal)? @ -prior EKG interpreted by me (3pts min.). @ -yes X-rays interpreted by me (1pt min.). @ -yes negative for acute disease CT interpreted by me (1pt min.). @ -no U/S interpreted by me (1pt. min.). @ -no What testing was considered but not performed or refused? (CT, X-rays, U/S, labs)? Why? @ -none What meds were considered but not given or refused? Why? @ -none Did you discuss the management of the patient with other professionals (professionals i.e. [facility], EDIPHONE OPERATOR, lab, RT, psych nurse, psych social worker, fishing captain, teacher, space officer, major case detective)? Give summary @ -no Was smoking cessation discussed for >3mins.? @ -no Was critical care preformed (if so, how long)? @ -no Were there social determinants of health that impacted care today? How? (H omelessness, low income, unemployed, alcoholism, drug addiction, transportation, low edu. Level, literacy, decrease access to med. care, skilled nursing, rehab)? @ -none Was there de-escalation of care discussed even if they declined (Discuss DNR or withdrawal of care, Hospice)? DNR status @ -no What co-morbidities impacted this encounter? (DM, HTN, Smoking, COPD, CAD, Cancer, CVA, ARF, Chemo, Hep., AIDS, mental health diagnosis, sleep apnea, morbid obesity)? @ -none Was patient admitted / discharged? Hospital course, mention meds given and route, prescriptions, significant lab abnormalities, going to OR and other pertinent info. @ - Undiagnosed new problem with uncertain prognosis? @ -no Drug Therapy requiring intensive monitoring for toxicity (Heparin, Nitro, Insulin, Cardizem)? @ -no Were any procedures done? @ -no Diagnosis/symptom? @ - Acute, or Chronic, or Acute on Chronic? @ -Acute Uncomplicated (without systemic symptoms) or Complicated (systemic symptoms)? @ -Complicated Side effects of treatment? @ -no Exacerbation, Progression, or Severe Exacerbation? @ -exacerbation Poses a threat to life or bodily function? How? (Chest pain, [place], [place], pneumonia, PE, COPD, DKA, ARF, appy, cholecystitis, CVA, Diverticulitis, Homicidal, Suicidal, threat to staff... and all critical care pts) @ -yes Reevaluation #5: Differential Back Pain: Strain, zoster, cauda equina syndrome, epidural abscess, vertebral osteomyelitis, discitis, fracture, subluxation, disc herniation, DJD, spinal stenosis, dissection, AAA, pancreatitis, peptic ulcer disease, pyelonephritis, kidney stone, this is not meant to be an all-inclusive list. Medical Decision Making - Medical Decision Making 78 female to ER for evaluation of back pain severe back pain here in the ER which is controlled, patient can be discharged home - Lab Data Result diagrams: 03/27/24 01:19 03/27/24 01:19 Lab Results 03/27/24 03/27/24 03/27/24 Range/Units 01:19 01:19 02:17 WBC 7.7 (3.8-10.6) k/uL RBC 4.51 (3.80-5.40) m/uL Hgb 14.3 (11.4-16.0) gm/dL Hct 44.5 (34.0-46.0) % MCV 98.7 (80.0-100.0) fL MCH 31.7 (25.0-35.0) pg MCHC 32.1 (31.0-37.0) g/dL RDW 13.9 (11.5-15.5) % Plt Count 194 (150-450) k/uL MPV 8.2 Neutrophils % 81 % Lymphocytes % 15 % Monocytes % 2 % Eosinophils % 0 % Basophils % 0 % Neutrophils # 6.2 (1.3-7.7) k/uL Lymphocytes # 1.2 (1.0-4.8) k/uL Monocytes # 0.2 (0-1.0) k/uL Eosinophils # 0.0 (0-0.7) k/uL Basophils # 0.0 (0-0.2) k/uL Sodium 136 L (137-145) mmol/L Potassium 4.9 (3.5-5.1) mmol/L Chloride 100 (98-107) mmol/L Carbon Dioxide 28 (22-30) mmol/L Anion Gap 8 mmol/L BUN 23 H (7-17) mg/dL Creatinine 0.72 (0.52-1.04) mg/dL Est GFR (CKD-EPI)AfAm >90 (>60 ml/min/1.73 sqM) Est GFR (CKD-EPI)NonAf 82 (>60 ml/min/1.73 sqM) Glucose 252 H (74-99) mg/dL Calcium 9.8 (8.4-10.2) mg/dL Total Bilirubin 0.7 (0.2-1.3) mg/dL AST 33 (14-36) U/L ALT 30 (4-34) U/L Alkaline Phosphatase 91 (38-126) U/L Total Protein 7.6 (6.3-8.2) g/dL Albumin 4.5 (3.5-5.0) g/dL Lipase 101 (23-300) U/L Urine Color Colorless Urine Appearance Clear (Clear) Urine pH 6.5 (5.0-8.0) Ur Specific [place] 1.011 (1.001-1.035) Urine Protein Negative (Negative) Urine Glucose (UA) 4+ H (Negative) Urine Ketones 1+ H (Negative) Urine Blood Negative (Negative) Urine Nitrite Negative (Negative) Urine Bilirubin Negative (Negative) Urine Urobilinogen <2.0 (<2.0) mg/dL Ur Leukocyte Esterase Trace H (Negative) Urine RBC 1 (0-5) /hpf Urine WBC 2 (0-5) /hpf Ur Squamous Epith Cells 2 (0-4) /hpf - Radiology Data Radiology results: report reviewed (CT lumbar spine negative for acute disease does have spinal stenosis), image reviewed Disposition Clinical Impression: Lumbar radiculopathy, Mid back pain, Mechanical back pain Disposition: HOME SELF-CARE Condition: Fair Instructions (If sedation given, give patient instructions): Acute Low Back Pain (ED) Is patient prescribed a controlled substance at d/c from ED?: No Referrals: Erich Berger DO [Primary Care Provider] - 1-2 days Time of Disposition: 03:15
[2024-03-27] MEDS: SODIUM CHLORIDE 0.9% 1,000 ML IV STA (01:32)
[2024-03-27] MEDS: ACETAMINOPHEN TAB 500 MG TAB PO STA (01:33)
[2024-03-27] MEDS: KETOROLAC 15 MG/ML 1 ML VIAL IVP STA (01:34)
[2024-03-27] MEDS: HYDROmorphone 1 MG/ML 1 ML SYRINGE IVP STA ×2 (01:35→03:40)
[2024-03-27 01:40] LABS: Basophils % (A) 0 %; Eosinophils % (A) 0 %; HCT 44.5 % (34.0-46.0); HGB 14.3 gm/dL (11.4-16.0); Lymphocytes # (A) 1.2 k/uL (1.0-4.8); Lymphocytes % (A) 15 %; MCH 31.7 pg (25.0-35.0); MCHC 32.1 g/dL (31.0-37.0); MCV 98.7 fL (80.0-100.0); Mean Platelet Volume 8.2; Monocytes # (A) 0.2 k/uL (0-1.0); Monocytes % (A) 2 %; Neutrophils # (A) 6.2 k/uL (1.3-7.7); Neutrophils % (A) 81 %; Platelet Count 194 k/uL (150-450); RBC 4.51 m/uL (3.80-5.40); RDW 13.9 % (11.5-15.5); WBC 7.7 k/uL (3.8-10.6)
[2024-03-27 01:49] LABS: ALT 30 U/L (4-34); AST 33 U/L (14-36); African American GFR (CKD) >90 (>60 ml/min/1.73 sqM); Albumin 4.5 g/dL (3.5-5.0); Alkaline Phosphatase 91 U/L (38-126); Anion Gap 8 mmol/L; Blood Urea Nitrogen 23 mg/dL (7-17); Calcium 9.8 mg/dL (8.4-10.2); Carbon Dioxide 28 mmol/L (22-30); Chloride 100 mmol/L (98-107); Glucose 252 mg/dL (74-99); Lipase 101 U/L (23-300); Non-African American GFR(CKD) 82 (>60 ml/min/1.73 sqM); Potassium 4.9 mmol/L (3.5-5.1); Sodium 136 mmol/L (137-145); Total Bilirubin 0.7 mg/dL (0.2-1.3); Total Protein 7.6 g/dL (6.3-8.2)
[2024-03-27 02:27] LABS: Appearance,Urine Clear (Clear); Bilirubin,Urine Negative (Negative); Blood,Urine Negative (Negative); Color,Urine Colorless; Glucose,Urine (UA) 4+ (Negative); Ketones,Urine 1+ (Negative); Leukocyte Esterase,Urine Trace (Negative); Nitrite,Urine Negative (Negative); PH, Urine 6.5 (5.0-8.0); Protein,Urine Negative (Negative); RBC,Urine 1 /hpf (0-5); Specific Gravity,Urine 1.011 (1.001-1.035); Squamous Epithelial Cell,Urine 2 /hpf (0-4); Urobilinogen,Urine <2.0 mg/dL (<2.0); WBC,Urine 2 /hpf (0-5)
--- NOTE | 2024-03-27 03:24 | CT ---
EXAM: CT Lumbar Spine Without Intravenous Contrast CLINICAL HISTORY: ITS.REASON CT Reason: pain Pt to ED for evaluation of Lower back pain that radiates into R leg; pt was just seen in ED earlier today for similar complaint, pt reports pain has only worsened and started radiating. Pt denies any loss of bowel or bladder, denies any known injury. TECHNIQUE: Axial computed tomography images of the lumbar spine without intravenous contrast. CTDI is 63.4 mGy and DLP is 2305.4 mGy-cm. This CT exam was performed using one or more of the following dose reduction techniques: automated exposure control, adjustment of the mA and/or kV according to patient size, and/or use of iterative reconstruction technique. COMPARISON: X-ray lumbar spine dated 03/25/24, CT abdomen pelvis dated 03/12/2024 FINDINGS: Vertebrae: Lowest lumbar L5 vertebrae is sacralized. Disc space narrowing at most lumbosacral levels. Prominent anterior osteophytes. Soft tissues: Unremarkable. DISCS/SPINAL CANAL/NEURAL FORAMINA: L1-L2: Mild disc bulge. Moderate canal stenosis. Mild bilateral foraminal stenoses. L2-L3: Moderate disc bulge and facet arthropathy. Moderate canal stenosis. Mild bilateral foraminal stenoses. L3-L4: Moderate disc bulge and marked facet arthropathy. Severe central canal stenosis. Moderate bilateral foraminal stenoses. L4-L5: Moderate disc bulge and facet arthropathy. Mild canal stenosis. Moderate bilateral foraminal stenoses. L5-S1: Sacralized L5. No canal stenosis. Mild foraminal stenosis. Other findings: Multilevel degenerative changes. IMPRESSION: 1. Multilevel degenerative changes, notably at L3-4. Severe central canal stenosis. Moderate bilateral foraminal stenosis. 2. L5 lowest lumbar vertebra is sacralized.
[2024-03-27] MEDS: traMADol 50 MG STARTER PACK 3 TAB BTL PO STA (03:42)
[2024-03-27] MEDS: IBUPROFEN 600 MG STARTER PACK 4 TAB BTL PO STA (03:42)
[2024-03-27] MEDS: ACET/COD 300 MG/30 MG STARTER PACK 6 TAB BTL PO STA (03:43)
[2024-03-27] MEDS: DEXAMETHASONE SOD PHOSPHATE 10 MG/ML 1 ML VIAL IVP STA (03:45)
[2024-03-27 03:49] VITALS: BP 105/46; PULSE 104; RESP 18; TEMP 97.7
== END 2024-03-27 04:00 | disposition home or self-care (01) ==
LOC: EC 00:51
DX: M54.16 Radiculopathy, lumbar region (principal); Z87.891 Personal history of nicotine dependence
CPT/HCPCS: 99284; 96374; 96375 ×2; 96376; 96361 ×2; 36415; 80053; 83690; 85025; 81001; 72131; J1100; J1171; J1885

== ENCOUNTER → 2024-04-01 | Outpatient (CLI) | payer MEDICARE, BC ==
[2024-04-01 11:58] LABS: African American GFR (CKD) >90 (>60 ml/min/1.73 sqM); Blood Urea Nitrogen 26 mg/dL (7-17); Non-African American GFR(CKD) 87 (>60 ml/min/1.73 sqM)
--- NOTE | 2024-04-01 12:47 | CT ---
CT chest with contrast HISTORY: Follow-up right lung nodule. COMPARISON: 03/14/2023. TECHNIQUE: Multiple axial images were obtained through the thorax following contrast administration. FINDINGS: When measured in a similar fashion between the current and prior studies, the juxtapleural nodule in volving the right major fissure is stable measuring approximately 10 to 11 mm. There is no new or haven picious lung mass or nodule. There is no airspace consolidation. There is no pleural effusion or pneumothorax. The great vessels chest are normal and there is no mediastinal, hilar or axillary adenopathy. Limited scanning through the upper abdomen reveals postsurgical changes involving the stomach and a s table midline hernia containing nonobstructed and nondilated bowel loops. There is surgical absence of the gallbladder. There is fatty infiltration liver. No focal osseous les ions are seen. IMPRESSION: 1. Stable juxtapleural nodule in the right lung. 2. No new or suspicious lung mass or nodule. 3. No acute cardiopulmonary disease. 4. Postsurgical changes within the abdomen as described. [facility], Workstation: [email or web address] 04/01/2024 12:45 PM
== END | disposition home or self-care (01) ==
LOC: RADCTMAIN 11:14
PROVIDERS: ATTEND Family Medicine
DX: R91.1 Solitary pulmonary nodule (principal); Z98.890 Other specified postprocedural states
CPT/HCPCS: 82565; 84520; 71260; Q9967

== ENCOUNTER 2024-11-09 10:37 | Emergency (ER) | payer MEDICARE, BC ==
[2024-11-09 10:44] VITALS: TEMP 97.7
--- NOTE | 2024-11-09 11:11 | ED ---
General Adult HPI - General Chief complaint: Back Pain/Injury Stated complaint: Back pain Time Seen by Provider: 11/09/24 10:53 Source: patient, RN notes reviewed Mode of arrival: ambulatory Limitations: no limitations - History of Present Illness Initial comments: 79-year-old female presents emergency department with chief complaint of left flank pain. Patient has a history of kidney stones but states it has been several years. Patient states pain seems very similar that the makes it feel better where she did try some muscle laxer yesterday. Patient mitts to slight nausea vomiting no dysuria denies any fevers or chills. Patient denies diarrhea constipation no chest pain no shortness of breath no other associated symptoms. - Related Data Home Medications Medication Instructions Recorded Confirmed Triamterene-Hctz 37.5-25Mg 1 tab PO DAILY 11/16/13 11/24/23 [Maxzide 37.5-25] lisinopriL [Zestril] 2.5 mg PO DAILY 10/30/17 11/24/23 Levothyroxine Sodium [Euthyrox] 125 mcg PO DAILY 08/01/20 11/24/23 metFORMIN HCL [Glucophage] 1,000 mg PO DAILY 08/01/20 11/24/23 Previous Rx's Medication Instructions Recorded Cyclobenzaprine [Flexeril] 10 mg PO TID #20 tab 02/12/24 Ketorolac [Toradol] 10 mg PO Q8HR #15 tab 02/12/24 Ketorolac [Toradol] 10 mg PO Q8HR #15 tab 02/13/24 tiZANidine HCL [Zanaflex] 2 mg PO Q8H PRN #15 capsule 02/13/24 Ketorolac [Toradol] 10 mg PO Q8HR #15 tab 11/09/24 Allergies Allergy/AdvReac Type Severity Reaction Status Date / Time No Known Allergies Allergy Verified 11/09/24 10:44 Review of Systems ROS Statement: Those systems with pertinent positive or pertinent negative responses have been documented in the HPI. ROS Other: All systems not noted in ROS Statement are negative. Past Medical History Past Medical History: Diabetes Mellitus, Fibromyalgia, GERD/Reflux, Hyperlipidemia, Hypertension, Musculoskeletal Disorder, Osteoarthritis (OA), Sleep Apnea/CPAP/BIPAP, Thyroid Disorder Additional Past Medical History / Comment(s): Varicose veins, SPINAL STENOSIS, x kidney stones. History of Any Multi-Drug Resistant Organisms: None Reported Past Surgical History: Adenoidectomy, Appendectomy, Bariatric Surgery, Cholecystectomy, Heart Catheterization, Hysterectomy, Joint Replacement, Tonsillectomy, Tubal Ligation Additional Past Surgical History / Comment(s): Gastric stapling, cervical fusion, bilateral knee replacements, colonoscopy, pain clinic procedures. Past Anesthesia/Blood Transfusion Reactions: No Reported Reaction Past Psychological History: No Psychological Hx Reported Smoking Status: Former smoker Past Alcohol Use History: Occasional Past Drug Use History: None Reported - Past Family History Mother Family Medical History: Cancer Additional Family Medical History / Comment(s): Breast and cervical cancer. Sister(s) Family Medical History: Cancer Additional Family Medical History / Comment(s): Cervical cancer. Father Family Medical History: Diabetes Mellitus General Exam Limitations: no limitations General appearance: alert, in no apparent distress Head exam: Present: atraumatic, normocephalic, normal inspection Eye exam: Present: normal appearance, PERRL, EOMI. Absent: scleral icterus, conjunctival injection, periorbital swelling ENT exam: Present: normal exam, normal oropharynx, mucous membranes moist Neck exam: Present: normal inspection, full ROM. Absent: tenderness, meningismus, lymphadenopathy Respiratory exam: Present: normal lung sounds bilaterally. Absent: respiratory distress, wheezes, rales, rhonchi, stridor Cardiovascular Exam: Present: normal rhythm, tachycardia, normal heart sounds. Absent: systolic murmur, diastolic murmur, rubs, gallop, clicks GI/Abdominal exam: Present: soft, normal bowel sounds. Absent: distended, tenderness, guarding, rebound, rigid Neurological exam: Present: alert, oriented X3 Skin exam: Present: warm, dry, intact, normal color. Absent: rash Course Vital Signs 11/09/24 11/09/24 11/09/24 10:41 11:28 11:30 Temperature 97.7 F Pulse Rate 116 H 102 H Respiratory 18 14 Rate Blood Pressure 141/81 118/66 O2 Sat by Pulse 96 82 L 98 Oximetry 11/09/24 12:49 Temperature Pulse Rate Respiratory Rate Blood Pressure O2 Sat by Pulse 96 Oximetry Medical Decision Making - Medical Decision Making Was pt. sent in by a medical professional or institution (, PA, POLYMERIZATION OVEN TENDER, urgent care, hospital, or [facility]...) When possible be specific @ -No Did you speak to anyone other than the patient for history (EMS, parent, family, police, friend...)? What history was obtained from this source @ -No Did you review nursing and triage notes (agree or disagree)? Why? @ -I reviewed and agree with nursing and triage notes Were old charts reviewed (outside hosp., previous admission, EMS record, old EKG, old radiological studies, urgent care reports/EKG's, [facility] records)? Report findings @ -No old charts were reviewed Differential Diagnosis (chest pain, altered mental status, abdominal pain women, abdominal pain men, vaginal bleeding, weakness, fever, dyspnea, syncope, headache, dizziness, GI bleed, back pain, seizure, CVA, palpatations, mental health, musculoskeletal)? @ -Differential Back Pain: Strain, zoster, cauda equina syndrome, epidural abscess, vertebral osteomyelitis, discitis, fracture, subluxation, disc herniation, DJD, spinal stenosis, dissection, AAA, pancreatitis, peptic ulcer disease, pyelonephritis, kidney stone, this is not meant to be an all-inclusive list. EKG interpreted by me (3pts min.). @ -None X-rays interpreted by me (1pt min.). @ -None done CT interpreted by me (1pt min.). @ -CT abdomen pelvis showing no evidence of kidney stone, no evidence of obstruction abscess there is noted hernia seen on prior U/S interpreted by me (1pt. min.). @ -None done What testing was considered but not performed or refused? (CT, X-rays, U/S, lab s)? Why? @ -None What meds were considered but not given or refused? Why? @ -None Did you discuss the management of the patient with other professionals (professionals i.e. , PA, POLYMERIZATION OVEN TENDER, lab, RT, psych nurse, social services assistant, gusset stitcher, teacher, president and chief commercial officer, case packer)? Give summary @ -No Was smoking cessation discussed for >3mins.? @ -No Was critical care preformed (if so, how long)? @ -No Were there social determinants of health that impacted care today? How? (Homelessness, low income, unemployed, alcoholism, drug addiction, transportation, low edu. Level, literacy, decrease access to med. care, senior living, rehab)? @ -No Was there de-escalation of care discussed even if they declined (Discuss DNR or withdrawal of care, Hospice)? DNR status @ -No What co-morbidities impacted this encounter? (DM, HTN, Smoking, COPD, CAD, Cancer, CVA, ARF, Chemo, Hep., AIDS, mental health diagnosis, sleep apnea, morbid obesity)? @ -None Was patient admitted / discharged? Hospital course, mention meds given and route, prescriptions, significant lab abnormalities, going to OR and other pertinent info. @ -Discharged patient presented for back pain concern for kidney stone patient does not have evidence of kidney stone laboratory studies unremarkable patient does have reducible abdominal hernia and nontender. Patient has mechanical back pain will be discharged in stable condition return right discussed. Undiagnosed new problem with uncertain prognosis? @ -No Drug Therapy requiring intensive monitoring for toxicity (Heparin, Nitro, Insulin, Cardizem)? @ -No Were any procedures done? @ -No Diagnosis/symptom? @ -Back pain Acute, or Chronic, or Acute on Chronic? @ -Acute Uncomplicated (without systemic symptoms) or Complicated (systemic symptoms)? @ -Complicated Side effects of treatment? @ -No Exacerbation, Progression, or Severe Exacerbation? @ -No Poses a threat to life or bodily function? How? (Chest pain, [place], [place], pneumonia, PE, COPD, DKA, ARF, appy, cholecystitis, CVA, Diverticulitis, Homicidal, Suicidal, threat to staff... and all critical care pts) @ -No - Lab Data Result diagrams: 11/09/24 11:09 11/09/24 11:09 Lab Results 11/09/24 11/09/24 11/09/24 Range/Units 11:09 11:09 11:09 WBC 5.38 (4.50-10.00) 10*3/uL RBC 4.47 (4.10-5.20) 10*6/uL Hgb 13.9 (12.0-15.0) g/dL Hct 41.5 (37.2-46.3) % MCV 92.8 (80.0-97.0) fL MCH 31.1 (27.0-32.0) pg MCHC 33.5 (32.0-37.0) g/dL Plt Count 178 (140-440) 10*3/uL MPV 9.8 (9.5-12.2) fL Immature Gran % (Auto) 0.7 % Neutrophils % 62.1 % Lymphocytes % 26.6 % Monocytes % 8.2 % Eosinophils % 2.2 % Basophils % 0.2 % Immature Gran # 0.04 (0.00-0.04) 10*3/uL Neutrophils # 3.34 (1.80-7.70) 10*3/uL Lymphocytes # 1.43 (0.90-5.00) 10*3/uL Monocytes # 0.44 (0.20-1.00) 10*3/uL Eosinophils # 0.12 (0.04-0.35) 10*3/uL Basophils # 0.01 (0.00-0.10) 10*3/uL Sodium 137 (137-145) mmol/L Potassium 5.0 (3.5-5.1) mmol/L Chloride 100 (98-107) mmol/L Carbon Dioxide 27 (22-30) mmol/L Anion Gap 10 mmol/L BUN 15 (7-17) mg/dL Creatinine 0.59 (0.52-1.04) mg/dL Est GFR (CKD-EPI)AfAm >90 (>60 ml/min/1.73 sqM) Est GFR (CKD-EPI)NonAf 88 (>60 ml/min/1.73 sqM) Glucose 258 H (74-99) mg/dL Calcium 9.2 (8.4-10.2) mg/dL Total Bilirubin 1.0 (0.2-1.3) mg/dL AST 39 H (14-36) U/L ALT 23 (4-34) U/L Alkaline Phosphatase 76 (38-126) U/L Total Protein 7.4 (6.3-8.2) g/dL Albumin 4.1 (3.5-5.0) g/dL Lipase 94 (23-300) U/L Urine Color Yellow Urine Appearance Clear (Clear) Urine pH 5.5 (5.0-8.0) Ur Specific [place] 1.021 (1.001-1.035) Urine Protein Trace H (Negative) Urine Glucose (UA) 3+ H (Negative) Urine Ketones Negative (Negative) Urine Blood Negative (Negative) Urine Nitrite Negative (Negative) Urine Bilirubin Negative (Negative) Urine Urobilinogen <2.0 (<2.0) mg/dL Ur Leukocyte Esterase Negative (Negative) Disposition Clinical Impression: Left flank pain, Back pain Disposition: HOME SELF-CARE Condition: Stable Instructions (If sedation given, give patient instructions): Acute Low Back Pain (ED) Additional Instructions: Please return to the Emergency Department if symptoms worsen or any other concerns. Prescriptions: Ketorolac [Toradol] 10 mg PO Q8HR #15 tab Is patient prescribed a controlled substance at d/c from ED?: No Referrals: Erich Berger DO [Primary Care Provider] - 1-2 days Time of Disposition: 13:10
[2024-11-09] MEDS: SODIUM CHLORIDE 0.9% 1,000 ML IV ONE (11:12)
[2024-11-09] MEDS: KETOROLAC 15 MG/ML 1 ML VIAL IVP STA (11:12)
[2024-11-09] MEDS: ONDANSETRON 4 MG/2 ML VIAL IVP STA (11:13)
[2024-11-09] MEDS: HYDROmorphone 0.5 MG/0.5 ML SYRINGE IVP STA (11:13)
[2024-11-09 11:17] LABS: Bilirubin,Urine Negative (Negative); Blood,Urine Negative (Negative); Color,Urine Yellow; Glucose,Urine (UA) 3+ (Negative); Ketones,Urine Negative (Negative); Leukocyte Esterase,Urine Negative (Negative); Nitrite,Urine Negative (Negative); PH, Urine 5.5 (5.0-8.0); Protein,Urine Trace (Negative); Specific Gravity,Urine 1.021 (1.001-1.035); Urobilinogen,Urine <2.0 mg/dL (<2.0)
[2024-11-09 11:21] LABS: Basophils # (A) 0.01 10*3/uL (0.00-0.10); Basophils % (A) 0.2 %; Eosinophils # (A) 0.12 10*3/uL (0.04-0.35); Eosinophils % (A) 2.2 %; HCT 41.5 % (37.2-46.3); HGB 13.9 g/dL (12.0-15.0); Lymphocytes # (A) 1.43 10*3/uL (0.90-5.00); Lymphocytes % (A) 26.6 %; MCH 31.1 pg (27.0-32.0); MCHC 33.5 g/dL (32.0-37.0); MCV 92.8 fL (80.0-97.0); Monocytes # (A) 0.44 10*3/uL (0.20-1.00); Monocytes % (A) 8.2 %; Neutrophils # (A) 3.34 10*3/uL (1.80-7.70); Neutrophils % (A) 62.1 %; Platelet Count 178 10*3/uL (140-440); RBC 4.47 10*6/uL (4.10-5.20); RDW 13.1 % (11.5-14.5); WBC 5.38 10*3/uL (4.50-10.00)
[2024-11-09 11:40] LABS: ALT 23 U/L (4-34); African American GFR (CKD) >90 (>60 ml/min/1.73 sqM); Anion Gap 10 mmol/L; Blood Urea Nitrogen 15 mg/dL (7-17); Calcium 9.2 mg/dL (8.4-10.2); Carbon Dioxide 27 mmol/L (22-30); Chloride 100 mmol/L (98-107); Glucose 258 mg/dL (74-99); Lipase 94 U/L (23-300); Non-African American GFR(CKD) 88 (>60 ml/min/1.73 sqM); Sodium 137 mmol/L (137-145)
[2024-11-09 12:22] LABS: AST 39 U/L (14-36); Albumin 4.1 g/dL (3.5-5.0); Alkaline Phosphatase 76 U/L (38-126); Potassium 5.0 mmol/L (3.5-5.1); Total Protein 7.4 g/dL (6.3-8.2)
--- NOTE | 2024-11-09 12:40 | CT ---
EXAMINATION TYPE: CT abdomen pelvis wo con DATE OF EXAM: 11/09/2024 11:57 AM COMPARISON: None. CLINICAL INDICATION: Female, 79 years old with history of left flank pain, Left flank pain TECHNIQUE: Axial images with sagittal coronal reformats. Examination of the solid and hollow viscera is limited given the lack of contrast. CT DLP: 1724.2 mGycm, Automated exposure control for dose reduction was used. FINDINGS: LUNG BASES: No evidence for nodule. No evidence for infiltrate. LIVER/GB: The gallbladder is unremarkable. No space-occupying hepatic lesion. PANCREAS: No pancreatic mass identified. No inflammatory process seen. SPLEEN: No evidence for splenomegaly. No intrasplenic lesions seen. ADRENALS: No adrenal nodules identified. No evidence for thickening. KIDNEYS: No evidence for renal mass. No nephrolithiasis. No hydronephrosis. BOWEL: Appendix has a normal appearance. No evidence of bowel obstruction. No inflammatory process. Lymph nodes: No evidence for adenopathy greater than 1 cm. Abdominal aorta: Atheromatous changes seen. No evidence for aneurysm. Genital organs: No significant abnormality. Other: Anterior abdominal wall hernia containing a segment of large bowel within the supraumbilical r egion. No evidence for strangulation at this time. IMPRESSION: 1.Anterior abdominal wall hernia containing a segment of large bowel within the supraumbilical region . No evidence for strangulation at this time. 2. No acute process seen [facility], , 11/09/2024 12:38 PM
[2024-11-09 13:25] VITALS: BP 152/75; PULSE 101; RESP 18
== END 2024-11-09 13:28 | disposition home or self-care (01) ==
LOC: EC 10:37
DX: R10.9 Unspecified abdominal pain (principal); M54.9 Dorsalgia, unspecified; Z87.891 Personal history of nicotine dependence
CPT/HCPCS: 36415; 80053; 83690; 85025; 81003; 74176; 99284; 96374; 96375; 96361; J2405; J1885; J1171

== ENCOUNTER 2024-12-04 07:04 | Emergency (ER) | payer MEDICARE, BC ==
[2024-12-04 07:10] VITALS: BP 173/50; PULSE 56; TEMP 97.6
--- NOTE | 2024-12-04 07:37 | ED ---
General Adult HPI - General Chief complaint: Back Pain/Injury Stated complaint: Back Pain Time Seen by Provider: 12/04/24 07:15 Source: patient, RN notes reviewed Mode of arrival: ambulatory Limitations: no limitations - History of Present Illness Initial comments: Patient is a 79-year-old female present to the emergency department with concerns with back pain. Patient has chronic back pain with similar symptoms previously. Discomfort is right lumbar region. There is some radiation laterally. Patient states she has not slept well since last night. Discomfort started yesterday. Discomfort is similar to previous back pain which she has had numerous times. Patient states she did have some mild ache in her left arm earlier however that has resolved. Patient states she has had that before 2 and she is not worried about it. Patient states she does have history of chronic neck problems as well however that is not bothering her much at this point. No incontinence or retention of bowel or bladder. No fever. No weakness or loss of sensation. - Related Data Home Medications Medication Instructions Recorded Confirmed Triamterene-Hctz 37.5-25Mg 1 tab PO DAILY 11/16/13 11/24/23 [Maxzide 37.5-25] lisinopriL [Zestril] 2.5 mg PO DAILY 10/30/17 11/24/23 Levothyroxine Sodium [Euthyrox] 125 mcg PO DAILY 08/01/20 11/24/23 metFORMIN HCL [Glucophage] 1,000 mg PO DAILY 08/01/20 11/24/23 Previous Rx's Medication Instructions Recorded Cyclobenzaprine [Flexeril] 10 mg PO TID #20 tab 02/12/24 Ketorolac [Toradol] 10 mg PO Q8HR #15 tab 02/12/24 Ketorolac [Toradol] 10 mg PO Q8HR #15 tab 02/13/24 tiZANidine HCL [Zanaflex] 2 mg PO Q8H PRN #15 capsule 02/13/24 Ketorolac [Toradol] 10 mg PO Q8HR #15 tab 11/09/24 Allergies Allergy/AdvReac Type Severity Reaction Status Date / Time No Known Allergies Allergy Verified 12/04/24 07:10 Review of Systems ROS Statement: Those systems with pertinent positive or pertinent negative responses have been documented in the HPI. ROS Other: All systems not noted in ROS Statement are negative. Constitutional: Denies: fever Eyes: Denies: eye pain ENT: Denies: ear pain Respiratory: Denies: cough Cardiovascular: Denies: chest pain Endocrine: Denies: fatigue Gastrointestinal: Denies: abdominal pain Musculoskeletal: Reports: as per HPI, back pain Past Medical History Past Medical History: Diabetes Mellitus, Fibromyalgia, GERD/Reflux, Hyperlipidemia, Hypertension, Musculoskeletal Disorder, Osteoarthritis (OA), Sleep Apnea/CPAP/BIPAP, Thyroid Disorder Additional Past Medical History / Comment(s): Varicose veins, SPINAL STENOSIS, x kidney stones. History of Any Multi-Drug Resistant Organisms: None Reported Past Surgical History: Adenoidectomy, Appendectomy, Bariatric Surgery, Cholecystectomy, Heart Catheterization, Hysterectomy, Joint Replacement, Tonsillectomy, Tubal Ligation Additional Past Surgical History / Comment(s): Gastric stapling, cervical fusion, bilateral knee replacements, colonoscopy, pain clinic procedures. Past Anesthesia/Blood Transfusion Reactions: No Reported Reaction Past Psychological History: No Psychological Hx Reported Smoking Status: Former smoker Past Alcohol Use History: Occasional Past Drug Use History: None Reported - Past Family History Mother Family Medical History: Cancer Additional Family Medical History / Comment(s): Breast and cervical cancer. Sister(s) Family Medical History: Cancer Additional Family Medical History / Comment(s): Cervical cancer. Father Family Medical History: Diabetes Mellitus General Exam Limitations: no limitations General appearance: alert, in no apparent distress Head exam: Present: atraumatic Eye exam: Present: normal appearance ENT exam: Present: normal oropharynx Neck exam: Present: normal inspection. Absent: tenderness Respiratory exam: Present: normal lung sounds bilaterally Cardiovascular Exam: Present: regular rate, normal rhythm Expanded Peripheral pulses: 2+: Radial (L), Dorsalis Pedis (R), Dorsalis Pedis (L) GI/Abdominal exam: Present: soft. Absent: tenderness, pulsatile mass Extremities exam: Present: full ROM. Absent: tenderness Left Upper Arm exam: Present: normal inspection, full ROM. Absent: tenderness Forearm Wrist exam: Present: normal inspection, full ROM. Absent: tenderness Hand Wrist exam: Present: normal inspection, full ROM. Absent: tenderness Vascular: Present: normal capillary refill Back exam: Present: tenderness (Right mid paralumbar and lateral) Neurological exam: Present: alert, normal gait. Absent: motor sensory deficit Expanded Sensory exam: Upper Extremity Light Touch: Normal, Lower Extremity Light Touch: Normal Motor strength exam: RUE: 5, LUE: 5, RLE: 5, LLE: 5 Psychiatric exam: Present: normal affect, normal mood Skin exam: Present: normal color Course Vital Signs 12/04/24 07:06 Temperature 97.6 F Pulse Rate 56 L Respiratory 18 Rate Blood Pressure 173/50 O2 Sat by Pulse 97 Oximetry Medical Decision Making - Medical Decision Making Was pt. sent in by a medical professional or institution (, PA, MINOR LEAGUE BASEBALL PLAYER, urgent care, hospital, or custodial...) When possible be specific @ -No Did you speak to anyone other than the patient for history (EMS, parent, family, police, friend...)? What history was obtained from this source @ -No Did you review nursing and triage notes (agree or disagree)? Why? @ -I reviewed and agree with nursing and triage notes Were old charts reviewed (outside hosp., previous admission, EMS record, old EKG, old radiological studies, urgent care reports/EKG's, custodial records)? Report findings @ -Previous visits reviewed Differential Diagnosis (chest pain, altered mental status, abdominal pain women, abdominal pain men, vaginal bleeding, weakness, fever, dyspnea, syncope, headache, dizziness, GI bleed, back pain, seizure, CVA, palpatations, mental health, musculoskeletal)? @ -Differential Back Pain: Strain, zoster, cauda equina syndrome, epidural abscess, vertebral osteomyelitis, discitis, fracture, subluxation, disc herniation, DJD, spinal stenosis, dissection, AAA, pancreatitis, peptic ulcer disease, pyelonephritis, kidney stone, this is not meant to be an all-inclusive list. EKG interpreted by me (3pts min.). @ -As above X-rays interpreted by me (1pt min.). @ -None done CT interpreted by me (1pt min.). @ -None done U/S interpreted by me (1pt. min.). @ -None done What testing was considered but not performed or refused? (CT, X-rays, U/S, labs)? Why? @ -Discussion with patient regarding imaging or further evaluation, EKG or lab work however patient refuses stating is not necessary and she has had similar symptoms previously What meds were considered but not given or refused? Why? @ -None Did you discuss the management of the patient with other professionals (professionals i.e. DrVira, PA, MINOR LEAGUE BASEBALL PLAYER, lab, RT, psych nurse, social service director, ophthalmic medical assistant, teacher, airline pilot/first officer, embedded case manager)? Give summary @ -No Was smoking cessation discussed for >3mins.? @ -No Was critical care preformed (if so, how long)? @ -No Were there social determinants of health that impacted care today? How? (Homele ssness, low income, unemployed, alcoholism, drug addiction, transportation, low edu. Level, literacy, decrease access to med. care, nursing home, rehab)? @ -No Was there de-escalation of care discussed even if they declined (Discuss DNR or withdrawal of care, Hospice)? DNR status @ -No What co-morbidities impacted this encounter? (DM, HTN, Smoking, COPD, CAD, Cancer, CVA, ARF, Chemo, Hep., AIDS, mental health diagnosis, sleep apnea, morbid obesity)? @ -Chronic back pain Was patient admitted / discharged? Hospital course, mention meds given and route, prescriptions, significant lab abnormalities, going to OR and other pertinent info. @ -Patient presents with exacerbation of her chronic back pain. Patient does not want further testing. Patient would like medication administration and to be discharged. Patient recommended follow-up with her doctor and will be provided medication. Undiagnosed new problem with uncertain prognosis? @ -No Drug Therapy requiring intensive monitoring for toxicity (Heparin, Nitro, Insulin, Cardizem)? @ -No Were any procedures done? @ -No Diagnosis/symptom? @ -Low back pain Acute, or Chronic, or Acute on Chronic? @ -Acute Uncomplicated (without systemic symptoms) or Complicated (systemic symptoms)? @ -Default Side effects of treatment? @ -No Exacerbation, Progression, or Severe Exacerbation? @ -Exacerbation Poses a threat to life or bodily function? How? (Chest pain, [place], [place], pneumonia, PE, COPD, DKA, ARF, appy, cholecystitis, CVA, Diverticulitis, Homicidal, Suicidal, threat to staff... and all critical care pts) @ -No Disposition Clinical Impression: Back pain Disposition: HOME SELF-CARE Condition: Stable Instructions (If sedation given, give patient instructions): Acute Low Back Pain (ED) Additional Instructions: Please do follow-up with your primary care physician in the next couple of days for recheck. Return for increased pain, fever, weakness, loss of control of bowel or bladder, worsening symptoms or other concerns. Is patient prescribed a controlled substance at d/c from ED?: No Referrals: Erich Berger DO [Primary Care Provider] - 1-2 days Time of Disposition: 07:37
[2024-12-04] MEDS: KETOROLAC 15 MG/ML 1 ML VIAL IM STA (07:41)
[2024-12-04] MEDS: HYDROmorphone 1 MG/ML 1 ML SYRINGE IM STA (07:41)
[2024-12-04 08:09] VITALS: RESP 16
== END 2024-12-04 13:45 | disposition home or self-care (01) ==
LOC: EC 07:04
DX: G89.29 Other chronic pain (principal); M54.50 Low back pain, unspecified; Z87.891 Personal history of nicotine dependence
CPT/HCPCS: 99283; 96372; J1171; J1885

== ENCOUNTER 2024-12-05 14:31 | Emergency (ER) | payer MEDICARE, BC ==
[2024-12-05 14:41] VITALS: RESP 20; TEMP 97.9
--- NOTE | 2024-12-05 16:40 | ED ---
Back Pain HPI - General Chief Complaint: Back Pain/Injury Stated Complaint: Back pain Time Seen by Provider: 12/05/24 16:38 Source: patient, RN notes reviewed Limitations: no limitations - History of Present Illness Initial Comments: 79-year-old female presenting for lower right back pain x 2 days. She has been seen 3 times this month for similar symptoms. Endorses constant, dull pain in her right lower back. Denies injury or trauma. States she does have a history of kidney stones. Denies saddle anesthesia or bowel or bladder incontinence. Denies urinary symptoms or hematuria. Denies fevers, nausea, vomiting. - Related Data Home Medications Medication Instructions Recorded Confirmed Triamterene-Hctz 37.5-25Mg 1 tab PO DAILY 11/16/13 11/24/23 [Maxzide 37.5-25] lisinopriL [Zestril] 2.5 mg PO DAILY 10/30/17 11/24/23 Levothyroxine Sodium [Euthyrox] 125 mcg PO DAILY 08/01/20 11/24/23 metFORMIN HCL [Glucophage] 1,000 mg PO DAILY 08/01/20 11/24/23 Previous Rx's Medication Instructions Recorded Cyclobenzaprine [Flexeril] 10 mg PO TID #20 tab 02/12/24 Ketorolac [Toradol] 10 mg PO Q8HR #15 tab 02/12/24 Ketorolac [Toradol] 10 mg PO Q8HR #15 tab 02/13/24 tiZANidine HCL [Zanaflex] 2 mg PO Q8H PRN #15 capsule 02/13/24 Ketorolac [Toradol] 10 mg PO Q8HR #15 tab 11/09/24 Allergies Allergy/AdvReac Type Severity Reaction Status Date / Time No Known Allergies Allergy Verified 12/05/24 14:41 Review of Systems ROS Statement: Those systems with pertinent positive or pertinent negative responses have been documented in the HPI. ROS Other: All systems not noted in ROS Statement are negative. Past Medical History Past Medical History: Diabetes Mellitus, Fibromyalgia, GERD/Reflux, Hyperlipidemia, Hypertension, Musculoskeletal Disorder, Osteoarthritis (OA), Sleep Apnea/CPAP/BIPAP, Thyroid Disorder Additional Past Medical History / Comment(s): Varicose veins, SPINAL STENOSIS, x kidney stones. History of Any Multi-Drug Resistant Organisms: None Reported Past Surgical History: Adenoidectomy, Appendectomy, Bariatric Surgery, Cholecystectomy, Heart Catheterization, Hysterectomy, Joint Replacement, Tonsillectomy, Tubal Ligation Additional Past Surgical History / Comment(s): Gastric stapling, cervical fusion, bilateral knee replacements, colonoscopy, pain clinic procedures. Past Anesthesia/Blood Transfusion Reactions: No Reported Reaction Past Psychological History: No Psychological Hx Reported Smoking Status: Former smoker Past Alcohol Use History: Occasional Past Drug Use History: None Reported - Past Family History Mother Family Medical History: Cancer Additional Family Medical History / Comment(s): Breast and cervical cancer. Sister(s) Family Medical History: Cancer Additional Family Medical History / Comment(s): Cervical cancer. Father Family Medical History: Diabetes Mellitus General Exam Limitations: no limitations General appearance: alert, in no apparent distress Head exam: Present: atraumatic, normocephalic, normal inspection Eye exam: Present: normal appearance, PERRL, EOMI. Absent: scleral icterus, conjunctival injection, periorbital swelling GI/Abdominal exam: Present: soft, normal bowel sounds. Absent: distended, tenderness, guarding, rebound, rigid Back exam: Present: normal inspection, full ROM, tenderness (Mild reproducible tenderness in the right lumbar region), paraspinal tenderness, other (Full strength and range of motion of bilateral hips, no saddle anesthesia. Full sensation and DP pulses bilaterally). Absent: CVA tenderness (R), CVA tenderness (L), muscle spasm, vertebral tenderness, rash noted Neurological exam: Present: alert, oriented X3 Psychiatric exam: Present: normal affect, normal mood Skin exam: Present: warm, dry, intact, normal color. Absent: rash Course Vital Signs 12/05/24 12/05/24 14:39 17:38 Temperature 97.9 F Pulse Rate 120 H 106 H Respiratory 20 20 Rate Blood Pressure 145/84 121/73 O2 Sat by Pulse 99 95 Oximetry Medical Decision Making - Medical Decision Making Was pt. sent in by a medical professional or institution (, PA, HEAD FILTER PRESS TENDER, urgent care, hospital, or intermediate...) When possible be specific @ -No Did you speak to anyone other than the patient for history (EMS, parent, family, police, friend...)? What history was obtained from this source @ -No Did you review nursing and triage notes (agree or disagree)? Why? @ -I reviewed and agree with nursing and triage notes Were old charts reviewed (outside hosp., previous admission, EMS record, old EKG, old radiological studies, urgent care reports/EKG's, intermediate records)? Report findings @ -No old charts were reviewed Differential Diagnosis (chest pain, altered mental status, abdominal pain women, abdominal pain men, vaginal bleeding, weakness, fever, dyspnea, syncope, headache, dizziness, GI bleed, back pain, seizure, CVA, palpatations, mental health, musculoskeletal)? @ -Differential Back Pain: Strain, zoster, cauda equina syndrome, epidural abscess, vertebral osteomyelitis, discitis, fracture, subluxation, disc herniation, DJD, spinal stenosis, dissection, AAA, pancreatitis, peptic ulcer disease, pyelonephritis, kidney stone, this is not meant to be an all-inclusive list. EKG interpreted by me (3pts min.). @ -None X-rays interpreted by me (1pt min.). @ -None done CT interpreted by me (1pt min.). @ -None done U/S interpreted by me (1pt. min.). @ -None done What testing was considered but not performed or refused? (CT, X-rays, U/S, labs)? Why? @ -None What meds were considered but not given or refused? Why? @ -None Did you discuss the management of the patient with other professionals (professionals i.e. , PA, HEAD FILTER PRESS TENDER, lab, RT, psych nurse, elementary school social worker, wire hanger, teacher, landing signal officer, caser)? Give summary @ -No Was smoking cessation discussed for >3mins.? @ -No Was critical care preformed (if so, how long)? @ -No Were there social determinants of health that impacted care today? How? (Homelessness, low income, unemployed, alcoholism, drug addiction, transportation, low edu. Level, literacy, decrease access to med. care, shelter, rehab)? @ -No Was there de-escalation of care discussed even if they declined (Discuss DNR or withdrawal of care, Hospice)? DNR status @ -No What co-morbidities impacted this encounter? (DM, HTN, Smoking, COPD, CAD, Cancer, CVA, ARF, Chemo, Hep., AIDS, mental health diagnosis, sleep apnea, morbid obesity)? @ -None Was patient admitted / discharged? Hospital course, mention meds given and route, prescriptions, significant lab abnormalities, going to OR and other pertinent info. @ -Discharge. 71-year-old female presenting for right-sided lower back pain x 2 days. This is patient's third visit for similar symptoms this month. No red flag symptoms. Neurovascularly intact to the bilateral lower extremities. Provided with appropriate analgesics. Urinalysis negative for white blood cells or red blood cells, unlikely UTI or kidney stone. Upon reevaluation, patient reports improvement of symptoms and can be safely discharged home with close outpatient follow-up. Case was discussed with my ED attending Dr. Gonzalez. Undiagnosed new problem with uncertain prognosis? @ -No Drug Therapy requiring intensive monitoring for toxicity (Heparin, Nitro, Insuli n, Cardizem)? @ -No Were any procedures done? @ -No Diagnosis/symptom? @ -Acute on chronic back pain Acute, or Chronic, or Acute on Chronic? @ -Acute on chronic Uncomplicated (without systemic symptoms) or Complicated (systemic symptoms)? @ -Uncomplicated Side effects of treatment? @ -No Exacerbation, Progression, or Severe Exacerbation? @ -No Poses a threat to life or bodily function? How? (Chest pain, USA, PA, pneumonia, PE, COPD, DKA, ARF, appy, cholecystitis, CVA, Diverticulitis, Homicidal, Suicidal, threat to staff... and all critical care pts) @ -No - Lab Data Lab Results 12/05/24 Range/Units 16:48 Urine Color Colorless Urine Appearance Clear (Clear) Urine pH 5.5 (5.0-8.0) Ur Specific [place] 1.027 (1.001-1.035) Urine Protein Negative (Negative) Urine Glucose (UA) 4+ H (Negative) Urine Ketones Trace H (Negative) Urine Blood Negative (Negative) Urine Nitrite Negative (Negative) Urine Bilirubin Negative (Negative) Urine Urobilinogen <2.0 (<2.0) mg/dL Ur Leukocyte Esterase Small H (Negative) Urine RBC <1 (0-5) /hpf Urine WBC 3 (0-5) /hpf Ur Squamous Epith Cells 2 (0-4) /hpf Urine Bacteria Rare H (None) /hpf Urine Mucus Rare H (None) /hpf Disposition Clinical Impression: Back pain Disposition: HOME SELF-CARE Condition: Stable Instructions (If sedation given, give patient instructions): Acute Low Back Pain (ED) Additional Instructions: Please return to the Emergency Department if symptoms worsen or any other concerns. Is patient prescribed a controlled substance at d/c from ED?: No Referrals: Erich Berger DO [Primary Care Provider] - 1-2 days Time of Disposition: 17:33
[2024-12-05] MEDS: KETOROLAC 15 MG/ML 1 ML VIAL IM STA (16:50)
[2024-12-05] MEDS: LIDOCAINE 4% PATCH TOPICAL ONE (16:51)
[2024-12-05 17:17] LABS: Bacteria,Urine Rare /hpf; Bilirubin,Urine Negative (Negative); Blood,Urine Negative (Negative); Color,Urine Colorless; Glucose,Urine (UA) 4+ (Negative); Ketones,Urine Trace (Negative); Leukocyte Esterase,Urine Small (Negative); Mucus,Urine Rare /hpf; Nitrite,Urine Negative (Negative); PH, Urine 5.5 (5.0-8.0); Protein,Urine Negative (Negative); RBC,Urine <1 /hpf (0-5); Specific Gravity,Urine 1.027 (1.001-1.035); Squamous Epithelial Cell,Urine 2 /hpf (0-4); Urobilinogen,Urine <2.0 mg/dL (<2.0); WBC,Urine 3 /hpf (0-5)
[2024-12-05 17:39] VITALS: BP 121/73; PULSE 106
== END 2024-12-05 17:58 | disposition home or self-care (01) ==
LOC: EC 14:31
DX: M54.50 Low back pain, unspecified (principal); Z87.891 Personal history of nicotine dependence
CPT/HCPCS: 81001; 99284; 96372; J1885

== ENCOUNTER 2024-12-05 21:28 | Emergency (ER) | payer MEDICARE, BC ==
[2024-12-05 23:37] LABS: Glucose,Whole Blood 181 mg/dL (70-110)
--- NOTE | 2024-12-06 00:18 | ED ---
General Adult HPI - General Chief complaint: Back Pain/Injury Stated complaint: Right sided back pain Time Seen by Provider: 12/05/24 23:14 Source: patient, RN notes reviewed Mode of arrival: wheelchair Limitations: no limitations - History of Present Illness Initial comments: 79-year-old female presents to the emergency department for evaluation of mul tiple complaints. Patient states that she has pain in her right chest wall and back. She has seen both been seen here multiple times for this complaint recently. She also notes pain in her left thigh. She reports it is worse with ambulating. Patient is also reporting a frontal headache. She notes that this started earlier today. She notes that she was seen here earlier today and was provided medication for pain control. She went home and reports continued pain in her right side and pain in her left leg. She denies any recent fever, chills. Denies any loss of bowel or bladder function. Denies any numbness or tingling in the groin or radiating down her legs. - Related Data Home Medications Medication Instructions Recorded Confirmed Triamterene-Hctz 37.5-25Mg 1 tab PO DAILY 11/16/13 11/24/23 [Maxzide 37.5-25] lisinopriL [Zestril] 2.5 mg PO DAILY 10/30/17 11/24/23 Levothyroxine Sodium [Euthyrox] 125 mcg PO DAILY 08/01/20 11/24/23 metFORMIN HCL [Glucophage] 1,000 mg PO DAILY 08/01/20 11/24/23 Previous Rx's Medication Instructions Recorded Cyclobenzaprine [Flexeril] 10 mg PO TID #20 tab 02/12/24 Ketorolac [Toradol] 10 mg PO Q8HR #15 tab 02/12/24 Ketorolac [Toradol] 10 mg PO Q8HR #15 tab 02/13/24 tiZANidine HCL [Zanaflex] 2 mg PO Q8H PRN #15 capsule 02/13/24 Ketorolac [Toradol] 10 mg PO Q8HR #15 tab 11/09/24 Allergies Allergy/AdvReac Type Severity Reaction Status Date / Time No Known Allergies Allergy Verified 12/05/24 21:57 Review of Systems ROS Statement: Those systems with pertinent positive or pertinent negative responses have been documented in the HPI. ROS Other: All systems not noted in ROS Statement are negative. Past Medical History Past Medical History: Diabetes Mellitus, Fibromyalgia, GERD/Reflux, Hyperlipidemia, Hypertension, Musculoskeletal Disorder, Osteoarthritis (OA), Sleep Apnea/CPAP/BIPAP, Thyroid Disorder Additional Past Medical History / Comment(s): Varicose veins, SPINAL STENOSIS, x kidney stones. History of Any Multi-Drug Resistant Organisms: None Reported Past Surgical History: Adenoidectomy, Appendectomy, Bariatric Surgery, C holecystectomy, Heart Catheterization, Hysterectomy, Joint Replacement, Tonsillectomy, Tubal Ligation Additional Past Surgical History / Comment(s): Gastric stapling, cervical fusion, bilateral knee replacements, colonoscopy, pain clinic procedures. Past Anesthesia/Blood Transfusion Reactions: No Reported Reaction Past Psychological History: No Psychological Hx Reported Smoking Status: Former smoker Past Alcohol Use History: Occasional Past Drug Use History: None Reported - Past Family History Mother Family Medical History: Cancer Additional Family Medical History / Comment(s): Breast and cervical cancer. Sister(s) Family Medical History: Cancer Additional Family Medical History / Comment(s): Cervical cancer. Father Family Medical History: Diabetes Mellitus General Exam Limitations: no limitations General appearance: alert, in no apparent distress Head exam: Present: atraumatic, normocephalic, normal inspection Eye exam: Present: normal appearance, PERRL, EOMI. Absent: scleral icterus, conjunctival injection, periorbital swelling ENT exam: Present: normal exam, mucous membranes moist Respiratory exam: Present: normal lung sounds bilaterally. Absent: respiratory distress, wheezes, rales, rhonchi, stridor Cardiovascular Exam: Present: regular rate, normal rhythm, normal heart sounds. Absent: systolic murmur, diastolic murmur, rubs, gallop, clicks GI/Abdominal exam: Present: soft, normal bowel sounds. Absent: distended, tenderness, guarding, rebound, rigid Extremities exam: Present: normal inspection, full ROM, normal capillary refill. Absent: tenderness, pedal edema, joint swelling, calf tenderness Back exam: Present: normal inspection, full ROM. Absent: CVA tenderness (R), CVA tenderness (L) Neurological exam: Present: alert, oriented X3 Psychiatric exam: Present: normal affect, normal mood Skin exam: Present: warm, dry, intact, normal color. Absent: rash Course Vital Signs 12/05/24 12/06/24 21:47 01:25 Temperature 97.7 F 97.8 F Pulse Rate 108 H 95 Respiratory 16 18 Rate Blood Pressure 157/80 148/83 O2 Sat by Pulse 95 99 Oximetry Medical Decision Making - Medical Decision Making Was pt. sent in by a medical professional or institution (, PA, ENAMEL MACHINE OPERATOR, urgent care, hospital, or retirement...) When possible be specific @ -[No] Did you speak to anyone other than the patient for history (EMS, parent, family, police, friend...)? What history was obtained from this source @ -[No] Did you review nursing and triage notes (agree or disagree)? Why? @ -[I reviewed and agree with nursing and triage notes] Were old charts reviewed (outside hosp., previous admission, EMS record, old EKG, old radiological studies, urgent care reports/EKG's, retirement records)? Report findings @ -[No old charts were reviewed] Differential Diagnosis (chest pain, altered mental status, abdominal pain women, abdominal pain men, vaginal bleeding, weakness, fever, dyspnea, syncope, headach e, dizziness, GI bleed, back pain, seizure, CVA, palpatations, mental health, musculoskeletal)? @ -Differential Musculoskeletal Muscular strain, contusion, ligament sprain, fracture, arthritis, septic arthritis, bursitis, cellulitis, muscle spasm, nerve compression, DVT, arterial occlusion, herpes zoster, electrolyte abnormality, tumor.... This is not meant to be in all inclusive list Differential Headache: Migraine, tension, cluster, carbon monoxide, central venous thrombosis, pension karma temporal arteritis, acute closure glaucoma, intercranial hemorrhage, mastoiditis, sinusitis, head injury, this is not meant to be an all-inclusive list. EKG interpreted by me (3pts min.). @ -None X-rays interpreted by me (1pt min.). @ -[None done] CT interpreted by me (1pt min.). @ -[None done] U/S interpreted by me (1pt. min.). @ -[None done] What testing was considered but not performed or refused? (CT, X-rays, U/S, labs)? Why? @ -[None] What meds were considered but not given or refused? Why? @ -[None] Did you discuss the management of the patient with other professionals (professionals i.e. , PA, ENAMEL MACHINE OPERATOR, lab, RT, psych nurse, executive secretary social welfare, employment supervisor, teacher, identification officer, immigration case worker)? Give summary @ -[No] Was smoking cessation discussed for >3mins.? @ -[No] Was critical care preformed (if so, how long)? @ -[No] Were there social determinants of health that impacted care today? How? (Homelessness, low income, unemployed, alcoholism, drug addiction, transportation, low edu. Level, literacy, decrease access to med. care, long term, rehab)? @ -[No] Was there de-escalation of care discussed even if they declined (Discuss DNR or withdrawal of care, Hospice)? DNR status @ -[No] What co-morbidities impacted this encounter? (DM, HTN, Smoking, COPD, CAD, Cancer, CVA, ARF, Chemo, Hep., AIDS, mental health diagnosis, sleep apnea, morbid obesity)? @ -[None] Was patient admitted / discharged? Hospital course, mention meds given and route, prescriptions, significant lab abnormalities, going to OR and other pertinent info. @ -[hospital course] Undiagnosed new problem with uncertain prognosis? @ -[No] Drug Therapy requiring intensive monitoring for toxicity (Heparin, Nitro, Insulin, Cardizem)? @ -[No] Were any procedures done? @ -[No] Diagnosis/symptom? @ -[default] Acute, or Chronic, or Acute on Chronic? @ -[default] Uncomplicated (without systemic symptoms) or Complicated (systemic symptoms)? @ -[default] Side effects of treatment? @ -[No] Exacerbation, Progression, or Severe Exacerbation? @ -[No] Poses a threat to life or bodily function? How? (Chest pain, [place], [place], pneumonia, PE, COPD, DKA, ARF, appy, cholecystitis, CVA, Diverticulitis, Homicidal, Suici casimiro, threat to staff... and all critical care pts) @ -[No] - Lab Data Result diagrams: 12/06/24 00:20 12/06/24 00:20 Lab Results 12/05/24 12/06/24 12/06/24 Range/Units 23:36 00:20 00:20 WBC 7.27 (4.50-10.00) 10*3/uL RBC 4.61 (4.10-5.20) 10*6/uL Hgb 14.0 (12.0-15.0) g/dL Hct 42.3 (37.2-46.3) % MCV 91.8 (80.0-97.0) fL MCH 30.4 (27.0-32.0) pg MCHC 33.1 (32.0-37.0) g/dL Plt Count 185 (140-440) 10*3/uL MPV 9.9 (9.5-12.2) fL Immature Gran % (Auto) 0.6 % Neutrophils % 59.6 % Lymphocytes % 29.7 % Monocytes % 8.4 % Eosinophils % 1.4 % Basophils % 0.3 % Immature Gran # 0.04 (0.00-0.04) 10*3/uL Neutrophils # 4.34 (1.80-7.70) 10*3/uL Lymphocytes # 2.16 (0.90-5.00) 10*3/uL Monocytes # 0.61 (0.20-1.00) 10*3/uL Eosinophils # 0.10 (0.04-0.35) 10*3/uL Basophils # 0.02 (0.00-0.10) 10*3/uL Sodium 136 L (137-145) mmol/L Potassium 4.1 (3.5-5.1) mmol/L Chloride 96 L (98-107) mmol/L Carbon Dioxide 30 (22-30) mmol/L Anion Gap 10 mmol/L BUN 21 H (7-17) mg/dL Creatinine 0.90 (0.52-1.04) mg/dL Est GFR (CKD-EPI)AfAm 71 (>60 ml/min/1.73 sqM) Est GFR (CKD-EPI)NonAf 62 (>60 ml/min/1.73 sqM) Glucose 171 H (74-99) mg/dL POC Glucose (mg/dL) 181 H (70-110) mg/dL POC Glu Prospecting Driller ID Joe Nava Calcium 9.6 (8.4-10.2) mg/dL Total Bilirubin 0.9 (0.2-1.3) mg/dL AST 41 H (14-36) U/L ALT 26 (4-34) U/L Alkaline Phosphatase 94 (38-126) U/L Total Protein 7.4 (6.3-8.2) g/dL Albumin 4.3 (3.5-5.0) g/dL Urine Color Urine Appearance (Clear) Urine pH (5.0-8.0) Ur Specific [place] (1.001-1.035) Urine Protein (Negative) Urine Glucose (UA) (Negative) Urine Ketones (Negative) Urine Blood (Negative) Urine Nitrite (Negative) Urine Bilirubin (Negative) Urine Urobilinogen (<2.0) mg/dL Ur Leukocyte Esterase (Negative) Urine RBC (0-5) /hpf Urine WBC (0-5) /hpf Ur Squamous Epith Cells (0-4) /hpf Calcium Oxalate Crystal (None) /hpf Urine Bacteria (None) /hpf Urine Yeast (Budding) (None) /hpf 12/06/24 Range/Units 01:36 WBC (4.50-10.00) 10*3/uL RBC (4.10-5.20) 10*6/uL Hgb (12.0-15.0) g/dL Hct (37.2-46.3) % MCV (80.0-97.0) fL MCH (27.0-32.0) pg MCHC (32.0-37.0) g/dL Plt Count (140-440) 10*3/uL MPV (9.5-12.2) fL Immature Gran % (Auto) % Neutrophils % % Lymphocytes % % Monocytes % % Eosinophils % % Basophils % % Immature Gran # (0.00-0.04) 10*3/uL Neutrophils # (1.80-7.70) 10*3/uL Lymphocytes # (0.90-5.00) 10*3/uL Monocytes # (0.20-1.00) 10*3/uL Eosinophils # (0.04-0.35) 10*3/uL Basophils # (0.00-0.10) 10*3/uL Sodium (137-145) mmol/L Potassium (3.5-5.1) mmol/L Chloride (98-107) mmol/L Carbon Dioxide (22-30) mmol/L Anion Gap mmol/L BUN (7-17) mg/dL Creatinine (0.52-1.04) mg/dL Est GFR (CKD-EPI)AfAm (>60 ml/min/1.73 sqM) Est GFR (CKD-EPI)NonAf (>60 ml/min/1.73 sqM) Glucose (74-99) mg/dL POC Glucose (mg/dL) (70-110) mg/dL POC Glu Prospecting Driller ID Calcium (8.4-10.2) mg/dL Total Bilirubin (0.2-1.3) mg/dL AST (14-36) U/L ALT (4-34) U/L Alkaline Phosphatase (38-126) U/L Total Protein (6.3-8.2) g/dL Albumin (3.5-5.0) g/dL Urine Color Light Yellow Urine Appearance Clear (Clear) Urine pH 5.5 (5.0-8.0) Ur Specific [place] 1.029 (1.001-1.035) Urine Protein Negative (Negative) Urine Glucose (UA) 4+ H (Negative) Urine Ketones Negative (Negative) Urine Blood Negative (Negative) Urine Nitrite Negative (Negative) Urine Bilirubin Negative (Negative) Urine Urobilinogen <2.0 (<2.0) mg/dL Ur Leukocyte Esterase Large H (Negative) Urine RBC 8 H (0-5) /hpf Urine WBC 9 H (0-5) /hpf Ur Squamous Epith Cells 2 (0-4) /hpf Calcium Oxalate Crystal Rare H (None) /hpf Urine Bacteria Rare H (None) /hpf Urine Yeast (Budding) Rare H (None) /hpf Disposition Clinical Impression: Mechanical back pain Disposition: HOME SELF-CARE Condition: Stable Instructions (If sedation given, give patient instructions): Acute Low Back Pain (ED) Additional Instructions: Please follow-up with your doctor. Return to the emergency department for new or worsening symptoms or Is patient prescribed a controlled substance at d/c from ED?: No Referrals: Erich Berger DO [Primary Care Provider] - 1-2 days
[2024-12-06 00:39] LABS: Basophils # (A) 0.02 10*3/uL (0.00-0.10); Basophils % (A) 0.3 %; Eosinophils # (A) 0.10 10*3/uL (0.04-0.35); Eosinophils % (A) 1.4 %; HCT 42.3 % (37.2-46.3); HGB 14.0 g/dL (12.0-15.0); Lymphocytes # (A) 2.16 10*3/uL (0.90-5.00); Lymphocytes % (A) 29.7 %; MCH 30.4 pg (27.0-32.0); MCHC 33.1 g/dL (32.0-37.0); MCV 91.8 fL (80.0-97.0); Monocytes # (A) 0.61 10*3/uL (0.20-1.00); Monocytes % (A) 8.4 %; Neutrophils # (A) 4.34 10*3/uL (1.80-7.70); Neutrophils % (A) 59.6 %; Platelet Count 185 10*3/uL (140-440); RBC 4.61 10*6/uL (4.10-5.20); RDW 13.5 % (11.5-14.5); WBC 7.27 10*3/uL (4.50-10.00)
[2024-12-06 00:55] LABS: ALT 26 U/L (4-34); AST 41 U/L (14-36); African American GFR (CKD) 71 (>60 ml/min/1.73 sqM); Albumin 4.3 g/dL (3.5-5.0); Alkaline Phosphatase 94 U/L (38-126); Anion Gap 10 mmol/L; Blood Urea Nitrogen 21 mg/dL (7-17); Calcium 9.6 mg/dL (8.4-10.2); Carbon Dioxide 30 mmol/L (22-30); Chloride 96 mmol/L (98-107); Glucose 171 mg/dL (74-99); Non-African American GFR(CKD) 62 (>60 ml/min/1.73 sqM); Potassium 4.1 mmol/L (3.5-5.1); Sodium 136 mmol/L (137-145); Total Protein 7.4 g/dL (6.3-8.2)
--- NOTE | 2024-12-06 00:56 | XR ---
EXAM: XR Chest, 2 Views CLINICAL HISTORY: ITS.REASON XR Reason: rib pain TECHNIQUE: Frontal and lateral views of the chest. COMPARISON: No relevant prior studies available. FINDINGS: Lungs: Unremarkable. No consolidation. Pleural space: Small left pleural effusion. No pneumothorax. Heart: Unremarkable. No cardiomegaly. Mediastinum: Unremarkable. Bones/joints: Unremarkable. IMPRESSION: Small left pleural effusion.
[2024-12-06] MEDS: MORPHINE SULFATE 4 MG/ML SYRINGE IVP STA (01:01)
[2024-12-06] MEDS: LIDOCAINE 4% PATCH TOPICAL ONE (01:01)
--- NOTE | 2024-12-06 01:14 | CT ---
EXAM: CT Head Without Intravenous Contrast CLINICAL HISTORY: ITS.REASON CT Reason: headache TECHNIQUE: Axial computed tomography images of the head/brain without intravenous contrast. CTDI is 49.2 mGy and DLP is 1112.4 mGy-cm. This CT exam was performed using one or more of the following dose reduction techniques: automated exposure control, adjustment of the mA and/or kV according to patient size, and/or use of iterative reconstruction technique. COMPARISON: No relevant prior studies available. FINDINGS: No acute intracranial hemorrhage. No midline shift or mass effect. The territorial sandy-white matter differentiation is maintained throughout. Age-related cerebral volume loss. Periventricular and subcortical white matter hypoattenuation, consistent with chronic microangiopathy. The visualized orbits appear grossly unremarkable. The calvarium is intact. The visualized paranasal sinuses and mastoid air cells are grossly clear. IMPRESSION: No acute intracranial hemorrhage, midline shift, or mass effect.
[2024-12-06 01:26] VITALS: RESP 18; TEMP 97.8
[2024-12-06 02:17] LABS: Bacteria,Urine Rare /hpf; Bilirubin,Urine Negative (Negative); Blood,Urine Negative (Negative); Budding Yeast,Urine Rare /hpf; Calcium Oxalate Crystals,Urine Rare /hpf; Color,Urine Light Yellow; Glucose,Urine (UA) 4+ (Negative); Ketones,Urine Negative (Negative); Leukocyte Esterase,Urine Large (Negative); Nitrite,Urine Negative (Negative); PH, Urine 5.5 (5.0-8.0); Protein,Urine Negative (Negative); RBC,Urine 8 /hpf (0-5); Specific Gravity,Urine 1.029 (1.001-1.035); Squamous Epithelial Cell,Urine 2 /hpf (0-4); Urobilinogen,Urine <2.0 mg/dL (<2.0); WBC,Urine 9 /hpf (0-5)
[2024-12-06 02:49] VITALS: BP 143/79; PULSE 98
== END 2024-12-06 02:51 | disposition home or self-care (01) ==
LOC: EC 21:28
DX: M54.9 Dorsalgia, unspecified (principal); Z87.891 Personal history of nicotine dependence
CPT/HCPCS: 36415; 70450; 71046; 80053; 81001; 85025; 96374; 99284